=== PATIENT | male | born 1960 | race Caucasian/White ===

== ENCOUNTER 2021-08-03 17:56 | Inpatient (IN) | payer MEDICARE ==
--- NOTE | 2021-08-03 18:25 | ED ---
GI Bleed HPI - General Chief complaint: GI Bleed Stated complaint: GI Bleed Time Seen by Provider: 08/03/21 18:05 Source: patient, EMS Mode of arrival: EMS Limitations: no limitations - History of Present Illness Initial comments: 60-year-old male past medical history of heart failure, COPD, diabetes presents emergency department with reported bright red blood per rectum. Patient states that since 11 AM he has had 4 episodes of bright red blood. Denies previous history of GI bleeds. No peptic ulcer disease. Patient does not drink. States that he has been been taking Naprosyn twice daily for left shoulder pain. Denies alcohol use. No fevers or chills. Denies any abdominal pain. No rectal pain. Has had an endoscopy however it was greater than 10 years ago. No fevers or chills. No nausea or vomiting. Upon evaluation of the patient in his room he does have notable shortness of breath. Patient does not appear to be bothered by his work of breathing however he appears significantly in distress after moving around to complete the rectal exam. Patient states that he has a history of COPD and asthma. He also has a history of heart failure. He was recently placed on a new diuretic. He denies chest pain. No fevers, chills or cough. Denies any worsening lower extremity edema. Came to the hospital today for wound care evaluation and felt as if he was doing well ambulating without shortness of breath. No alleviating, precipitating or modifying factors - Related Data Home Medications Medication Instructions Recorded Confirmed Furosemide [Lasix] 40 mg PO BID 06/18/16 08/03/21 Sulfamethox-Tmp 800-160Mg [Bactrim 1 tab PO Q12HR 06/18/16 08/03/21 DS 800-160 mg] Acetaminophen Tab [Tylenol Tab] 1,000 mg PO Q6HR PRN 08/03/21 08/03/21 Albuterol Sulfate [Ventolin HFA] 1 - 2 puff INHALATION RT-Q6H PRN 08/03/21 08/03/21 Naproxen 500 mg PO BID PRN 08/03/21 08/03/21 Oxymetazoline HCl [Afrin 0.05%] 1 spray EA NOSTRIL DAILY PRN 08/03/21 08/03/21 metOLazone [Zaroxolyn] 5 mg PO DAILY 08/03/21 08/03/21 Allergies Allergy/AdvReac Type Severity Reaction Status Date / Time No Known Allergies Allergy Verified 08/03/21 18:29 Review of Systems ROS Statement: Those systems with pertinent positive or pertinent negative responses have been documented in the HPI. ROS Other: All systems not noted in ROS Statement are negative. Past Medical History Past Medical History: Heart Failure, COPD, Diabetes Mellitus History of Any Multi-Drug Resistant Organisms: MRSA Date of last positivie culture/infection: 05/23/16 MDRO Source:: Left Foot Past Surgical History: Hernia Repair, Orthopedic Surgery, Tonsillectomy Additional Past Surgical History / Comment(s): lt. 5th toe amp Past Psychological History: No Psychological Hx Reported Smoking Status: Current every day smoker Past Alcohol Use History: None Reported Past Drug Use History: None Reported General Exam Limitations: no limitations General appearance: alert, in no apparent distress Head exam: Present: atraumatic, normocephalic, normal inspection Eye exam: Present: normal appearance, PERRL, EOMI. Absent: scleral icterus, conjunctival injection, periorbital swelling ENT exam: Present: normal exam, mucous membranes moist Respiratory exam: Present: respiratory distress, wheezes, accessory muscle use, decreased breath sounds Cardiovascular Exam: Present: normal rhythm, tachycardia GI/Abdominal exam: Present: soft, normal bowel sounds. Absent: distended, tenderness, guarding, rebound, rigid Rectal exam: Present: bloody stool. Absent: hemorrhoids, mass, tenderness, prostate tenderness Extremities exam: Present: other (b/l le erythema, brawny edema with chronic venous stasis) Neurological exam: Present: alert, oriented X3, CN II-XII intact Psychiatric exam: Present: normal affect, normal mood Course Vital Signs 08/03/21 08/03/21 08/03/21 18:03 19:06 19:30 Temperature 98.2 F Pulse Rate 114 H 110 H 112 H Respiratory 19 18 Rate Blood Pressure 107/77 112/80 O2 Sat by Pulse 98 100 Oximetry 08/03/21 08/03/21 08/04/21 19:39 21:15 01:00 Temperature Pulse Rate 114 H 112 H 98 Respiratory 18 18 Rate Blood Pressure 96/72 114/74 O2 Sat by Pulse 99 100 Oximetry 08/04/21 08/04/21 08/04/21 02:47 07:43 07:59 Temperature Pulse Rate 96 100 98 Respiratory 18 Rate Blood Pressure 114/77 O2 Sat by Pulse 100 Oximetry 08/04/21 08/04/21 08/04/21 10:24 11:39 11:49 Temperature 99.0 F Pulse Rate 96 86 92 Respiratory 18 Rate Blood Pressure 136/86 O2 Sat by Pulse 96 Oximetry Medical Decision Making - Medical Decision Making Upon arrival patient was placed into room 1. Rectal exam is performed and demonstrates small streaks of bright red blood. Patient hemodynamically stable. He is placed on 6 L of oxygen due to his increased respiratory status. Laboratory studies were conducted. Hemoglobin is 14.5. Lactic acid 2.4. Sodium 129. Creatinine 1.2. Occult is positive. Chest x-ray does demonstrate mild pneumonia right lower lobe and left upper lobe. Blood cultures obtained. Patient given a dose of Levaquin and Vanco. Patient also given 80 mg Protonix. Recommended admission in order to trend his troponins. Spoke with Dr. Gonzalez who refused to consult on the patient. He states "I don't do GI bleeds". Because of this I did call and speak with Dr. Molina who agreed to consult on the patient. He will be admitted to medicine. She would like any DVT prophylaxis held. Repeat CBC ordered for midnight. DuoNeb treatments are ordered for every 4 hours. Patient remained in hemodynamically stable condition awaiting a bed on the floor - Lab Data Result diagrams: 08/04/21 13:05 08/04/21 02:52 Lab Results 08/03/21 08/03/21 08/03/21 Range/Units 19:08 19:08 19:08 WBC 12.6 H (3.8-10.6) k/uL RBC 4.65 (4.30-5.90) m/uL Hgb 14.5 (13.0-17.5) gm/dL Hct 43.9 (39.0-53.0) % MCV 94.3 (80.0-100.0) fL MCH 31.3 (25.0-35.0) pg MCHC 33.1 (31.0-37.0) g/dL RDW 14.2 (11.5-15.5) % Plt Count 459 H (150-450) k/uL MPV 7.5 Neutrophils % 86 % Lymphocytes % 8 % Monocytes % 4 % Eosinophils % 0 % Basophils % 0 % Neutrophils # 10.8 H (1.3-7.7) k/uL Lymphocytes # 1.0 (1.0-4.8) k/uL Monocytes # 0.5 (0-1.0) k/uL Eosinophils # 0.0 (0-0.7) k/uL Basophils # 0.1 (0-0.2) k/uL PT 10.7 (9.0-12.0) sec INR 1.0 (<1.2) APTT 25.7 (22.0-30.0) sec Sodium (137-145) mmol/L Potassium (3.5-5.1) mmol/L Chloride (98-107) mmol/L Carbon Dioxide (22-30) mmol/L Anion Gap mmol/L BUN (9-20) mg/dL Creatinine (0.66-1.25) mg/dL Est GFR (CKD-EPI)AfAm (>60 ml/min/1.73 sqM) Est GFR (CKD-EPI)NonAf (>60 ml/min/1.73 sqM) Glucose (74-99) mg/dL Lactic Ac Sepsis Rflx Plasma Lactic Acid Chris (0.7-2.0) mmol/L Calcium (8.4-10.2) mg/dL Magnesium (1.6-2.3) mg/dL Total Bilirubin (0.2-1.3) mg/dL AST (17-59) U/L ALT (4-49) U/L Alkaline Phosphatase (38-126) U/L Troponin I (0.000-0.034) ng/mL NT-Pro-B Natriuret Pep pg/mL Total Protein (6.3-8.2) g/dL Albumin (3.5-5.0) g/dL Lipase (23-300) U/L Stool Occult Blood Positive (Negative) 08/03/21 08/03/21 08/03/21 Range/Units 19:08 19:08 19:08 WBC (3.8-10.6) k/uL RBC (4.30-5.90) m/uL Hgb (13.0-17.5) gm/dL Hct (39.0-53.0) % MCV (80.0-100.0) fL MCH (25.0-35.0) pg MCHC (31.0-37.0) g/dL RDW (11.5-15.5) % Plt Count (150-450) k/uL MPV Neutrophils % % Lymphocytes % % Monocytes % % Eosinophils % % Basophils % % Neutrophils # (1.3-7.7) k/uL Lymphocytes # (1.0-4.8) k/uL Monocytes # (0-1.0) k/uL Eosinophils # (0-0.7) k/uL Basophils # (0-0.2) k/uL PT (9.0-12.0) sec INR (<1.2) APTT (22.0-30.0) sec Sodium 129 L (137-145) mmol/L Potassium 4.1 (3.5-5.1) mmol/L Chloride 87 L (98-107) mmol/L Carbon Dioxide 33 H (22-30) mmol/L Anion Gap 9 mmol/L BUN 30 H (9-20) mg/dL Creatinine 1.24 (0.66-1.25) mg/dL Est GFR (CKD-EPI)AfAm 72 (>60 ml/min/1.73 sqM) Est GFR (CKD-EPI)NonAf 62 (>60 ml/min/1.73 sqM) Glucose 262 H (74-99) mg/dL Lactic Ac Sepsis Rflx Plasma Lactic Acid Chris 2.4 H* (0.7-2.0) mmol/L Calcium 8.3 L (8.4-10.2) mg/dL Magnesium 1.4 L (1.6-2.3) mg/dL Total Bilirubin 0.7 (0.2-1.3) mg/dL AST 23 (17-59) U/L ALT 17 (4-49) U/L Alkaline Phosphatase 92 (38-126) U/L Troponin I <0.012 (0.000-0.034) ng/mL NT-Pro-B Natriuret Pep pg/mL Total Protein 7.2 (6.3-8.2) g/dL Albumin 3.5 (3.5-5.0) g/dL Lipase 79 (23-300) U/L Stool Occult Blood (Negative) 08/03/21 08/03/21 Range/Units 19:08 19:36 WBC (3.8-10.6) k/uL RBC (4.30-5.90) m/uL Hgb (13.0-17.5) gm/dL Hct (39.0-53.0) % MCV (80.0-100.0) fL MCH (25.0-35.0) pg MCHC (31.0-37.0) g/dL RDW (11.5-15.5) % Plt Count (150-450) k/uL MPV Neutrophils % % Lymphocytes % % Monocytes % % Eosinophils % % Basophils % % Neutrophils # (1.3-7.7) k/uL Lymphocytes # (1.0-4.8) k/uL Monocytes # (0-1.0) k/uL Eosinophils # (0-0.7) k/uL Basophils # (0-0.2) k/uL PT (9.0-12.0) sec INR (<1.2) APTT (22.0-30.0) sec Sodium (137-145) mmol/L Potassium (3.5-5.1) mmol/L Chloride (98-107) mmol/L Carbon Dioxide (22-30) mmol/L Anion Gap mmol/L BUN (9-20) mg/dL Creatinine (0.66-1.25) mg/dL Est GFR (CKD-EPI)AfAm (>60 ml/min/1.73 sqM) Est GFR (CKD-EPI)NonAf (>60 ml/min/1.73 sqM) Glucose (74-99) mg/dL Lactic Ac Sepsis Rflx Y Plasma Lactic Acid Chris (0.7-2.0) mmol/L Calcium (8.4-10.2) mg/dL Magnesium (1.6-2.3) mg/dL Total Bilirubin (0.2-1.3) mg/dL AST (17-59) U/L ALT (4-49) U/L Alkaline Phosphatase (38-126) U/L Troponin I (0.000-0.034) ng/mL NT-Pro-B Natriuret Pep 43 pg/mL Total Protein (6.3-8.2) g/dL Albumin (3.5-5.0) g/dL Lipase (23-300) U/L Stool Occult Blood (Negative) - EKG Data EKG Comments: EKG demonstrates a sinus tachycardia with a ventricular rate of 112. NV interval 152. QRS 110. QTC of 469. No acute ST segment elevations or depressions concerning for ischemic changes Disposition Clinical Impression: Hematochezia, CAP (community acquired pneumonia) Disposition: ADMITTED IP TO THIS HOSP Condition: Stable Is patient prescribed a controlled substance at d/c from ED?: No Decision to Admit Reason: Admit from EC Decision Date: 08/03/21 Decision Time: 20:59
[2021-08-03] MEDS ORDERED: IPRATROPIUM-ALBUTEROL 3 ML NEB INHALATION STA (18:51)
[2021-08-03 19:20] LABS: Basophils # (A) 0.1 k/uL (0-0.2); Basophils % (A) 0 %; Eosinophils % (A) 0 %; HCT 43.9 % (39.0-53.0); HGB 14.5 gm/dL (13.0-17.5); Lymphocytes % (A) 8 %; MCH 31.3 pg (25.0-35.0); MCHC 33.1 g/dL (31.0-37.0); MCV 94.3 fL (80.0-100.0); Mean Platelet Volume 7.5; Monocytes # (A) 0.5 k/uL (0-1.0); Monocytes % (A) 4 %; Neutrophils # (A) 10.8 k/uL (1.3-7.7); Neutrophils % (A) 86 %; Platelet Count 459 k/uL (150-450); RBC 4.65 m/uL (4.30-5.90); RDW 14.2 % (11.5-15.5); WBC 12.6 k/uL (3.8-10.6)
[2021-08-03 19:28] LABS: Partial Thromboplastin Time 25.7 sec (22.0-30.0); Prothrombin Time 10.7 sec (9.0-12.0)
[2021-08-03 19:30] LABS: Albumin 3.5 g/dL (3.5-5.0); Calcium 8.3 mg/dL (8.4-10.2); Magnesium 1.4 mg/dL (1.6-2.3); Potassium 4.1 mmol/L (3.5-5.1); Total Bilirubin 0.7 mg/dL (0.2-1.3); Total Protein 7.2 g/dL (6.3-8.2)
--- NOTE | 2021-08-03 19:38 | XR ---
EXAMINATION TYPE: XR chest 2V DATE OF EXAM: 08/03/2021 COMPARISON: 10/05/2013 HISTORY: Short of breath TECHNIQUE: FINDINGS: There is a 3 cm patch of infiltrate in the right lower lobe. There is also some infiltrate in the lateral left upper lobe. Heart and mediastinum are normal. There are no hilar masses. There is no pleural effusion. Bony thorax is intact. There are chest leads. IMPRESSION: There is evidence for some mild pneumonia right lower lobe and left upper lobe that is a change compared to old exam. Normal heart. No heart failure.
[2021-08-03] MEDS ORDERED: LEVOFLOXACIN 750MG-D5W PMX 750 MG in DEXTROSE/WATER 1 150ML.BAG IVPB STA (20:15)
[2021-08-03] MEDS ORDERED: VANCOMYCIN IV PER PHARMACY 1 EACH MISC MISCELLANE PRN (20:16)
[2021-08-03] MEDS ORDERED: VANCOMYCIN 2,000 MG in SODIUM CHLORIDE 0.9% 500 ML 500 ML IVPB STA (20:21)
[2021-08-03] MEDS ORDERED: NALOXONE 0.4 MG/ML 1 ML VIAL IV PRN (20:59)
[2021-08-03] MEDS: MAGNESIUM SULFATE-D5W PMX 1 GM in DEXTROSE/WATER 1 100ML.BAG IVPB SCH ×2 (21:41→23:43)
[2021-08-04] MEDS ORDERED: IPRATROPIUM-ALBUTEROL 3 ML NEB INHALATION SCH
[2021-08-04] MEDS ORDERED: PANTOPRAZOLE 40 MG/10 ML VIAL IVP ONE (00:09)
[2021-08-04] MEDS: SODIUM CHLORIDE 0.9% 1,000 ML IV SCH ×2 (02:42→15:07)
[2021-08-04 03:02] LABS: HCT 38.6 % (39.0-53.0); HGB 12.8 gm/dL (13.0-17.5); MCH 31.4 pg (25.0-35.0); MCHC 33.1 g/dL (31.0-37.0); Mean Platelet Volume 7.5; Platelet Count 383 k/uL (150-450); RBC 4.06 m/uL (4.30-5.90); RDW 14.2 % (11.5-15.5); WBC 10.9 k/uL (3.8-10.6)
[2021-08-04 03:33] LABS: Basophils # (A) 0.1 k/uL (0-0.2); Basophils % (A) 1 %; Eosinophils % (A) 0 %; HCT 41.1 % (39.0-53.0); HGB 13.5 gm/dL (13.0-17.5); Lymphocytes # (A) 1.7 k/uL (1.0-4.8); Lymphocytes % (A) 16 %; MCHC 32.7 g/dL (31.0-37.0); MCV 94.8 fL (80.0-100.0); Mean Platelet Volume 7.4; Monocytes # (A) 0.5 k/uL (0-1.0); Monocytes % (A) 5 %; Neutrophils # (A) 8.3 k/uL (1.3-7.7); Neutrophils % (A) 76 %; Platelet Count 411 k/uL (150-450); RBC 4.34 m/uL (4.30-5.90); RDW 14.3 % (11.5-15.5); WBC 10.9 k/uL (3.8-10.6)
[2021-08-04 03:55] LABS: Calcium 8.4 mg/dL (8.4-10.2); Potassium 4.5 mmol/L (3.5-5.1)
[2021-08-04] MEDS: IPRATROPIUM-ALBUTEROL 3 ML NEB INHALATION PRN ×2 (07:43→11:39)
[2021-08-04] MEDS: PANTOPRAZOLE 40 MG/10 ML VIAL IVP SCH ×2 (08:48→22:01)
[2021-08-04] MEDS ORDERED: VANCOMYCIN 2,000 MG in SODIUM CHLORIDE 0.9% 500 ML 500 ML IVPB SCH (11:00)
[2021-08-04 13:29] LABS: HCT 35.7 % (39.0-53.0); MCH 31.9 pg (25.0-35.0); MCHC 33.5 g/dL (31.0-37.0); MCV 95.3 fL (80.0-100.0); Mean Platelet Volume 7.2; Platelet Count 357 k/uL (150-450); RBC 3.75 m/uL (4.30-5.90); RDW 14.3 % (11.5-15.5); WBC 8.5 k/uL (3.8-10.6)
--- NOTE | 2021-08-04 14:34 | P.CNPUL ---
History of Present Illness Consult date: 08/04/21 Requesting physician: Jojo Sanchez Reason for consult: dyspnea, abnormal CXR/CT Chief complaint: Rectal bleeding, shortness of breath History of present illness: This is a 60-year-old male patient who follows with Dr. Boston as his primary care provider. He has history of diabetes mellitus, diastolic congestive heart failure, chronic obstructive pulmonary disease, chronic and ongoing tobacco dependence. He presented to the emergency room last evening with reports of bright red blood per rectum. He had approximate 4 episode yesterday. No previous history of GI bleed. Denies excessive alcohol use. His been taking Naprosyn twice daily for left shoulder pain. Chest x-ray revealed some mild infiltrates in the right lower lobe and left upper lobe. We're consulted for the same. He is seen in the emergency room. Currently sitting up on the stretcher. Awake and alert in no acute distress. He is requiring 5 L high flow nasal cannula to maintain O2 saturations in the 90s. He does have home oxygen. He has a nebulizer with albuterol treatments. He had not been seen by pulmon ologist in the past. He has been smoking for approximately 42 years. White count 8.5. Hemoglobin 12.0. Sodium 129. Potassium 4.5. Bicarb 35. Creatinine 1.15. Initial lactic 2.9. Currently 1.5. ProBNP 43. Stool for occult blood positive. He's been initiated on vancomycin, DuoNeb inhalations, Protonix. 0.9 normal saline at 75 ML's per hour. Review of Systems REVIEW OF SYSTEMS: CONSTITUTIONAL: Denies any recent significant weight loss or weight gain. EYES: Denies change in vision. EARS, NOSE, MOUTH, THROAT: Denies headaches, denies sore throat. CARDIOVASCULAR: Denies chest pain, palpitations or syncopal episodes. RESPIRATORY: Positive for shortness of breath, cough, congestion no hemoptysis. GASTROINTESTINAL: Positive for bright red blood per rectum GENITOURINARY: Denies hematuria, denies infections. MUSKULOSKELETAL: Denies pain, denies swelling. INTEGUMENTARY: Denies rash, denies eczema. NEUROLOGICAL: Denies recent memory loss, no recent seizure activity. PSYCHIATRIC: Denies anxiety, denies depression. HEMATOLOGIC/LYMPHATIC: Denies anemia, denies enlarged lymph nodes. Past Medical History Past Medical History: Heart Failure, COPD, Diabetes Mellitus History of Any Multi-Drug Resistant Organisms: MRSA Date of last positivie culture/infection: 05/23/16 MDRO Source:: Left Foot Past Surgical History: Hernia Repair, Orthopedic Surgery, Tonsillectomy Additional Past Surgical History / Comment(s): lt. 5th toe amp Past Psychological History: No Psychological Hx Reported Smoking Status: Current every day smoker Past Alcohol Use History: None Reported Past Drug Use History: None Reported Medications and Allergies Home Medications Medication Instructions Recorded Confirmed Type Furosemide [Lasix] 40 mg PO BID 06/18/16 08/03/21 History Sulfamethox-Tmp 800-160Mg [Bactrim 1 tab PO Q12HR 06/18/16 08/03/21 History DS 800-160 mg] Acetaminophen Tab [Tylenol Tab] 1,000 mg PO Q6HR PRN 08/03/21 08/03/21 History Albuterol Sulfate [Ventolin HFA] 1 - 2 puff INHALATION RT-Q6H PRN 08/03/21 08/03/21 History Naproxen 500 mg PO BID PRN 08/03/21 08/03/21 History Oxymetazoline HCl [Afrin 0.05%] 1 spray EA NOSTRIL DAILY PRN 08/03/21 08/03/21 History metOLazone [Zaroxolyn] 5 mg PO DAILY 08/03/21 08/03/21 History Allergies Allergy/AdvReac Type Severity Reaction Status Date / Time No Known Allergies Allergy Verified 08/03/21 18:29 Physical Exam Vitals: Vital Signs Temp Pulse Resp BP Pulse Ox 08/04/21 11:49 92 08/04/21 11:39 86 08/04/21 10:24 99.0 F 96 18 136/86 96 08/04/21 07:59 98 08/04/21 07:43 100 08/04/21 02:47 96 18 114/77 100 08/04/21 01:00 98 18 114/74 100 08/03/21 21:15 112 H 18 96/72 99 08/03/21 19:39 114 H 08/03/21 19:30 112 H 08/03/21 19:06 110 H 18 112/80 100 08/03/21 18:03 98.2 F 114 H 19 107/77 98 Intake and Output 0908/04/21 08/04/21 22:59 06:59 14:59 Output Total 150 Balance -150 Output: Stool 150 Other: # Bowel Movements 1 Weight 145.15 kg GENERAL EXAM: Alert, pleasant 60-year-old gentleman, on 5 L nasal cannula, fairly comfortable in no apparent distress. HEAD: Normocephalic. EYES: Normal reaction of pupils, equal size. NOSE: Clear with pink turbinates. THROAT: No erythema or exudates. NECK: No masses, no JVD. CHEST: No chest wall deformity. LUNGS: Equal air entry with scattered rhonchi, end expiratory wheeze, diminished. CVS: S1 and S2 normal with no audible murmur, regular rhythm. ABDOMEN: No hepatosplenomegaly, normal bowel sounds, no guarding or rigidity. SPINE: No scoliosis or deformity SKIN: No rashes CENTRAL NERVOUS SYSTEM: No focal deficits, tone is normal in all 4 extremities. EXTREMITIES: There is no peripheral edema. No clubbing, no cyanosis. Peripheral pulses are intact. Results - Laboratory Findings CBC and BMP: 08/04/21 13:05 08/04/21 02:52 PT/INR, D-dimer PT 10.7 sec (9.0-12.0) 08/03/21 19:08 INR 1.0 (<1.2) 08/03/21 19:08 Abnormal lab findings: Abnormal Labs 08/03/21 08/03/21 08/03/21 19:08 19:08 19:08 WBC 12.6 H RBC Hgb Hct Plt Count 459 H Neutrophils # 10.8 H Sodium 129 L Chloride 87 L Carbon Dioxide 33 H BUN 30 H Glucose 262 H Plasma Lactic Acid Chris 2.4 H* Calcium 8.3 L Magnesium 1.4 L 08/03/21 08/04/21 08/04/21 22:45 02:46 02:52 WBC 10.9 H RBC 4.06 L Hgb 12.8 L Hct 38.6 L Plt Count Neutrophils # Sodium 129 L Chloride 88 L Carbon Dioxide 35 H BUN 32 H Glucose 194 H Plasma Lactic Acid Chris 2.9 H* Calcium Magnesium 08/04/21 08/04/21 02:52 13:05 WBC 10.9 H RBC 3.75 L Hgb 12.0 L Hct 35.7 L Plt Count Neutrophils # 8.3 H Sodium Chloride Carbon Dioxide BUN Glucose Plasma Lactic Acid Chris Calcium Magnesium - Diagnostic Findings Chest x-ray: image reviewed Assessment and Plan Assessment: 1 Acute lower GI bleed with bright red blood per rectum 2 Acute hypoxemic respiratory failure secondary to an acute community-acquired pneumonia 3 Acute exacerbation of chronic obstructive pulmonary disease secondary to above 4 Chronic and ongoing tobacco dependence of greater than 40 years 5 History of diastolic congestive heart failure, maintained on Lasix and Zaroxolyn in the outpatient setting 6 Chronic left shoulder pain taking Naprosyn twice daily 7 Diabetes mellitus Plan: The patient was seen and evaluated by Dr. Gary Chest x-ray and labs reviewed Discontinue vancomycin Initiate ceftriaxone and azithromycin Initiate DuoNeb inhalations, Pulmicort and Perforomist inhalations, IV Solu- Medrol Educated regarding the importance of complete smoking cessation Continue to need to monitor hemoglobin and rectal bleeding Remains on IV Protonix Titrate the FiO2 as tolerated We will continue to follow and make further recommendations based on his clinical status I, the cosigning physician, performed a history & physical examination of the patient. Lungs sounds with bilateral scattered rhonchi, end expiratory wheeze, diminished. Maintaining good O2 saturations in the 90s on 5 L/m per nasal cannula. I discussed the assessment and plan of care with my nurse practitioner, Zulema Dawn. I attest to the above infiltration as dictated by her. Time with Patient: Greater than 30
[2021-08-04] MEDS: AZITHROMYCIN 500 MG TAB PO SCH (15:07)
[2021-08-04] MEDS: IPRATROPIUM-ALBUTEROL 3 ML NEB INHALATION SCH ×2 (15:17→19:21)
[2021-08-04] MEDS ORDERED: IOPAMIDOL CONTRAST (ORAL USE) VIAL PO PRN (15:40)
--- NOTE | 2021-08-04 15:46 | P.GSCN ---
History of Present Illness Consult date: 08/04/21 History of present illness: CHIEF COMPLAINT: Hematochezia HISTORY OF PRESENT ILLNESS: The patient is a 60 year old male is admitted to the emergency room with concern for gastrointestinal bleeding. Reports blood from his rectum. Additional workup from ER included chest x-ray which demonstrated pneumonia. Patient's hemoglobin has been within normal limits. Due to patient concern for GI bleed including presence of occult stool positive blood, general surgery is consulted for further assessment. Patient has not had prior colonoscopy in over 10 years. Family is at bedside and confirms his colonoscopy was without polyps. He also reports mireya-umbilical pain and hernia precipitating his bloody bowel movements. He reports at least 4 toilet bowl full of blood. He denies any prior episodes. PAST MEDICAL HISTORY: See list and reviewed PAST SURGICAL HISTORY: See list and reviewed MEDICATIONS: See list and reviewed ALLERGIES: See list and reviewed SOCIAL HISTORY: See list and reviewed FAMILY HISTORY: See list and reviewed REVIEW OF ORGAN SYSTEMS: CONSTITUTIONAL: No fevers or chills. Has morbid obesity, BMI 41.1. EYES: Denies any trouble with vision. No glasses. HEENT: No difficulties with hearing. No nosebleeds. No difficulty swallowing. RESPIRATORY: Current pneumonia. Has troubles with breathing or dyspnea on exertion. Has chronic obstructive pulmonary disease. Chronic tobacco abuse. CARDIOVASCULAR: Has congestive heart failure on Zaroxolyn. GASTROINTESTINAL: Denies fatty food intolerance. Denies change in bowel habits and gas bloat. GENITOURINARY: Denies any blood in urine or increased urinary frequency. NEUROLOGICAL: Denies any numbness or tingling along the distal extremities. No seizure disorders or headaches. MUSCULOSKELETAL: Has back pain, stiffness or joint arthritis. SKIN: No current skin cancer. No rash. PSYCHIATRIC: Denies current depression or suicidal thoughts. ENDOCRINE: Denies current thyroid disorders. Has diabetes type 2. HEME/LYMPHATIC: Denies any lumps and bumps around the neck. No recent deep venous thrombosis. ALLERGY/IMMUNOLOGY: No immunoglobulin therapy. No immune deficiencies. BREAST: Denies current breast lumps, pain or nipple discharge. PHYSICAL EXAM: VITALS: Reviewed CONSTITUTIONAL: Well developed and in no acute distress. EYES: Conjuctivae without sclera icterus. Extraocular movements grossly intact. HEAD, EARS, NOSE, THROAT: Moist buccal mucosa. Head is atraumatic, normocephalic. Hears conversational speech. No nasal drainage. NECK: Supple. No JV distention. No thyroidomegaly. Thick neck. RESPIRATORY: Non-labored respirations and equal bilateral excursions. No gross wheezes. CARDIOVASCULAR: Regular rate and rhythm. Extremities without moderate edema. Palpable 2+ radial pulses. ABDOMEN: Obese, no peritonitis. Umbilical hernia with thin skin, over 3 cm. LYMPH: No neck lymphadenopathy. MUSCULOSKELETAL: Nail and fingers with good capillary refill. SKIN: Warm and well perfused with good skin turgor. NEUROLOGIC: Cranial nerves II through XII grossly intact. Sensation upper and extremities intact. No focal or lateralizing signs. PSYCH: Appropriate affect. Alert and oriented to person, place and time. Displays appropriate insight. CLINCAL LABS: Reviewed. WBC down 12.6-10.6. Hemoglobin down 14.5-13.5. Sodium low 129. RADIOLOGY: Report reviewed a chest x-ray demonstrating pneumonia. EKG: Abnormal with right bundle dalia block and septal infarct ASSESSMENT: 1. Gastrointestinal bleeding 2. Congestive heart failure with pneumonia 3. Hyponatremia 4. Lactic acidosis on admission 5. Pneumonia 6. Umbilical hernia PLAN: 1. His clinical history including presenting events are suspicious for bleeding diverticulitis that presents in similar nature. Recommend CT of the abdomen and pelvis for diverticulitis/diverticulosis. 2. He did present with bleeding of large amount per his description and may benefit from upper lower endoscopies for acute gastrointestinal bleeding 3. He is elevated risk with congestive heart failure and volume overload from GI prep. Thank you for this kind consultation. Past Medical History Past Medical History: Heart Failure, COPD, Diabetes Mellitus History of Any Multi-Drug Resistant Organisms: MRSA Year Discovered:: 05/23/16 MDRO Source:: Left Foot Past Surgical History: Hernia Repair, Orthopedic Surgery, Tonsillectomy Additional Past Surgical History / Comment(s): lt. 5th toe amp Past Psychological History: No Psychological Hx Reported Smoking Status: Current every day smoker Past Alcohol Use History: None Reported Past Drug Use History: None Reported Medications and Allergies Home Medications Medication Instructions Recorded Confirmed Type Furosemide [Lasix] 40 mg PO BID 06/18/16 08/03/21 History Sulfamethox-Tmp 800-160Mg [Bactrim 1 tab PO Q12HR 06/18/16 08/03/21 History DS 800-160 mg] Acetaminophen Tab [Tylenol Tab] 1,000 mg PO Q6HR PRN 08/03/21 08/03/21 History Albuterol Sulfate [Ventolin HFA] 1 - 2 puff INHALATION RT-Q6H PRN 08/03/2102/18 History Naproxen 500 mg PO BID PRN 08/03/21 08/03/21 History Oxymetazoline HCl [Afrin 0.05%] 1 spray EA NOSTRIL DAILY PRN 08/03/21 08/03/21 History metOLazone [Zaroxolyn] 5 mg PO DAILY 08/03/21 08/03/21 History Allergies Allergy/AdvReac Type Severity Reaction Status Date / Time No Known Allergies Allergy Verified 08/03/21 18:29 Surgical - Exam Vital Signs Temp Pulse Resp BP Pulse Ox 98.2 F 114 H 19 107/77 98 08/03/21 18:03 08/03/21 18:03 08/03/21 18:03 08/03/21 18:03 08/03/21 18:03 Results - Labs 08/04/21 13:05 08/04/21 02:52 Abnormal Lab Results - Last 24 Hours (Table) 08/03/21 08/03/21 08/03/21 Range/Units 19:08 19:08 19:08 WBC 12.6 H (3.8-10.6) k/uL RBC (4.30-5.90) m/uL Hgb (13.0-17.5) gm/dL Hct (39.0-53.0) % Plt Count 459 H (150-450) k/uL Neutrophils # 10.8 H (1.3-7.7) k/uL Sodium 129 L (137-145) mmol/L Chloride 87 L (98-107) mmol/L Carbon Dioxide 33 H (22-30) mmol/L BUN 30 H (9-20) mg/dL Glucose 262 H (74-99) mg/dL Plasma Lactic Acid Chris 2.4 H* (0.7-2.0) mmol/L Calcium 8.3 L (8.4-10.2) mg/dL Magnesium 1.4 L (1.6-2.3) mg/dL 08/03/21 08/04/21 08/04/21 Range/Units 22:45 02:46 02:52 WBC 10.9 H (3.8-10.6) k/uL RBC 4.06 L (4.30-5.90) m/uL Hgb 12.8 L (13.0-17.5) gm/dL Hct 38.6 L (39.0-53.0) % Plt Count (150-450) k/uL Neutrophils # (1.3-7.7) k/uL Sodium 129 L (137-145) mmol/L Chloride 88 L (98-107) mmol/L Carbon Dioxide 35 H (22-30) mmol/L BUN 32 H (9-20) mg/dL Glucose 194 H (74-99) mg/dL Plasma Lactic Acid Chris 2.9 H* (0.7-2.0) mmol/L Calcium (8.4-10.2) mg/dL Magnesium (1.6-2.3) mg/dL 08/04/21 Range/Units 02:52 WBC 10.9 H (3.8-10.6) k/uL RBC (4.30-5.90) m/uL Hgb (13.0-17.5) gm/dL Hct (39.0-53.0) % Plt Count (150-450) k/uL Neutrophils # 8.3 H (1.3-7.7) k/uL Sodium (137-145) mmol/L Chloride (98-107) mmol/L Carbon Dioxide (22-30) mmol/L BUN (9-20) mg/dL Glucose (74-99) mg/dL Plasma Lactic Acid Chris (0.7-2.0) mmol/L Calcium (8.4-10.2) mg/dL Magnesium (1.6-2.3) mg/dL Diabetes panel 08/03/21 08/04/21 Range/Units 19:08 02:52 Sodium 129 L 129 L (137-145) mmol/L Potassium 4.1 4.5 (3.5-5.1) mmol/L Chloride 87 L 88 L (98-107) mmol/L Carbon Dioxide 33 H 35 H (22-30) mmol/L BUN 30 H 32 H (9-20) mg/dL Creatinine 1.24 1.15 (0.66-1.25) mg/dL Glucose 262 H 194 H (74-99) mg/dL Calcium 8.3 L 8.4 (8.4-10.2) mg/dL AST 23 (17-59) U/L ALT 17 (4-49) U/L Alkaline Phosphatase 92 (38-126) U/L Total Protein 7.2 (6.3-8.2) g/dL Albumin 3.5 (3.5-5.0) g/dL Calcium panel 08/03/21 08/04/21 Range/Units 19:08 02:52 Calcium 8.3 L 8.4 (8.4-10.2) mg/dL Albumin 3.5 (3.5-5.0) g/dL Pituitary panel 08/03/21 08/04/21 Range/Units 19:08 02:52 Sodium 129 L 129 L (137-145) mmol/L Potassium 4.1 4.5 (3.5-5.1) mmol/L Chloride 87 L 88 L (98-107) mmol/L Carbon Dioxide 33 H 35 H (22-30) mmol/L BUN 30 H 32 H (9-20) mg/dL Creatinine 1.24 1.15 (0.66-1.25) mg/dL Glucose 262 H 194 H (74-99) mg/dL Calcium 8.3 L 8.4 (8.4-10.2) mg/dL Adrenal panel 08/03/21 08/04/21 Range/Units 19:08 02:52 Sodium 129 L 129 L (137-145) mmol/L Potassium 4.1 4.5 (3.5-5.1) mmol/L Chloride 87 L 88 L (98-107) mmol/L Carbon Dioxide 33 H 35 H (22-30) mmol/L BUN 30 H 32 H (9-20) mg/dL Creatinine 1.24 1.15 (0.66-1.25) mg/dL Glucose 262 H 194 H (74-99) mg/dL Calcium 8.3 L 8.4 (8.4-10.2) mg/dL Total Bilirubin 0.7 (0.2-1.3) mg/dL AST 23 (17-59) U/L ALT 17 (4-49) U/L Alkaline Phosphatase 92 (38-126) U/L Total Protein 7.2 (6.3-8.2) g/dL Albumin 3.5 (3.5-5.0) g/dL Assessment and Plan (1) CAP (community acquired pneumonia) Current Visit: Yes Status: Acute Code(s): J18.9 - PNEUMONIA, UNSPECIFIED ORGANISM SNOMED Code(s): 247540692 (2) Hematochezia Current Visit: Yes Status: Acute Code(s): K92.1 - MELENA SNOMED Code(s): 294763245 (3) Morbid obesity with BMI of 40.0-44.9, adult Current Visit: No Status: Acute Code(s): E66.01 - MORBID (SEVERE) OBESITY DUE TO EXCESS CALORIES SNOMED Code(s): 317459731 (4) Type 2 diabetes mellitus Current Visit: No Status: Acute Code(s): E11.9 - TYPE 2 DIABETES MELLITUS WITHOUT COMPLICATIONS SNOMED Code(s): 36509274 (5) Umbilical hernia Current Visit: Yes Status: Acute Code(s): K42.9 - UMBILICAL HERNIA WITHOUT OBSTRUCTION OR GANGRENE SNOMED Code(s): 632324705 (6) Diverticulosis Current Visit: Yes Status: Acute Code(s): K57.90 - DVRTCLOS OF INTEST, PART UNSP, W/O PERF OR ABSCESS W/O BLEED SNOMED Code(s): 663742389
--- NOTE | 2021-08-04 18:01 | P.HPIM ---
History of Present Illness H&P Date: 08/04/21 Chief Complaint: Rectal bleed 60-year-old male patient who follows with Dr. Boston as his primary care provider. He has history of diabetes mellitus, diastolic congestive heart failure, chronic obstructive pulmonary disease, chronic and ongoing tobacco dependence. He presented to the emergency room last evening with reports of bright red blood per rectum. He had approximate 4 episode yesterday. No previous history of GI bleed. Denies excessive alcohol use. His been taking Naprosyn twice daily for left shoulder pain. Chest x-ray revealed some mild infiltrates in the right lower lobe and left upper lobe. We're consulted for the same. He is seen in the emergency room. Currently sitting up on the stretcher. Awake and alert in no acute distress. He is requiring 5 L high flow nasal cannula to maintain O2 saturations in the 90s. He does have home oxygen. He has a nebulizer with albuterol treatments. He had not been seen by senior data architect in the past. He has been smoking for approximately 42 years. White count 8.5. Hemoglobin 12.0. Sodium 129. Potassium 4.5. Bicarb 35. Creatinine 1.15. Initial lactic 2.9. Currently 1.5. ProBNP 43. Stool for occult blood positive. Review of Systems REVIEW OF SYSTEMS: CONSTITUTIONAL: No fever, no malaise, no fatigue. HEENT: No recent visual problems or hearing problems. Denied any sore throat. CARDIOVASCULAR: No chest pain, orthopnea, PND, no palpitations, no syncope. PULMONARY: No shortness of breath, no cough, no hemoptysis. GASTROINTESTINAL: No diarrhea, no nausea, no vomiting, no abdominal pain. NEUROLOGICAL: No headaches, no weakness, no numbness. HEMATOLOGICAL: Denies any bleeding or petechiae. GENITOURINARY: Denies any burning micturition, frequency, or urgency. MUSCULOSKELETAL/RHEUMATOLOGICAL: Denies any joint pain, swelling, or any muscle pain. ENDOCRINE: Denies any polyuria or polydipsia. The rest of the 14-point review of systems is negative. Past Medical History Past Medical History: Heart Failure, COPD, Diabetes Mellitus History of Any Multi-Drug Resistant Organisms: MRSA Date of last positivie culture/infection: 05/23/16 MDRO Source:: Left Foot Past Surgical History: Hernia Repair, Orthopedic Surgery, Tonsillectomy Additional Past Surgical History / Comment(s): lt. 5th toe amp Past Psychological History: No Psychological Hx Reported Smoking Status: Current every day smoker Past Alcohol Use History: None Reported Past Drug Use History: None Reported Medications and Allergies Home Medications Medication Instructions Recorded Confirmed Type Furosemide [Lasix] 40 mg PO BID 06/18/16 08/03/21 History Sulfamethox-Tmp 800-160Mg [Bactrim 1 tab PO Q12HR 06/18/16 08/03/21 History DS 800-160 mg] Acetaminophen Tab [Tylenol Tab] 1,000 mg PO Q6HR PRN 08/03/21 08/03/21 History Albuterol Sulfate [Ventolin HFA] 1 - 2 puff INHALATION RT-Q6H PRN 08/03/21 08/03/21 History Naproxen 500 mg PO BID PRN 08/03/21 08/03/21 History Oxymetazoline HCl [Afrin 0.05%] 1 spray EA NOSTRIL DAILY PRN 08/03/21 08/03/21 History metOLazone [Zaroxolyn] 5 mg PO DAILY 08/03/21 08/03/21 History Allergies Allergy/AdvReac Type Severity Reaction Status Date / Time No Known Allergies Allergy Verified 08/03/21 18:29 Physical Exam Vitals: Vital Signs Temp Pulse Resp BP Pulse Ox 08/04/21 11:49 92 08/04/21 11:39 86 08/04/21 10:24 99.0 F 96 18 136/86 96 08/04/21 07:59 98 08/04/21 07:43 100 08/04/21 02:47 96 18 114/77 100 08/04/21 01:00 98 18 114/74 100 08/03/21 21:15 112 H 18 96/72 99 08/03/21 19:39 114 H 08/03/21 19:30 112 H 08/03/21 19:06 110 H 18 112/80 100 08/03/21 18:03 98.2 F 114 H 19 107/77 98 Intake and Output 08/03/21 08/04/21 08/04/21 22:59 06:59 14:59 Output Total 150 Balance -150 Output: Stool 150 Other: # Bowel Movements 1 Weight 145.15 kg GENERAL EXAM: Alert, pleasant 60-year-old gentleman, on 5 L nasal cannula, fairl y comfortable in no apparent distress. HEAD: Normocephalic. EYES: Normal reaction of pupils, equal size. NOSE: Clear with pink turbinates. THROAT: No erythema or exudates. NECK: No masses, no JVD. CHEST: No chest wall deformity. LUNGS: Equal air entry with scattered rhonchi, end expiratory wheeze, d iminished. CVS: S1 and S2 normal with no audible murmur, regular rhythm. ABDOMEN: No hepatosplenomegaly, normal bowel sounds, no guarding or rigidity. SPINE: No scoliosis or deformity SKIN: No rashes CENTRAL NERVOUS SYSTEM: No focal deficits, tone is normal in all 4 extremities. EXTREMITIES: There is no peripheral edema. No clubbing, no cyanosis. Peripheral pulses are intact. Results CBC & Chem 7: 08/04/21 13:05 08/04/21 02:52 Labs: Abnormal Lab Results - Last 24 Hours (Table) 08/03/21 08/03/21 08/03/21 Range/Units 19:08 19:08 19:08 WBC 12.6 H (3.8-10.6) k/uL RBC (4.30-5.90) m/uL Hgb (13.0-17.5) gm/dL Hct (39.0-53.0) % Plt Count 459 H (150-450) k/uL Neutrophils # 10.8 H (1.3-7.7) k/uL Sodium 129 L (137-145) mmol/L Chloride 87 L (98-107) mmol/L Carbon Dioxide 33 H (22-30) mmol/L BUN 30 H (9-20) mg/dL Glucose 262 H (74-99) mg/dL Plasma Lactic Acid Chris 2.4 H* (0.7-2.0) mmol/L Calcium 8.3 L (8.4-10.2) mg/dL Magnesium 1.4 L (1.6-2.3) mg/dL 08/03/21 08/04/21 08/04/21 Range/Units 22:45 02:46 02:52 WBC 10.9 H (3.8-10.6) k/uL RBC 4.06 L (4.30-5.90) m/uL Hgb 12.8 L (13.0-17.5) gm/dL Hct 38.6 L (39.0-53.0) % Plt Count (150-450) k/uL Neutrophils # (1.3-7.7) k/uL Sodium 129 L (137-145) mmol/L Chloride 88 L (98-107) mmol/L Carbon Dioxide 35 H (22-30) mmol/L BUN 32 H (9-20) mg/dL Glucose 194 H (74-99) mg/dL Plasma Lactic Acid Chris 2.9 H* (0.7-2.0) mmol/L Calcium (8.4-10.2) mg/dL Magnesium (1.6-2.3) mg/dL 08/04/21 08/04/21 Range/Units 02:52 13:05 WBC 10.9 H (3.8-10.6) k/uL RBC 3.75 L (4.30-5.90) m/uL Hgb 12.0 L (13.0-17.5) gm/dL Hct 35.7 L (39.0-53.0) % Plt Count (150-450) k/uL Neutrophils # 8.3 H (1.3-7.7) k/uL Sodium (137-145) mmol/L Chloride (98-107) mmol/L Carbon Dioxide (22-30) mmol/L BUN (9-20) mg/dL Glucose (74-99) mg/dL Plasma Lactic Acid Chris (0.7-2.0) mmol/L Calcium (8.4-10.2) mg/dL Magnesium (1.6-2.3) mg/dL Assessment and Plan Assessment: 1. Acute lower GI bleed; patient had one episode of bright red blood per rectum; did have to preceding bowel movements without any bleed - We will monitor H&H closely; Protonix 40 mg IV daily; we will plan to type crossmatch and transfuse if hemoglobin is less than 8.0 - Gen. surgery has been consulted; no GI service will be 2. Acute hypoxemic respiratory failure; multifactorial; secondary to CPAP, acut e exacerbation COPD 3. Community-acquired pneumonia - Patient received IV Levaquin and vancomycin in ED; pulmonary is consulted and have discontinued vancomycin and patient is initiated on ceftriaxone and azithromycin - We will monitor CBC, CMP and pro-calcitonin; blood cultures and sputum culture s obtained in ED 4. Acute exacerbation COPD; continue with DuoNeb nebulizer treatments along with Pulmicort and Perforomist inhalations; IV Solu-Medrol - Patient is on antibiotic therapy with Rocephin and ceftriaxone 5. Diastolic CHF; not in exacerbation; patient remains on diuretic therapy with Lasix and Zaroxolyn 6. Diabetes mellitus; monitor Accu-Cheks every before meals and at bedtime with insulin sliding scale 7. Osteoarthritis; chronic left shoulder pain; patient currently taking N aprosyn twice a day dose DVT prophylaxis; SCDs only due to GI bleed CODE STATUS; full code
--- NOTE | 2021-08-04 18:25 | CT ---
EXAMINATION TYPE: CT abdomen pelvis w con DATE OF EXAM: 08/04/2021 COMPARISON: None HISTORY: GI Bleed CT DLP: 2731.8 mGycm Automated exposure control for dose reduction was used. CONTRAST: Performed with IV Contrast, patient injected with 80 mL of Isovue 300. Images obtained from the diaphragm to the floor the pelvis with oral and IV contrast. Heart is normal. There is no pericardial effusion. Lung bases are clear. There is no pleural effusion . There is minimal subsegmental atelectasis right lung base. Liver spleen stomach pancreas gallbladde r appear intact. There are small calcified gallstones. Bile ducts are not dilated. There is no adrenal mass. Kidneys show satisfactory contrast opacification. There is no hydronephrosi s. Delayed images show very little contrast in the renal collecting systems. There is no retroperiton eal adenopathy. Ureters are not dilated. Bladder distends smoothly. There is no inguinal hernia. Ther e is fat containing umbilical hernia that measures 5.6 cm. There is no mesenteric edema. There is no ascites or free air. There is no sign of a bowel obstructio n. There is oral contrast material extending to the rectum. There is no sign of intestinal wall thick ening. There is very short appendix which is not dilated. There is atherosclerotic vascular calcifica tion. Lumbar vertebra have normal alignment. There is no compression fracture. Bony pelvis is intact. Hip j oints are intact. Sacroiliac joints are intact. There is 3.5 cm exostosis on the lateral right ilium. This could be osteochondroma. IMPRESSION: No evidence of renal stone or obstruction. Decreased contrast seen on the delayed images that could r elate to some degree of renal failure. No evidence of bowel obstruction. I do not see a cause for GI bleeding. Umbilical hernia. Cholelithiasis.
[2021-08-04] MEDS: BUDESONIDE 1 MG/2 ML NEBU INHALATION SCH (19:21)
[2021-08-04] MEDS: FORMOTEROL FUMARATE 20 MCG/2 ML NEBU INHALATION SCH (19:21)
[2021-08-05] MEDS: SODIUM CHLORIDE 0.9% 1,000 ML IV SCH ×3 (04:24→21:15)
[2021-08-05] MEDS: BUDESONIDE 1 MG/2 ML NEBU INHALATION SCH ×2 (08:34→19:38)
[2021-08-05] MEDS: IPRATROPIUM-ALBUTEROL 3 ML NEB INHALATION SCH ×4 (08:34→19:38)
[2021-08-05] MEDS: FORMOTEROL FUMARATE 20 MCG/2 ML NEBU INHALATION SCH ×2 (08:34→19:38)
[2021-08-05 08:59] LABS: Basophils # (A) 0.1 k/uL (0-0.2); Basophils % (A) 1 %; Eosinophils # (A) 0.1 k/uL (0-0.7); Eosinophils % (A) 1 %; HCT 35.7 % (39.0-53.0); HGB 11.7 gm/dL (13.0-17.5); Lymphocytes # (A) 1.5 k/uL (1.0-4.8); Lymphocytes % (A) 18 %; MCH 30.7 pg (25.0-35.0); MCHC 32.8 g/dL (31.0-37.0); MCV 93.6 fL (80.0-100.0); Mean Platelet Volume 7.4; Monocytes # (A) 0.5 k/uL (0-1.0); Monocytes % (A) 6 %; Neutrophils # (A) 6.1 k/uL (1.3-7.7); Neutrophils % (A) 72 %; Platelet Count 398 k/uL (150-450); RBC 3.81 m/uL (4.30-5.90); WBC 8.4 k/uL (3.8-10.6)
[2021-08-05 09:03] LABS: African American GFR (CKD) >90 (>60 ml/min/1.73 sqM); Anion Gap 5 mmol/L; Blood Urea Nitrogen 20 mg/dL (9-20); Calcium 8.8 mg/dL (8.4-10.2); Carbon Dioxide 38 mmol/L (22-30); Chloride 88 mmol/L (98-107); Glucose 136 mg/dL (74-99); Non-African American GFR(CKD) >90 (>60 ml/min/1.73 sqM); Potassium 3.9 mmol/L (3.5-5.1); Sodium 131 mmol/L (137-145)
[2021-08-05] MEDS: AZITHROMYCIN 500 MG TAB PO SCH (09:31)
[2021-08-05] MEDS: PANTOPRAZOLE 40 MG/10 ML VIAL IVP SCH ×2 (09:31→21:14)
[2021-08-05] MEDS: NICOTINE 14MG/24HR PATCH TRANSDERM SCH (09:31)
[2021-08-05] MEDS: predniSONE 20 MG TAB PO SCH (12:19)
--- NOTE | 2021-08-05 12:32 | P.PN ---
Subjective Progress Note Date: 08/05/21 Principal diagnosis: Shortness of breath. This is a 60-year-old male patient who follows with Dr. Boston as his primary care provider. He has history of diabetes mellitus, diastolic congestive heart failure, chronic obstructive pulmonary disease, chronic and ongoing tobacco dependence. He presented to the emergency room last evening with reports of bright red blood per rectum. He had approximate 4 episode yesterday. No previous history of GI bleed. Denies excessive alcohol use. His been taking Naprosyn twice daily for left shoulder pain. Chest x-ray revealed some mild infiltrates in the right lower lobe and left upper lobe. We're consulted for the same. He is seen in the emergency room. Currently sitting up on the stretcher. Awake and alert in no acute distress. He is requiring 5 L high flow nasal cannula to maintain O2 saturations in the 90s. He does have home oxygen. He has a nebulizer with albuterol treatments. He had not been seen by pulmonsonya roberson in the past. He has been smoking for approximately 42 years. White count 8.5. Hemoglobin 12.0. Sodium 129. Potassium 4.5. Bicarb 35. Creatinine 1.15. Initial lactic 2.9. Currently 1.5. ProBNP 43. Stool for occult blood positive. He's been initiated on vancomycin, DuoNeb inhalations, Protonix. 0.9 normal saline at 75 ML's per hour. Progress note dated 08/05/2021. 60-year-old male, seen in consultation. He has a history of diabetes mellitus, diastolic CHF, COPD, and chronic and ongoing tobacco dependence. He presented to the emergency room, with bright red bleeding per rectum. Also, the patient was complaining of being short of breath. His COPD, was likely active. Curr ently, he's feeling better. He does continue to smoke but states he is really trying seriously to quit. Laboratory data includes a white count 8.4, hemoglobin 11.7, hematocrit 35.7, and a platelet count of 390,000. Sodium 131, potassium 3.9, chlorides 88, CO2 38, anion gap is 5, BUN is 20, with creatinine 0.85. Lactate when last checked was 1.5. Chest x-ray showed pneumonia involving the right lower lobe and left upper lobe. Objective - Vital Signs Vital signs: Vital Signs Temp 97.9 F 08/05/21 08:00 Pulse 88 08/05/21 12:10 Resp 18 08/05/21 08:00 BP 130/73 08/05/21 08:00 Pulse Ox 99 08/05/21 08:00 Intake & Output 08/04/21 08/05/21 08/05/21 18:59 06:59 18:59 Intake Total 880 Balance 880 Weight 143 kg Intake: Oral 880 Other: Voiding Method Toilet # Voids 1 # Bowel Movements 1 - Exam No acute distress, oriented 3. Nasal cannula in place. HEENT examination is grossly unremarkable. Neck supple. Full range of motion. No adenopathy thyromegaly or neck vein distention. Cardiovascular examination reveals regular rhythm rate. S1-S2 normal. No S3 or S4. No discernible murmur noted. Heart sounds are distant. Heart rate 88 bpm. Lungs reveal bilateral coarse expiratory rhonchi and expiratory wheezes. Breath sounds equal bilaterally. There is mild prolongation. No crackles. Abdomen soft bowel sounds are heard. No masses or tenderness. Extremities are intact. No cyanosis clubbing or edema. Skin is without rash or lesion. Neurologic examination is brief but nonfocal. - Labs CBC & Chem 7: 08/05/21 07:47 08/05/21 07:47 Labs: Abnormal Lab Results - Last 24 Hours (Table) 08/04/21 08/05/21 08/05/21 Range/Units 13:05 07:47 07:47 RBC 3.75 L 3.81 L (4.30-5.90) m/uL Hgb 12.0 L 11.7 L (13.0-17.5) gm/dL Hct 35.7 L 35.7 L (39.0-53.0) % Sodium 131 L (137-145) mmol/L Chloride 88 L (98-107) mmol/L Carbon Dioxide 38 H (22-30) mmol/L Glucose 136 H (74-99) mg/dL Microbiology - Last 24 Hours (Table) 08/03/21 21:26 Blood Culture - Preliminary Blood No Growth after 24 hours 08/03/21 21:10 Blood Culture - Preliminary Blood No Growth after 24 hours Assessment and Plan Assessment: 1 Acute lower GI bleed with bright red blood per rectum. 2 Acute hypoxemic respiratory failure secondary to an acute community-acquired pneumonia, right lower lobe and left upper lobe. 3 Acute exacerbation of chronic obstructive pulmonary disease secondary to above. 4 Chronic and ongoing tobacco dependence of greater than 40 years. 5 History of diastolic congestive heart failure, maintained on Lasix and Zaroxolyn in the outpatient setting. 6 Chronic left shoulder pain. 7 Diabetes mellitus. Plan: Plan dated 08/05/2021. The patient remains on antibiotics in form of ceftriaxone and azithromycin. The patient is also receiving Pulmicort, formoterol, albuterol sulfate, and ipratropium bromide. The patient is taking prednisone 40 mg a day. His breathing is better today than it was yesterday. We will continue to follow. His GI bleed is being followed by the primary service, and surgery. Time with Patient: Less than 30
--- NOTE | 2021-08-05 13:17 | P.PN ---
Subjective Progress Note Date: 08/05/21 CHIEF COMPLAINT: Hematochezia HISTORY OF PRESENT ILLNESS: The patient is a 60 year old male is admitted to the emergency room with concern for gastrointestinal bleeding 2 days ago. This afternoon, he has blood in stools. No acute abdominal pain. REVIEW OF ORGAN SYSTEMS: Has shortness of breath. No active chest pain. Reports persistent blood in stools PHYSICAL EXAM: VITALS: Reviewed CONSTITUTIONAL: Well developed and in no acute distress. EYES: Conjuctivae without sclera icterus. Extraocular movements grossly intact. HEAD, EARS, NOSE, THROAT: Moist buccal mucosa. Head is atraumatic, normoc ephalic. Hears conversational speech. No nasal drainage. RESPIRATORY: Labored respirations and equal bilateral excursions. No gross wheezes. CARDIOVASCULAR: Regular rate and rhythm. ABDOMEN: Obese, no peritonitis. Umbilical hernia with thin skin, over 3 cm. MUSCULOSKELETAL: Nail and fingers with good capillary refill. SKIN: Warm and well perfused with good skin turgor. NEUROLOGIC: Cranial nerves II through XII grossly intact. Sensation upper and extremities intact. No focal or lateralizing signs. PSYCH: Appropriate affect. Alert and oriented to person, place and time. Displays appropriate insight. CLINCAL LABS: Reviewed. WBC down 12.6-10.6. Hemoglobin down 14.5-13.5 now 11.7 RADIOLOGY: CT of the abdomen and pelvis independently reviewed with incarcerated umbilical hernia containing fat. Features of descending diverticulosis without diverticuilitis. Gallstones found along the dependent portion of the gallbladder. This is my independent interpretation. ASSESSMENT: 1. Gastrointestinal bleeding 2. Congestive heart failure with pneumonia 3. Hyponatremia 4. Lactic acidosis on admission 5. Pneumonia 6. Umbilical hernia 7. Gallstones 8. Acute blood loss anemia PLAN: 1. He has new findings of acute blood loss anemia with continued GI bleed. Recommend upper and lower endoscopy. He is elevated risk with congestive heart failure. 2. Continue clear liquid diet and low volume prep 3. He has new gallstones diagnosis and reviewed with him as well Objective - Vital Signs Vital signs: Vital Signs Temp 97.9 F 08/05/21 08:00 Pulse 88 08/05/21 12:10 Resp 20 08/05/21 12:00 BP 143/75 08/05/21 12:00 Pulse Ox 96 08/05/21 12:00 Intake & Output 08/04/21 08/05/21 08/05/21 18:59 06:59 18:59 Intake Total 880 Balance 880 Weight 143 kg Intake: Oral 880 Other: Voiding Method Toilet # Voids 1 # Bowel Movements 1 - Labs CBC & Chem 7: 08/05/21 07:47 08/05/21 07:47 Labs: Abnormal Lab Results - Last 24 Hours (Table) 08/04/21 08/05/21 08/05/21 Range/Units 13:05 07:47 07:47 RBC 3.75 L 3.81 L (4.30-5.90) m/uL Hgb 12.0 L 11.7 L (13.0-17.5) gm/dL Hct 35.7 L 35.7 L (39.0-53.0) % Sodium 131 L (137-145) mmol/L Chloride 88 L (98-107) mmol/L Carbon Dioxide 38 H (22-30) mmol/L Glucose 136 H (74-99) mg/dL Microbiology - Last 24 Hours (Table) 08/03/21 21:26 Blood Culture - Preliminary Blood No Growth after 24 hours 08/03/21 21:10 Blood Culture - Preliminary Blood No Growth after 24 hours Assessment and Plan (1) CAP (community acquired pneumonia) Current Visit: Yes Status: Acute Code(s): J18.9 - PNEUMONIA, UNSPECIFIED ORGANISM SNOMED Code(s): 050368430 (2) Hematochezia Current Visit: Yes Status: Acute Code(s): K92.1 - MELENA SNOMED Code(s): 106089188 (3) Morbid obesity with BMI of 40.0-44.9, adult Current Visit: No Status: Acute Code(s): E66.01 - MORBID (SEVERE) OBESITY DUE TO EXCESS CALORIES SNOMED Code(s): 891896328 (4) Type 2 diabetes mellitus Current Visit: No Status: Acute Code(s): E11.9 - TYPE 2 DIABETES MELLITUS WITHOUT COMPLICATIONS SNOMED Code(s): 91876595 (5) Umbilical hernia Current Visit: Yes Status: Acute Code(s): K42.9 - UMBILICAL HERNIA WITHOUT OBSTRUCTION OR GANGRENE SNOMED Code(s): 574906357 (6) Diverticulosis Current Visit: Yes Status: Acute Code(s): K57.90 - DVRTCLOS OF INTEST, PART UNSP, W/O PERF OR ABSCESS W/O BLEED SNOMED Code(s): 577755360 (7) Acute blood loss anemia Current Visit: Yes Status: Acute Code(s): D62 - ACUTE POSTHEMORRHAGIC ANEMIA SNOMED Code(s): 989515334 (8) Gallstones Current Visit: Yes Status: Acute Code(s): K80.20 - CALCULUS OF GALLBLADDER W/O CHOLECYSTITIS W/O OBSTRUCTION SNOMED Code(s): 217966180
[2021-08-05] MEDS ORDERED: POLYETHYLENE GLYCOL LYTES SOLN 4,000 ML SOLN.RECON PO ONE (13:30)
--- NOTE | 2021-08-05 17:44 | P.PN ---
Subjective Progress Note Date: 08/05/21 60-year-old male patient who follows with Dr. Boston as his primary care provider. He has history of diabetes mellitus, diastolic congestive heart failure, chronic obstructive pulmonary disease, chronic and ongoing tobacco dependence. He presented to the emergency room last evening with reports of br ight red blood per rectum. He had approximate 4 episode yesterday. No previous history of GI bleed. Denies excessive alcohol use. His been taking Naprosyn twice daily for left shoulder pain. Chest x-ray revealed some mild infiltrates in the right lower lobe and left upper lobe. We're consulted for the same. He is seen in the emergency room. Currently sitting up on the stretcher. Awake and alert in no acute distress. He is requiring 5 L high flow nasal cannula to maintain O2 saturations in the 90s. He does have home oxygen. He has a nebulizer with albuterol treatments. He had not been seen by ip architect in the past. He has been smoking for approximately 42 years. White count 8.5. Hemoglobin 12.0. Sodium 129. Potassium 4.5. Bicarb 35. Creatinine 1.15. Initial lactic 2.9. Currently 1.5. ProBNP 43. Stool for occult blood positive. 08/05/2021 Patient is seen and evaluated in room with family members at bedside; report some improvement in breathing; has been evaluated by general surgery and is recommended colonoscopy Vital signs remained stable temperature 97.9, pulse 80, respiration 18 and blood pressure 130/73; lab review shows WBC 8.4, hemoglobin 11.7, platelet count of 390,000, sodium 131, potassium 3.9, BUN/creatinine of 20/0.85 with lactic acid levels of 1.5; chest x-ray reveals right lower lobe and left upper lobe pneumonia Pulmonary is following and recommending to continue with current IV antibiotic therapy in form of ceftriaxone and azithromycin; Pulmicort, formoterol, albuterol sulfate and prednisone has been added for acute exacerbation COPD Patient has been evaluated by general surgery and is recommended upper and lower endoscopy; given risk for CHF patient will receive low-volume prep; continue monitor CBC Objective - Vital Signs Vital signs: Vital Signs Temp 97.9 F 08/05/21 08:00 Pulse 88 08/05/21 08:58 Resp 18 08/05/21 08:00 BP 130/73 08/05/21 08:00 Pulse Ox 99 09/05/21 08:00 Intake & Output 08/04/21 08/05/21 08/05/21 18:59 06:59 18:59 Intake Total 880 Balance 880 Weight 143 kg Intake: Oral 880 Other: Voiding Method Toilet # Voids 1 # Bowel Movements 1 - Exam - Constitutional General appearance: Present: average body habitus, cooperative, no acute distress - EENT Eyes: Present: anicteric sclerae, EOMI, PERRLA, normal appearance ENT: Present: hearing grossly normal, normal oropharynx Ears: bilateral: normal - Neck Neck: Present: normal ROM. Absent: lymphadenopathy, rigidity, thyromegaly Carotids: negative: bruit present Thyroid: bilateral: normal size, negative: enlarged, nodule - Respiratory Respiratory: bilateral: CTA, negative: rales, rhonchi, wheezing - Cardiovascular Rhythm: regular Heart sounds: normal: S1, S2 Abnormal Heart Sounds: Absent: systolic murmur, diastolic murmur - Gastrointestinal General gastrointestinal: Present: normal bowel sounds, soft. Absent: distended, organomegaly, tenderness - Genitourinary Genitourinary Comment(s): deferred - Integumentary Integumentary: Present: normal turgor. Absent: jaundiced, rash, ulcer - Neurologic Neurologic: Present: CNII-XII intact. Absent: focal deficits - Musculoskeletal Musculoskeletal: Present: gait normal, strength equal bilaterally - Psychiatric Psychiatric: Present: A&O x's 3, appropriate affect, intact judgment & insight - Labs CBC & Chem 7: 08/05/21 07:47 08/05/21 07:47 Labs: Abnormal Lab Results - Last 24 Hours (Table) 08/04/21 08/05/21 08/05/21 Range/Units 13:05 07:47 07:47 RBC 3.75 L 3.81 L (4.30-5.90) m/uL Hgb 12.0 L 11.7 L (13.0-17.5) gm/dL Hct 35.7 L 35.7 L (39.0-53.0) % Sodium 131 L (137-145) mmol/L Chloride 88 L (98-107) mmol/L Carbon Dioxide 38 H (22-30) mmol/L Glucose 136 H (74-99) mg/dL Microbiology - Last 24 Hours (Table) 08/03/21 21:26 Blood Culture - Preliminary Blood No Growth after 24 hours 08/03/21 21:10 Blood Culture - Preliminary Blood No Growth after 24 hours Assessment and Plan Assessment: 1. Acute lower GI bleed; patient had one episode of bright red blood per rectum; did have to preceding bowel movements without any bleed - We will monitor H&H closely; Protonix 40 mg IV daily; we will plan to type crossmatch and transfuse if hemoglobin is less than 8.0 - Gen. surgery has been consulted; no GI service will be 2. Acute hypoxemic respiratory failure; multifactorial; secondary to CPAP, acute exacerbation COPD 3. Community-acquired pneumonia - Patient received IV Levaquin and vancomycin in ED; pulmonary is consulted and have discontinued vancomycin and patient is initiated on ceftriaxone and azithromycin - We will monitor CBC, CMP and pro-calcitonin; blood cultures and sputum cultures obtained in ED 4. Acute exacerbation COPD; continue with DuoNeb nebulizer treatments along with Pulmicort and Perforomist inhalations; IV Solu-Medrol - Patient is on antibiotic therapy with Rocephin and ceftriaxone 5. Diastolic CHF; not in exacerbation; patient remains on diuretic therapy with Lasix and Zaroxolyn 6. Diabetes mellitus; monitor Accu-Cheks every before meals and at bedtime with insulin sliding scale 7. Osteoarthritis; chronic left shoulder pain; patient currently taking Naprosyn twice a day dose DVT prophylaxis; SCDs only due to GI bleed CODE STATUS; full code
[2021-08-06 06:03] LABS: Glucose,Whole Blood 131 mg/dL (75-99)
[2021-08-06] MEDS: INSULIN ASPART (NovoLOG) 100 UNIT/ML VIAL SQ SCH ×4 (06:09→20:18)
[2021-08-06] MEDS: BUDESONIDE 1 MG/2 ML NEBU INHALATION SCH ×2 (08:07→19:47)
[2021-08-06] MEDS: FORMOTEROL FUMARATE 20 MCG/2 ML NEBU INHALATION SCH ×2 (08:08→19:47)
[2021-08-06] MEDS: IPRATROPIUM-ALBUTEROL 3 ML NEB INHALATION SCH ×4 (08:08→19:47)
[2021-08-06] MEDS: NICOTINE 14MG/24HR PATCH TRANSDERM SCH (08:16)
[2021-08-06] MEDS: PANTOPRAZOLE 40 MG/10 ML VIAL IVP SCH (08:16)
[2021-08-06 08:38] LABS: Basophils % (A) 1 %; Eosinophils % (A) 0 %; HCT 32.8 % (39.0-53.0); HGB 10.9 gm/dL (13.0-17.5); Lymphocytes # (A) 1.6 k/uL (1.0-4.8); Lymphocytes % (A) 23 %; MCHC 33.1 g/dL (31.0-37.0); MCV 93.6 fL (80.0-100.0); Mean Platelet Volume 7.3; Monocytes # (A) 0.5 k/uL (0-1.0); Monocytes % (A) 7 %; Neutrophils # (A) 4.6 k/uL (1.3-7.7); Neutrophils % (A) 66 %; Platelet Count 412 k/uL (150-450); RDW 14.3 % (11.5-15.5)
[2021-08-06 08:48] LABS: African American GFR (CKD) >90 (>60 ml/min/1.73 sqM); Anion Gap 4 mmol/L; Blood Urea Nitrogen 11 mg/dL (9-20); Calcium 8.8 mg/dL (8.4-10.2); Carbon Dioxide 39 mmol/L (22-30); Chloride 91 mmol/L (98-107); Glucose 121 mg/dL (74-99); Magnesium 1.9 mg/dL (1.6-2.3); Non-African American GFR(CKD) >90 (>60 ml/min/1.73 sqM); Potassium 3.4 mmol/L (3.5-5.1); Sodium 134 mmol/L (137-145)
--- NOTE | 2021-08-06 11:44 | XR ---
EXAMINATION TYPE: XR chest 1V portable DATE OF EXAM: 08/06/2021 COMPARISON: 08/03/2021 HISTORY: Shortness of breath TECHNIQUE: Frontal and lateral views of the chest are obtained. FINDINGS: Scattered senescent parenchymal changes noted. Hyperinflation compatible with COPD. Persistent left upper lobe density with mild strandy basilar density. Heart size is stable. Mediastinal structures are stable and grossly unremarkable. No evidence for hilar prominence. Degenerative changes dorsal spine. IMPRESSION: 1. Persistent left upper lobe density with mild strandy basilar density.
[2021-08-06] MEDS ORDERED: Potassium Replacement Protocol 1 EACH MISC MISCELLANE PRN (11:49)
[2021-08-06 12:11] LABS: Glucose,Whole Blood 124 mg/dL (75-99)
--- NOTE | 2021-08-06 13:00 | P.PN ---
Subjective Progress Note Date: 08/06/21 CHIEF COMPLAINT: Hematochezia HISTORY OF PRESENT ILLNESS: The patient is a 60 year old male is admitted to the emergency room with concern for gastrointestinal bleeding including acute exacerbation of chronic obstructive pulmonary disease. Patient reports no further bleeding last night. Denies abdominal pain. REVIEW OF ORGAN SYSTEMS: Has shortness of breath. No active chest pain. No fevers or chills. PHYSICAL EXAM: VITALS: Reviewed CONSTITUTIONAL: Well developed and in no acute distress. EYES: Conjuctivae without sclera icterus. Extraocular movements grossly intact. HEAD, EARS, NOSE, THROAT: Moist buccal mucosa. Head is atraumatic, normocephalic. Hears conversational speech. No nasal drainage. RESPIRATORY: Labored respirations and equal bilateral excursions. No gross wheezes. CARDIOVASCULAR: Regular rate and rhythm. ABDOMEN: Nontender. MUSCULOSKELETAL: Nail and fingers with good capillary refill. SKIN: Warm and well perfused with good skin turgor. NEUROLOGIC: Cranial nerves II through XII grossly intact. Sensation upper and extremities intact. No focal or lateralizing signs. PSYCH: Appropriate affect. Alert and oriented to person, place and time. Displays appropriate insight. CLINCAL LABS: Reviewed. Hemoglobin down 11.7 to 10.9. Hemoglobin dropped 4 g since admission from 14.5. ASSESSMENT: 1. Gastrointestinal bleeding 2. Congestive heart failure with pneumonia 3. Hyponatremia 4. Lactic acidosis on admission 5. Pneumonia 6. Umbilical hernia 7. Gallstones 8. Acute blood loss anemia PLAN: 1. Will proceed with upper and lower endoscopy due to persistent anemia 2. Benefits and risks described. Objective - Vital Signs Vital signs: Vital Signs Temp 98.7 F 08/06/21 08:00 Pulse 76 08/06/21 11:36 Resp 18 08/06/21 11:34 BP 105/66 08/06/21 11:34 Pulse Ox 100 08/06/21 11:34 Intake & Output 08/05/21 08/06/21 08/06/21 18:59 06:59 18:59 Intake Total 2078 240 Output Total 475 500 Balance 1603 -260 Weight 133.1 kg Intake: Oral 8 240 Output: Urine 475 500 Other: Voiding Method Toilet Urinal # Voids 2 # Bowel Movements 2 - Labs CBC & Chem 7: 08/06/21 08:10 08/06/21 08:10 Labs: Abnormal Lab Results - Last 24 Hours (Table) 08/06/21 08/06/21 08/06/21 Range/Units 06:01 08:10 08:10 RBC 3.50 L (4.30-5.90) m/uL Hgb 10.9 L (13.0-17.5) gm/dL Hct 32.8 L (39.0-53.0) % Sodium 134 L (137-145) mmol/L Potassium 3.4 L (3.5-5.1) mmol/L Chloride 91 L (98-107) mmol/L Carbon Dioxide 39 H (22-30) mmol/L Glucose 121 H (74-99) mg/dL POC Glucose (mg/dL) 131 H (75-99) mg/dL 08/06/21 Range/Units 12:04 RBC (4.30-5.90) m/uL Hgb (13.0-17.5) gm/dL Hct (39.0-53.0) % Sodium (137-145) mmol/L Potassium (3.5-5.1) mmol/L Chloride (98-107) mmol/L Carbon Dioxide (22-30) mmol/L Glucose (74-99) mg/dL POC Glucose (mg/dL) 124 H (75-99) mg/dL Microbiology - Last 24 Hours (Table) 08/03/21 21:26 Blood Culture - Preliminary Blood No Growth after 48 hours 08/03/21 21:10 Blood Culture - Preliminary Blood No Growth after 48 hours Assessment and Plan (1) CAP (community acquired pneumonia) Current Visit: Yes Status: Acute Code(s): J18.9 - PNEUMONIA, UNSPECIFIED ORGANISM SNOMED Code(s): 947169711 (2) Hematochezia Current Visit: Yes Status: Acute Code(s): K92.1 - MELENA SNOMED Code(s): 749797756 (3) Morbid obesity with BMI of 40.0-44.9, adult Current Visit: No Status: Acute Code(s): E66.01 - MORBID (SEVERE) OBESITY DUE TO EXCESS CALORIES SNOMED Code(s): 052543728 (4) Type 2 diabetes mellitus Current Visit: No Status: Acute Code(s): E11.9 - TYPE 2 DIABETES MELLITUS WITHOUT COMPLICATIONS SNOMED Code(s): 83748147 (5) Umbilical hernia Current Visit: Yes Status: Acute Code(s): K42.9 - UMBILICAL HERNIA WITHOUT OBSTRUCTION OR GANGRENE SNOMED Code(s): 786029726 (6) Diverticulosis Current Visit: Yes Status: Acute Code(s): K57.90 - DVRTCLOS OF INTEST, PART UNSP, W/O PERF OR ABSCESS W/O BLEED SNOMED Code(s): 901328942 (7) Acute blood loss anemia Current Visit: Yes Status: Acute Code(s): D62 - ACUTE POSTHEMORRHAGIC ANEMIA SNOMED Code(s): 705191581 (8) Gallstones Current Visit: Yes Status: Acute Code(s): K80.20 - CALCULUS OF GALLBLADDER W/O CHOLECYSTITIS W/O OBSTRUCTION SNOMED Code(s): 339579083
[2021-08-06] MEDS ORDERED: LACTATED RINGERS 1,000 ML IV ONE (13:04)
[2021-08-06] MEDS ORDERED: PROPOFOL 10 MG/ML 20 ML VIAL IV ONE (13:09)
--- NOTE | 2021-08-06 13:22 | P.PCN ---
Date of Procedure: 08/06/21 Description of Procedure: PREOPERATIVE DIAGNOSIS: Gastrointestinal bleeding with melena Congestive heart failure, acute exacerbation Chronic obstructive pulmonary disease, acute exacerbation Acute blood loss anemia Morbid obesity due to excess calories, BMI 37.7 POSTOPERATIVE DIAGNOSIS: Gastrointestinal bleeding with melena Congestive heart failure, acute exacerbation Chronic obstructive pulmonary disease, acute exacerbation Acute blood loss anemia Morbid obesity due to excess calories, BMI 37.7 OPERATION: Esophagogastroduodenoscopy SURGEON: Payton Molina MD ANESTHESIA: MAC. INDICATIONS: The patient is a 60-year-old male who presents with gastrointestinal bleeding with melena. Upper endoscopy was offered part of his anemia workup. Benefits and risks of the procedure were described. Informed consent was obtained. DESCRIPTION: The patient was brought into the endoscopy suite and laid in the left lateral decubitus position. An Olympus gastroscope was passed along the posterior oropharynx down to the distal esophagus where the squamocolumnar junction was encountered at 43 cm from the incisors. The stomach was entered and bile reflux was found. Additional findings are listed below.The first through third portion of the duodenum was examined and unremarkable. Less than 3 mm small AV malformation at the third portion of the duodenum was identified without active bleeding. Retroflexion of the scope confirmed Hill grade 2 lower esophageal valve. The squamocolumnar junction demonstrated LA grade B erosive esophagitis. The stomach was desufflated. The patient tolerated the procedure well. FINDINGS: Squamocolumnar junction 43 cm from the incisors. Diaphragmatic hiatus at 43 cm. Hill grade 2 lower esophageal valve. LA grade B erosive esophagitis. No active duodenitis. No duodenal ulcers No gastric ulcer Small AVM 3 mm at the third portion of duodenum without active bleeding RECOMMENDATIONS: 1. Upper endoscopy as needed. 2. Proceed with colonoscopy
--- NOTE | 2021-08-06 13:23 | P.PN ---
Subjective Progress Note Date: 08/06/21 Principal diagnosis: Bilateral pneumonia This is a 60-year-old male patient who follows with Dr. Boston as his primary care provider. He has history of diabetes mellitus, diastolic congestive heart failure, chronic obstructive pulmonary disease, chronic and ongoing tobacco d ependence. He presented to the emergency room last evening with reports of bright red blood per rectum. He had approximate 4 episode yesterday. No previous history of GI bleed. Denies excessive alcohol use. His been taking Naprosyn twice daily for left shoulder pain. Chest x-ray revealed some mild infiltrates in the right lower lobe and left upper lobe. We're consulted for the same. He is seen in the emergency room. Currently sitting up on the stretcher. Awake and alert in no acute distress. He is requiring 5 L high flow nasal cannula to maintain O2 saturations in the 90s. He does have home oxygen. He has a nebulizer with albuterol treatments. He had not been seen by photo producer in the past. He has been smoking for approximately 42 years. White count 8.5. Hemoglobin 12.0. Sodium 129. Potassium 4.5. Bicarb 35. Creatinine 1.15. Initial lactic 2.9. Currently 1.5. ProBNP 43. Stool for occult blood positive. He's been initiated on vancomycin, DuoNeb inhalations, Protonix. 0.9 normal saline at 75 ML's per hour. Progress note dated 08/05/2021. 60-year-old male, seen in consultation. He has a history of diabetes mellitus, diastolic CHF, COPD, and chronic and ongoing tobacco dependence. He presented to the emergency room, with bright red bleeding per rectum. Also, the patient was complaining of being short of breath. His COPD, was likely active. Curre ntly, he's feeling better. He does continue to smoke but states he is really trying seriously to quit. Laboratory data includes a white count 8.4, hemoglobin 11.7, hematocrit 35.7, and a platelet count of 390,000. Sodium 131, potassium 3.9, chlorides 88, CO2 38, anion gap is 5, BUN is 20, with creatinine 0.85. Lactate when last checked was 1.5. Chest x-ray showed pneumonia involving the right lower lobe and left upper lobe. The patient is seen today 08/06/2021 in follow-up on the regular medical floor. He is currently sitting up in a chair at the bedside. Awake and alert in no acute distress. Feeling a bit better today compared to yesterday. He is maintaining O2 saturations up to 100% on 3 L/m per nasal cannula. He's been afebrile. Hemodynamically stable. Follow-up chest x-ray reveals persistent left upper lobe density and mild strandy basilar densities. White count 7.0. Hemoglobin 10.9. Sodium 134. Potassium 3.4. Creatinine 0.73. Plan is for EGD/colonoscopy today. He remains on ceftriaxone and azithromycin along with DuoNeb inhalations, Pulmicort and Perforomist inhalations, NicoDerm patch, oral prednisone. Objective - Vital Signs Vital signs: Vital Signs Temp 98.7 F 08/06/21 08:00 Pulse 76 08/06/21 11:36 Resp 18 08/06/21 11:34 BP 105/66 08/06/21 11:34 Pulse Ox 100 08/06/21 11:34 Intake & Output 08/05/21 08/06/21 08/06/21 18:59 06:59 18:59 Intake Total 2078 240 0 Output Total 475 500 Balance 1603 -260 0 Weight 133.1 kg Intake: Oral 2078 240 0 Output: Urine 475 500 Other: Voiding Method Toilet Urinal # Voids 2 # Bowel Movements 2 - Exam GENERAL EXAM: Alert, pleasant 60-year-old gentleman, on 3 L nasal cannula, comfortable in no apparent distress. HEAD: Normocephalic. EYES: Normal reaction of pupils, equal size. NOSE: Clear with pink turbinates. THROAT: No erythema or exudates. NECK: No masses, no JVD. CHEST: No chest wall deformity. LUNGS: Equal air entry with bilateral end expiratory wheeze, few scattered rhonchi, diminished. CVS: S1 and S2 normal with no audible murmur, regular rhythm. ABDOMEN: No hepatosplenomegaly, normal bowel sounds, no guarding or rigidity. SPINE: No scoliosis or deformity SKIN: No rashes CENTRAL NERVOUS SYSTEM: No focal deficits, tone is normal in all 4 extremities. EXTREMITIES: There is no peripheral edema. No clubbing, no cyanosis. Peripheral pulses are intact. - Labs CBC & Chem 7: 08/06/21 08:10 08/06/21 08:10 Labs: Abnormal Lab Results - Last 24 Hours (Table) 08/06/21 08/06/21 08/06/21 Range/Units 06:01 08:10 08:10 RBC 3.50 L (4.30-5.90) m/uL Hgb 10.9 L (13.0-17.5) gm/dL Hct 32.8 L (39.0-53.0) % Sodium 134 L (137-145) mmol/L Potassium 3.4 L (3.5-5.1) mmol/L Chloride 91 L (98-107) mmol/L Carbon Dioxide 39 H (22-30) mmol/L Glucose 121 H (74-99) mg/dL POC Glucose (mg/dL) 131 H (75-99) mg/dL 08/06/21 Range/Units 12:04 RBC (4.30-5.90) m/uL Hgb (13.0-17.5) gm/dL Hct (39.0-53.0) % Sodium (137-145) mmol/L Potassium (3.5-5.1) mmol/L Chloride (98-107) mmol/L Carbon Dioxide (22-30) mmol/L Glucose (74-99) mg/dL POC Glucose (mg/dL) 124 H (75-99) mg/dL Microbiology - Last 24 Hours (Table) 08/03/21 21:26 Blood Culture - Preliminary Blood No Growth after 48 hours 08/03/21 21:10 Blood Culture - Preliminary Blood No Growth after 48 hours Assessment and Plan Assessment: 1 Acute lower GI bleed with bright red blood per rectum, plan is for EGD/colonoscopy 2 Acute hypoxemic respiratory failure secondary to an acute community-acquired pneumonia 3 Acute exacerbation of chronic obstructive pulmonary disease secondary to above 4 Chronic and ongoing tobacco dependence of greater than 40 years 5 History of diastolic congestive heart failure, maintained on Lasix and Zaroxolyn in the outpatient setting 6 Chronic left shoulder pain taking Naprosyn twice daily 7 Diabetes mellitus Plan: The patient was seen and evaluated by Dr. Gary Chest x-ray and labs reviewed Continue ceftriaxone and azithromycin Continue DuoNeb inhalations, Pulmicort and Perforomist inhalations, prednisone Again educated regarding the importance of complete smoking cessation Plan is for EGD/colonoscopy Remains on IV Protonix Titrate the FiO2 as tolerated We will continue to follow I, the cosigning physician, performed a history & physical examination of the patient. Lungs sounds with bilateral scattered rhonchi, end expiratory wheeze, diminished. Maintaining good O2 saturations in the 90s on 3 L/m per nasal cannula. I discussed the assessment and plan of care with my nurse practitioner, Zulema Dawn. I attest to the above note as dictated by her.
--- NOTE | 2021-08-06 13:42 | P.PCN ---
Date of Procedure: 08/06/21 Description of Procedure: PREOPERATIVE DIAGNOSIS: Gastrointestinal bleeding Acute blood loss anemia Acute congestive heart failure with exacerbation Acute chronic obstructive pulmonary disease with exacerbation POSTOPERATIVE DIAGNOSIS: Sigmoid diverticulosis with pandiverticulosis Sigmoid colon adenoma OPERATION: Colonoscopy to the ileocecal valve and appendiceal orifice, cecum Colonoscopy with hot snare polypectomy SURGEON: Payton Molina MD. ANESTHESIA: MAC. INDICATIONS: The patient is an 60-year-old male who presented with blood in stools acutely including 4 g drop in hemoglobin during his hospitalization. Lower endoscopy was offered for diagnosis and treatment. Benefits and risks were described and informed consent was obtained. DESCRIPTION OF PROCEDURE: The patient had undergone low-volume 2 L prep due to congestive heart failure. The patient had been brought into the operating room and laid in the left lateral decubitus position. After adequate intravenous sedation, the rectum was examined with 2% lidocaine jelly. No external hemorrhoids were encountered. The rectal tone was within normal limits. No lesions were palpated in the rectal vault. An Olympus colonoscope was advanced until the cecum, ileocecal valve and appendiceal orifice were clearly viewed. The prep was fair. Sigmoid diverticulosis was encountered with pandiverticulosis. Colonic polyps were found and removed. No evidence of focal colitis was found. No stigmata of bleeding was identified. Retroflexion of the scope demonstrated grade 1 internal hemorrhoids without active bleeding or inflammation. The colon was desufflated. The patient had tolerated the procedure well. Withdrawal time was over 6 minutes. FINDINGS: Aronchick preparation quality scale 3 (1-5) Internal hemorrhoids, grade 1 No external hemorrhoids No arteriovenous malformations. Sigmoid diverticulosis with pandiverticulosis No active stigmata of bleeding Removal of 1 polyps: - Snare polypectomy 20 cm from the anal verge, large 15 mm tubular adenoma polyp. No focal colitis. RECOMMENDATIONS: 1. Recommend repeat lower endoscopy in 2 years, 2022 2. May start regular diet 3. Any further recurrent bleeding may benefit from nuclear bleeding scan or small bowel endoscopy Plan - Discharge Summary Discharge Rx Participant: No New Discharge Prescriptions: No Action Sulfamethox-Tmp 800-160Mg [Bactrim DS 800-160 mg] 1 tab PO Q12HR Furosemide [Lasix] 40 mg PO BID Albuterol Sulfate [Ventolin HFA] 1 - 2 puff INHALATION RT-Q6H PRN PRN Reason: Shortness Of Breath Acetaminophen Tab [Tylenol Tab] 1,000 mg PO Q6HR PRN PRN Reason: Pain Oxymetazoline HCl [Afrin 0.05%] 1 spray EA NOSTRIL DAILY PRN PRN Reason: Allergy Symptoms Naproxen 500 mg PO BID PRN PRN Reason: Pain metOLazone [Zaroxolyn] 5 mg PO DAILY Discharge Medication List Furosemide [Lasix] 40 mg PO BID 06/18/16 [History] Sulfamethox-Tmp 800-160Mg [Bactrim DS 800-160 mg] 1 tab PO Q12HR 06/18/16 [History] Acetaminophen Tab [Tylenol Tab] 1,000 mg PO Q6HR PRN 08/03/21 [History] Albuterol Sulfate [Ventolin HFA] 1 - 2 puff INHALATION RT-Q6H PRN 08/03/21 [History] Naproxen 500 mg PO BID PRN 08/03/21 [History] Oxymetazoline HCl [Afrin 0.05%] 1 spray EA NOSTRIL DAILY PRN 08/03/21 [History] metOLazone [Zaroxolyn] 5 mg PO DAILY 08/03/21 [History] Follow up Appointment(s)/Referral(s): Shona Boston MD [Primary Care Provider] - 1-2 days
--- NOTE | 2021-08-06 15:16 | P.PN ---
Subjective 60-year-old male patient who follows with Dr. Boston as his primary care provider. He has history of diabetes mellitus, diastolic congestive heart failure, chronic obstructive pulmonary disease, chronic and ongoing tobacco dependence. He presented to the emergency room last evening with reports of bright red blood per rectum. He had approximate 4 episode yesterday. No previous history of GI bleed. Denies excessive alcohol use. His been taking Naprosyn twice daily for left shoulder pain. Chest x-ray revealed some mild infiltrates in the right lower lobe and left upper lobe. We're consulted for the same. He is seen in the emergency room. Currently sitting up on the stretcher. Awake and alert in no acute distress. He is requiring 5 L high flow nasal cannula to maintain O2 saturations in the 90s. He does have home oxygen. He has a nebulizer with albuterol treatments. He had not been seen by balance wheel screw hole tapper in the past. He has been smoking for approximately 42 years. White count 8.5. Hemoglobin 12.0. Sodium 129. Potassium 4.5. Bicarb 35. Creatinine 1.15. Initial lactic 2.9. Currently 1.5. ProBNP 43. Stool for occult blood positive. 08/05/2021 Patient is seen and evaluated in room with family members at bedside; report some improvement in breathing; has been evaluated by general surgery and is recommended colonoscopy Vital signs remained stable temperature 97.9, pulse 80, respiration 18 and blood pressure 130/73; lab review shows WBC 8.4, hemoglobin 11.7, platelet count of 39 0,000, sodium 131, potassium 3.9, BUN/creatinine of 20/0.85 with lactic acid levels of 1.5; chest x-ray reveals right lower lobe and left upper lobe pneumonia Pulmonary is following and recommending to continue with current IV antibiotic therapy in form of ceftriaxone and azithromycin; Pulmicort, formoterol, albuterol sulfate and prednisone has been added for acute exacerbation COPD Patient has been evaluated by general surgery and is recommended upper and lower endoscopy; given risk for CHF patient will receive low-volume prep; continue monitor CBC Subjective: 08/06/21 This is a pleasant 60 years old male who presents with bright red blood per rectum on 08/03 and has been evaluated by surgery team and he underwent colonoscopy today showing internal hemorrhoids with sigmoid diverticulosis and colonic adenoma status post polypectomy. Currently he is been continued on IV Protonix 40 mg twice a day His been diagnosed with left upper lobe pneumonia, he is been followed closely by pulmonary team and placed on Zithromax and ceftriaxone. Patient states that his breathing is better today. No significant cough or exertional dyspnea. Complaining of from bilateral leg redness stating that they are improving, he still has redness swelling and tenderness and warmth on the right leg with some scaling on both legs which looks chronic. He is on home oxygen and 2 L milliliters per hour The correct with Zithromax and ceftriaxone as well as prednisone 40 mg. His hyponatremia is improving and today sodium is 134. Diabetic gallstone disease evaluated by surgery team . Objective - Vital Signs Vital signs: Vital Signs Temp 98.7 F 08/06/21 08:00 Pulse 76 08/06/21 11:36 Resp 18 08/06/21 11:34 BP 105/66 08/06/21 11:34 Pulse Ox 100 08/06/21 11:34 Intake & Output 08/05/21 08/06/21 08/06/21 18:59 06:59 18:59 Intake Total 2078 240 0 Output Total 475 500 Balance 1603 -260 0 Weight 133.1 kg Intake: Oral 2078 240 0 Output: Urine 475 500 Other: Voiding Method Toilet Urinal # Voids 2 # Bowel Movements 2 - Exam GENERAL: The patient is alert and oriented x3, not in any acute distress. Well developed, well nourished. HEENT: Pupils are round and equally reacting to light. EOMI. No scleral icterus. No conjunctival pallor. Normocephalic, atraumatic. No pharyngeal erythema. No th yromegaly. CARDIOVASCULAR: S1 and S2 present. No murmurs, rubs, or gallops. PULMONARY: Chest is clear to auscultation, no wheezing or crackles. ABDOMEN: Soft, nontender, nondistended, normoactive bowel sounds. No palpable organomegaly. MUSCULOSKELETAL: No joint swelling or deformity. EXTREMITIES: No cyanosis, clubbing, or pedal edema. Bilateral leg scaling, right leg is red and swollen and warm NEUROLOGICAL: Gross neurological examination did not reveal any focal deficits. SKIN: No rashes. no petechiae. - Labs CBC & Chem 7: 08/06/21 08:10 08/06/21 08:10 Labs: Abnormal Lab Results - Last 24 Hours (Table) 08/06/21 08/06/21 08/06/21 Range/Units 06:01 08:10 08:10 RBC 3.50 L (4.30-5.90) m/uL Hgb 10.9 L (13.0-17.5) gm/dL Hct 32.8 L (39.0-53.0) % Sodium 134 L (137-145) mmol/L Potassium 3.4 L (3.5-5.1) mmol/L Chloride 91 L (98-107) mmol/L Carbon Dioxide 39 H (22-30) mmol/L Glucose 121 H (74-99) mg/dL POC Glucose (mg/dL) 131 H (75-99) mg/dL 08/06/21 Range/Units 12:04 RBC (4.30-5.90) m/uL Hgb (13.0-17.5) gm/dL Hct (39.0-53.0) % Sodium (137-145) mmol/L Potassium (3.5-5.1) mmol/L Chloride (98-107) mmol/L Carbon Dioxide (22-30) mmol/L Glucose (74-99) mg/dL POC Glucose (mg/dL) 124 H (75-99) mg/dL Microbiology - Last 24 Hours (Table) 08/03/21 21:26 Blood Culture - Preliminary Blood No Growth after 48 hours 08/03/21 21:10 Blood Culture - Preliminary Blood No Growth after 48 hours Assessment and Plan Assessment: Assessment: 1. Acute lower GI bleed; status post colonoscopy showing diverticulosis, internal hemorrhoids grade 1 status post polypectomy - We will monitor H&H closely; Protonix 40 mg IV daily; we will plan to type crossmatch and transfuse if hemoglobin is less than 8.0 - Hemoglobin results. 2. Acute hypoxemic respiratory failure; multifactorial; secondary to CPAP, acute exacerbation COPD. 3. Community-acquired pneumonia - Continue on ceftriaxone and azithromycin - Pulmonary team on the case 4. Acute exacerbation COPD; continue with DuoNeb nebulizer treatments along with Pulmicort and Perforomist inhalations; IV Solu-Medrol - Patient is on antibiotic therapy with Rocephin and ceftriaxone - Pulmonary team on the case 5. Right leg cellulitis. Likely on Rocephin, infectious disease team is consulted 6. Diabetes mellitus; monitor Accu-Cheks every before meals and at bedtime with insulin sliding scale 7. Osteoarthritis; chronic left shoulder pain; patient currently taking Naprosyn twice a day dose 8. Diastolic CHF; not in exacerbation; patient remains on diuretic therapy with Lasix and Zaroxolyn DVT prophylaxis; SCDs only due to GI bleed CODE STATUS; full code
[2021-08-06] MEDS: AZITHROMYCIN 500 MG TAB PO SCH (15:38)
[2021-08-06] MEDS: predniSONE 20 MG TAB PO SCH (15:38)
[2021-08-06] MEDS: POTASSIUM CHLORIDE ER 20 MEQ TAB.ER PO SCH ×2 (15:38→17:01)
[2021-08-06 16:39] LABS: Glucose,Whole Blood 179 mg/dL (75-99)
[2021-08-06 20:10] LABS: Glucose,Whole Blood 183 mg/dL (75-99)
--- NOTE | 2021-08-06 23:42 | P.CONS ---
History of Present Illness - Reason for Consult Consult date: 08/06/21 Pneumonia and cellulitis Requesting physician: Galdino E Sheet - Chief Complaint bleeding per rectum x 1 day - History of Present Illness History of present illness : Patient is 60-year-old male presenting to the ER on 08/03/2021 for evaluation of bright red blood per rectum patient denies having any abdominal pain patient denies any nausea no vomiting patient did have underlying COPD however the patient denies having any chest pain shortness of breath or cough patient on presentation to the hospital was afebrile patient did have mild elevated white count on admission of 12.7 that has subsequently normalized kidney function has been normal lactic acid was elevated on admission subsequent normalized stool for occult blood was positive blood culture has been negative patient did have a chest x-ray concern for right lower lobe pneumonia patient has been evaluated by pulmonary currently being treated with Omnicef and Zithromax patient did have a CT abdominal pelvis lung bases were clear minimal atelectasis infectious disease was consulted today with concern for possible pneumonia and cellulitis patient currently denies having any redness to lower extremity did have mild swelling, patient mention he to follow-up in the wound care center for lower extremity wound however mention he does not have any problem with his leg wound at this point and refused further dressing to be taken off Review of system: CONSTITUTIONAL: Positive for weakness however no fever. EYES: No complaint. ENT: No complaint. RESPIRATORY: As per history of present illness. CARDIOVASCULAR: No complaint. GENITOURINARY: No complaint. GASTROINTESTINAL: As per history of present illness MUSCULOSKELETAL: No complaint. INTEGUMENTARY: No complaint. PSYCHOLOGIC: No complaint. ENDOCRINE: No complaint. NEUROLOGIC: No complaint. Past medical history : Reviewed, documented below Past surgical history : Reviewed, documented below Social history: Reviewed, documented below Medications: Reviewed, as documented below EXAMINATION: Vital sigans= Reviewed and documented below GENERAL DESCRIPTION: Middle-aged male lying in bed, no distress. No tachypnea or accessory muscle of respiration use. HEENT: Shows Pallor , no scleral icterus. Oral mucous membrane is dry. NECK: Trachea central, no thyromegaly. LUNGS: Unlabored breathing. Decrease intensity of breath sounds. No wheeze or crackle. HEART: S1, S2, regular rate and rhythm. ABDOMEN: Soft, no tenderness , guarding or rigidity EXTREMITIES: Legs are currently wrapped no drainage on the dressing. SKIN: No rash, no masses palpable. NEUROLOGICAL: The patient is awake, alert, oriented x3, mood and affect normal. LABS AND RADIOLOGY: Reviewed results see below Assessment : 1-patient presented to hospital with acute hematochezia in this patient who is status post colonoscopy with evidence of diverticulosis and sigmo id colon adenoma no evidence of any active bleeding, patient did have underlying COPD and did have some abnormality on the chest x-ray however CT did not show any evidence of consolidation and the patient is clinically not behaving as pneumonia with no fever or elevated white count, 2-patient did have a single wound however mention his wounds are healing well and refused for the dressing to be taken off limiting evaluation Plan: 1-we will check a CRP and procalcitonin 2-May continue Omnicef and Zithromax however if procalcitonin is normal recommend to discontinue antibiotics We will follow on clinical condition and cultures to further adjust medication if needed Thank you for this consultation we will follow the patient along with you Past Medical History Past Medical History: Heart Failure, COPD, Diabetes Mellitus History of Any Multi-Drug Resistant Organisms: MRSA Year Discovered:: 05/23/16 MDRO Source:: Left Foot Past Surgical History: Hernia Repair, Orthopedic Surgery, Tonsillectomy Additional Past Surgical History / Comment(s): lt. 5th toe amp Past Psychological History: No Psychological Hx Reported Smoking Status: Current every day smoker Past Alcohol Use History: None Reported Past Drug Use History: None Reported Additional Drug Use History / Comment(s): quit drinking 10 years ago - Past Family History Sister(s) Family Medical History: Cancer Father Family Medical History: Congestive Heart Failure (CHF), Diabetes Mellitus Mother Family Medical History: Renal Disease Medications and Allergies Home Medications Medication Instructions Recorded Confirmed Type Furosemide [Lasix] 40 mg PO BID 06/18/16 08/03/21 History Sulfamethox-Tmp 800-160Mg [Bactrim 1 tab PO Q12HR 06/18/16 08/03/21 History DS 800-160 mg] Acetaminophen Tab [Tylenol Tab] 1,000 mg PO Q6HR PRN 08/03/21 08/03/21 History Albuterol Sulfate [Ventolin HFA] 1 - 2 puff INHALATION RT-Q6H PRN 08/03/21 08/03/21 History Naproxen 500 mg PO BID PRN 08/03/21 08/03/21 History Oxymetazoline HCl [Afrin 0.05%] 1 spray EA NOSTRIL DAILY PRN 08/03/21 08/03/21 History metOLazone [Zaroxolyn] 5 mg PO DAILY 08/03/21 08/03/21 History Allergies Allergy/AdvReac Type Severity Reaction Status Date / Time No Known Allergies Allergy Verified 08/03/21 18:29 Physical Exam Vitals: Vital Signs Temp Pulse Pulse Resp BP Pulse Ox 08/06/21 20:13 80 08/06/21 20:00 76 08/06/21 19:59 76 08/06/21 19:47 72 08/06/21 15:35 98.8 F 97 18 100/64 90 L 08/06/21 15:25 80 08/06/21 15:13 80 08/06/21 14:00 82 18 08/06/21 11:36 76 08/06/21 11:34 82 18 105/66 100 08/06/21 11:25 72 08/06/21 08:30 84 08/06/21 08:24 88 08/06/21 08:23 88 08/06/21 08:08 84 08/06/21 08:00 98.7 F 80 18 124/76 100 08/06/21 03:48 97.8 F 84 20 135/76 99 08/06/21 00:00 98.1 F 80 18 132/77 93 L Intake and Output 08/06/21 08/06/21 08/07/21 14:59 22:59 06:59 Intake Total 500 240 Balance 500 240 Intake: IV 500 Oral 0 240 Other: # Voids 2 1 Results CBC & Chem 7: 08/06/21 08:10 08/06/21 08:10 Labs: Abnormal Lab Results - Last 24 Hours (Table) 08/06/21 08/06/21 08/06/21 Range/Units 06:01 08:10 08:10 RBC 3.50 L (4.30-5.90) m/uL Hgb 10.9 L (13.0-17.5) gm/dL Hct 32.8 L (39.0-53.0) % Sodium 134 L (137-145) mmol/L Potassium 3.4 L (3.5-5.1) mmol/L Chloride 91 L (98-107) mmol/L Carbon Dioxide 39 H (22-30) mmol/L Glucose 121 H (74-99) mg/dL POC Glucose (mg/dL) 131 H (75-99) mg/dL 08/06/21 08/06/21 08/06/21 Range/Units 12:04 16:38 20:08 RBC (4.30-5.90) m/uL Hgb (13.0-17.5) gm/dL Hct (39.0-53.0) % Sodium (137-145) mmol/L Potassium (3.5-5.1) mmol/L Chloride (98-107) mmol/L Carbon Dioxide (22-30) mmol/L Glucose (74-99) mg/dL POC Glucose (mg/dL) 124 H 179 H 183 H (75-99) mg/dL Microbiology - Last 24 Hours (Table) 08/03/21 21:10 Blood Culture - Preliminary Blood No Growth after 72 hours 08/03/21 21:26 Blood Culture - Preliminary Blood No Growth after 72 hours
[2021-08-07] MEDS: PANTOPRAZOLE 40 MG TABLET PO SCH ×3 (02:27→20:26)
[2021-08-07] MEDS: SODIUM CHLORIDE 0.9% 1,000 ML IV SCH ×2 (02:27→20:14)
[2021-08-07] MEDS: INSULIN ASPART (NovoLOG) 100 UNIT/ML VIAL SQ SCH ×4 (05:47→20:26)
[2021-08-07 06:04] LABS: Glucose,Whole Blood 141 mg/dL (75-99)
[2021-08-07] MEDS: BUDESONIDE 1 MG/2 ML NEBU INHALATION SCH ×2 (07:46→19:55)
[2021-08-07] MEDS: IPRATROPIUM-ALBUTEROL 3 ML NEB INHALATION SCH ×4 (07:46→19:55)
[2021-08-07] MEDS: FORMOTEROL FUMARATE 20 MCG/2 ML NEBU INHALATION SCH ×2 (07:46→19:56)
[2021-08-07] MEDS: NICOTINE 14MG/24HR PATCH TRANSDERM SCH (08:09)
[2021-08-07] MEDS: AZITHROMYCIN 500 MG TAB PO SCH (08:11)
[2021-08-07] MEDS: predniSONE 20 MG TAB PO SCH (08:11)
[2021-08-07] MEDS ORDERED: CEFDINIR 300 MG CAP PO SCH (09:00)
[2021-08-07 09:54] LABS: Basophils % (A) 0 %; Eosinophils % (A) 0 %; HCT 31.9 % (39.0-53.0); HGB 10.6 gm/dL (13.0-17.5); Lymphocytes # (A) 1.7 k/uL (1.0-4.8); Lymphocytes % (A) 20 %; MCH 31.5 pg (25.0-35.0); MCHC 33.3 g/dL (31.0-37.0); MCV 94.8 fL (80.0-100.0); Mean Platelet Volume 7.1; Monocytes # (A) 0.5 k/uL (0-1.0); Monocytes % (A) 6 %; Neutrophils % (A) 71 %; Platelet Count 418 k/uL (150-450); RBC 3.37 m/uL (4.30-5.90); RDW 14.4 % (11.5-15.5); WBC 8.4 k/uL (3.8-10.6)
[2021-08-07 10:10] LABS: African American GFR (CKD) >90 (>60 ml/min/1.73 sqM); Anion Gap 7 mmol/L; Blood Urea Nitrogen 13 mg/dL (9-20); Calcium 9.2 mg/dL (8.4-10.2); Carbon Dioxide 32 mmol/L (22-30); Chloride 95 mmol/L (98-107); Glucose 139 mg/dL (74-99); Magnesium 1.7 mg/dL (1.6-2.3); Non-African American GFR(CKD) >90 (>60 ml/min/1.73 sqM); Potassium 3.9 mmol/L (3.5-5.1); Sodium 134 mmol/L (137-145)
--- NOTE | 2021-08-07 11:12 | P.PN ---
<Mellisa Merritt - Last Filed: 08/07/21 11:05> Subjective Progress Note Date: 08/07/21 CHIEF COMPLAINT: GI bleed HISTORY OF PRESENT ILLNESS: Patient presented with blood in stools including a 4 g drop in hemoglobin during his hospitalization. He is status post colonoscopy with snare of polypectomy. Results showed sigmoid diverticulosis with pandiverticulosis and sigmoid colon adenoma. Patient reporting no further blood in stools. Denies any abdominal pain. He still reports some shortness of breath. Afebrile. WBC is 8.4 hemoglobin 10.6 PHYSICAL EXAM: VITAL SIGNS: Reviewed GENERAL: Well-developed in no acute distress. HEENT: No sclera icterus. Extraocular movements grossly intact. Moist buccal mucosa. Head is atraumatic, normocephalic. Hears conversational speech. No nasal drainage. NECK: Supple without lymphadenopathy. CHEST: Non-labored respirations and equal bilateral excursions. CARDIOVASCULAR: Palpable 2+ radial pulses. ABDOMEN: Soft. Nondistended. Nontender. MUSCULOSKELETAL: No clubbing or cyanosis. NEUROLOGIC: No focal or lateralizing signs. Cranial nerves II through XII grossly intact. PSYCH: Appropriate affect. Alert and oriented to person, place and time. SKIN: Well perfused. Good skin turgor. ASSESSMENT: 1. Acute GI bleed 2. Acute blood loss anemia 3. Status post colonoscopy with polypectomy. Results showed sigmoid diverticulosis with pandiverticulosis and sigmoid colon adenoma 4. Acute congestive heart failure with exacerbation 5. Acute chronic obstructive pulmonary disease with exacerbation PLAN: -Recommend repeat lower endoscopy in 2 years, 2022 -Continue regular diet -Patient is okay for discharge from surgical standpoint when cleared medically Physician Industrial Cleaning Technician note has been reviewed by physician. Signing provider agrees with the documented findings, assessment, and plan of care. Objective - Vital Signs Vital signs: Vital Signs Temp 98 F 08/07/21 07:17 Pulse 85 08/07/21 08:08 Resp 18 08/07/21 08:08 BP 148/73 08/07/21 07:17 Pulse Ox 95 08/07/21 07:47 Intake & Output 08/06/21 08/07/21 08/07/21 18:59 06:59 18:59 Intake Total 740 240 Output Total 150 Balance 740 90 Weight 132.9 kg Intake: IV 500 Oral 240 240 Output: Stool 150 Other: Voiding Method Toilet Toilet Urinal Urinal # Voids 2 1 - Labs CBC & Chem 7: 08/07/21 09:07 08/07/21 09:07 Labs: Abnormal Lab Results - Last 24 Hours (Table) 08/06/21 08/06/21 08/06/21 Range/Units 12:04 16:38 20:08 RBC (4.30-5.90) m/uL Hgb (13.0-17.5) gm/dL Hct (39.0-53.0) % Sodium (137-145) mmol/L Chloride (98-107) mmol/L Carbon Dioxide (22-30) mmol/L Glucose (74-99) mg/dL POC Glucose (mg/dL) 124 H 179 H 183 H (75-99) mg/dL 08/07/21 08/07/21 08/07/21 Range/Units 06:02 09:07 09:07 RBC 3.37 L (4.30-5.90) m/uL Hgb 10.6 L (13.0-17.5) gm/dL Hct 31.9 L (39.0-53.0) % Sodium 134 L (137-145) mmol/L Chloride 95 L (98-107) mmol/L Carbon Dioxide 32 H (22-30) mmol/L Glucose 139 H (74-99) mg/dL POC Glucose (mg/dL) 141 H (75-99) mg/dL Microbiology - Last 24 Hours (Table) 08/03/21 21:10 Blood Culture - Preliminary Blood No Growth after 72 hours 08/03/21 21:26 Blood Culture - Preliminary Blood No Growth after 72 hours <Payton Molina N - Last Filed: 08/08/21 11:29> Subjective CHIEF COMPLAINT: Hematochezia HISTORY OF PRESENT ILLNESS: The patient is a 60 year old male with gastrointestinal bleeding status post upper and lower endoscopy. He denies any further bleeding from his upper or lower endoscopy. A polyp was removed jasmin trevino. REVIEW OF ORGAN SYSTEMS: Has shortness of breath. No active chest pain. No fevers or chills. PHYSICAL EXAM: VITALS: Reviewed CONSTITUTIONAL: Well developed and in no acute distress. EYES: Conjuctivae without sclera icterus. Extraocular movements grossly intact. HEAD, EARS, NOSE, THROAT: Moist buccal mucosa. Head is atraumatic, normocephalic. Hears conversational speech. No nasal drainage. RESPIRATORY: Labored respirations and equal bilateral excursions. No gross wheezes. CARDIOVASCULAR: Regular rate and rhythm. ABDOMEN: Nontender. Protuberant. MUSCULOSKELETAL: Nail and fingers with good capillary refill. SKIN: Warm and well perfused with good skin turgor. NEUROLOGIC: No focal or lateralizing signs. PSYCH: Appropriate affect. Alert and oriented to person, place and time. Displays appropriate insight. CLINCAL LABS: Reviewed. Hemoglobin down 10.9-10.6. ASSESSMENT: 1. Gastrointestinal bleeding 2. Congestive heart failure with pneumonia 3. Hyponatremia 4. Lactic acidosis on admission 5. Pneumonia 6. Umbilical hernia 7. Gallstones 8. Acute blood loss anemia 9. Sigmoid diverticulosis PLAN: 1. He has risk of rebleed especially with sigmoid diverticulosis. 2. Diet as tolerated. 3. Repeat colonoscopy in 2 years, 2022 Objective - Vital Signs Vital signs: Vital Signs Temp 97.1 F L 08/08/21 08:00 Pulse 85 08/08/21 08:27 Resp 18 08/08/21 08:00 BP 135/71 08/08/21 08:00 Pulse Ox 100 08/08/21 08:03 Intake & Output 08/07/21 08/08/21 08/08/21 18:59 06:59 18:59 Intake Total 980 780 240 Output Total 300 Balance 680 780 240 Weight 133.3 kg Intake: Oral 980 780 240 Output: Stool 300 Other: Voiding Method Toilet Toilet Toilet Urinal # Voids 1 # Bowel Movements 1 - Labs CBC & Chem 7: 08/07/21 09:07 08/07/21 09:07 Labs: Abnormal Lab Results - Last 24 Hours (Table) 08/07/21 08/07/21 08/07/21 Range/Units 09:07 11:28 16:50 POC Glucose (mg/dL) 194 H 313 H (75-99) mg/dL Hemoglobin A1c 6.6 H (4.0-6.0) % 08/07/21 08/08/21 Range/Units 19:56 06:11 POC Glucose (mg/dL) 262 H 165 H (75-99) mg/dL Hemoglobin A1c (4.0-6.0) % Microbiology - Last 24 Hours (Table) 08/03/21 21:26 Blood Culture - Preliminary Blood No Growth after 96 hours 08/03/21 21:10 Blood Culture - Preliminary Blood No Growth after 96 hours Assessment and Plan (1) CAP (community acquired pneumonia) Current Visit: Yes Status: Acute Code(s): J18.9 - PNEUMONIA, UNSPECIFIED ORGANISM SNOMED Code(s): 854023231 (2) Hematochezia Current Visit: Yes Status: Acute Code(s): K92.1 - MELENA SNOMED Code(s): 362142748 (3) Morbid obesity with BMI of 40.0-44.9, adult Current Visit: No Status: Acute Code(s): E66.01 - MORBID (SEVERE) OBESITY DUE TO EXCESS CALORIES SNOMED Code(s): 449435302 (4) Type 2 diabetes mellitus Current Visit: No Status: Acute Code(s): E11.9 - TYPE 2 DIABETES MELLITUS WITHOUT COMPLICATIONS SNOMED Code(s): 14876740 (5) Umbilical hernia Current Visit: Yes Status: Acute Code(s): K42.9 - UMBILICAL HERNIA WITHOUT OBSTRUCTION OR GANGRENE SNOMED Code(s): 133831053 (6) Diverticulosis Current Visit: Yes Status: Acute Code(s): K57.90 - DVRTCLOS OF INTEST, PART UNSP, W/O PERF OR ABSCESS W/O BLEED SNOMED Code(s): 465488650 (7) Acute blood loss anemia Current Visit: Yes Status: Acute Code(s): D62 - ACUTE POSTHEMORRHAGIC ANEMIA SNOMED Code(s): 568424756 (8) Gallstones Current Visit: Yes Status: Acute Code(s): K80.20 - CALCULUS OF GALLBLADDER W/O CHOLECYSTITIS W/O OBSTRUCTION SNOMED Code(s): 201150516
[2021-08-07 11:30] LABS: Glucose,Whole Blood 194 mg/dL (75-99)
--- NOTE | 2021-08-07 13:17 | P.PN ---
Subjective 60-year-old male patient who follows with Dr. Boston as his primary care provider. He has history of diabetes mellitus, diastolic congestive heart failure, chronic obstructive pulmonary disease, chronic and ongoing tobacco dependence. He presented to the emergency room last evening with reports of bright red blood per rectum. He had approximate 4 episode yesterday. No previous history of GI bleed. Denies excessive alcohol use. His been taking Naprosyn twice daily for left shoulder pain. Chest x-ray revealed some mild infiltrates in the right lower lobe and left upper lobe. We're consulted for the same. He is seen in the emergency room. Currently sitting up on the stretcher. Awake and alert in no acute distress. He is requiring 5 L high flow nasal cannula to maintain O2 saturations in the 90s. He does have home oxygen. He has a nebulizer with albuterol treatments. He had not been seen by pole framer machine in the past. He has been smoking for approximately 42 years. White count 8.5. Hemoglobin 12.0. Sodium 129. Potassium 4.5. Bicarb 35. Creatinine 1.15. Initial lactic 2.9. Currently 1.5. ProBNP 43. Stool for occult blood positive. 08/05/2021 Patient is seen and evaluated in room with family members at bedside; report some improvement in breathing; has been evaluated by general surgery and is recommended colonoscopy Vital signs remained stable temperature 97.9, pulse 80, respiration 18 and blood pressure 130/73; lab review shows WBC 8.4, hemoglobin 11.7, platelet count of 39 0,000, sodium 131, potassium 3.9, BUN/creatinine of 20/0.85 with lactic acid levels of 1.5; chest x-ray reveals right lower lobe and left upper lobe pneumonia Pulmonary is following and recommending to continue with current IV antibiotic therapy in form of ceftriaxone and azithromycin; Pulmicort, formoterol, albuterol sulfate and prednisone has been added for acute exacerbation COPD Patient has been evaluated by general surgery and is recommended upper and lower endoscopy; given risk for CHF patient will receive low-volume prep; continue monitor CBC Subjective: 08/06/21 This is a pleasant 60 years old male who presents with bright red blood per rectum on 08/03 and has been evaluated by surgery team and he underwent colonoscopy today showing internal hemorrhoids with sigmoid diverticulosis and colonic adenoma status post polypectomy. Currently he is been continued on IV Protonix 40 mg twice a day His been diagnosed with left upper lobe pneumonia, he is been followed closely by pulmonary team and placed on Zithromax and ceftriaxone. Patient states that his breathing is better today. No significant cough or exertional dyspnea. Complaining of from bilateral leg redness stating that they are improving, he still has redness swelling and tenderness and warmth on the right leg with some scaling on both legs which looks chronic. He is on home oxygen and 2 L milliliters per hour The correct with Zithromax and ceftriaxone as well as prednisone 40 mg. His hyponatremia is improving and today sodium is 134. Diabetic gallstone disease evaluated by surgery team 08/07/2021 Reason well, he still have some mild dyspnea with mild wheezing breath no chest pain. Patient was talking freely on room air today although he's I used 2 L/m of oxygen via nasal cannula at home. I then that he is hemodynamically stable, labs are stable and his hemoglobin stable at 10.6. Refused infectious disease team to check his right leg and he was to follow up as an outpatient Meter team switched his antibiotics to oral pills of Zithromax and cefdionir, He has some episodes of blood per rectum 2, most likely secondary to hemorrhoids. hydrocortisone cream was ordered. Polyp biopsy is pending, hemoglobin A1c is pending Possible discharge in 24-48 hours if remains stable and his hemoglobin is stable Objective - Vital Signs Vital signs: Vital Signs Temp 98 F 08/07/21 11:30 Pulse 80 08/07/21 12:48 Resp 16 08/07/21 12:48 BP 133/78 08/07/21 11:30 Pulse Ox 94 L 08/07/21 11:30 Intake & Output 08/06/21 08/07/21 08/07/21 18:59 06:59 18:59 Intake Total 740 740 Output Total 300 Balance 740 440 Weight 132.9 kg Intake: IV 500 Oral 240 740 Output: Stool 300 Other: Voiding Method Toilet Toilet Urinal Urinal # Voids 2 1 - Exam GENERAL: The patient is alert and oriented x3, not in any acute distress. Well developed, well nourished. HEENT: Pupils are round and equally reacting to light. EOMI. No scleral icterus. No conjunctival pallor. Normocephalic, atraumatic. No pharyngeal erythema. No thyromegaly. CARDIOVASCULAR: S1 and S2 present. No murmurs, rubs, or gallops. PULMONARY: Chest is clear to auscultation, no wheezing or crackles. ABDOMEN: Soft, nontender, nondistended, normoactive bowel sounds. No palpable organomegaly. MUSCULOSKELETAL: No joint swelling or deformity. EXTREMITIES: No cyanosis, clubbing, or pedal edema. Bilateral leg scaling, right leg is red and swollen and warm NEUROLOGICAL: Gross neurological examination did not reveal any focal deficits. SKIN: No rashes. no petechiae. - Labs CBC & Chem 7: 08/07/21 09:07 08/07/21 09:07 Labs: Abnormal Lab Results - Last 24 Hours (Table) 08/06/21 08/06/21 08/07/21 Range/Units 16:38 20:08 06:02 RBC (4.30-5.90) m/uL Hgb (13.0-17.5) gm/dL Hct (39.0-53.0) % Sodium (137-145) mmol/L Chloride (98-107) mmol/L Carbon Dioxide (22-30) mmol/L Glucose (74-99) mg/dL POC Glucose (mg/dL) 179 H 183 H 141 H (75-99) mg/dL 08/07/21 08/07/21 08/07/21 Range/Units 09:07 09:07 11:28 RBC 3.37 L (4.30-5.90) m/uL Hgb 10.6 L (13.0-17.5) gm/dL Hct 31.9 L (39.0-53.0) % Sodium 134 L (137-145) mmol/L Chloride 95 L (98-107) mmol/L Carbon Dioxide 32 H (22-30) mmol/L Glucose 139 H (74-99) mg/dL POC Glucose (mg/dL) 194 H (75-99) mg/dL Microbiology - Last 24 Hours (Table) 08/03/21 21:10 Blood Culture - Preliminary Blood No Growth after 72 hours 08/03/21 21:26 Blood Culture - Preliminary Blood No Growth after 72 hours Assessment and Plan Assessment: Assessment: 1. Acute lower GI bleed; status post colonoscopy showing diverticulosis, administrative intern al hemorrhoids grade 1 status post polypectomy - We will monitor H&H closely; Protonix 40 mg IV daily; we will plan to type crossmatch and transfuse if hemoglobin is less than 8.0 - Hemoglobin results. - Could be due to internal hemorrhoids,start hydrocortisone topical 2. Acute hypoxemic respiratory failure; multifactorial; secondary to CPAP, acute exacerbation COPD. 3. Community-acquired pneumonia - Continue on ceftriaxone and azithromycin - Pulmonary team on the case 4. Acute exacerbation COPD; continue with DuoNeb nebulizer treatments along with Pulmicort and Perforomist inhalations; IV Solu-Medrol - Patient is on antibiotic therapy with Rocephin and ceftriaxone - Pulmonary team on the case 5. Right leg cellulitis. Likely on Rocephin, infectious disease team is consulted 6. Diabetes mellitus; monitor Accu-Cheks every before meals and at bedtime with insulin sliding scale 7. Osteoarthritis; chronic left shoulder pain; patient currently taking Naprosyn twice a day dose 8. Diastolic CHF; not in exacerbation; patient remains on diuretic therapy with Lasix and Zaroxolyn DVT prophylaxis; SCDs only due to GI bleed CODE STATUS; full code
[2021-08-07] MEDS: HYDROCORTISONE 2.5% RECTAL CREAM 30 GM TUBE RECTAL SCH ×2 (14:11→20:26)
[2021-08-07 16:51] LABS: Glucose,Whole Blood 313 mg/dL (75-99)
--- NOTE | 2021-08-07 17:14 | P.PN ---
Subjective Progress Note Date: 08/07/21 Principal diagnosis: Acute lower GI bleed with bright red blood per rectum, acute hypoxic respiratory failure This is a 60-year-old male patient who follows with Dr. Boston as his primary care provider. He has history of diabetes mellitus, diastolic congestive heart failure, chronic obstructive pulmonary disease, chronic and ongoing tobacco dependence. He presented to the emergency room last evening with reports of bright red blood per rectum. He had approximate 4 episode yesterday. No previous history of GI bleed. Denies excessive alcohol use. His been taking Naprosyn twice daily for left shoulder pain. Chest x-ray revealed some mild infiltrates in the right lower lobe and left upper lobe. We're consulted for the same. He is seen in the emergency room. Currently sitting up on the stretcher. Awake and alert in no acute distress. He is requiring 5 L high flow nasal cannula to maintain O2 saturations in the 90s. He does have home oxygen. He has a nebulizer with albuterol treatments. He had not been seen by runner on in the past. He has been smoking for approximately 42 years. White count 8.5. Hemoglobin 12.0. Sodium 129. Potassium 4.5. Bicarb 35. Creatinine 1.15. Initial lactic 2.9. Currently 1.5. ProBNP 43. Stool for occult blood positive. He's been initiated on vancomycin, DuoNeb inhalations, Protonix. 0.9 normal saline at 75 ML's per hour. Progress note dated 08/05/2021. 60-year-old male, seen in consultation. He has a history of diabetes mellitus, diastolic CHF, COPD, and chronic and ongoing tobacco dependence. He presented to the emergency room, with bright red bleeding per rectum. Also, the patient was complaining of being short of breath. His COPD, was likely active. Currently, he's feeling better. He does continue to smoke but states he is really trying seriously to quit. Laboratory data includes a white count 8.4, hemoglobin 11.7, hematocrit 35.7, and a platelet count of 390,000. Sodium 131, potassium 3.9, chlorides 88, CO2 38, anion gap is 5, BUN is 20, with creatinine 0.85. Lactate when last checked was 1.5. Chest x-ray showed pneumonia involving the right lower lobe and left upper lobe. The patient is seen today 08/06/2021 in follow-up on the regular medical floor. He is currently sitting up in a chair at the bedside. Awake and alert in no acute distress. Feeling a bit better today compared to yesterday. He is maintaining O2 saturations up to 100% on 3 L/m per nasal cannula. He's been afebrile. Hemodynamically stable. Follow-up chest x-ray reveals persistent left upper lobe density and mild strandy basilar densities. White count 7.0. Hemoglobin 10.9. Sodium 134. Potassium 3.4. Creatinine 0.73. Plan is for EGD/colonoscopy today. He remains on ceftriaxone and azithromycin along with DuoNeb inhalations, Pulmicort and Perforomist inhalations, NicoDerm patch, oral prednisone. On 08/07/2021 patient seen in follow-up on selective care unit. He is awake and alert, in no acute distress, he is on 2 L of oxygen, with a pulse ox 94%, he is breathing comfortably, denies any chest discomfort, no hemoptysis, his hemoglobin is stable, 10.6 on today's labs, white blood cell count is 8.4, his platelet count was 418, sodium is 134, potassium 3.9, CO2 32, renal profile is within normal limits. Cultures have shown no growth. He is on a combination of azithromycin and oral Omnicef, he is on oral prednisone, his 0.9 normal saline running at a rate of 20 ML per hour. He underwent colonoscopy, general surgery is following. Objective - Vital Signs Vital signs: Vital Signs Temp 97.6 F 08/07/21 15:51 Pulse 91 08/07/21 16:10 Resp 16 08/07/21 15:51 BP 139/77 08/07/21 15:51 Pulse Ox 92 L 08/07/21 16:01 Intake & Output 08/06/21 08/07/21 08/07/21 18:59 06:59 18:59 Intake Total 740 740 Output Total 300 Balance 740 440 Weight 132.9 kg Intake: IV 500 Oral 240 740 Output: Stool 300 Other: Voiding Method Toilet Toilet Urinal Urinal # Voids 2 1 - Exam GENERAL EXAM: Alert, very pleasant, 60-year-old white male, liters of oxygen a pulse ox of 93% comfortable in no apparent distress. HEAD: Normocephalic/atraumatic. EYES: Normal reaction of pupils, equal size. Conjunctiva pink, sclera white. NOSE: Clear with pink turbinates. THROAT: No erythema or exudates. NECK: No masses, no JVD, no thyroid enlargement, no adenopathy. CHEST: No chest wall deformity. Symmetrical expansion. LUNGS: Equal air entry with no crackles, wheeze, rhonchi or dullness. CVS: Regular rate and rhythm, normal S1 and S2, no gallops, no murmurs, no rubs ABDOMEN: Soft, nontender. No hepatosplenomegaly, normal bowel sounds, no guarding or rigidity. EXTREMITIES: No clubbing, no edema, no cyanosis, 2+ pulses and upper and lower extremities. MUSCULOSKELETAL: Muscle strength and tone normal. SPINE: No scoliosis or deformity SKIN: No rashes CENTRAL NERVOUS SYSTEM: Alert and oriented -3. No focal deficits, tone is normal in all 4 extremities. PSYCHIATRIC: Alert and oriented -3. Appropriate affect. Intact judgment and insight. - Labs CBC & Chem 7: 08/07/21 09:07 08/07/21 09:07 Labs: Abnormal Lab Results - Last 24 Hours (Table) 08/06/21 08/07/21 08/07/21 Range/Units 20:08 06:02 09:07 RBC 3.37 L (4.30-5.90) m/uL Hgb 10.6 L (13.0-17.5) gm/dL Hct 31.9 L (39.0-53.0) % Sodium (137-145) mmol/L Chloride (98-107) mmol/L Carbon Dioxide (22-30) mmol/L Glucose (74-99) mg/dL POC Glucose (mg/dL) 183 H 141 H (75-99) mg/dL 08/07/21 08/07/21 08/07/21 Range/Units 09:07 11:28 16:50 RBC (4.30-5.90) m/uL Hgb (13.0-17.5) gm/dL Hct (39.0-53.0) % Sodium 134 L (137-145) mmol/L Chloride 95 L (98-107) mmol/L Carbon Dioxide 32 H (22-30) mmol/L Glucose 139 H (74-99) mg/dL POC Glucose (mg/dL) 194 H 313 H (75-99) mg/dL Microbiology - Last 24 Hours (Table) 08/03/21 21:10 Blood Culture - Preliminary Blood No Growth after 72 hours 08/03/21 21:26 Blood Culture - Preliminary Blood No Growth after 72 hours Assessment and Plan Plan: Assessment: #1. Acute GI blood loss anemia, with bright red blood per rectum, patient is status post colonoscopy, please refer to the report #2. Acute hypoxic respiratory failure secondary with persistent left upper lobe density with mild strandy basilar density, possibility of pneumonia is less likely, however patient is empirically covered with azithromycin and Cefdinir #3. Acute exacerbation of COPD #4. Chronic and ongoing tobacco dependence of greater than 40 years #5. History of diastolic CHF maintained on Lasix and Zaroxolyn in the outpatient setting #6. Chronic left shoulder pain #7. Diabetes multiple stenting Plan: Patient is breathing comfortably No fever or chills We can stop the antibiotics No clear evidence of pneumonia on the chest x-ray or CT abdomen I performed a history & physical examination of the patient and discussed their management with my nurse practitioner, Helga Clarke. I reviewed the nurse practitioner's note and agree with the documented findings and plan of care. Lung sounds are positive for diminished breath sounds throughout the lung jarvis. The findings and the impression was discussed with the patient. I attest to the documentation by the nurse practitioner. Time with Patient: Less than 30
--- NOTE | 2021-08-07 18:44 | PN ---
PROGRESS NOTE DATE OF SERVICE: 08/07/2021 REASON FOR FOLLOWUP: Pneumonia, lower extremity cellulitis. INTERVAL HISTORY: The patient is afebrile. He seems to be slightly upset. He did have another episode of bleeding per rectum. The patient denies having any chest pain, shortness of breath or cough. No abdominal pain. He denies any problem with his lower extremity. PHYSICAL EXAMINATION: Blood pressure 139/77, pulse of 80, temperature 97.6. He is 96% on 2 L nasal cannula. GENERAL DESCRIPTION: General description is a middle-aged male up in the chair in no distress. RESPIRATORY SYSTEM: Unlabored breathing. Decreased intensity of breath sounds. No wheeze. HEART: S1, S2. Regular rate and rhythm. ABDOMEN: Soft. No tenderness. LOWER EXTREMITIES: Currently dressed. Patient refused to take his dressing off in the presence of his nurse LABS: Hemoglobin is 10.6, white count 8.4, BUN of 13, creatinine 0.72. DIAGNOSTIC IMPRESSION AND PLAN: Patient admitted to hospital with did have an abnormal x-ray. Clinically not behaving as pneumonia, and the patient has refused to take his dressing off. Cannot assess for cellulitis with no fever or elevated white count. Recommend antibiotic on discharge. Continue supportive care. MMODL / IJN: [id number] /
[2021-08-07 19:57] LABS: Glucose,Whole Blood 262 mg/dL (75-99)
[2021-08-07 20:48] LABS: Hemoglobin A1C 6.6 % (4.0-6.0)
[2021-08-07] MEDS: ACETAMINOPHEN TAB 500 MG TAB PO PRN (23:09)
[2021-08-08 06:16] LABS: Glucose,Whole Blood 165 mg/dL (75-99)
[2021-08-08] MEDS: INSULIN ASPART (NovoLOG) 100 UNIT/ML VIAL SQ SCH ×4 (06:39→20:14)
[2021-08-08] MEDS: NICOTINE 14MG/24HR PATCH TRANSDERM SCH (07:48)
[2021-08-08] MEDS: PANTOPRAZOLE 40 MG TABLET PO SCH ×2 (07:48→20:13)
[2021-08-08] MEDS: HYDROCORTISONE 2.5% RECTAL CREAM 30 GM TUBE RECTAL SCH ×2 (07:48→20:13)
[2021-08-08] MEDS: predniSONE 20 MG TAB PO SCH (07:48)
[2021-08-08] MEDS: FORMOTEROL FUMARATE 20 MCG/2 ML NEBU INHALATION SCH ×3 (08:03→19:31)
[2021-08-08] MEDS: BUDESONIDE 1 MG/2 ML NEBU INHALATION SCH ×3 (08:03→19:31)
[2021-08-08] MEDS: IPRATROPIUM-ALBUTEROL 3 ML NEB INHALATION SCH ×5 (08:03→19:31)
[2021-08-08 11:14] LABS: Basophils % (A) 0 %; Eosinophils # (A) 0.1 k/uL (0-0.7); Eosinophils % (A) 1 %; HCT 26.9 % (39.0-53.0); Lymphocytes # (A) 1.9 k/uL (1.0-4.8); Lymphocytes % (A) 22 %; MCHC 33.7 g/dL (31.0-37.0); MCV 94.8 fL (80.0-100.0); Mean Platelet Volume 7.6; Monocytes # (A) 0.5 k/uL (0-1.0); Monocytes % (A) 6 %; Neutrophils # (A) 6.1 k/uL (1.3-7.7); Neutrophils % (A) 69 %; Platelet Count 441 k/uL (150-450); RBC 2.84 m/uL (4.30-5.90); RDW 14.6 % (11.5-15.5); WBC 8.8 k/uL (3.8-10.6)
[2021-08-08 11:18] LABS: HGB 9.1 gm/dL (13.0-17.5)
--- NOTE | 2021-08-08 11:23 | P.PN ---
Subjective Progress Note Date: 08/08/21 Principal diagnosis: Acute lower GI bleed with bright red blood per rectum, acute hypoxic respiratory failure This is a 60-year-old male patient who follows with Dr. Boston as his primary care provider. He has history of diabetes mellitus, diastolic congestive heart failure, chronic obstructive pulmonary disease, chronic and ongoing tobacco dependence. He presented to the emergency room last evening with reports of bright red blood per rectum. He had approximate 4 episode yesterday. No previous history of GI bleed. Denies excessive alcohol use. His been taking Naprosyn twice daily for left shoulder pain. Chest x-ray revealed some mild infiltrates in the right lower lobe and left upper lobe. We're consulted for the same. He is seen in the emergency room. Currently sitting up on the stretcher. Awake and alert in no acute distress. He is requiring 5 L high flow nasal cannula to maintain O2 saturations in the 90s. He does have home oxygen. He has a nebulizer with albuterol treatments. He had not been seen by sec reporting consultant in the past. He has been smoking for approximately 42 years. White count 8.5. Hemoglobin 12.0. Sodium 129. Potassium 4.5. Bicarb 35. Creatinine 1.15. Initial lactic 2.9. Currently 1.5. ProBNP 43. Stool for occult blood positive. He's been initiated on vancomycin, DuoNeb inhalations, Protonix. 0.9 normal saline at 75 ML's per hour. Progress note dated 08/05/2021. 60-year-old male, seen in consultation. He has a history of diabetes mellitus, diastolic CHF, COPD, and chronic and ongoing tobacco dependence. He presented to the emergency room, with bright red bleeding per rectum. Also, the patient was complaining of being short of breath. His COPD, was likely active. Currently, he's feeling better. He does continue to smoke but states he is really trying seriously to quit. Laboratory data includes a white count 8.4, hemoglobin 11.7, hematocrit 35.7, and a platelet count of 390,000. Sodium 131, potassium 3.9, chlorides 88, CO2 38, anion gap is 5, BUN is 20, with creatinine 0.85. Lactate when last checked was 1.5. Chest x-ray showed pneumonia involving the right lower lobe and left upper lobe. The patient is seen today 08/06/2021 in follow-up on the regular medical floor. He is currently sitting up in a chair at the bedside. Awake and alert in no acute distress. Feeling a bit better today compared to yesterday. He is maintaining O2 saturations up to 100% on 3 L/m per nasal cannula. He's been afebrile. Hemodynamically stable. Follow-up chest x-ray reveals persistent left upper lobe density and mild strandy basilar densities. White count 7.0. Hemoglobin 10.9. Sodium 134. Potassium 3.4. Creatinine 0.73. Plan is for EGD/colonoscopy today. He remains on ceftriaxone and azithromycin along with DuoNeb inhalations, Pulmicort and Perforomist inhalations, NicoDerm patch, oral prednisone. On 08/07/2021 patient seen in follow-up on selective care unit. He is awake and alert, in no acute distress, he is on 2 L of oxygen, with a pulse ox 94%, he is breathing comfortably, denies any chest discomfort, no hemoptysis, his hemoglobin is stable, 10.6 on today's labs, white blood cell count is 8.4, his platelet count was 418, sodium is 134, potassium 3.9, CO2 32, renal profile is within normal limits. Cultures have shown no growth. He is on a combination of azithromycin and oral Omnicef, he is on oral prednisone, his 0.9 normal saline running at a rate of 20 ML per hour. He underwent colonoscopy, general surgery is following. Today's evaluation on 08/08/2021, this currently sitting up on the edge of the bed, breathing comfortably, he is on minimal oxygen, 2 L and this is what the patient usually wears at home on a regular basis socks is 100%, he is afebrile, occasional cough, lung sounds overall are positive for slight prolongation of the expiratory phase, a few rhonchi that clear with coughing. No fever or chills overnight, no complaints of chest pain. No abdominal pain, he has not passed any bowel movements today, he is status post colonoscopy by general surgery please refer to the report. Her work is pending, his last hemoglobin from yesterday was 10.7, patient has not required blood transfusions this admission. Objective - Vital Signs Vital signs: Vital Signs Temp 97.1 F L 08/08/21 08:00 Pulse 85 08/08/21 08:27 Resp 18 08/08/21 08:00 BP 135/71 08/08/21 08:00 Pulse Ox 100 08/08/21 08:03 Intake & Output 08/07/21 08/08/21 08/08/21 18:59 06:59 18:59 Intake Total 980 780 240 Output Total 300 Balance 680 780 240 Weight 133.3 kg Intake: Oral 980 780 240 Output: Stool 300 Other: Voiding Method Toilet Toilet Toilet Urinal # Voids 1 # Bowel Movements 1 - Exam GENERAL EXAM: Alert, very pleasant, 60-year-old white male, on 2 liters of oxygen a pulse ox of 93% comfortable in no apparent distress. HEAD: Normocephalic/atraumatic. EYES: Normal reaction of pupils, equal size. Conjunctiva pink, sclera white. NOSE: Clear with pink turbinates. THROAT: No erythema or exudates. NECK: No masses, no JVD, no thyroid enlargement, no adenopathy. CHEST: No chest wall deformity. Symmetrical expansion. LUNGS: Equal air entry with no crackles, wheeze, rhonchi or dullness. CVS: Regular rate and rhythm, normal S1 and S2, no gallops, no murmurs, no rubs ABDOMEN: Soft, nontender. No hepatosplenomegaly, normal bowel sounds, no guarding or rigidity. EXTREMITIES: No clubbing, no edema, no cyanosis, 2+ pulses and upper and lower extremities. MUSCULOSKELETAL: Muscle strength and tone normal. SPINE: No scoliosis or deformity SKIN: No rashes CENTRAL NERVOUS SYSTEM: Alert and oriented -3. No focal deficits, tone is normal in all 4 extremities. PSYCHIATRIC: Alert and oriented -3. Appropriate affect. Intact judgment and insight. - Labs CBC & Chem 7: 08/08/21 09:24 08/07/21 09:07 Labs: Abnormal Lab Results - Last 24 Hours (Table) 08/07/21 08/07/21 08/07/21 Range/Units 09:07 11:28 16:50 RBC (4.30-5.90) m/uL Hgb (13.0-17.5) gm/dL Hct (39.0-53.0) % POC Glucose (mg/dL) 194 H 313 H (75-99) mg/dL Hemoglobin A1c 6.6 H (4.0-6.0) % 08/07/21 08/08/21 08/08/21 Range/Units 19:56 06:11 09:24 RBC 2.84 L (4.30-5.90) m/uL Hgb 9.1 L D (13.0-17.5) gm/dL Hct 26.9 L (39.0-53.0) % POC Glucose (mg/dL) 262 H 165 H (75-99) mg/dL Hemoglobin A1c (4.0-6.0) % Microbiology - Last 24 Hours (Table) 08/03/21 21:26 Blood Culture - Preliminary Blood No Growth after 96 hours 08/03/21 21:10 Blood Culture - Preliminary Blood No Growth after 96 hours Assessment and Plan Plan: Assessment: #1. Acute GI blood loss anemia, with bright red blood per rectum, patient is status post colonoscopy, please refer to the report #2. Acute hypoxic respiratory failure secondary with persistent left upper lobe density with mild strandy basilar density, possibility of pneumonia is less likely, however patient is empirically covered with azithromycin and Cefdinir #3. Acute exacerbation of COPD #4. Chronic and ongoing tobacco dependence of greater than 40 years #5. History of diastolic CHF maintained on Lasix and Zaroxolyn in the outpatient setting #6. Chronic left shoulder pain #7. Diabetes multiple stenting Plan: No acute events overnight, Breathing comfortably, Patient is on 2 L of oxygen which is what he usually wears at home for history of COPD fever or chills, no significant cough or phlegm production Hemodynamically stable, No further rectal bleeding today Today's blood Work is pending Increase activity as tolerated Patient may require antibiotics for areas of cellulitis in his bilateral lower extremities, will defer to ID service for that decision Could be considered for discharge home from pulmonary perspective Outpatient follow-up with Dr. Gary in the office in 7-10 days I performed a history & physical examination of the patient and discussed their management with my nurse practitioner, Helga Clarke. I reviewed the nurse practitioner's note and agree with the documented findings and plan of care. Lung sounds are positive for diminished breath sounds throughout the lung jarvis. The findings and the impression was discussed with the patient. I attest to the documentation by the nurse practitioner. Time with Patient: Less than 30
[2021-08-08 11:57] LABS: Glucose,Whole Blood 205 mg/dL (75-99)
--- NOTE | 2021-08-08 11:59 | P.PN ---
Subjective 60-year-old male patient who follows with Dr. Boston as his primary care provider. He has history of diabetes mellitus, diastolic congestive heart failure, chronic obstructive pulmonary disease, chronic and ongoing tobacco dependence. He presented to the emergency room last evening with reports of bright red blood per rectum. He had approximate 4 episode yesterday. No previous history of GI bleed. Denies excessive alcohol use. His been taking Naprosyn twice daily for left shoulder pain. Chest x-ray revealed some mild infiltrates in the right lower lobe and left upper lobe. We're consulted for the same. He is seen in the emergency room. Currently sitting up on the stretcher. Awake and alert in no acute distress. He is requiring 5 L high flow nasal cannula to maintain O2 saturations in the 90s. He does have home oxygen. He has a nebulizer with albuterol treatments. 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 He has been smoking for approximately 42 years. White count 8.5. Hemoglobin 12.0. Sodium 129. Potassium 4.5. Bicarb 35. Creatinine 1.15. Initial lactic 2.9. Currently 1.5. ProBNP 43. Stool for occult blood positive. 08/05/2021 Patient is seen and evaluated in room with family members at bedside; report some improvement in breathing; has been evaluated by general surgery and is recommended colonoscopy Vital signs remained stable temperature 97.9, pulse 80, respiration 18 and blood pressure 130/73; lab review shows WBC 8.4, hemoglobin 11.7, platelet count of 39 0,000, sodium 131, potassium 3.9, BUN/creatinine of 20/0.85 with lactic acid levels of 1.5; chest x-ray reveals right lower lobe and left upper lobe pneumonia Pulmonary is following and recommending to continue with current IV antibiotic therapy in form of ceftriaxone and azithromycin; Pulmicort, formoterol, albuterol sulfate and prednisone has been added for acute exacerbation COPD Patient has been evaluated by general surgery and is recommended upper and lower endoscopy; given risk for CHF patient will receive low-volume prep; continue monitor CBC Subjective: 08/06/21 This is a pleasant 60 years old male who presents with bright red blood per rectum on 08/03 and has been evaluated by surgery team and he underwent colonoscopy today showing internal hemorrhoids with sigmoid diverticulosis and colonic adenoma status post polypectomy. Currently he is been continued on IV Protonix 40 mg twice a day His been diagnosed with left upper lobe pneumonia, he is been followed closely by pulmonary team and placed on Zithromax and ceftriaxone. Patient states that his breathing is better today. No significant cough or exertional dyspnea. Complaining of from bilateral leg redness stating that they are improving, he still has redness swelling and tenderness and warmth on the right leg with some scaling on both legs which looks chronic. He is on home oxygen and 2 L milliliters per hour The correct with Zithromax and ceftriaxone as well as prednisone 40 mg. His hyponatremia is improving and today sodium is 134. Diabetic gallstone disease evaluated by surgery team 08/07/2021 Reason well, he still have some mild dyspnea with mild wheezing breath no chest pain. Patient was talking freely on room air today although he's I used 2 L/m of oxygen via nasal cannula at home. I then that he is hemodynamically stable, labs are stable and his hemoglobin stable at 10.6. Refused infectious disease team to check his right leg and he was to follow up as an outpatient [facility] team switched his antibiotics to oral pills of Zithromax and cefdionir, He has some episodes of blood per rectum 2, most likely secondary to hemorrhoids. hydrocortisone cream was ordered. Polyp biopsy is pending, hemoglobin A1c is pending Possible discharge in 24-48 hours if remains stable and his hemoglobin is stable 08/08/21 Patient breathing quietly and his wheezing is better today. No chest pain. No dizziness. However he had 2 episodes of blood per rectum and his hemoglobin dropped 10.6 down to 9.1. Other than that he is hemodynamically stable. He remains on Protonix by mouth 40 mg twice daily. Also he is on prednisone 40 mg daily He is on Cefdinir for his right leg cellulitis which is improving as per patient. He is satisfied with the progress in his right leg cellulitis and he showed us all picture before the treatment which looks worse then He was started on hydrocortisone for possible hemorrhoids Patient still lives to be monitored for his anemia Objective - Vital Signs Vital signs: Vital Signs Temp 97.5 F L 08/08/21 11:48 Pulse 87 08/08/21 11:48 Resp 18 08/08/21 11:48 BP 133/73 08/08/21 11:48 Pulse Ox 100 08/08/21 11:48 Intake & Output 08/07/21 08/08/21 08/08/21 18:59 06:59 18:59 Intake Total 980 780 240 Output Total 300 Balance 680 780 240 Weight 133.3 kg Intake: Oral 980 780 240 Output: Stool 300 Other: Voiding Method Toilet Toilet Toilet Urinal # Voids 1 # Bowel Movements 1 - Exam GENERAL: The patient is alert and oriented x3, not in any acute distress. Well developed, well nourished. HEENT: Pupils are round and equally reacting to light. EOMI. No scleral icterus. No conjunctival pallor. Normocephalic, atraumatic. No pharyngeal erythema. No thyromegaly. CARDIOVASCULAR: S1 and S2 present. No murmurs, rubs, or gallops. PULMONARY: Chest is clear to auscultation, no wheezing or crackles. ABDOMEN: Soft, nontender, nondistended, normoactive bowel sounds. No palpable organomegaly. MUSCULOSKELETAL: No joint swelling or deformity. EXTREMITIES: No cyanosis, clubbing, or pedal edema. Bilateral leg scaling, right leg is red and swollen and warm NEUROLOGICAL: Gross neurological examination did not reveal any focal deficits. SKIN: No rashes. no petechiae. - Labs CBC & Chem 7: 08/08/21 09:24 08/07/21 09:07 Labs: Abnormal Lab Results - Last 24 Hours (Table) 08/07/21 08/07/21 08/07/21 Range/Units 09:07 16:50 19:56 RBC (4.30-5.90) m/uL Hgb (13.0-17.5) gm/dL Hct (39.0-53.0) % POC Glucose (mg/dL) 313 H 262 H (75-99) mg/dL Hemoglobin A1c 6.6 H (4.0-6.0) % 08/08/21 08/08/21 Range/Units 06:11 09:24 RBC 2.84 L (4.30-5.90) m/uL Hgb 9.1 L D (13.0-17.5) gm/dL Hct 26.9 L (39.0-53.0) % POC Glucose (mg/dL) 165 H (75-99) mg/dL Hemoglobin A1c (4.0-6.0) % Microbiology - Last 24 Hours (Table) 08/03/21 21:26 Blood Culture - Preliminary Blood No Growth after 96 hours 08/03/21 21:10 Blood Culture - Preliminary Blood No Growth after 96 hours Assessment and Plan Assessment: Assessment: 1. Acute lower GI bleed; status post colonoscopy showing diverticulosis, internal hemorrhoids grade 1 status post polypectomy - We will monitor H&H closely; Protonix 40 mg po daily; we will plan to type crossmatch and transfuse if hemoglobin is less than 8.0 -Monitor hemoglobin results. - Could be due to internal hemorrhoids,start hydrocortisone topical 2. Acute hypoxemic respiratory failure; multifactorial; secondary to CPAP, acute exacerbation COPD. 3. Community-acquired pneumonia - Continue on ceftriaxone and azithromycin - Pulmonary team on the case 4. Acute exacerbation COPD; continue with DuoNeb nebulizer treatments along with Pulmicort and Perforomist inhalations; IV Solu-Medrol - Patient is on antibiotic therapy with Rocephin and ceftriaxone - Pulmonary team on the case 5. Right leg cellulitis. Likely on Rocephin, infectious disease team is consulted 6. Diabetes mellitus; monitor Accu-Cheks every before meals and at bedtime with insulin sliding scale 7. Osteoarthritis; chronic left shoulder pain; patient currently taking Naprosyn twice a day dose 8. Diastolic CHF; not in exacerbation; patient remains on diuretic therapy with Lasix and Zaroxolyn DVT prophylaxis; SCDs only due to GI bleed CODE STATUS; full code
[2021-08-08] MEDS: FERROUS SULFATE 325 MG TAB PO SCH ×3 (12:36→16:49)
--- NOTE | 2021-08-08 13:13 | PN ---
PROGRESS NOTE DATE OF SERVICE: 08/08/2021 REASON FOR FOLLOW UP: Lower extremity cellulitis and question of pneumonia. INTERVAL HISTORY: The patient is afebrile. He is breathing comfortably. Denies having any chest pain, shortness of breath or cough. No abdominal pain. Overall swelling and redness of the right leg has decreased. PHYSICAL EXAMINATION: Blood pressure 133/73 with a pulse of 87, temperature is 97.5, he is 100% on 2 L nasal cannula. General description is a middle-aged male up in the bed in no distress. Respiratory system: Unlabored breathing, decreased intensity in breath sounds in the base, with no wheeze. Heart S1, S2. Regular rate and rhythm. Abdomen: Soft, no tenderness. Right leg swelling and redness has decreased. LABS: Hemoglobin 11.1, white 8.8. Blood culture has been negative. DIAGNOSTIC IMPRESSION AND PLAN: Patient with right lower extremity cellulitis. The patient overall improvement on Ceftin to finish therapy with a week of oral Ceftin. Continue with compression dressing and a close outpatient followup. Discussed with admitting physician. MMODL / IJN: [id number] /
--- NOTE | 2021-08-08 15:20 | P.PN ---
<Mellisa Merritt - Last Filed: 08/08/21 15:15> Subjective Progress Note Date: 08/08/21 CHIEF COMPLAINT: GI bleed HISTORY OF PRESENT ILLNESS: Patient presented with blood in stools including a 4 g drop in hemoglobin during his hospitalization. He is status post colonoscopy with snare of polypectomy. Results showed sigmoid diverticulosis with pandiverticulosis and sigmoid colon adenoma. Patient had blood reported in his stools yesterday afternoon and again had a small bloody bowel movement last night. He denies any abdominal pain. Denies any nausea or vomiting. Still reporting some shortness of breath. Afebrile. WBC is 8.8 hemoglobin down from 10.6 to 9.1 hemorrhoid cream was added by medical service PHYSICAL EXAM: VITAL SIGNS: Reviewed GENERAL: Well-developed in no acute distress. HEENT: No sclera icterus. Extraocular movements grossly intact. Moist buccal mucosa. Head is atraumatic, normocephalic. Hears conversational speech. No nasal drainage. NECK: Supple without lymphadenopathy. CHEST: Non-labored respirations and equal bilateral excursions. CARDIOVASCULAR: Palpable 2+ radial pulses. ABDOMEN: Soft. Nondistended. Nontender. MUSCULOSKELETAL: No clubbing or cyanosis. NEUROLOGIC: No focal or lateralizing signs. Cranial nerves II through XII grossly intact. PSYCH: Appropriate affect. Alert and oriented to person, place and time. SKIN: Well perfused. Good skin turgor. ASSESSMENT: 1. Acute GI bleed likely secondary to diverticular bleed 2. Acute blood loss anemia 3. Status post colonoscopy with polypectomy. Results showed sigmoid diverticulosis with pandiverticulosis and sigmoid colon adenoma 4. Acute congestive heart failure with exacerbation 5. Acute chronic obstructive pulmonary disease with exacerbation PLAN: -Recommend repeat lower endoscopy in 2 years, 2022 -Continue regular diet -Continue to monitor for any further signs or symptoms of bleeding. -Continue to monitor hemoglobin Physician Division Chief note has been reviewed by physician. Signing provider agrees with the documented findings, assessment, and plan of care. Objective - Vital Signs Vital signs: Vital Signs Temp 97.5 F L 08/08/21 11:48 Pulse 87 08/08/21 14:00 Resp 18 08/08/21 14:00 BP 133/73 08/08/21 11:48 Pulse Ox 100 08/08/21 11:48 Intake & Output 08/07/21 08/08/21 08/08/21 18:59 06:59 18:59 Intake Total 980 780 240 Output Total 300 Balance 680 780 240 Weight 133.3 kg Intake: Oral 980 780 240 Output: Stool 300 Other: Voiding Method Toilet Toilet Toilet Urinal # Voids 1 1 # Bowel Movements 1 1 - Labs CBC & Chem 7: 08/08/21 09:24 08/07/21 09:07 Labs: Abnormal Lab Results - Last 24 Hours (Table) 08/07/21 08/07/21 08/07/21 Range/Units 09:07 16:50 19:56 RBC (4.30-5.90) m/uL Hgb (13.0-17.5) gm/dL Hct (39.0-53.0) % POC Glucose (mg/dL) 313 H 262 H (75-99) mg/dL Hemoglobin A1c 6.6 H (4.0-6.0) % 08/08/21 08/08/21 08/08/21 Range/Units 06:11 09:24 11:55 RBC 2.84 L (4.30-5.90) m/uL Hgb 9.1 L D (13.0-17.5) gm/dL Hct 26.9 L (39.0-53.0) % POC Glucose (mg/dL) 165 H 205 H (75-99) mg/dL Hemoglobin A1c (4.0-6.0) % Microbiology - Last 24 Hours (Table) 08/03/21 21:26 Blood Culture - Preliminary Blood No Growth after 96 hours 08/03/21 21:10 Blood Culture - Preliminary Blood No Growth after 96 hours <Payton Molina N - Last Filed: 08/09/21 11:37> Subjective As above. Diet as tolerated. We'll monitor hemoglobin. Any large acute signs of bleeding may need tagged RBC scan. Otherwise patient reports he is stable. Objective - Vital Signs Vital signs: Vital Signs Temp 98.0 F 08/09/21 08:00 Pulse 87 08/09/21 08:00 Resp 19 08/09/21 08:00 BP 131/68 08/09/21 08:00 Pulse Ox 100 08/09/21 08:00 Intake & Output 08/08/21 08/09/21 08/09/21 18:59 06:59 18:59 Intake Total 480 780 480 Balance 480 780 480 Weight 133.9 kg Intake: Oral 480 780 480 Other: Voiding Method Toilet Toilet Toilet # Voids 1 1 # Bowel Movements 1 1 - Labs CBC & Chem 7: 08/08/21 09:24 08/07/21 09:07 Labs: Abnormal Lab Results - Last 24 Hours (Table) 08/08/21 08/08/21 08/08/21 Range/Units 11:55 16:41 20:03 POC Glucose (mg/dL) 205 H 245 H 218 H (75-99) mg/dL 08/09/21 Range/Units 06:16 POC Glucose (mg/dL) 159 H (75-99) mg/dL Microbiology - Last 24 Hours (Table) 08/03/21 21:10 Blood Culture - Preliminary Blood No Growth after 120 hours 08/03/21 21:26 Blood Culture - Preliminary Blood No Growth after 120 hours Assessment and Plan (1) CAP (community acquired pneumonia) Current Visit: Yes Status: Acute Code(s): J18.9 - PNEUMONIA, UNSPECIFIED ORGANISM SNOMED Code(s): 630098183 (2) Hematochezia Current Visit: Yes Status: Acute Code(s): K92.1 - MELENA SNOMED Code(s): 412266469 (3) Morbid obesity with BMI of 40.0-44.9, adult Current Visit: No Status: Acute Code(s): E66.01 - MORBID (SEVERE) OBESITY DUE TO EXCESS CALORIES SNOMED Code(s): 673341308 (4) Type 2 diabetes mellitus Current Visit: No Status: Acute Code(s): E11.9 - TYPE 2 DIABETES MELLITUS WITHOUT COMPLICATIONS SNOMED Code(s): 53546598 (5) Umbilical hernia Current Visit: Yes Status: Acute Code(s): K42.9 - UMBILICAL HERNIA WITHOUT OBSTRUCTION OR GANGRENE SNOMED Code(s): 767539399 (6) Diverticulosis Current Visit: Yes Status: Acute Code(s): K57.90 - DVRTCLOS OF INTEST, PART UNSP, W/O PERF OR ABSCESS W/O BLEED SNOMED Code(s): 324170656 (7) Acute blood loss anemia Current Visit: Yes Status: Acute Code(s): D62 - ACUTE POSTHEMORRHAGIC ANEMIA SNOMED Code(s): 655235941 (8) Gallstones Current Visit: Yes Status: Acute Code(s): K80.20 - CALCULUS OF GALLBLADDER W/O CHOLECYSTITIS W/O OBSTRUCTION SNOMED Code(s): 342598111
[2021-08-08 16:52] LABS: Glucose,Whole Blood 245 mg/dL (75-99)
[2021-08-08 20:04] LABS: Glucose,Whole Blood 218 mg/dL (75-99)
[2021-08-08] MEDS: CEFDINIR 300 MG CAP PO SCH (20:13)
[2021-08-08] MEDS: SODIUM CHLORIDE 0.9% 1,000 ML IV SCH (21:35)
[2021-08-08] MEDS: ACETAMINOPHEN TAB 500 MG TAB PO PRN (23:04)
[2021-08-09 06:19] LABS: Glucose,Whole Blood 159 mg/dL (75-99)
[2021-08-09] MEDS: FERROUS SULFATE 325 MG TAB PO SCH (06:45)
[2021-08-09] MEDS: INSULIN ASPART (NovoLOG) 100 UNIT/ML VIAL SQ SCH ×2 (06:45→12:47)
[2021-08-09] MEDS: NICOTINE 14MG/24HR PATCH TRANSDERM SCH (09:28)
[2021-08-09] MEDS: HYDROCORTISONE 2.5% RECTAL CREAM 30 GM TUBE RECTAL SCH (09:28)
[2021-08-09] MEDS: predniSONE 20 MG TAB PO SCH (09:28)
[2021-08-09] MEDS: PANTOPRAZOLE 40 MG TABLET PO SCH (09:28)
[2021-08-09] MEDS: CEFDINIR 300 MG CAP PO SCH (09:28)
[2021-08-09 09:34] VITALS: PULSE 87
[2021-08-09] MEDS: IPRATROPIUM-ALBUTEROL 3 ML NEB INHALATION SCH ×2 (09:48→10:05)
[2021-08-09] MEDS: BUDESONIDE 1 MG/2 ML NEBU INHALATION SCH (10:04)
[2021-08-09] MEDS: FORMOTEROL FUMARATE 20 MCG/2 ML NEBU INHALATION SCH (10:05)
[2021-08-09 11:37] LABS: Glucose,Whole Blood 183 mg/dL (75-99)
--- NOTE | 2021-08-09 11:37 | P.PN ---
Subjective Progress Note Date: 08/09/21 CHIEF COMPLAINT: Hematochezia HISTORY OF PRESENT ILLNESS: The patient is a 60 year old male admitted for acute exacerbation of congestive heart failure including chronic structure pulmonary disease with status post upper and lower endoscopy due to gastrointestinal bleeding. Patient had showed his recent blood in stools from last night. Reports is blood in stools is not as copious at the time of admission. He is eager to go home. He did have a polypectomy during his lower endoscopy. REVIEW OF ORGAN SYSTEMS: Has shortness of breath. No active chest pain. No fevers or chills. PHYSICAL EXAM: VITALS: Reviewed CONSTITUTIONAL: Well developed and in no acute distress. EYES: Conjuctivae without sclera icterus. Extraocular movements grossly intact. HEAD, EARS, NOSE, THROAT: Moist buccal mucosa. Head is atraumatic, normocephalic. Hears conversational speech. No nasal drainage. RESPIRATORY: Non-labored respirations and equal bilateral excursions. No gross wheezes. CARDIOVASCULAR: Regular rate and rhythm. ABDOMEN: Nontender. Protuberant. MUSCULOSKELETAL: Nail and fingers with good capillary refill. SKIN: Warm and well perfused with good skin turgor. NEUROLOGIC: No focal or lateralizing signs. PSYCH: Appropriate affect. Alert and oriented to person, place and time. Displays appropriate insight. CLINCAL LABS: Reviewed. Hemoglobin down to 9.1 yesterday. ASSESSMENT: 1. Gastrointestinal bleeding 2. Congestive heart failure with pneumonia 3. Hyponatremia 4. Lactic acidosis on admission 5. Pneumonia 6. Umbilical hernia 7. Gallstones 8. Acute blood loss anemia 9. Sigmoid diverticulosis PLAN: 1. Patient denies any moderate bleeding today. 2. With his history of sigmoid diverticulosis, he is at risk for rebleed. 3. Patient does report starting multiple supplements including multivitamins which can increase his risk for bleeding. Drug effect from supplements may be 1-2 weeks coincidental this bleeding. 4. May benefit from iron supplements. 5. Stable for discharge from a surgical standpoint 6. Avoid anticoagulants. Objective - Vital Signs Vital signs: Vital Signs Temp 98.0 F 08/09/21 08:00 Pulse 87 08/09/21 08:00 Resp 19 08/09/21 08:00 BP 131/68 08/09/21 08:00 Pulse Ox 100 08/09/21 08:00 Intake & Output 08/08/21 08/09/21 08/09/21 18:59 06:59 18:59 Intake Total 480 780 480 Balance 480 780 480 Weight 133.9 kg Intake: Oral 480 780 480 Other: Voiding Method Toilet Toilet Toilet # Voids 1 1 # Bowel Movements 1 1 - Labs CBC & Chem 7: 08/08/21 09:24 08/07/21 09:07 Labs: Abnormal Lab Results - Last 24 Hours (Table) 08/08/21 08/08/21 08/08/21 Range/Units 11:55 16:41 20:03 POC Glucose (mg/dL) 205 H 245 H 218 H (75-99) mg/dL 08/09/21 Range/Units 06:16 POC Glucose (mg/dL) 159 H (75-99) mg/dL Microbiology - Last 24 Hours (Table) 08/03/21 21:10 Blood Culture - Preliminary Blood No Growth after 120 hours 08/03/21 21:26 Blood Culture - Preliminary Blood No Growth after 120 hours Assessment and Plan (1) CAP (community acquired pneumonia) Current Visit: Yes Status: Acute Code(s): J18.9 - PNEUMONIA, UNSPECIFIED ORGANISM SNOMED Code(s): 161292242 (2) Hematochezia Current Visit: Yes Status: Acute Code(s): K92.1 - MELENA SNOMED Code(s): 883387342 (3) Morbid obesity with BMI of 40.0-44.9, adult Current Visit: No Status: Acute Code(s): E66.01 - MORBID (SEVERE) OBESITY DUE TO EXCESS CALORIES SNOMED Code(s): 576369933 (4) Type 2 diabetes mellitus Current Visit: No Status: Acute Code(s): E11.9 - TYPE 2 DIABETES MELLITUS WITHOUT COMPLICATIONS SNOMED Code(s): 80519067 (5) Umbilical hernia Current Visit: Yes Status: Acute Code(s): K42.9 - UMBILICAL HERNIA WITHOUT OBSTRUCTION OR GANGRENE SNOMED Code(s): 418987818 (6) Diverticulosis Current Visit: Yes Status: Acute Code(s): K57.90 - DVRTCLOS OF INTEST, PART UNSP, W/O PERF OR ABSCESS W/O BLEED SNOMED Code(s): 891903979 (7) Acute blood loss anemia Current Visit: Yes Status: Acute Code(s): D62 - ACUTE POSTHEMORRHAGIC ANEMIA SNOMED Code(s): 221521250 (8) Gallstones Current Visit: Yes Status: Acute Code(s): K80.20 - CALCULUS OF GALLBLADDER W/O CHOLECYSTITIS W/O OBSTRUCTION SNOMED Code(s): 748323446
[2021-08-09 11:43] LABS: Basophils # (A) 0.1 k/uL (0-0.2); Basophils % (A) 1 %; Eosinophils # (A) 0.1 k/uL (0-0.7); Eosinophils % (A) 1 %; HCT 28.8 % (39.0-53.0); HGB 9.4 gm/dL (13.0-17.5); Lymphocytes # (A) 2.2 k/uL (1.0-4.8); Lymphocytes % (A) 21 %; MCH 31.2 pg (25.0-35.0); MCHC 32.7 g/dL (31.0-37.0); MCV 95.5 fL (80.0-100.0); Mean Platelet Volume 7.8; Monocytes # (A) 0.5 k/uL (0-1.0); Monocytes % (A) 5 %; Neutrophils # (A) 7.2 k/uL (1.3-7.7); Neutrophils % (A) 70 %; Platelet Count 462 k/uL (150-450); RBC 3.02 m/uL (4.30-5.90); RDW 14.8 % (11.5-15.5); WBC 10.4 k/uL (3.8-10.6)
[2021-08-09 11:49] LABS: African American GFR (CKD) >90 (>60 ml/min/1.73 sqM); Anion Gap 5 mmol/L; Blood Urea Nitrogen 18 mg/dL (9-20); Calcium 9.3 mg/dL (8.4-10.2); Carbon Dioxide 34 mmol/L (22-30); Chloride 95 mmol/L (98-107); Glucose 141 mg/dL (74-99); Non-African American GFR(CKD) 84 (>60 ml/min/1.73 sqM); Potassium 4.4 mmol/L (3.5-5.1); Sodium 134 mmol/L (137-145)
[2021-08-09 13:22] VITALS: BP 135/68; RESP 18; TEMP 97.8
--- NOTE | 2021-08-09 14:15 | PN ---
PROGRESS NOTE DATE OF SERVICE: 08/09/2021 REASON FOR FOLLOWUP: Lower extremity cellulitis. INTERVAL HISTORY: The patient is afebrile. He is breathing comfortably. Denies having any chest pain, shortness of breath or cough. No abdominal pain. Overall swelling in his lower extremities has improved. PHYSICAL EXAMINATION: Blood pressure /68 with a pulse of 80, temperature 97.8. He is 97% on 2 L nasal cannula. GENERAL DESCRIPTION: General description is a middle-aged male lying in bed in no distress. RESPIRATORY SYSTEM: Unlabored breathing. Clear to auscultation anteriorly. HEART: S1, S2. Regular rate and rhythm. ABDOMEN: Soft. No tenderness. LEGS: Lower leg swelling has decreased. LABS: Hemoglobin is 9.4, white count 10.4, BUN of 18, creatinine 0.97. DIAGNOSTIC IMPRESSION AND PLAN: Patient with mild lower extremity cellulitis, right greater than the left. Overall improvement. Currently on Ceftin; to continue for another week to finish course of therapy and close outpatient followup. MMODL / IJN: [id number] /
--- NOTE | 2021-08-09 21:50 | P.DS ---
Providers Date of admission: 08/03/21 20:59 Attending physician: Jojo Sanchez Consults: 08/03/21 21:00 Consult Physician Urgent Consulting Provider: Payton Molina Consult Reason/Comments: acute hematochezia Do you want consulting provider notified?: Already Contacted 08/04/21 13:38 Consult Physician Routine Consulting Provider: Hadley Gary Consult Reason/Comments: PNA/ Ac resp failure Do you want consulting provider notified?: Yes 08/06/21 15:10 Consult Physician Urgent Consulting Provider: Ruben Conti Consult Reason/Comments: pna and possilbe cellulitis Do you want consulting provider notified?: Yes Primary care physician: Shona Boston Hospital Course: Diagnoses: 1. Acute lower GI bleed; status post colonoscopy showing diverticulosis, internal hemorrhoids grade 1 status post polypectomy. Biopsy no malignant cells 2. Acute hypoxemic respiratory failure. Resolved and patient is on room air 3. Community-acquired pneumonia. Resolved 4. Acute exacerbation COPD; improved 5. Right leg cellulitis. Improved 6. Diabetes mellitus 7. Osteoarthritis 8. Diastolic CHF; not in exacerbation Hospital course: 60-year-old male patient who follows with Dr. Boston as his primary care provider. He has history of diabetes mellitus, diastolic congestive heart failure, chronic obstructive pulmonary disease, chronic and ongoing tobacco dependence. He presented to the emergency room with reports of bright red blood per rectum of one-day duration. He had several episodes of small amount of blood per rectum. No abdominal pain. No nausea vomiting. Patient has been ev aluated by surgery team. CT of the abdomen and pelvis with contrast showing no small bowel obstruction, no obvious source of bleeding, he has some umbilical hernia and cholelithiasis which is asymptomatic. Patient underwent colonoscopy showing diverticulosis, internal hemorrhoids grade 1 status post polypectomy.Biopsy showing sigmoid colon polyp with traditional serrated adenoma. also patient has some pneumonia suspected COPD with chest x-ray showing possible bilateral densities. His been evaluated by pulmonary team and he has been treated with breathing treatment and antibiotics, he showed interval improvement and on the day of discharge he was on room air. Also he received antibiotics which helped his right leg cellulitis. Patient has been followed closely by pulmonary and infectious disease team. On the day of discharge patient was fully awake and oriented. Denies chest pain or dyspnea. No abdominal pain. No change in urine or bowel habits. No fever. He still have some occasional episodes of blood per rectum, which is mild even on the day of discharge. Dr. Duncan surgery team are aware of these episodes however he is hemodynamically stable. Hemoglobin actually improved today 9.1 up to 9.4. Was started on iron pill. Patient was cleared for discharge by surgery team. Patient aware of this recommendation and he agrees to go home on follow- up with Dr. Duncan on 08/14. Also patient was cleared for discharge by pulmonary and ID team. For discharge on short course of oral antibiotics of cefdinir 5 days and tapered prednisone Problems and management plan were discussed with the patient and he verbalized understanding and acceptance Patient was found stable and can be discharged home however he needs follow-up as an outpatient. Patient was instructed to follow up with PCP Dr. Boston within one week and patient agrees Patient was instructed to follow up with Dr. Gary in 7-10 days She was instructed to follow up with Dr. Duncan on 08/14 and he agrees patient asked medical staff to make appointments for him, please refer to discharge instructions Physical exam -Gen: patient is a AAOx3, no distress. Obese CVS: S1-S2, RRR, no murmur Lungs: B/L CTA, no wheezing Abdomen: soft, no distention, no tenderness, positive bowel sounds -Extremity: no leg edema or induration. Right leg cellulitis improvement Time spent more than 35 minutes Patient Condition at Discharge: Stable Plan - Discharge Summary Discharge Rx Participant: Yes New Discharge Prescriptions: New Nicotine 14Mg/24Hr Patch [Habitrol] 1 patch TRANSDERM DAILY #3 patch Ferrous Sulfate [Iron (65 MG Elemental)] 325 mg PO BID-W/MEALS #60 tab predniSONE 10 mg PO DIRECTED #18 tab Hydrocortisone Pr Cream [Proctosol-Hc 2.5%] 1 applic RECTAL BID 3 Days #1 tub Pantoprazole [Protonix] 40 mg PO BID #60 tab Budesonide [Pulmicort] 1 mg INHALATION RT-BID #30 ml Albuterol Inhaler [Ventolin Hfa Inhaler] 1 puff INHALATION RT-TID #8 gm Cefdinir [Omnicef] 300 mg PO BID 5 Days #10 cap Continue Sulfamethox-Tmp 800-160Mg [Bactrim DS 800-160 mg] 1 tab PO Q12HR Albuterol Sulfate [Ventolin HFA] 1 - 2 puff INHALATION RT-Q6H PRN PRN Reason: Shortness Of Breath Acetaminophen Tab [Tylenol] 1,000 mg PO Q6HR PRN PRN Reason: Pain Oxymetazoline HCl [Afrin 0.05%] 1 spray EA NOSTRIL DAILY PRN PRN Reason: Allergy Symptoms Discontinued Furosemide [Lasix] 40 mg PO BID Naproxen 500 mg PO BID PRN PRN Reason: Pain metOLazone [Zaroxolyn] 5 mg PO DAILY Discharge Medication List Sulfamethox-Tmp 800-160Mg [Bactrim DS 800-160 mg] 1 tab PO Q12HR 06/18/16 [History] Acetaminophen Tab [Tylenol] 1,000 mg PO Q6HR PRN 08/03/21 [History] Albuterol Sulfate [Ventolin HFA] 1 - 2 puff INHALATION RT-Q6H PRN 08/03/21 [History] Oxymetazoline HCl [Afrin 0.05%] 1 spray EA NOSTRIL DAILY PRN 08/03/21 [History] Albuterol Inhaler [Ventolin Hfa Inhaler] 1 puff INHALATION RT-TID #8 gm 08/09/21 [Rx] Budesonide [Pulmicort] 1 mg INHALATION RT-BID #30 ml 08/09/21 [Rx] Cefdinir [Omnicef] 300 mg PO BID 5 Days #10 cap 08/09/21 [Rx] Ferrous Sulfate [Iron (65 MG Elemental)] 325 mg PO BID-W/MEALS #60 tab 08/09/21 [Rx] Hydrocortisone Pr Cream [Proctosol-Hc 2.5%] 1 applic RECTAL BID 3 Days #1 tub 08/09/21 [Rx] Nicotine 14Mg/24Hr Patch [Habitrol] 1 patch TRANSDERM DAILY #3 patch 08/09/21 [Rx] Pantoprazole [Protonix] 40 mg PO BID #60 tab 08/09/21 [Rx] predniSONE 10 mg PO DIRECTED #18 tab 08/09/21 [Rx] Follow up Appointment(s)/Referral(s): Shona Boston MD [Primary Care Provider] - 08/15/21 5:00 pm Payton Molina MD [STAFF PHYSICIAN] - 08/14/21 3:15 pm () Hadley Gary DO [Doctor of Osteopathic Medicine] - 09/17/21 1:15 pm [facility] Visiting Nurse, [NON-STAFF] - 1-2 Days Patient Instructions/Handouts: Gastrointestinal Bleeding (DC), Colorectal Polyps (DC), Colonoscopy (DC), Upper Endoscopy (DC) Activity/Diet/Wound Care/Special Instructions: Repeat colonoscopy in 2 years, 2022 heart healthy diet activity is restricted till you see your doctor avoid NSAIDs ,like no ibuprofen, no motrin or aspirin, no mobic or naproxen. talk to your doctor before taking any pain medication please Discharge Disposition: HOME SELF-CARE
== END 2021-08-09 14:57 | disposition home health service (06) | DRG 377 ==
LOC: EC 17:56 → 3SCARD 20:59
PROVIDERS: ADMIT Hospitalist; ATTEND Hospitalist
PROC: 0DJ08ZZ Inspection of Upper Intestinal Tract, Via Natural or Artificial Opening Endoscopic (ICD-10-PCS; principal; 2021-08-06 12:00)
PROC: 0DBN8ZX Excision of Sigmoid Colon, Via Natural or Artificial Opening Endoscopic, Diagnostic (ICD-10-PCS; principal; 2021-08-06 12:00)
DX: K57.31 Diverticulosis of large intestine without perforation or abscess with bleeding (principal); J18.9 Pneumonia, unspecified organism; J96.01 Acute respiratory failure with hypoxia; D62 Acute posthemorrhagic anemia; K22.10 Ulcer of esophagus without bleeding; E87.1 Hypo-osmolality and hyponatremia; E87.2 Acidosis; I50.32 Chronic diastolic (congestive) heart failure; J44.0 Chronic obstructive pulmonary disease with (acute) lower respiratory infection; J44.1 Chronic obstructive pulmonary disease with (acute) exacerbation; L03.115 Cellulitis of right lower limb; Z68.41 Body mass index [BMI] 40.0-44.9, adult; K31.819 Angiodysplasia of stomach and duodenum without bleeding; R00.0 Tachycardia, unspecified; I87.8 Other specified disorders of veins; K44.9 Diaphragmatic hernia without obstruction or gangrene; D12.5 Benign neoplasm of sigmoid colon; E11.9 Type 2 diabetes mellitus without complications; E66.01 Morbid (severe) obesity due to excess calories; F17.210 Nicotine dependence, cigarettes, uncomplicated; G89.29 Other chronic pain; K21.9 Gastro-esophageal reflux disease without esophagitis; K42.9 Umbilical hernia without obstruction or gangrene; K80.20 Calculus of gallbladder without cholecystitis without obstruction; K64.0 First degree hemorrhoids; M19.012 Primary osteoarthritis, left shoulder; Z79.899 Other long term (current) drug therapy; Z82.49 Family history of ischemic heart disease and other diseases of the circulatory system; Z83.3 Family history of diabetes mellitus; Z79.51 Long term (current) use of inhaled steroids; Z86.14 Personal history of Methicillin resistant Staphylococcus aureus infection; Z80.9 Family history of malignant neoplasm, unspecified
CPT/HCPCS: 36415; 43235; 45385; 71045; 71046; 74177; 80048; 80053; 82272; 83036; 83605; 83690; 83735; 83880; 84484; 85025; 85027; 85610; 85730; 87040; 88305; 93005; 94640; 94760; 99213; 99285

== ENCOUNTER → 2022-02-19 | Outpatient (CLI) | payer MEDICARE ==
--- NOTE | 2022-02-19 13:23 | XR ---
EXAMINATION TYPE: XR chest 2V DATE OF EXAM: 02/19/2022 COMPARISON: Chest x-ray August 06, 2021 and older studies. HISTORY: History of COPD with difficulty in breathing TECHNIQUE: Frontal and lateral views of the chest are obtained. FINDINGS: There is background chronic emphysematous and parenchymal change with bibasilar increased opacities. Left upper lung shows persistent focal masslike opacity similar to prior studies August 2021 . Persistent cardiomegaly. The cardiac silhouette size is within normal limits. The osseous s tructures are intact. IMPRESSION: Chronic changes and cardiomegaly with bibasilar opacities could reflect acute infiltrate and/or atelectasis. More suspicious left apical pleural thickening and masslike consolidation has no t improved since August 2021. Underlying mass or neoplasm needs to be considered. Follow-up chest CT advised to further evaluate.
--- NOTE | 2022-02-19 18:23 | P.PN ---
Progress Note - Text Progress Note Date: 02/19/22 Patient notified of results of chest xray. Patient reports that PCP will get CT scan.
== END | disposition home or self-care (01) ==
LOC: RADXRMAIN 12:57
PROVIDERS: ATTEND Surgery Plastic and Reconstructive Surgery
DX: I51.7 Cardiomegaly (principal); R91.8 Other nonspecific abnormal finding of lung field
CPT/HCPCS: 71046

== ENCOUNTER → 2022-02-20 | Outpatient (CLI) | payer MEDICARE ==
[2022-02-20 12:53] LABS: ALT 16 U/L (4-49); AST 19 U/L (17-59); African American GFR (CKD) >90 (>60 ml/min/1.73 sqM); Albumin 3.8 g/dL (3.5-5.0); Albumin/Globulin Ratio 0.8; Alkaline Phosphatase 130 U/L (38-126); Anion Gap 5 mmol/L; Blood Urea Nitrogen 22 mg/dL (9-20); Calcium 8.9 mg/dL (8.4-10.2); Carbon Dioxide 38 mmol/L (22-30); Chloride 86 mmol/L (98-107); Glucose 481 mg/dL (74-99); Non-African American GFR(CKD) >90 (>60 ml/min/1.73 sqM); Potassium 4.3 mmol/L (3.5-5.1); Sodium 129 mmol/L (137-145); Total Bilirubin 0.6 mg/dL (0.2-1.3); Total Protein 8.8 g/dL (6.3-8.2)
--- NOTE | 2022-02-20 13:30 | CT ---
EXAMINATION TYPE: CT chest w con DATE OF EXAM: 02/20/2022 COMPARISON: CT dated 12/25/2010 HISTORY: abnormal chest x-ray CT DLP: 905.4 mGycm Automated exposure control for dose reduction was used. TECHNIQUE: CT scan of the chest is performed with IV Contrast, patient injected with 100 mL of Isovue 300. FINDINGS: LUNGS: Suspicious aggressive lesion is seen in the left lung apex measuring 6.5 x 7.7 x 9 cm. It caus es destruction of the adjacent portion of the first and second ribs with partial destruction of the a djacent portion of the left third rib. There is extension outside the bony chest wall into the suprac lavicular/ axillary region being inseparable from the inferior aspect of the left subclavian and axil mar artery. Multiple adjacent left axillary lymph nodes are seen measuring up to 12 mm. Supraclavicu lar lymph nodes are also noted, subcentimeter in size. This is highly suspicious for a lung cancer/ P [place] tumor. Background COPD changes with centrilobular changes mainly in the upper lobes, probably smoking-related. 7 mm mixed density nodule is seen at the posterior aspect of the right lower lobe, appreciated previously. Fibrotic changes/atelectatic changes are seen in the left upper lobe adjacent to the lesion. No other definite lung nodule identified. Patent trachea and main bronchi. No pleural effusion. MEDIASTINUM: No gross cardiomegaly. Coronary and arterial atherosclerotic calcifications. No major or central pulmonary embolism. No pericardial effusion. No pathologically enlarged hilar or mediastinal lymph nodes. OTHER: Unremarkable upper abdomen. Bilateral mild gynecomastia changes. No other aggressive bone les ion. IMPRESSION: The above described left apical aggressive lung lesion is highly suspicious for a locally infiltratin g lung cancer/Pancoast tumor as detailed above. Recommend thoracic surgery consultation, further PET scan assessment and tissue diagnosis. Other findings as described above. A [place] level critical message alert has been initiated for Shona Boston MD via the [employer] Critical Results System on 02/20/2022 1:28 PM. This message alert has been sent to Shona Boston MD via the preferences provided by the clinician for the receipt of Radiology Critical Findings. Mess age ID [id number].
== END | disposition home or self-care (01) ==
LOC: RADCTMAIN 12:00
PROVIDERS: ATTEND Family Medicine
DX: R91.1 Solitary pulmonary nodule (principal)
CPT/HCPCS: 80053; 71260; 36415; Q9967

== ENCOUNTER → 2022-03-01 | Outpatient (CLI) | payer MEDICARE ==
--- NOTE | 2022-03-02 11:05 | PE ---
EXAMINATION TYPE: PET CT fusion skull to thigh DATE OF EXAM: 03/01/2022 COMPARISON: NONE HISTORY: Solitary pulmonary nodule, abnormal CT. TECHNIQUE: Following the intravenous administration of 8.95 mCi of F-18 FDG, whole body images are p erformed from the skull base to the midthigh. Images are reviewed on the computer in the coronal, ax ial, and sagittal planes. Reconstructed rotating images are created on independent workstation and r eviewed on the computer. A localization and attenuation correction CT is performed in conjunction w ith the PET scan. Blood glucose level was 194. SCAN: Initial Scan FINDINGS: Evaluation is suboptimal secondary to large body habitus. SKULL BASE AND NECK AND CHEST: Left supraclavicular heterogeneous mass with internal air measures ap proximately 8.2 x 6.6 cm has abnormal hypermetabolic uptake and is destroying portions of the anterio r first through third ribs is consistent with neoplasm. The max SUV is 10.29 on axial image 73 There is abnormal 1.9 x 1.1 cm mildly hypermetabolic lower left axillary lymph node axial image 95, m ax SUV is 3.71. No additional areas of abnormal hypermetabolic uptake. Background mild to moderate underlying emphyse matous change is present. ABDOMEN AND PELVIS: Normal excretion. Nonspecific mild uptake in the bowel from the hepatic flexure t hrough the rectum. No adrenal masses noted. OSSEOUS STRUCTURES: No abnormal hypermetabolic uptake. OTHER CT: Nasal septum is deviated to right of midline. Mild calcified plaque bilateral carotid bulb level. Calcification at the level of the mitral and aortic valves. Coronary artery calcification is p resent. IMPRESSION: Pleural or chest wall based destructive mass or neoplasm left supraclavicular region with inferior left thoracic adenopathy. No metastatic disease is seen.
== END | disposition home or self-care (01) ==
LOC: RADPETMAIN 10:24
PROVIDERS: ATTEND Family Medicine
DX: R91.8 Other nonspecific abnormal finding of lung field (principal); R59.0 Localized enlarged lymph nodes
CPT/HCPCS: 78815; A9552

== ENCOUNTER → 2022-03-15 | Outpatient (CLI) | payer MEDICARE ==
--- NOTE | 2022-03-16 02:37 | MR ---
EXAMINATION TYPE: MR brain wo/w con DATE OF EXAM: 03/15/2022 COMPARISON: None HISTORY: Hx of lung CA CONTRAST: Standard multiplanar, multisequence MRI departmental protocol images were obtained without contrast a nd with 14ml mL intravenous Gadavist gadolinium contrast. There is cerebral cortical atrophy. There is no mass effect or midline shift. There is no sign of int racranial hemorrhage. Diffusion images show no evidence of an acute infarct. Brainstem appears intact . There is 1.5 cm wedge-shaped area of increased signal on the right posterior frontal lobe cortex on the T2 and FLAIR images. There are scattered small foci of increased signal adjacent to the lateral ventricles on the T2 and FLAIR images. There is a mixed signal linear area of abnormality in the left internal capsule that measures 17 x 4 mm. This could be small old hemorrhagic lacunar infarct. These measure up to 4 mm. There is no evidence of posterior fossa mass. The corpus callosum is intact. Sella turcica is intact. There is no evidence of orbital mass. Contrast images show no pathologic enhancement. There is normal enhancement of the venous sinuses. IMPRESSION: . Small wedge-shaped area of increased signal in the right posterior frontal lobe cortex could be old infarct. No enhancement seen to suggest metastatic disease. Left internal capsule lesion could be old hemorrhagic lacunar infarct. White matter signal changes around the lateral ventricles likely related to age-related white matter disease.
== END | disposition home or self-care (01) ==
LOC: RADMRIMAIN 09:29
PROVIDERS: ATTEND Internal Medicine Hematology & Oncology
DX: C34.90 Malignant neoplasm of unspecified part of unspecified bronchus or lung (principal); R90.89 Other abnormal findings on diagnostic imaging of central nervous system
CPT/HCPCS: 70553; A9585

== ENCOUNTER 2022-03-19 08:53 | Day surgery (SDC) | payer MEDICARE ==
[~2022-03-19 08:53] MED LIST: ALPRAZolam 0.5 MG TAB PO PRN; HYDROmorphone 0.5 MG/0.5 ML SYRINGE IVP PRN
== END 2022-03-19 09:40 | disposition home or self-care (01) ==
LOC: RADPROMAIN 08:53
PROVIDERS: ATTEND Internal Medicine Hematology & Oncology
DX: C34.90 Malignant neoplasm of unspecified part of unspecified bronchus or lung (principal)

== ENCOUNTER 2022-03-26 08:47 | Day surgery (SDC) | payer MEDICARE ==
[2022-03-26] MEDS ORDERED: HYDROmorphone 0.5 MG/0.5 ML SYRINGE IVP PRN (08:49)
[2022-03-26] MEDS ORDERED: ALPRAZolam 0.5 MG TAB PO PRN (08:49)
[2022-03-26 09:29] LABS: Mean Platelet Volume 6.9; Platelet Count 702 k/uL (150-450)
[2022-03-26 09:39] VITALS: TEMP 98.1
[2022-03-26 09:50] LABS: Prothrombin Time 10.8 sec (9.0-12.0)
[2022-03-26 11:26] VITALS: RESP 16
--- NOTE | 2022-03-26 11:33 | XR ---
EXAMINATION TYPE: XR chest 1V portable DATE OF EXAM: 03/26/2022 COMPARISON: Chest x-ray dated 02/19/2022 HISTORY: Status post left lung biopsy TECHNIQUE: Single frontal view of the chest is obtained. FINDINGS: There is no significant interval change. IMPRESSION: No evident complication status post biopsy of left upper lobe lung mass
--- NOTE | 2022-03-26 13:22 | CT ---
EXAMINATION TYPE: CT biopsy lung LT DATE OF EXAM: 03/26/2022 HISTORY: Lung mass COMPARISON: Nuclear medicine PET/CT 03/01/2022 Maximal barrier technique was utilized, hand hygiene obtained with soap and water. The skin overlyin g a suitable path to the lesion in the left upper lobe invading the chest wall was localized using CT and the overlying skin was prepped and draped. Lidocaine used for local anesthesia. A skin jenna ma de with a scalpel. Using CT guidance, access was gained to the lesion with a 18-gauge core needle th rough a 17-gauge guide. Core specimen submitted to cytology. 2 pass(es) performed in all. Followin g the procedure no immediate complications. The patient is discharged in stable condition. Hemosta sis achieved. IMPRESSION: SUCCESSFUL CT GUIDED BIOPSY. PATHOLOGY PENDING. THIS PROCEDURE WAS PERFORMED BY THE UNDERSIGNED.
--- NOTE | 2022-03-26 13:25 | XR ---
EXAMINATION TYPE: XR chest 1V portable DATE OF EXAM: 03/26/2022 COMPARISON: Chest x-ray same dated earlier time HISTORY: Post lung biopsy TECHNIQUE: Single frontal view of the chest is obtained. FINDINGS: No interval change IMPRESSION: No evident complication status post left lung biopsy.
[2022-03-26 17:12] VITALS: BP 132/71; PULSE 81
== END 2022-03-26 13:37 | disposition home or self-care (01) ==
LOC: RADPROMAIN 08:47
PROVIDERS: ATTEND Internal Medicine Hematology & Oncology
DX: C34.12 Malignant neoplasm of upper lobe, left bronchus or lung (principal)
CPT/HCPCS: 88305; 82947; 85049; 85610; 88342; 88341; 36415; 71045; 32408; J1170; 77012

== ENCOUNTER → 2022-05-08 | Outpatient (CLI) | payer MEDICARE ==
--- NOTE | 2022-05-08 10:58 | XR ---
EXAMINATION TYPE: XR humerus LT DATE OF EXAM: 05/08/2022 COMPARISON: NONE HISTORY: pain TECHNIQUE: 2 views submitted. FINDINGS: The osseous structures are intact and the joint spaces are preserved. Hypertrophic change of the AC joint. Small intraosseous lesion proximal left humerus. Small intraosseous lesion proximal left humer us. IMPRESSION: 1. No acute fracture or dislocation. 2. AC joint arthropathy. Olecranon spur noted. There is a small intraosseous lesion of the proximal l eft humerus could represent a small bone cyst.
--- NOTE | 2022-05-12 13:06 | XR ---
EXAMINATION TYPE: XR elbow complete LT DATE OF EXAM: 05/08/2022 COMPARISON: NONE HISTORY: 61-year-old male S49.92XA unspecified injury upper arm TECHNIQUE: 3 views FINDINGS: Mild spurring in both medial and lateral epicondyles. No elbow joint effusion. Minimal enthesopathy a t the triceps insertion on the olecranon. No acute fracture, subluxation, or dislocation. IMPRESSION: Mild spurring at both medial and lateral epicondyles suggests some tendinopathy at the common flexor and common extensor tendon origins. No acute osseous abnormality seen.
== END | disposition home or self-care (01) ==
LOC: RADXRMAIN 09:37
PROVIDERS: ATTEND Family Medicine
DX: S49.92XA Unspecified injury of left shoulder and upper arm, initial encounter (principal); M75.92 Shoulder lesion, unspecified, left shoulder

== ENCOUNTER → 2022-06-17 | Outpatient (CLI) | payer MEDICARE ==
--- NOTE | 2022-06-17 15:06 | US ---
EXAMINATION TYPE: US kidneys/renal and bladder DATE OF EXAM: 06/17/2022 COMPARISON: NONE CLINICAL HISTORY: R10.9 UNSPECIFIED ABDOMINAL PAIN. left flank pain, patient scanned sitting upright EXAM MEASUREMENTS: Right Kidney: 11.5 x 4.9 x 6.1 cm Left Kidney: 10.6 x 3.1 x 6.1 cm Right Kidney: No hydronephrosis or masses seen Left Kidney: No hydronephrosis or masses seen Bladder: not distended There is no evidence for hydronephrosis at this point in time. No nephrolithiasis is seen. No melissa s are identified. The urinary bladder is anechoic. Bilateral ureteral jets are seen. IMPRESSION: No discrete abnormality seen.
== END | disposition home or self-care (01) ==
LOC: RADUSWWP 14:18
PROVIDERS: ATTEND Family Medicine
DX: R10.9 Unspecified abdominal pain (principal)
CPT/HCPCS: 76770

== ENCOUNTER → 2022-07-01 | Outpatient (CLI) | payer MEDICARE ==
[2022-07-01 11:48] LABS: African American GFR (CKD) >90 (>60 ml/min/1.73 sqM); Blood Urea Nitrogen 7 mg/dL (9-20); Non-African American GFR(CKD) >90 (>60 ml/min/1.73 sqM)
--- NOTE | 2022-07-01 12:45 | CT ---
EXAMINATION TYPE: CT chest w con DATE OF EXAM: 07/01/2022 COMPARISON: Prior chest CT February 20, 2022 and PET/CT March 01, 2022 HISTORY: lung CA left-sided diagnosed in March currently undergoing chemotherapy and radiation treatm ent. CT DLP: 682.3 mGycm. Automated Exposure Control for Dose Reduction was Utilized. TECHNIQUE: CT scan of the thorax is performed following with IV Contrast, patient injected with 70 m L of Isovue 300. FINDINGS: LUNGS: Background moderate underlying emphysematous change is redemonstrated. Redemonstration of left apical heterogeneous mass measuring 8.3 x 5.9 cm axial image 11 versus most recent PET/CT with loss of more central aeration noted. Anterior-inferior extension with some left apical volume loss is now present. New encasement of portion of the left subclavian artery axial image 10 is noted. Findings obando ggest interval neoplastic progression L3 superiorly. This is destroying portions of the left first se cond and third ribs greater degree versus prior. New slight displaced fracture deformity of the later al left fourth rib axial image 18 is presumed pathologic. There is however interval development of multiple small pulmonary nodules bilaterally some which have some cavitation. For reference there is new 0.9 x 1.5 cm posterior left lower lobe nodule axial imag e 46. For reference there is new 1.9 x 1.3 cm anterior right mid lung nodule abutting the mediastinum axial image 37. There is bovine type aortic arch which is normal variant redemonstrated. MEDIASTINUM: There are no new greater than 1 cm hilar or mediastinal lymph nodes. No pericardial e ffusion is seen. Calcification at level of the mitral and aortic valve redemonstrated. OTHER: Right-sided gynecomastia redemonstrated. Left breast L5 field of view. IMPRESSION: Significant neoplastic progression identified as detailed above as there is bilateral new hematogenous metastatic disease or nodules present.
== END | disposition home or self-care (01) ==
LOC: RADCTMAIN 11:00
PROVIDERS: ATTEND Internal Medicine Hematology & Oncology
DX: C34.92 Malignant neoplasm of unspecified part of left bronchus or lung (principal)
CPT/HCPCS: 82565; 84520; 71260; 36415; Q9967

== ENCOUNTER 2022-08-12 20:05 | Emergency (ER) | payer MEDICARE ==
[2022-08-13 01:24] VITALS: TEMP 97.8
[2022-08-13 01:53] LABS: Appearance,Urine Clear (Clear); Bilirubin,Urine 1+ (Negative); Blood,Urine Negative (Negative); Color,Urine Yellow; Glucose,Urine (UA) Negative (Negative); Hyaline Casts,Urine 5 /lpf (0-2); Ketones,Urine Trace (Negative); Leukocyte Esterase,Urine Negative (Negative); Mucus,Urine Moderate /hpf; Nitrite,Urine Negative (Negative); Protein,Urine 1+ (Negative); RBC,Urine 1 /hpf (0-5); Specific Gravity,Urine 1.035 (1.001-1.035); Squamous Epithelial Cell,Urine 1 /hpf (0-4); WBC,Urine 3 /hpf (0-5)
[2022-08-13 02:08] VITALS: RESP 16
--- NOTE | 2022-08-13 02:14 | CT ---
EXAMINATION TYPE: CT brain wo con DATE OF EXAM: 08/13/2022 COMPARISON: None HISTORY: AMS CT DLP: 1149.4 mGycm Automated exposure control for dose reduction was used. Images of the brain obtained with no contrast. There is mild cerebral cortical atrophy. There is no mass effect nor midline shift. No sign of intrac ranial hemorrhage. Calvarium is intact. Skull base is intact. There is normal aeration of the mastoid sinuses. IMPRESSION: Mild atrophy. No acute intracranial abnormality.
--- NOTE | 2022-08-13 02:21 | ED ---
General Adult HPI - General Chief complaint: Altered Mental Status Stated complaint: Seeing things that arnt there Time Seen by Provider: 08/13/22 00:45 Source: patient, family, RN notes reviewed, old records reviewed Mode of arrival: wheelchair Limitations: no limitations - History of Present Illness Initial comments: 61-year-old male presents for evaluation of hallucination. Patient states he had had some issues with hallucination during recent medication changes. He's been switched from [place] to Percocet and had his morphine prescription first raised to 60 mg and then reduced to 45 mg. He's had some visual hallucinations including the sensation that his feet were in water. Patient is alert and oriented at the time my evaluation. There was concern that he had developed metastases to the brain as he has a history of lung cancer currently undergoing treatment. - Related Data Home Medications Medication Instructions Recorded Confirmed Acetaminophen Tab [Tylenol] 1,000 mg PO Q6HR PRN 08/03/21 04/17/22 Albuterol Sulfate [Ventolin HFA] 1 - 2 puff INHALATION RT-Q4H PRN 08/03/21 04/17/22 Oxymetazoline HCl [Afrin 0.05%] 1 spray EA NOSTRIL DAILY PRN 08/03/21 04/17/22 Diclofenac Sodium Gel [Voltaren 4 gm TOPICAL QID PRN 03/11/22 04/17/22 Gel] Furosemide [Lasix] 40 mg PO DAILY PRN 03/11/22 04/17/22 Pantoprazole [Protonix] 40 mg PO DAILY PRN 03/11/22 04/17/22 Pioglitazone [Actos] 15 mg PO DAILY 03/11/22 04/17/22 metFORMIN HCL [Glucophage] 1,000 mg PO BID 03/11/22 04/17/22 metOLazone [Zaroxolyn] 5 mg PO DAILY 03/11/22 04/17/22 HYDROcodone/APAP 10-325MG [[place] 1 tab PO Q6HR PRN 03/18/22 04/17/22 10-325] Morphine Sulfate [Ms Contin] 45 mg PO Q12HR 03/18/22 04/17/22 Meloxicam 7.5 mg PO DAILY 03/19/22 04/17/22 Previous Rx's Medication Instructions Recorded Albuterol Inhaler [Ventolin Hfa 1 puff INHALATION RT-TID #8 gm 08/09/21 Inhaler] Allergies Allergy/AdvReac Type Severity Reaction Status Date / Time No Known Allergies Allergy Verified 08/12/22 21:23 Review of Systems ROS Statement: Those systems with pertinent positive or pertinent negative responses have been documented in the HPI. ROS Other: All systems not noted in ROS Statement are negative. Past Medical History Past Medical History: Asthma, Heart Failure, COPD, Diabetes Mellitus, Hypertension Additional Past Medical History / Comment(s): Uses home O2 as needed only. Lung mass, rib lesion and lymph adenopathy, shoulder pain related to lung mass. Pancous tumor left apex History of Any Multi-Drug Resistant Organisms: MRSA Date of last positivie culture/infection: 05/23/16 MDRO Source:: Left Foot Past Surgical History: Hernia Repair, Orthopedic Surgery, Tonsillectomy Additional Past Surgical History / Comment(s): lt. 5th toe amp Past Anesthesia/Blood Transfusion Reactions: No Reported Reaction Past Psychological History: No Psychological Hx Reported Smoking Status: Former smoker Past Alcohol Use History: None Reported Past Drug Use History: None Reported - Past Family History Sister(s) Family Medical History: Cancer Father Family Medical History: Congestive Heart Failure (CHF), Diabetes Mellitus Mother Family Medical History: Renal Disease General Exam Limitations: no limitations General appearance: alert, in no apparent distress Head exam: Present: atraumatic, normocephalic Eye exam: Present: normal appearance ENT exam: Present: normal exam Neck exam: Present: normal inspection. Absent: tenderness, meningismus Respiratory exam: Present: normal lung sounds bilaterally. Absent: respiratory distress, wheezes Cardiovascular Exam: Present: regular rate, normal rhythm GI/Abdominal exam: Present: soft. Absent: distended, tenderness Neurological exam: Present: alert, oriented X3, CN II-XII intact. Absent: motor sensory deficit Skin exam: Present: warm, dry, intact. Absent: cyanosis, diaphoretic Course Vital Signs 08/12/22 08/12/22 08/13/22 21:16 21:23 02:00 Temperature 98.4 F 97.8 F Pulse Rate 97 89 84 Respiratory 22 17 16 Rate Blood Pressure 141/82 133/78 137/70 O2 Sat by Pulse 95 97 95 Oximetry 08/13/22 02:21 Temperature Pulse Rate 81 Respiratory 16 Rate Blood Pressure 136/79 O2 Sat by Pulse 98 Oximetry Medical Decision Making - Medical Decision Making 61-year-old male with request for brain imaging with chief complaint of hallucination and concern for metastatic lesions to the brain. I did perform CT imaging in the emergency department which is negative for mass effect or acute findings. Patient is reassured by this. He is informed that this is not the best test and that he may require further testing as an outpatient. He did not have urinary symptoms by did obtain a urinalysis which was unremarkable. Additionally the patient had blood testing earlier this week during his symptoms and he reported this as stable. These results were not available for my review. Patient informed of CT imaging results and eager for discharge. - Lab Data Lab Results 08/13/22 Range/Units 01:35 Urine Color Yellow Urine Appearance Clear (Clear) Urine pH 6.0 (5.0-8.0) Ur Specific [place] 1.035 (1.001-1.035) Urine Protein 1+ H (Negative) Urine Glucose (UA) Negative (Negative) Urine Ketones Trace H (Negative) Urine Blood Negative (Negative) Urine Nitrite Negative (Negative) Urine Bilirubin 1+ H (Negative) Urine Urobilinogen 6.0 (<2.0) mg/dL Ur Leukocyte Esterase Negative (Negative) Urine RBC 1 (0-5) /hpf Urine WBC 3 (0-5) /hpf Ur Squamous Epith Cells 1 (0-4) /hpf Hyaline Casts 5 H (0-2) /lpf Urine Mucus Moderate H (None) /hpf Disposition Clinical Impression: Hallucination Disposition: HOME SELF-CARE Condition: Fair Instructions (If sedation given, give patient instructions): Hallucinations (ED) Is patient prescribed a controlled substance at d/c from ED?: No Referrals: Shona Boston MD [Primary Care Provider] - 1-2 days Time of Disposition: 02:20
[2022-08-13 02:22] VITALS: BP 136/79; PULSE 81
== END 2022-08-13 02:30 | disposition home or self-care (01) ==
LOC: EC 20:05
DX: R44.3 Hallucinations, unspecified (principal); J45.909 Unspecified asthma, uncomplicated; J44.9 Chronic obstructive pulmonary disease, unspecified; E11.9 Type 2 diabetes mellitus without complications; I10 Essential (primary) hypertension; Z87.891 Personal history of nicotine dependence; Z79.84 Long term (current) use of oral hypoglycemic drugs; Z79.51 Long term (current) use of inhaled steroids; Z79.899 Other long term (current) drug therapy
CPT/HCPCS: 70450; 81001; 99285

== ENCOUNTER 2022-08-16 19:47 | Observation (INO) | payer MEDICARE ==
[2022-08-17] MEDS ORDERED: SODIUM CHLORIDE 0.9% 1,000 ML IV STA (03:29)
[2022-08-17] MEDS ORDERED: MORPHINE SULFATE 4 MG/ML SYRINGE IV STA (03:29)
--- NOTE | 2022-08-17 03:46 | ED ---
Recheck HPI - General Chief Complaint: Extremity Problem,Nontraumatic Stated Complaint: pain managment Time Seen by Provider: 08/17/22 03:33 Source: patient, family, RN notes reviewed, old records reviewed, Caregiver Mode of arrival: wheelchair Limitations: no limitations - History of Present Illness Initial Comments: This is a 61-year-old male he is older facility for evaluation of cancer treatment. Patient currently going through radiation therapy, worsening pain worsening chronic pain acute on chronic pain from cancer. Patient also having left elbow pain decreased range of motion due to swelling. Patient has no traumatic injuries denies fevers no other complaints MD Complaint: medication refill request -: days(s) Returns Today for: persistent/worsening pain related to initial visit Context: planned re-check, ran out of medication Associated Symptoms: malaise, nausea Treatments Prior to Arrival: Given Pain Meds on - Related Data Home Medications Medication Instructions Recorded Confirmed Acetaminophen Tab [Tylenol] 1,000 mg PO Q6HR PRN 08/03/21 04/17/22 Albuterol Sulfate [Ventolin HFA] 1 - 2 puff INHALATION RT-Q4H PRN 08/03/21 04/17/22 Oxymetazoline HCl [Afrin 0.05%] 1 spray EA NOSTRIL DAILY PRN 08/03/21 04/17/22 Diclofenac Sodium Gel [Voltaren 4 gm TOPICAL QID PRN 03/11/22 04/17/22 Gel] Furosemide [Lasix] 40 mg PO DAILY PRN 03/11/22 04/17/22 Pantoprazole [Protonix] 40 mg PO DAILY PRN 03/11/22 04/17/22 Pioglitazone [Actos] 15 mg PO DAILY 03/11/22 04/17/22 metFORMIN HCL [Glucophage] 1,000 mg PO BID 03/11/22 04/17/22 metOLazone [Zaroxolyn] 5 mg PO DAILY 03/11/22 04/17/22 HYDROcodone/APAP 10-325MG [[place] 1 tab PO Q6HR PRN 03/18/22 04/17/22 10-325] Morphine Sulfate [Ms Contin] 45 mg PO Q12HR 03/18/22 04/17/22 Meloxicam 7.5 mg PO DAILY 03/19/22 04/17/22 Previous Rx's Medication Instructions Recorded Albuterol Inhaler [Ventolin Hfa 1 puff INHALATION RT-TID #8 gm 08/09/21 Inhaler] Allergies Allergy/AdvReac Type Severity Reaction Status Date / Time No Known Allergies Allergy Verified 08/12/22 21:23 Review of Systems ROS Statement: Those systems with pertinent positive or pertinent negative responses have been documented in the HPI. ROS Other: All systems not noted in ROS Statement are negative. Past Medical History Past Medical History: Asthma, Heart Failure, COPD, Diabetes Mellitus, Hypertension Additional Past Medical History / Comment(s): Uses home O2 as needed only. Lung mass, rib lesion and lymph adenopathy, shoulder pain related to lung mass. Pancous tumor left apex History of Any Multi-Drug Resistant Organisms: MRSA Date of last positivie culture/infection: 05/23/16 MDRO Source:: Left Foot Past Surgical History: Hernia Repair, Orthopedic Surgery, Tonsillectomy Additional Past Surgical History / Comment(s): lt. 5th toe amp Past Anesthesia/Blood Transfusion Reactions: No Reported Reaction Past Psychological History: No Psychological Hx Reported Smoking Status: Former smoker Past Alcohol Use History: None Reported Past Drug Use History: None Reported - Past Family History Sister(s) Family Medical History: Cancer Father Family Medical History: Congestive Heart Failure (CHF), Diabetes Mellitus Mother Family Medical History: Renal Disease General Exam Limitations: no limitations General appearance: alert, in no apparent distress Head exam: Present: atraumatic, normocephalic, normal inspection Eye exam: Present: normal appearance, PERRL, EOMI. Absent: scleral icterus, conjunctival injection, periorbital swelling ENT exam: Present: normal exam, mucous membranes moist Neck exam: Present: normal inspection. Absent: tenderness, meningismus, lymphadenopathy Respiratory exam: Present: normal lung sounds bilaterally. Absent: respiratory distress, wheezes, rales, rhonchi, stridor Cardiovascular Exam: Present: regular rate, normal rhythm, normal heart sounds. Absent: systolic murmur, diastolic murmur, rubs, gallop, clicks GI/Abdominal exam: Present: soft, normal bowel sounds. Absent: distended, tenderness, guarding, rebound, rigid Extremities exam: Present: normal inspection, full ROM, normal capillary refill. Absent: tenderness, pedal edema, joint swelling, calf tenderness Back exam: Present: normal inspection Neurological exam: Present: alert, oriented X3, CN II-XII intact Psychiatric exam: Present: normal affect, normal mood Skin exam: Present: warm, dry, intact, normal color. Absent: rash Course Vital Signs 08/16/22 21:06 Temperature 98.2 F Pulse Rate 90 Respiratory 16 Rate Blood Pressure 146/76 O2 Sat by Pulse 94 L Oximetry - Reevaluation(s) Reevaluation #1: 08/17/22 06:36 Medical records reviewed Reevaluation #2: 08/17/22 06:36 pain is controlled Reevaluation #3: 08/17/22 06:36 patient informed results and questions answered - Consultations Consultation #1: Spoke with [facility] who agrees to admit this patient Medical Decision Making - Medical Decision Making 61 male with acute on chronic pain. Patient be admitted for pain control - Lab Data Result diagrams: 08/17/22 04:05 08/17/22 04:05 Lab Results 08/17/22 08/17/22 08/17/22 Range/Units 04:05 04:05 04:05 WBC 8.7 (3.8-10.6) k/uL RBC 3.72 L (4.30-5.90) m/uL Hgb 9.9 L (13.0-17.5) gm/dL Hct 33.4 L (39.0-53.0) % MCV 89.8 (80.0-100.0) fL MCH 26.7 (25.0-35.0) pg MCHC 29.7 L (31.0-37.0) g/dL RDW 16.1 H (11.5-15.5) % Plt Count 738 H (150-450) k/uL MPV 7.1 Neutrophils % 74 % Lymphocytes % 15 % Monocytes % 6 % Eosinophils % 3 % Basophils % 0 % Neutrophils # 6.5 (1.3-7.7) k/uL Lymphocytes # 1.3 (1.0-4.8) k/uL Monocytes # 0.5 (0-1.0) k/uL Eosinophils # 0.2 (0-0.7) k/uL Basophils # 0.0 (0-0.2) k/uL Hypochromasia Marked Anisocytosis Slight PT 10.6 (9.0-12.0) sec INR 1.0 (<1.2) APTT 31.9 H (22.0-30.0) sec Sodium 136 L (137-145) mmol/L Potassium 4.2 (3.5-5.1) mmol/L Chloride 95 L (98-107) mmol/L Carbon Dioxide 30 (22-30) mmol/L Anion Gap 11 mmol/L BUN 11 (9-20) mg/dL Creatinine 0.52 L (0.66-1.25) mg/dL Est GFR (CKD-EPI)AfAm >90 (>60 ml/min/1.73 sqM) Est GFR (CKD-EPI)NonAf >90 (>60 ml/min/1.73 sqM) Glucose 103 H (74-99) mg/dL Calcium 9.0 (8.4-10.2) mg/dL Phosphorus 3.8 (2.5-4.5) mg/dL Magnesium 2.0 (1.6-2.3) mg/dL Total Bilirubin 0.3 (0.2-1.3) mg/dL AST 23 (17-59) U/L ALT 13 (4-49) U/L Alkaline Phosphatase 110 (38-126) U/L Troponin I (0.000-0.034) ng/mL NT-Pro-B Natriuret Pep pg/mL Total Protein 7.0 (6.3-8.2) g/dL Albumin 3.3 L (3.5-5.0) g/dL 08/17/22 08/17/22 Range/Units 04:05 04:05 WBC (3.8-10.6) k/uL RBC (4.30-5.90) m/uL Hgb (13.0-17.5) gm/dL Hct (39.0-53.0) % MCV (80.0-100.0) fL MCH (25.0-35.0) pg MCHC (31.0-37.0) g/dL RDW (11.5-15.5) % Plt Count (150-450) k/uL MPV Neutrophils % % Lymphocytes % % Monocytes % % Eosinophils % % Basophils % % Neutrophils # (1.3-7.7) k/uL Lymphocytes # (1.0-4.8) k/uL Monocytes # (0-1.0) k/uL Eosinophils # (0-0.7) k/uL Basophils # (0-0.2) k/uL Hypochromasia Anisocytosis PT (9.0-12.0) sec INR (<1.2) APTT (22.0-30.0) sec Sodium (137-145) mmol/L Potassium (3.5-5.1) mmol/L Chloride (98-107) mmol/L Carbon Dioxide (22-30) mmol/L Anion Gap mmol/L BUN (9-20) mg/dL Creatinine (0.66-1.25) mg/dL Est GFR (CKD-EPI)AfAm (>60 ml/min/1.73 sqM) Est GFR (CKD-EPI)NonAf (>60 ml/min/1.73 sqM) Glucose (74-99) mg/dL Calcium (8.4-10.2) mg/dL Phosphorus (2.5-4.5) mg/dL Magnesium (1.6-2.3) mg/dL Total Bilirubin (0.2-1.3) mg/dL AST (17-59) U/L ALT (4-49) U/L Alkaline Phosphatase (38-126) U/L Troponin I <0.012 (0.000-0.034) ng/mL NT-Pro-B Natriuret Pep 711 pg/mL Total Protein (6.3-8.2) g/dL Albumin (3.5-5.0) g/dL - EKG Data -: EKG Interpreted by Me (EKG shows normal sinus rhythm 87 QRS 86 QTc 389) Disposition Clinical Impression: Chronic pain, Cancer associated pain Disposition: ADMITTED IP TO THIS HOSP Condition: Fair Is patient prescribed a controlled substance at d/c from ED?: No Time of Disposition: 05:30
[2022-08-17] MEDS ORDERED: diphenhydrAMINE 50 MG/ML 1 ML VIAL IVP STA (03:48)
[2022-08-17 04:46] LABS: Anisocytosis Slight; Basophils % (A) 0 %; Eosinophils # (A) 0.2 k/uL (0-0.7); Eosinophils % (A) 3 %; HCT 33.4 % (39.0-53.0); HGB 9.9 gm/dL (13.0-17.5); Hypochromasia Marked; Lymphocytes # (A) 1.3 k/uL (1.0-4.8); Lymphocytes % (A) 15 %; MCH 26.7 pg (25.0-35.0); MCHC 29.7 g/dL (31.0-37.0); MCV 89.8 fL (80.0-100.0); Mean Platelet Volume 7.1; Monocytes # (A) 0.5 k/uL (0-1.0); Monocytes % (A) 6 %; Neutrophils # (A) 6.5 k/uL (1.3-7.7); Neutrophils % (A) 74 %; Platelet Count 738 k/uL (150-450); RBC 3.72 m/uL (4.30-5.90); RDW 16.1 % (11.5-15.5); WBC 8.7 k/uL (3.8-10.6)
[2022-08-17 04:54] LABS: Prothrombin Time 10.6 sec (9.0-12.0)
[2022-08-17 04:55] LABS: Partial Thromboplastin Time 31.9 sec (22.0-30.0)
[2022-08-17 05:04] LABS: ALT 13 U/L (4-49); AST 23 U/L (17-59); African American GFR (CKD) >90 (>60 ml/min/1.73 sqM); Albumin 3.3 g/dL (3.5-5.0); Alkaline Phosphatase 110 U/L (38-126); Anion Gap 11 mmol/L; Blood Urea Nitrogen 11 mg/dL (9-20); Carbon Dioxide 30 mmol/L (22-30); Chloride 95 mmol/L (98-107); Glucose 103 mg/dL (74-99); Non-African American GFR(CKD) >90 (>60 ml/min/1.73 sqM); Phosphorus 3.8 mg/dL (2.5-4.5); Potassium 4.2 mmol/L (3.5-5.1); Sodium 136 mmol/L (137-145); Total Bilirubin 0.3 mg/dL (0.2-1.3)
[2022-08-17] MEDS ORDERED: HYDROmorphone 1 MG/ML 1 ML SYRINGE IVP STA (05:31)
[2022-08-17] MEDS ORDERED: HYDROmorphone 1 MG/ML 1 ML SYRINGE IVP PRN (05:31)
[2022-08-17] MEDS ORDERED: MORPHINE SULFATE 4 MG/ML SYRINGE IVP PRN (09:10)
[2022-08-17] MEDS ORDERED: KETOROLAC 15 MG/ML 1 ML VIAL IVP PRN (09:24)
[2022-08-17] MEDS ORDERED: ACETAMINOPHEN TAB 325 MG TAB PO PRN (09:24)
[2022-08-17] MEDS ORDERED: MELATONIN 3 MG TABLET PO PRN (09:24)
[2022-08-17] MEDS ORDERED: NALOXONE 0.4 MG/ML 1 ML VIAL IV PRN (09:24)
[2022-08-17] MEDS ORDERED: ONDANSETRON 4 MG/2 ML VIAL IVP PRN (09:24)
[2022-08-17] MEDS ORDERED: DEXTROSE 50% SYRINGE 50 ML IVP PRN ×2 (09:27)
[2022-08-17] MEDS: MORPHINE SULFATE ER 15 MG TABLET PO SCH ×2 (09:27→20:48)
[2022-08-17] MEDS: LORATADINE 10 MG TAB PO SCH (09:28)
[2022-08-17] MEDS: DEXAMETHASONE SOD PHOSPHATE 4 MG/ML 1 ML VIAL IVP SCH ×3 (11:54→23:50)
[2022-08-17] MEDS: MORPHINE SULFATE 4 MG/ML SYRINGE IVP PRN ×2 (11:55→17:23)
[2022-08-17] MEDS: LIDOCAINE 5% PATCH TOPICAL SCH (11:56)
[2022-08-17 12:43] LABS: Appearance,Urine Clear (Clear); Bilirubin,Urine Negative (Negative); Blood,Urine Negative (Negative); Color,Urine Yellow; Glucose,Urine (UA) Negative (Negative); Ketones,Urine Negative (Negative); Leukocyte Esterase,Urine Negative (Negative); Mucus,Urine Rare /hpf; Nitrite,Urine Negative (Negative); PH, Urine 6.5 (5.0-8.0); Protein,Urine 1+ (Negative); RBC,Urine 2 /hpf (0-5); Specific Gravity,Urine 1.026 (1.001-1.035); Squamous Epithelial Cell,Urine 1 /hpf (0-4); WBC,Urine 3 /hpf (0-5)
[2022-08-17 12:50] LABS: Glucose,Whole Blood 110 mg/dL (70-110)
[2022-08-17] MEDS: INSULIN ASPART (NovoLOG) 100 UNIT/ML VIAL SQ SCH ×3 (12:58→20:50)
[2022-08-17] MEDS ORDERED: ALBUTEROL NEBULIZED 2.5 MG/3 ML INHALATION PRN (13:21)
--- NOTE | 2022-08-17 16:05 | P.HPIM ---
History of Present Illness H&P Date: 08/17/22 Patient is a 61-year-old male with squamous cell carcinoma of the lung followed by Dr. Singer, known diabetes, diastolic congestive heart failure, COPD, and multiple other comorbid conditions who presented to the hospital at the direction of radiation oncology secondary to uncontrolled pain related to his malignancy. The ER he underwent an extensive evaluation. On arrival his vital signs were within normal limits. Lab urinalysis showed hemoglobin 9.9, platelets 738, sodium 136. Patient required multiple doses of narcotics and Valium in the ER. Patient was recently here in the ER on 08/13 for hallucinations. At that point in time he had a negative CT brain. He was admitt ed for pain control. Patient seen and examined at bedside. Left elbow and shoulder pain for a year that has been getting worse. He had an extensive evaluation of the elbow and saw an orthopedic surgeon. He had an MRI done of elbow in [place] and Dr. Weiss and Dr. Zimmerman's team decided they were concerned for cancer in the elbow. He completed his second dose of radiation to the elbow yesterday. He recently had hallucinations recently with pain medication changes when Dr. Boston increased Morphine and added Percocet. Currently taking Morphine MS 45 mg and Tylenol and Ibuprofen. He is having intermittent numbness and tingling in the left hand. He has been unabel to sleep due to the pain and has to sit hunched over in the chair. He had been on prednisone for the pain but is due to start immuno therapy this coming week, and his steroids were stopped.. Has completed chemo and 7 weeks of radiation to the left chest. Fell yesterday and one week ago due to pain and falling asleep. Pertinent positives and negatives as discussed in HPI, a complete review of systems was performed and all other systems are negative. Vital signs reviewed General: nontoxic, no distress, appears at stated age Derm: warm, dry Head: atraumatic, normocephalic, symmetric Eyes: EOMI, no lid lag, anicteric sclera, pupils equal round reactive to light ENT: Nose and ears atraumatic, no thrush, no pharyngeal erythema Neck: No thyromegaly, no cervical lymphadenopathy, trachea midline, supple Mouth: no lip lesion, mucus membranes moist Cardiovascular: S1S2 reg, no murmur, positive posterior tibial pulse bilateral, no edema, capillary refill less than 2 seconds Lungs: clear to auscultation bilateral, no rhonchi, no rales, no wheeze, no accessory muscle use Abdominal: soft, nontender to palpation, no guarding, no appreciable organomegaly, normal bowel sounds Ext: no gross muscle atrophy, muscle strength 5 out of 5 in all 4 extremities, no contractures Neuro: CN II-XII grossly intact, light touch intact all 4 extremities, finger to nose within normal limits, Psych: Alert, oriented, appropriate affect Assessment/Plan: Intractable pain secondary to malignancy Recent Hallucinations Squamous Cell Ca of the Lung with Mets - Stick with only Morphine to asses what cause hallucinations, MS contin 45 mg BID, Morphine IV q4 prn, claritin, decadron - consult oncology - add lidoderm patch - CM to arrange for home hospital bed Anemia and thrombocytosis - follow CBC DM 2 - hold oral medications - SSI - follow BS COPD without exacerbation - prn broncho dilators Diastolic CHF without exacerbation - await home meds to be verified The patient is admitted with an anticipated greater than 2 midnight stay for evaluation of intractable pain Surrogate decision-maker: CODE STATUS:full DVT prophylaxis: lovenox Discussed with: patient, nursing Anticipated discharge date: in 2-[address]: home A total of 65 minutes was spent on the care of this complex patient more than 50% of the time was spent in counseling and care coordination. Past Medical History Past Medical History: Asthma, Heart Failure, COPD, Diabetes Mellitus, Hypertension Additional Past Medical History / Comment(s): Uses home O2 as needed only. Squamous cell carcinoma of the lung, rib lesion and lymph adenopathy, shoulder pain related to lung mass. Pancous tumor left apex History of Any Multi-Drug Resistant Organisms: MRSA Date of last positivie culture/infection: 05/23/16 MDRO Source:: Left Foot Past Surgical History: Hernia Repair, Orthopedic Surgery, Tonsillectomy Additional Past Surgical History / Comment(s): lt. 5th toe amp Past Anesthesia/Blood Transfusion Reactions: No Reported Reaction Past Psychological History: No Psychological Hx Reported Smoking Status: Former smoker Past Alcohol Use History: None Reported Past Drug Use History: None Reported - Past Family History Sister(s) Family Medical History: Cancer Father Family Medical History: Congestive Heart Failure (CHF), Diabetes Mellitus Mother Family Medical History: Renal Disease Medications and Allergies Home Medications Medication Instructions Recorded Confirmed Type Acetaminophen Tab [Tylenol] 1,000 mg PO Q6HR PRN 08/03/21 04/17/22 History Albuterol Sulfate [Ventolin HFA] 1 - 2 puff INHALATION RT-Q4H PRN 08/03/21 04/17/22 History Oxymetazoline HCl [Afrin 0.05%] 1 spray EA NOSTRIL DAILY PRN 08/03/21 04/17/22 History Albuterol Inhaler [Ventolin Hfa 1 puff INHALATION RT-TID #8 gm 08/09/21 04/17/22 Rx Inhaler] Diclofenac Sodium Gel [Voltaren 4 gm TOPICAL QID PRN 03/11/22 04/17/22 History Gel] Furosemide [Lasix] 40 mg PO DAILY PRN 03/11/22 04/17/22 History Pantoprazole [Protonix] 40 mg PO DAILY PRN 03/11/22 04/17/22 History Pioglitazone [Actos] 15 mg PO DAILY 03/11/22 04/17/22 History metFORMIN HCL [Glucophage] 1,000 mg PO BID 03/11/22 04/17/22 History metOLazone [Zaroxolyn] 5 mg PO DAILY 03/11/22 04/17/22 History HYDROcodone/APAP 10-325MG [[place] 1 tab PO Q6HR PRN 03/18/22 04/17/22 History 10-325] Morphine Sulfate [Ms Contin] 45 mg PO Q12HR 03/18/22 04/17/22 History Meloxicam 7.5 mg PO DAILY 03/19/22 04/17/22 History Allergies Allergy/AdvReac Type Severity Reaction Status Date / Time No Known Allergies Allergy Verified 08/12/22 21:23 Physical Exam Osteopathic Statement: *. No significant issues noted on an osteopathic structural exam other than those noted in the History and Physical/Consult. Vitals: Vital Signs Temp Pulse Resp BP Pulse Ox 08/16/22 21:06 98.2 F 90 16 146/76 94 L Intake and Output 08/16/22 08/17/22 08/17/22 22:59 06:59 14:59 Other: Weight 115.666 kg Results CBC & Chem 7: 08/17/22 04:05 09/17/22 04:05 Labs: Abnormal Lab Results - Last 24 Hours (Table) 08/17/22 08/17/22 08/17/22 Range/Units 04:05 04:05 04:05 RBC 3.72 L (4.30-5.90) m/uL Hgb 9.9 L (13.0-17.5) gm/dL Hct 33.4 L (39.0-53.0) % MCHC 29.7 L (31.0-37.0) g/dL RDW 16.1 H (11.5-15.5) % Plt Count 738 H (150-450) k/uL APTT 31.9 H (22.0-30.0) sec Sodium 136 L (137-145) mmol/L Chloride 95 L (98-107) mmol/L Creatinine 0.52 L (0.66-1.25) mg/dL Glucose 103 H (74-99) mg/dL Albumin 3.3 L (3.5-5.0) g/dL
[2022-08-17 17:45] LABS: Glucose,Whole Blood 145 mg/dL (70-110)
[2022-08-17 20:47] LABS: Glucose,Whole Blood 135 mg/dL (70-110)
[2022-08-17] MEDS ORDERED: FUROSEMIDE 20 MG TAB PO STA (21:19)
[2022-08-18 05:12] VITALS: BP 154/90; PULSE 98; RESP 16; TEMP 97.7
[2022-08-18] MEDS: DEXAMETHASONE SOD PHOSPHATE 4 MG/ML 1 ML VIAL IVP SCH (05:52)
[2022-08-18 07:58] LABS: Glucose,Whole Blood 163 mg/dL (70-110)
[2022-08-18] MEDS: LIDOCAINE 5% PATCH TOPICAL SCH (08:48)
[2022-08-18] MEDS: INSULIN ASPART (NovoLOG) 100 UNIT/ML VIAL SQ SCH (08:48)
[2022-08-18] MEDS: MORPHINE SULFATE ER 15 MG TABLET PO SCH (08:49)
[2022-08-18] MEDS: LORATADINE 10 MG TAB PO SCH (08:50)
[2022-08-18] MEDS ORDERED: ENOXAPARIN 40 MG/0.4 ML SYRINGE SQ SCH (09:00)
[2022-08-18 09:28] LABS: HCT 32.7 % (39.6-50.0); HGB 9.9 g/dL (13.0-17.0); MCH 26.7 pg (27.0-32.0); MCHC 30.3 g/dL (32.0-37.0); MCV 88.1 fL (80.0-97.0); Mean Platelet Volume 8.7 fL (9.5-12.2); NRBC Per 100 WBC 0 /100 WBCS (0.0-0.0); Platelet Count 643 X 10*3/uL (140-440); RBC 3.71 X 10*6/uL (4.40-5.60); RDW 15.5 % (11.5-14.5); WBC 9.48 X 10*3/uL (4.50-10.00)
[2022-08-18 09:43] LABS: African American GFR (CKD) 127.6 (60.0-200.0); Albumin 3.3 g/dL (3.8-4.9); Albumin/Globulin Ratio 0.82 (1.60-3.17); Anion Gap 12.1 mmol/L (10.00-18.00); BUN/Creat Ratio 15.89 Ratio (12.00-20.00); Blood Urea Nitrogen 8.9 mg/dL (9.0-27.0); Calcium 9.2 mg/dL (8.7-10.3); Carbon Dioxide 27.2 mmol/L (20.0-27.5); Non-African American GFR(CKD) 110.1 (60.0-200.0); Potassium 5.1 mmol/L (3.5-5.5); Total Bilirubin 0.3 mg/dL (0.30-1.20); Total Protein 7.3 g/dL (6.2-8.2)
--- NOTE | 2022-08-18 10:14 | P.DS ---
Providers Date of admission: 08/17/22 05:31 Expected date of discharge: 08/18/22 Attending physician: Ronaldo Gonzalez MD Consults: 08/17/22 05:31 Consult Physician Routine Consulting Provider: Macie Smith Consult Reason/Comments: known Do you want consulting provider notified?: Yes Primary care physician: Shona Boston Hospital Course: Discharge Diagnosis: Intractable pain secondary to malignancy Recent Hallucinations Squamous Cell Ca of the Lung with Mets Anemia and thrombocytosis DM 2 COPD without exacerbation Diastolic CHF without exacerbation Hospital Course: Patient is a 61-year-old male with squamous cell carcinoma of the lung followed by Dr. Singer, known diabetes, diastolic congestive heart failure, COPD, and multiple other comorbid conditions who presented to the hospital at the direction of radiation oncology secondary to uncontrolled pain related to his malignancy. The ER he underwent an extensive evaluation. On arrival his vital signs were within normal limits. Lab urinalysis showed hemoglobin 9.9, platelets 738, sodium 136. Patient required multiple doses of narcotics and Valium in the ER. Patient was recently here in the ER on 08/13 for hallucinations. At that point in time he had a negative CT brain. He was admitted for pain control. He was resumed on steroids, a Lidoderm patch and Claritin was added. He did well. He was not requiring IV narcotics for greater than 12 hours. He was determined stable for discharge home. He will continue with his MS Contin 45 mg twice daily, they are we have [place] at home which I said he can resume his longest hallucination stay abated. He will go home on prednisone 10 mg daily, Claritin, and a Lidoderm patch. Instructions explained to . They are happy with his improvement in pain. Patient does require a hospital bed secondary to a malignancy related pain. He has severe back pain and is unable to lay flat. He also has severe elbow pain due to metastatic disease and is unable to lay flat. In order for a hospital bed has been obtained and sent through to insurance for authorization. Patient seen and examined at bedside. Pain is much better. Moving better. He was able to sleep yesterday. Vital signs reviewed and stable. General: nontoxic, no distress, appears at stated age Derm: warm, dry, minimal swelling in left fingers. Head: atraumatic, normocephalic, symmetric Eyes: EOMI, no lid lag, anicteric sclera Mouth: no lip lesion, mucus membranes moist Cardiovascular: S1S2 reg, no murmur, positive posterior tibial pulse bilateral, Lungs: CTA bilateral, no rhonchi, no rales , no accessory muscle use Abdominal: soft, nontender to palpation, no guarding, no appreciable organomegaly Ext: no gross muscle atrophy, no edema, no contractures Neuro: CN II-XI grossly intact, no focal neuro deficits Psych: Alert, oriented, appropriate affect A total of 37 minutes of time were spent preparing this complex discharge summary. Patient was discharged on 08/18/22. Patient Condition at Discharge: Fair Plan - Discharge Summary New Discharge Prescriptions: New Loratadine [Claritin] 10 mg PO DAILY #30 tab Lidocaine 5% Patch [Lidoderm 5% Patch] 1 patch TOPICAL DAILY #30 patch predniSONE 10 mg PO DAILY #15 tab Continue Albuterol Sulfate [Ventolin HFA] 1 - 2 puff INHALATION RT-Q4H PRN PRN Reason: Shortness Of Breath Acetaminophen Tab [Tylenol] 1,000 mg PO Q6HR PRN PRN Reason: Pain ondansetron HCL [Zofran] 8 mg PO TID PRN PRN Reason: Nausea And Vomiting Morphine Sulfate [Ms Contin] 30 mg PO Q12H diazePAM [Valium] 5 mg PO DAILY PRN PRN Reason: prior to radiation Morphine Sulfate ER [Ms Contin] 15 mg PO Q12H Ibuprofen [Motrin Ib] 300 mg PO Q6H PRN PRN Reason: Pain Albuterol Nebulized [Ventolin Nebulized] 2.5 mg INHALATION RT-QID PRN PRN Reason: Shortness Of Breath Discharge Medication List Acetaminophen Tab [Tylenol] 1,000 mg PO Q6HR PRN 08/03/21 [History] Albuterol Sulfate [Ventolin HFA] 1 - 2 puff INHALATION RT-Q4H PRN 08/03/21 [History] Morphine Sulfate [Ms Contin] 30 mg PO Q12H 03/18/22 [History] Albuterol Nebulized [Ventolin Nebulized] 2.5 mg INHALATION RT-QID PRN 08/17/22 [History] Ibuprofen [Motrin Ib] 300 mg PO Q6H PRN 08/17/22 [History] Morphine Sulfate ER [Ms Contin] 15 mg PO Q12H 08/17/22 [History] diazePAM [Valium] 5 mg PO DAILY PRN 08/17/22 [History] ondansetron HCL [Zofran] 8 mg PO TID PRN 08/17/22 [History] Lidocaine 5% Patch [Lidoderm 5% Patch] 1 patch TOPICAL DAILY #30 patch 08/18/22 [Rx] Loratadine [Claritin] 10 mg PO DAILY #30 tab 08/18/22 [Rx] predniSONE 10 mg PO DAILY #15 tab 08/18/22 [Rx] Follow up Appointment(s)/Referral(s): Shona Boston MD [Primary Care Provider] - 1-2 days Silverio Weiss MD [STAFF PHYSICIAN] - As Needed (as scheduled prior) Juan Zimmerman MD [STAFF PHYSICIAN] - 1 Week Activity/Diet/Wound Care/Special Instructions: Activity: as tolerated Diet: regular Special Instructions: Can resume norco at home, continue with prednisone. Discharge Disposition: HOME SELF-CARE
--- NOTE | 2022-08-18 13:33 | P.CONS ---
History of Present Illness - Reason for Consult Consult date: 08/17/22 [facility] Requesting physician: Tashi Brandt - History of Present Illness ollow Up Visit Lung Cancer HPI : This is a very nice patient who presented with worsening left shoulder pain since August/2021,he had aCXR then a CT scan of chest on 02/20/2021 which revealed 6.5x7.7x9cm mass in LAUREN of his lung,destruction of first third and second ribs,extending into supraclavicual area and axilla,inseparable from left subclavian vein. On 03/01/2022,PET scan revealed revealed suspicious uptake in the above mentioned mass,no other metastatic disease. On 03/15/2022,brain MRI was negative for metastatic disease.. On 03/27/2022,CT guided lung biopsy was positive for invasive squamous cell c arcinoma. On 04/03/2022,he started weekly carboplatin/taxol with XRT. 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 He feels tired,has chronic legs sores from diabetes,his shoulder pain is much better but he has left elbow pain,seen by ortho,had an MRI of elbow,was told it was not cancer,however,he was referred to ortho/onc,his neuropathy in feet is stable from his baseline,his legs edema is slightly better,his activities limited to wheel chair (baseline prior to Dx with lungcancer),his PS is stable I had a discussion with the patient and his . Reviewed molecular studies results with them At last visit Dr. Zimmerman discussed second line therapy with opdivo,potential benefits/side effects. This was to start on 08/22i he has now been admitted for pain management and was recently seen in ER for AMS, neg CT without contrast. Review of Systems All systems: negative Constitutional: Reports as per HPI Past Medical History Past Medical History: Asthma, Heart Failure, COPD, Diabetes Mellitus, Hypertension Additional Past Medical History / Comment(s): Uses home O2 as needed only. Squamous cell carcinoma of the lung, rib lesion and lymph adenopathy, shoulder pain related to lung mass. Pancous tumor left apex History of Any Multi-Drug Resistant Organisms: MRSA Year Discovered:: 05/23/16 MDRO Source:: Left Foot Past Surgical History: Hernia Repair, Orthopedic Surgery, Tonsillectomy Additional Past Surgical History / Comment(s): lt. 5th toe amp Past Anesthesia/Blood Transfusion Reactions: No Reported Reaction Past Psychological History: No Psychological Hx Reported Smoking Status: Former smoker Past Alcohol Use History: None Reported Past Drug Use History: None Reported - Past Family History Sister(s) Family Medical History: Cancer Father Family Medical History: Congestive Heart Failure (CHF), Diabetes Mellitus Mother Family Medical History: Renal Disease Medications and Allergies Home Medications Medication Instructions Recorded Confirmed Type Acetaminophen Tab [Tylenol] 1,000 mg PO Q6HR PRN 08/03/21 08/17/22 History Albuterol Sulfate [Ventolin HFA] 1 - 2 puff INHALATION RT-Q4H PRN 08/03/21 08/17/22 History Morphine Sulfate [Ms Contin] 30 mg PO Q12H 03/18/22 08/17/22 History Albuterol Nebulized [Ventolin 2.5 mg INHALATION RT-QID PRN 08/17/22 08/17/22 History Nebulized] Ibuprofen [Motrin Ib] 300 mg PO Q6H PRN 08/17/22 08/17/22 History Morphine Sulfate ER [Ms Contin] 15 mg PO Q12H 08/17/22 08/17/22 History diazePAM [Valium] 5 mg PO DAILY PRN 08/17/22 08/17/22 History ondansetron HCL [Zofran] 8 mg PO TID PRN 08/17/22 08/17/22 History Lidocaine 5% Patch [Lidoderm 5% 1 patch TOPICAL DAILY #30 patch 08/18/22 Rx Patch] Loratadine [Claritin] 10 mg PO DAILY #30 tab 08/18/22 Rx predniSONE 10 mg PO DAILY #15 tab 08/18/22 Rx Allergies Allergy/AdvReac Type Severity Reaction Status Date / Time No Known Allergies Allergy Verified 08/17/22 12:36 Physical Exam Vitals: Vital Signs Temp Pulse Pulse Resp BP BP Pulse Ox 08/17/22 12:52 99.3 F 95 18 149/82 92 L 08/17/22 08:23 98.2 F 89 18 132/72 94 L 08/16/22 21:06 98.2 F 90 16 146/76 94 L Intake and Output 08/17/22 08/17/22 08/17/22 06:59 14:59 22:59 Other: Voiding Method Urinal Weight 115.666 kg - Constitutional General appearance: average body habitus, no acute distress - EENT Eyes: EOMI ENT: NA/AT - Neck Neck: normal ROM - Respiratory Respiratory: bilateral: CTA - Cardiovascular Rhythm: regularly irregular - Gastrointestinal General gastrointestinal: soft - Integumentary Integumentary: pale - Musculoskeletal Musculoskeletal: generalized weakness - Psychiatric Psychiatric: A&O x's 3 Results CBC & Chem 7: 08/18/22 05:22 08/18/22 05:22 Labs: Abnormal Lab Results - Last 24 Hours (Table) 08/17/22 08/17/22 08/17/22 Range/Units 04:05 04:05 04:05 RBC 3.72 L (4.30-5.90) m/uL Hgb 9.9 L (13.0-17.5) gm/dL Hct 33.4 L (39.0-53.0) % MCHC 29.7 L (31.0-37.0) g/dL RDW 16.1 H (11.5-15.5) % Plt Count 738 H (150-450) k/uL APTT 31.9 H (22.0-30.0) sec Sodium 136 L (137-145) mmol/L Chloride 95 L (98-107) mmol/L Creatinine 0.52 L (0.66-1.25) mg/dL Glucose 103 H (74-99) mg/dL Albumin 3.3 L (3.5-5.0) g/dL Urine Protein (Negative) Urine Mucus (None) /hpf 08/17/22 Range/Units 11:34 RBC (4.30-5.90) m/uL Hgb (13.0-17.5) gm/dL Hct (39.0-53.0) % MCHC (31.0-37.0) g/dL RDW (11.5-15.5) % Plt Count (150-450) k/uL APTT (22.0-30.0) sec Sodium (137-145) mmol/L Chloride (98-107) mmol/L Creatinine (0.66-1.25) mg/dL Glucose (74-99) mg/dL Albumin (3.5-5.0) g/dL Urine Protein 1+ H (Negative) Urine Mucus Rare H (None) /hpf Assessment and Plan (1) Lung cancer Narrative/Plan: Starting Immune therapy this Status: Acute Code(s): C34.90 - MALIGNANT NEOPLASM OF UNSP PART OF UNSP BRON CHUS OR LUNG SNOMED Code(s): 880102298 (2) Cancer associated pain Narrative/Plan: Status post palliaitive radiation to left elbow, increased left arm swelling discussed compression. ? doppler Status: Acute Code(s): G89.3 - NEOPLASM RELATED PAIN (ACUTE) (CHRONIC) SNOMED Code(s): 12147822471109
== END 2022-08-18 12:33 | disposition home or self-care (01) ==
LOC: EC 19:47 → 5NMEDONC 08-17 05:31
PROVIDERS: ADMIT Internal Medicine; ATTEND Internal Medicine
DX: G89.3 Neoplasm related pain (acute) (chronic) (principal); C34.92 Malignant neoplasm of unspecified part of left bronchus or lung; D64.9 Anemia, unspecified; D75.839 Thrombocytosis, unspecified; R44.3 Hallucinations, unspecified; J45.909 Unspecified asthma, uncomplicated; I11.0 Hypertensive heart disease with heart failure; I50.30 Unspecified diastolic (congestive) heart failure; E11.9 Type 2 diabetes mellitus without complications; Z87.891 Personal history of nicotine dependence; Z79.1 Long term (current) use of non-steroidal anti-inflammatories (NSAID); Z79.84 Long term (current) use of oral hypoglycemic drugs; Z79.899 Other long term (current) drug therapy; Z83.3 Family history of diabetes mellitus; Z82.49 Family history of ischemic heart disease and other diseases of the circulatory system
CPT/HCPCS: 96372; 96375 ×2; 96376; 96361; 96374; 99284; 36415; 93005; 83880; 80053 ×2; 83735; 84100; 84484; 85025; 85027; 85610; 85730; 81001; 83036; G0378 ×2; J2270; J1100 ×2; J1650; J1170

== ENCOUNTER 2022-09-11 20:47 | Inpatient (IN) | payer MEDICARE ==
--- NOTE | 2022-09-11 21:07 | ED ---
Chest Pain HPI - General Stated Complaint: Chest Pain Time Seen by Provider: 09/11/22 20:48 Source: patient, RN notes reviewed, old records reviewed - History of Present Illness Initial Comments: 61-year-old male with a history of squamous cell lung cancer left upper lung with metastasis also history of COPD who presents with the onset tonight of chest pain and left-sided mostly sharp in nature he did get some improvement after nitro given by paramedics. No recent fevers chills sweats he does have a cough he did not use his inhaler today he states. No other current complaints or modifying factors. MD Complaint: chest pain - Related Data Home Medications Medication Instructions Recorded Confirmed Acetaminophen Tab [Tylenol] 1,000 mg PO Q6HR PRN 08/03/21 09/11/22 Albuterol Sulfate [Ventolin HFA] 1 - 2 puff INHALATION RT-Q4H PRN 08/03/21 09/11/22 Morphine Sulfate [Ms Contin] 30 mg PO Q12H 03/18/22 09/11/22 Albuterol Nebulized [Ventolin 2.5 mg INHALATION RT-QID PRN 08/17/22 09/11/22 Nebulized] Ibuprofen [Motrin Ib] 400 mg PO Q6H PRN 08/17/22 09/11/22 Morphine Sulfate ER [Ms Contin] 15 mg PO Q12H 08/17/22 09/11/22 diazePAM [Valium] 5 mg PO DAILY PRN 08/17/22 09/11/22 ondansetron HCL [Zofran] 8 mg PO TID PRN 08/17/22 09/11/22 Furosemide [Lasix] 20 mg PO DAILY PRN 09/11/22 09/11/22 Pregabalin [Lyrica] 100 mg PO BID 09/11/22 09/11/22 Previous Rx's Medication Instructions Recorded Lidocaine 5% Patch [Lidoderm 5% 1 patch TOPICAL DAILY #30 patch 08/18/22 Patch] Loratadine [Claritin] 10 mg PO DAILY #30 tab 08/18/22 Allergies Allergy/AdvReac Type Severity Reaction Status Date / Time No Known Allergies Allergy Verified 09/11/22 22:10 Review of Systems ROS Statement: Those systems with pertinent positive or pertinent negative responses have been documented in the HPI. ROS Other: All systems not noted in ROS Statement are negative. Past Medical History Past Medical History: Asthma, Heart Failure, COPD, Diabetes Mellitus, Hypertension Additional Past Medical History / Comment(s): Uses home O2 as needed only. Squamous cell carcinoma of the lung, rib lesion and lymph adenopathy, shoulder pain related to lung mass. Pancous tumor left apex History of Any Multi-Drug Resistant Organisms: MRSA Date of last positivie culture/infection: 05/23/16 MDRO Source:: Left Foot Past Surgical History: Hernia Repair, Orthopedic Surgery, Tonsillectomy Additional Past Surgical History / Comment(s): lt. 5th toe amp Past Anesthesia/Blood Transfusion Reactions: No Reported Reaction Past Psychological History: No Psychological Hx Reported Smoking Status: Former smoker Past Alcohol Use History: None Reported Past Drug Use History: None Reported - Past Family History Sister(s) Family Medical History: Cancer Father Family Medical History: Congestive Heart Failure (CHF), Diabetes Mellitus Mother Family Medical History: Renal Disease General Exam - General Exam Comments Initial Comments: This is a well-developed nourished awake alert oriented 4 male General appearance: alert, in no apparent distress Head exam: Present: atraumatic, normocephalic, normal inspection Eye exam: Present: normal appearance, PERRL, EOMI. Absent: scleral icterus, conjunctival injection, periorbital swelling ENT exam: Present: normal exam, mucous membranes moist Neck exam: Present: normal inspection, full ROM, other (Stridor JVD or bruits). Absent: tenderness, meningismus, lymphadenopathy Respiratory exam: Present: wheezes (Scattered wheezes), decreased breath sounds, other (Patient does demonstrate kyphosis). Absent: respiratory distress, rales, rhonchi, stridor Cardiovascular Exam: Present: regular rate, normal rhythm, normal heart sounds. Absent: systolic murmur, diastolic murmur, rubs, gallop, clicks GI/Abdominal exam: Present: soft, normal bowel sounds. Absent: distended, tenderness, guarding, rebound, rigid Extremities exam: Present: full ROM, normal capillary refill, pedal edema, other (Lymphedema to the left upper extremity which is chronic. This he does demonstrate right lateral peripheral lower edema with stasis dermatitis.). Absent: tenderness, joint swelling, calf tenderness Back exam: Present: normal inspection Neurological exam: Present: alert, oriented X3, CN II-XII intact Psychiatric exam: Present: normal affect, normal mood Skin exam: Present: warm, dry, intact, other (Noted above). 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 Patient apparently is been demonstrating evidence of increased confusion question whether it was the new medication the generic form of Lyrica versus progression of the patient's underlying squamous cell carcinoma along. He also does demonstrate evidence of increased tone or vascular congestion secondary to the evidence of elevated BNP. Patient will be admitted for inpatient evaluation and treatment sling for Dr. sahu as not as consulted Disposition Clinical Impression: CHF (congestive heart failure), COPD with exacerbation, Squamous cell lung cancer Disposition: ADMITTED IP TO THIS HOSP Condition: Fair Referrals: Shona Boston MD [Primary Care Provider] - 1-2 days Decision Date: 09/11/22 Decision Time: 22:49
[2022-09-11 21:16] LABS: Glucose,Whole Blood 96 mg/dL (70-110)
--- NOTE | 2022-09-11 21:42 | XR ---
EXAMINATION TYPE: XR chest 2V DATE OF EXAM: 09/11/2022 COMPARISON: 03/26/2022 HISTORY: Chest pain TECHNIQUE: FINDINGS: There is extensive infiltrate in pleural thickening in the left hemithorax. There is some d iffuse infiltrate in the right lung. Heart size is top normal. No obvious heart failure. IMPRESSION: Bilateral pulmonary infiltrates show significant increase compared to the old exam there is increasing pleural thickening in the lateral left lung and left lung apex compared to old exam. Th is is consistent with progression of malignancy. This could be mesothelioma.
[2022-09-11 21:57] LABS: Basophils % (A) 0 %; Eosinophils # (A) 0.1 k/uL (0-0.7); Eosinophils % (A) 2 %; HCT 30.4 % (39.0-53.0); HGB 9.1 gm/dL (13.0-17.5); Hypochromasia Marked; Lymphocytes # (A) 0.7 k/uL (1.0-4.8); Lymphocytes % (A) 11 %; MCH 26.5 pg (25.0-35.0); MCHC 29.9 g/dL (31.0-37.0); MCV 88.6 fL (80.0-100.0); Mean Platelet Volume 7.1; Monocytes # (A) 0.3 k/uL (0-1.0); Monocytes % (A) 5 %; Neutrophils # (A) 5.1 k/uL (1.3-7.7); Neutrophils % (A) 81 %; Platelet Count 517 k/uL (150-450); RBC 3.43 m/uL (4.30-5.90); RDW 15.8 % (11.5-15.5); WBC 6.3 k/uL (3.8-10.6)
[2022-09-11 22:02] LABS: INR 1.1 (<1.2); Prothrombin Time 11.5 sec (9.0-12.0)
[2022-09-11 22:03] LABS: Partial Thromboplastin Time 33.5 sec (22.0-30.0)
[2022-09-11 22:13] LABS: ALT 13 U/L (4-49); AST 23 U/L (17-59); African American GFR (CKD) >90 (>60 ml/min/1.73 sqM); Albumin 2.7 g/dL (3.5-5.0); Alkaline Phosphatase 88 U/L (38-126); Anion Gap 8 mmol/L; Blood Urea Nitrogen 19 mg/dL (9-20); Calcium 8.2 mg/dL (8.4-10.2); Carbon Dioxide 31 mmol/L (22-30); Chloride 97 mmol/L (98-107); Glucose 104 mg/dL (74-99); Magnesium 2.1 mg/dL (1.6-2.3); Non-African American GFR(CKD) >90 (>60 ml/min/1.73 sqM); Potassium 4.6 mmol/L (3.5-5.1); Sodium 136 mmol/L (137-145); Total Bilirubin 0.4 mg/dL (0.2-1.3); Total Protein 6.3 g/dL (6.3-8.2)
[2022-09-11] MEDS ORDERED: NALOXONE 0.4 MG/ML 1 ML VIAL IVP PRN (22:51)
[2022-09-11] MEDS ORDERED: methylPREDNISolone SOD SUCCI 125 MG/2 ML VIAL IV STA (22:51)
--- NOTE | 2022-09-11 22:51 | ED ---
Medical Decision Making - Lab Data Result diagrams: 09/11/22 21:05 09/11/22 21:05 Lab Results 09/11/22 09/11/22 09/11/22 Range/Units 21:05 21:05 21:05 WBC 6.3 (3.8-10.6) k/uL RBC 3.43 L (4.30-5.90) m/uL Hgb 9.1 L (13.0-17.5) gm/dL Hct 30.4 L (39.0-53.0) % MCV 88.6 (80.0-100.0) fL MCH 26.5 (25.0-35.0) pg MCHC 29.9 L (31.0-37.0) g/dL RDW 15.8 H (11.5-15.5) % Plt Count 517 H (150-450) k/uL MPV 7.1 Neutrophils % 81 % Lymphocytes % 11 % Monocytes % 5 % Eosinophils % 2 % Basophils % 0 % Neutrophils # 5.1 (1.3-7.7) k/uL Lymphocytes # 0.7 L (1.0-4.8) k/uL Monocytes # 0.3 (0-1.0) k/uL Eosinophils # 0.1 (0-0.7) k/uL Basophils # 0.0 (0-0.2) k/uL Hypochromasia Marked PT 11.5 (9.0-12.0) sec INR 1.1 (<1.2) APTT 33.5 H (22.0-30.0) sec Sodium 136 L (137-145) mmol/L Potassium 4.6 (3.5-5.1) mmol/L Chloride 97 L (98-107) mmol/L Carbon Dioxide 31 H (22-30) mmol/L Anion Gap 8 mmol/L BUN 19 (9-20) mg/dL Creatinine 0.60 L (0.66-1.25) mg/dL Est GFR (CKD-EPI)AfAm >90 (>60 ml/min/1.73 sqM) Est GFR (CKD-EPI)NonAf >90 (>60 ml/min/1.73 sqM) Glucose 104 H (74-99) mg/dL POC Glucose (mg/dL) (70-110) mg/dL POC Glu Tank Washer ID Calcium 8.2 L (8.4-10.2) mg/dL Magnesium 2.1 (1.6-2.3) mg/dL Total Bilirubin 0.4 (0.2-1.3) mg/dL AST 23 (17-59) U/L ALT 13 (4-49) U/L Alkaline Phosphatase 88 (38-126) U/L Troponin I (0.000-0.034) ng/mL NT-Pro-B Natriuret Pep pg/mL Total Protein 6.3 (6.3-8.2) g/dL Albumin 2.7 L (3.5-5.0) g/dL 09/11/22 09/11/22 09/11/22 Range/Units 21:05 21:05 21:14 WBC (3.8-10.6) k/uL RBC (4.30-5.90) m/uL Hgb (13.0-17.5) gm/dL Hct (39.0-53.0) % MCV (80.0-100.0) fL MCH (25.0-35.0) pg MCHC (31.0-37.0) g/dL RDW (11.5-15.5) % Plt Count (150-450) k/uL MPV Neutrophils % % Lymphocytes % % Monocytes % % Eosinophils % % Basophils % % Neutrophils # (1.3-7.7) k/uL Lymphocytes # (1.0-4.8) k/uL Monocytes # (0-1.0) k/uL Eosinophils # (0-0.7) k/uL Basophils # (0-0.2) k/uL Hypochromasia PT (9.0-12.0) sec INR (<1.2) APTT (22.0-30.0) sec Sodium (137-145) mmol/L Potassium (3.5-5.1) mmol/L Chloride (98-107) mmol/L Carbon Dioxide (22-30) mmol/L Anion Gap mmol/L BUN (9-20) mg/dL Creatinine (0.66-1.25) mg/dL Est GFR (CKD-EPI)AfAm (>60 ml/min/1.73 sqM) Est GFR (CKD-EPI)NonAf (>60 ml/min/1.73 sqM) Glucose (74-99) mg/dL POC Glucose (mg/dL) 96 (70-110) mg/dL POC Glu Tank Washer ID Jennifer Rand Calcium (8.4-10.2) mg/dL Magnesium (1.6-2.3) mg/dL Total Bilirubin (0.2-1.3) mg/dL AST (17-59) U/L ALT (4-49) U/L Alkaline Phosphatase (38-126) U/L Troponin I 0.024 (0.000-0.034) ng/mL NT-Pro-B Natriuret Pep 1640 pg/mL Total Protein (6.3-8.2) g/dL Albumin (3.5-5.0) g/dL - EKG Data -: EKG Interpreted by Me EKG shows normal: sinus rhythm EKG Comments: Sinus rhythm of 86 QRS anyone QT since QTC 339/383 low-voltage nonspecific ST configuration artifact present Disposition Clinical Impression: CHF (congestive heart failure), COPD with exacerbation, Squamous cell lung cancer, Atypical chest pain Disposition: ADMITTED IP TO THIS HOSP Condition: Fair Referrals: Shona Boston MD [Primary Care Provider] - 1-2 days Decision Date: 09/11/22 Decision Time: 22:50
[2022-09-11] MEDS ORDERED: IBUPROFEN 400 MG TAB PO PRN (22:53)
[2022-09-11] MEDS ORDERED: diazePAM 5 MG TAB PO PRN (22:53)
[2022-09-11] MEDS ORDERED: ONDANSETRON ODT 8 MG TAB.RAPDIS PO PRN (22:53)
[2022-09-12] MEDS: methylPREDNISolone SOD SUCCI 125 MG/2 ML VIAL IV SCH ×4 (00:13→20:29)
[2022-09-12] MEDS: HYDROmorphone 1 MG/ML 1 ML SYRINGE IVP PRN ×3 (00:23→14:32)
[2022-09-12 04:46] LABS: Glucose,Whole Blood 155 mg/dL (70-110)
[2022-09-12] MEDS: IPRATROPIUM-ALBUTEROL 3 ML NEB INHALATION SCH ×4 (07:39→19:43)
[2022-09-12] MEDS: LORATADINE 10 MG TAB PO SCH ×2 (08:41→10:45)
[2022-09-12] MEDS: PREGABALIN 100 MG CAP PO SCH ×2 (08:41→20:44)
[2022-09-12] MEDS ORDERED: FUROSEMIDE 20 MG TAB PO PRN (09:00)
[2022-09-12] MEDS ORDERED: VANCOMYCIN IV PER PHARMACY 1 EACH MISC MISCELLANE PRN (12:55)
--- NOTE | 2022-09-12 13:12 | P.CONS ---
History of Present Illness - Reason for Consult Consult date: 09/12/22 History of metastatic lung cancer - Chief Complaint Left chest pain - History of Present Illness Mr. 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 He noted that this pain in the left chest wall waking him from sleep overnight. Upon further questioning, he notes having this progressive erythema and warmth of the left chest wall and left arm over the past week. He denies any known fevers or chills. He denies any worsening dyspnea than usual, cough, or hemoptysis. He denies any rash elsewhere. Given the chest pain, he presented to the ED for additional ma nagement and monitoring. In the ED, he does have heart rates in the 100s, but is otherwise hemodyna mically stable and afebrile. He is on 2-3 L nasal cannula of supplemental oxygen, which he is on at home. CMP and CBC do not reveal any acute metabolic or cell count abnormalities. Troponin was at 0.024 with NT pro BNP at 1640. EKG revealed no ST segment elevation or depression or Q wave inversion suggestive of acute ischemia. Chest x-ray noted bilateral pulmonary infiltrates which were increased from his prior x-ray in March 2022. Increased pleural thickening of the lateral left lung and the left lung apex was noted. He was started on Solu-Medrol IV for treatment of potential COPD exacerbation. Review of Systems 14 point review of systems conducted with pertinent positives and negatives as noted per HPI Past Medical History Past Medical History: Asthma, Heart Failure, COPD, Diabetes Mellitus, Hypertension Additional Past Medical History / Comment(s): Uses home O2 as needed only. Squamous cell carcinoma of the lung, rib lesion and lymph adenopathy, shoulder pain related to lung mass. Pancous tumor left apex History of Any Multi-Drug Resistant Organisms: MRSA Year Discovered:: 05/23/16 MDRO Source:: Left Foot Past Surgical History: Hernia Repair, Orthopedic Surgery, Tonsillectomy Additional Past Surgical History / Comment(s): lt. 5th toe amp Past Anesthesia/Blood Transfusion Reactions: No Reported Reaction Past Psychological History: No Psychological Hx Reported Smoking Status: Former smoker Past Alcohol Use History: None Reported Past Drug Use History: None Reported - Past Family History Sister(s) Family Medical History: Cancer Father Family Medical History: Congestive Heart Failure (CHF), Diabetes Mellitus Mother Family Medical History: Renal Disease Medications and Allergies Home Medications Medication Instructions Recorded Confirmed Type Acetaminophen Tab [Tylenol] 1,000 mg PO Q6HR PRN 08/03/21 09/11/22 History Albuterol Sulfate [Ventolin HFA] 1 - 2 puff INHALATION RT-Q4H PRN 08/03/21 09/11/22 History Morphine Sulfate [Ms Contin] 30 mg PO Q12H 03/18/22 09/11/22 History Albuterol Nebulized [Ventolin 2.5 mg INHALATION RT-QID PRN 08/17/22 09/11/22 History Nebulized] Ibuprofen [Motrin Ib] 400 mg PO Q6H PRN 08/17/22 09/11/22 History Morphine Sulfate ER [Ms Contin] 15 mg PO Q12H 08/17/22 09/11/22 History diazePAM [Valium] 5 mg PO DAILY PRN 08/17/22 09/11/22 History ondansetron HCL [Zofran] 8 mg PO TID PRN 08/17/22 09/11/22 History Lidocaine 5% Patch [Lidoderm 5% 1 patch TOPICAL DAILY #30 patch 08/18/22 09/11/22 Rx Patch] Loratadine [Claritin] 10 mg PO DAILY #30 tab 08/18/22 09/11/22 Rx Furosemide [Lasix] 20 mg PO DAILY PRN 09/11/22 09/11/22 History Pregabalin [Lyrica] 100 mg PO BID 09/11/22 09/11/22 History Allergies Allergy/AdvReac Type Severity Reaction Status Date / Time No Known Allergies Allergy Verified 09/11/22 22:10 Physical Exam Vitals: Vital Signs Temp Pulse Pulse Resp BP Pulse Ox 09/12/22 11:29 106 H 09/12/22 11:22 103 H 09/12/22 07:48 100 09/12/22 07:41 101 H 96 09/12/22 07:27 98.7 F 104 H 18 137/90 94 L 09/12/22 04:38 97.9 F 104 H 24 148/112 94 L 09/12/22 03:00 147/75 09/12/22 02:16 98.3 F 09/11/22 21:04 86 09/11/22 20:54 97.7 F 83 20 123/71 98 Intake and Output 09/11/22 09/12/22 09/12/22 22:59 06:59 14:59 Other: Weight 114.759 kg Seated hunched over in the bed - Constitutional General appearance: disheveled, mild distress, obese - EENT Eyes: EOMI - Respiratory Respiratory: bilateral: other (Inspiratory crackles noted in the bilateral upper and lower lung jarvis) - Cardiovascular Rhythm: regular Abnormal Heart Sounds: systolic murmur - Gastrointestinal General gastrointestinal: normal bowel sounds, no tenderness - Integumentary Swelling, warmth, and erythema of the left chest wall at the left pectoralis extending to the lateral left chest wall and also down the left arm Integumentary: cellulitis Results CBC & Chem 7: 09/11/22 21:05 09/11/22 21:05 Labs: Abnormal Lab Results - Last 24 Hours (Table) 09/11/22 09/11/22 09/11/22 Range/Units 21:05 21:05 21:05 RBC 3.43 L (4.30-5.90) m/uL Hgb 9.1 L (13.0-17.5) gm/dL Hct 30.4 L (39.0-53.0) % MCHC 29.9 L (31.0-37.0) g/dL RDW 15.8 H (11.5-15.5) % Plt Count 517 H (150-450) k/uL Lymphocytes # 0.7 L (1.0-4.8) k/uL APTT 33.5 H (22.0-30.0) sec Sodium 136 L (137-145) mmol/L Chloride 97 L (98-107) mmol/L Carbon Dioxide 31 H (22-30) mmol/L Creatinine 0.60 L (0.66-1.25) mg/dL Glucose 104 H (74-99) mg/dL POC Glucose (mg/dL) (70-110) mg/dL Calcium 8.2 L (8.4-10.2) mg/dL Albumin 2.7 L (3.5-5.0) g/dL 09/12/22 Range/Units 04:45 RBC (4.30-5.90) m/uL Hgb (13.0-17.5) gm/dL Hct (39.0-53.0) % MCHC (31.0-37.0) g/dL RDW (11.5-15.5) % Plt Count (150-450) k/uL Lymphocytes # (1.0-4.8) k/uL APTT (22.0-30.0) sec Sodium (137-145) mmol/L Chloride (98-107) mmol/L Carbon Dioxide (22-30) mmol/L Creatinine (0.66-1.25) mg/dL Glucose (74-99) mg/dL POC Glucose (mg/dL) 155 H (70-110) mg/dL Calcium (8.4-10.2) mg/dL Albumin (3.5-5.0) g/dL Abdominal x-ray: report reviewed Assessment and Plan Assessment: Mr. Knott is a 61-year-old gentleman with a past medical history significant for metastatic squamous cell carcinoma of the lung with metastases to the lungs bilaterally currently on nivolumab presenting with increased discomfort of the left chest wall with swelling, warmth, and erythema suggestive of cellulitis. (1) Cellulitis Current Visit: Yes Status: Acute Code(s): L03.90 - CELLULITIS, UNSPECIFIED SNOMED Code(s): 200070068 (2) Squamous cell lung cancer Current Visit: Yes Status: Acute Code(s): C34.90 - MALIGNANT NEOPLASM OF UNSP PART OF UNSP BRONCHUS OR LUNG SNOMED Code(s): 137165074 Plan: #Cellulitis -Noted increased swelling, warmth, and erythema of the soft tissue of the left pectoralis and extending to the lateral chest wall and down the left arm over the past 1 week -This has gotten progressively worse, which woke Mr. Knott from his sleep early this morning -No evidence of ACS with no worsening of his breathing status currently -Recommend obtaining blood cultures followed by empiric treatment with IV vancomycin -If he develops worsening hypoxia, CTA for PE should be considered #Metastatic squamous cell carcinoma -Underwent concurrent chemo/radiation therapy from March to March 2022 for stage III lung cancer -Found to have disease progression radiographically to the lungs bilaterally in July 2022 -He has been on second line nivolumab immunotherapy, but has noted to have clinical worsening in his performance status -Per last clinic note on 09/03/2022, hospice had been discussed. It appeared the patient however was interested in seeking a second opinion at the [facility] -His daughter at bedside is interested in discussing hospice further. Mr. Knott, however, notes that he wants to do whatever he can to live longer -Once he is more comfortable from his cellulitis, further goals of care discussion could be had. He is currently enrolled in the palliative care
[2022-09-12] MEDS ORDERED: VANCOMYCIN 2,000 MG in SODIUM CHLORIDE 0.9% 500 ML 500 ML IVPB ONE (13:15)
[2022-09-12] MEDS: MORPHINE SULFATE ER 30 MG TABLET PO SCH ×2 (15:29→20:44)
[2022-09-12 20:31] LABS: Glucose,Whole Blood 201 mg/dL (70-110)
--- NOTE | 2022-09-12 21:16 | P.HPIM ---
History of Present Illness H&P Date: 09/12/22 Patient is a 61-year-old male with a known history of squamous cell carcinoma of the lung with metastasis and is on immunotherapy, hypertension, diabetes type 2, COPD and previous history of smoking presents to ER with complaints of left- sided chest pain. Patient was recently sharp left-sided chest pain. EMS gave nitro which seemed to improve symptoms. Patient also complains of redness of the left upper chest. No fever no chills. Does have cough without any sputum production. Patient is also complaining of severe pain. No complaints of nausea vomiting abdominal pain or diarrhea. Denied any dysuria or hematuria. On admission patient was requiring 3 Choloxin with nasal cannula. Tachycardic with heart rate around 104. Chest x-ray showed bilateral pulmonary infiltrates show significantly increased compared to old exam. There is increasing pleural thickening in the left lateral lung and left lung apex compared to old exam. This is consistent with progression of malignancy. This could be mesothelioma. EKG showed supraventricular rhythm. Laboratory data showed WBC 6.3 hemoglobin 9.1 and platelets 517 Sodium 136 potassium 4.6 chloride 97 bicarb is 31 BUN 19 and creatinine 0.6 b lood sugar is 104 calcium 8.2 magnesium 2.1 Ammonia 18 troponin 0.024, proBNP 1640. Albumin 2.7. Acute left upper chest pain with redness over the anterior chest and swelling and cellulitis. Chest pain. Rule out ACS. Squamous cell carcinoma of the lung with progression as per chest x-ray findi ngs. Patient is status post chemo/radiation and currently on immunotherapy every 2 weeks. Hypovolemic hyponatremia Malignancy related pain Anemia of chronic disease COPD/asthma with mild exacerbation. On oxygen at 2 L via nasal cannula. Prior history of smoking Hypertension Diabetes type 2 [id number] DVT prophylaxis with Lovenox subcu. Plan: Patient will be continued on oxygen supplementation via nasal cannula. Continue with IV steroids and duo nebs and also start antibiotics in the form of vancomycin for left upper chest cellulitis. Appreciate oncology recommendations. Continue with insulin sliding scale and other home medications. Continued pain management, bowel regimen and follow-up closely. Prognosis poor at this time. Will discuss with family regarding CODE STATUS. Past Medical History Past Medical History: Asthma, Heart Failure, COPD, Diabetes Mellitus, Hypertension Additional Past Medical History / Comment(s): Uses home O2 as needed only. Squamous cell carcinoma of the lung, rib lesion and lymph adenopathy, shoulder pain related to lung mass. Pancous tumor left apex History of Any Multi-Drug Resistant Organisms: MRSA Date of last positivie culture/infection: 05/23/16 MDRO Source:: Left Foot Past Surgical History: Hernia Repair, Orthopedic Surgery, Tonsillectomy Additional Past Surgical History / Comment(s): lt. 5th toe amp Past Anesthesia/Blood Transfusion Reactions: No Reported Reaction Past Psychological History: No Psychological Hx Reported Smoking Status: Former smoker Past Alcohol Use History: None Reported Past Drug Use History: None Reported - Past Family History Sister(s) Family Medical History: Cancer Father Family Medical History: Congestive Heart Failure (CHF), Diabetes Mellitus Mother Family Medical History: Renal Disease Medications and Allergies Home Medications Medication Instructions Recorded Confirmed Type Acetaminophen Tab [Tylenol] 1,000 mg PO Q6HR PRN 08/03/21 09/11/22 History Albuterol Sulfate [Ventolin HFA] 1 - 2 puff INHALATION RT-Q4H PRN 08/03/21 09/11/22 History Morphine Sulfate [Ms Contin] 30 mg PO Q12H 03/18/22 09/11/22 History Albuterol Nebulized [Ventolin 2.5 mg INHALATION RT-QID PRN 08/17/22 09/11/22 History Nebulized] Ibuprofen [Motrin Ib] 400 mg PO Q6H PRN 08/17/22 09/11/22 History Morphine Sulfate ER [Ms Contin] 15 mg PO Q12H 08/17/22 09/11/22 History diazePAM [Valium] 5 mg PO DAILY PRN 08/17/22 09/11/22 History ondansetron HCL [Zofran] 8 mg PO TID PRN 08/17/22 09/11/22 History Lidocaine 5% Patch [Lidoderm 5% 1 patch TOPICAL DAILY #30 patch 08/18/22 09/11/22 Rx Patch] Loratadine [Claritin] 10 mg PO DAILY #30 tab 08/18/22 09/11/22 Rx Furosemide [Lasix] 20 mg PO DAILY PRN 09/11/22 09/11/22 History Pregabalin [Lyrica] 100 mg PO BID 09/11/22 09/11/22 History Allergies Allergy/AdvReac Type Severity Reaction Status Date / Time loratadine [From Claritin-D] AdvReac Confusion Verified 09/12/22 19:31 pseudoephedrine AdvReac Confusion Verified 09/12/22 19:31 [From Claritin-D] Physical Exam Vitals: Vital Signs Temp Pulse Pulse Resp BP Pulse Ox 09/12/22 07:48 100 09/12/22 07:41 101 H 96 09/12/22 07:27 98.7 F 104 H 18 137/90 94 L 09/12/22 04:38 97.9 F 104 H 24 148/112 94 L 09/12/22 03:00 147/75 09/12/22 02:16 98.3 F 09/11/22 21:04 86 09/11/22 20:54 97.7 F 83 20 123/71 98 Intake and Output 09/11/22 09/12/22 09/12/22 22:59 06:59 14:59 Other: Weight 114.759 kg Results CBC & Chem 7: 09/11/22 21:05 09/11/22 21:05 Labs: Abnormal Lab Results - Last 24 Hours (Table) 09/11/22 09/11/22 09/11/22 Range/Units 21:05 21:05 21:05 RBC 3.43 L (4.30-5.90) m/uL Hgb 9.1 L (13.0-17.5) gm/dL Hct 30.4 L (39.0-53.0) % MCHC 29.9 L (31.0-37.0) g/dL RDW 15.8 H (11.5-15.5) % Plt Count 517 H (150-450) k/uL Lymphocytes # 0.7 L (1.0-4.8) k/uL APTT 33.5 H (22.0-30.0) sec Sodium 136 L (137-145) mmol/L Chloride 97 L (98-107) mmol/L Carbon Dioxide 31 H (22-30) mmol/L Creatinine 0.60 L (0.66-1.25) mg/dL Glucose 104 H (74-99) mg/dL POC Glucose (mg/dL) (70-110) mg/dL Calcium 8.2 L (8.4-10.2) mg/dL Albumin 2.7 L (3.5-5.0) g/dL 10/13/22 Range/Units 04:45 RBC (4.30-5.90) m/uL Hgb (13.0-17.5) gm/dL Hct (39.0-53.0) % MCHC (31.0-37.0) g/dL RDW (11.5-15.5) % Plt Count (150-450) k/uL Lymphocytes # (1.0-4.8) k/uL APTT (22.0-30.0) sec Sodium (137-145) mmol/L Chloride (98-107) mmol/L Carbon Dioxide (22-30) mmol/L Creatinine (0.66-1.25) mg/dL Glucose (74-99) mg/dL POC Glucose (mg/dL) 155 H (70-110) mg/dL Calcium (8.4-10.2) mg/dL Albumin (3.5-5.0) g/dL
[2022-09-12] MEDS: VANCOMYCIN 2,000 MG in SODIUM CHLORIDE 0.9% 500 ML 500 ML IVPB SCH (21:58)
[2022-09-12] MEDS: ENOXAPARIN 40 MG/0.4 ML SYRINGE SQ SCH (21:58)
[2022-09-12] MEDS: DOCUSATE 100 MG CAP PO SCH (21:58)
[2022-09-13] MEDS ORDERED: methylPREDNISolone SOD SUCCI 125 MG/2 ML VIAL ONE (00:03)
[2022-09-13 05:20] LABS: Basophils % (A) 0 %; Eosinophils % (A) 0 %; HCT 33.6 % (39.0-53.0); HGB 9.8 gm/dL (13.0-17.5); Hypochromasia Marked; Lymphocytes # (A) 0.5 k/uL (1.0-4.8); Lymphocytes % (A) 7 %; MCH 26.5 pg (25.0-35.0); MCHC 29.2 g/dL (31.0-37.0); MCV 90.7 fL (80.0-100.0); Mean Platelet Volume 7.2; Monocytes # (A) 0.2 k/uL (0-1.0); Monocytes % (A) 3 %; Neutrophils # (A) 6.5 k/uL (1.3-7.7); Neutrophils % (A) 89 %; Platelet Count 614 k/uL (150-450); RDW 15.8 % (11.5-15.5); WBC 7.3 k/uL (3.8-10.6)
[2022-09-13] MEDS: IPRATROPIUM-ALBUTEROL 3 ML NEB INHALATION SCH ×5 (05:26→19:13)
[2022-09-13] MEDS: methylPREDNISolone SOD SUCCI 125 MG/2 ML VIAL IV SCH ×4 (05:41→18:14)
[2022-09-13 07:22] LABS: Glucose,Whole Blood 163 mg/dL (70-110)
[2022-09-13] MEDS: DOCUSATE 100 MG CAP PO SCH ×2 (08:48→21:22)
[2022-09-13] MEDS: ENOXAPARIN 40 MG/0.4 ML SYRINGE SQ SCH (08:48)
[2022-09-13] MEDS: MORPHINE SULFATE ER 30 MG TABLET PO SCH ×2 (08:48→21:22)
[2022-09-13] MEDS: PREGABALIN 100 MG CAP PO SCH ×2 (08:49→21:22)
[2022-09-13] MEDS: LORATADINE 10 MG TAB PO SCH (08:49)
[2022-09-13] MEDS: VANCOMYCIN 2,000 MG in SODIUM CHLORIDE 0.9% 500 ML 500 ML IVPB SCH ×2 (08:51→21:23)
[2022-09-13 09:51] LABS: Anion Gap 8.1 mmol/L (10.00-18.00); BUN/Creat Ratio 28.17 Ratio (12.00-20.00); Blood Urea Nitrogen 16.9 mg/dL (9.0-27.0); Calcium 8.7 mg/dL (8.7-10.3); Carbon Dioxide 30.9 mmol/L (20.0-27.5); Potassium 4.6 mmol/L (3.5-5.5)
[2022-09-13 11:32] LABS: Glucose,Whole Blood 201 mg/dL (70-110)
[2022-09-13] MEDS ORDERED: DEXTROSE 50% SYRINGE 50 ML IVP PRN ×2 (13:16)
[2022-09-13] MEDS: FUROSEMIDE 40 MG TAB PO SCH ×2 (14:11→21:25)
[2022-09-13] MEDS: HYDROmorphone 1 MG/ML 1 ML SYRINGE IVP PRN (16:07)
[2022-09-13 16:56] LABS: Glucose,Whole Blood 196 mg/dL (70-110)
--- NOTE | 2022-09-13 17:41 | P.PN ---
Subjective Progress Note Date: 09/13/22 Principal diagnosis: left chest cellulitis, COPD exacerbation In f/u today pt reports breathing is more comfortable, his chest and arm redness and swelling are much improved. No fevers, he feels good today. Objective - Vital Signs Vital signs: Vital Signs Temp 97.5 F L 09/13/22 11:42 Pulse 92 09/13/22 15:41 Resp 22 09/13/22 11:42 BP 145/69 09/13/22 11:42 Pulse Ox 93 L 09/13/22 11:42 FiO2 Intake & Output 09/12/22 09/13/22 09/13/22 18:59 06:59 18:59 Intake Total 500 Output Total 800 Balance -800 500 Weight 114.759 kg 110 kg Intake: Intake, IV Titration 500 Amount Vancomycin 2,000 mg In 500 Sodium Chloride 0.9% 500 ml 500 ml @ 167 mls/hr IVPB Q12H ISI Rx#: [id number] Output: Urine 800 Other: Voiding Method External Catheter Urinal # Voids 2 # Bowel Movements 2 - Constitutional General appearance: Present: cooperative, mild distress, obese - EENT Eyes: Present: anicteric sclerae, EOMI ENT: Present: hearing grossly normal - Respiratory Details: mildly labored, O2 6L Respiratory: bilateral: diminished - Integumentary Integumentary Comment(s): Left chest and upper arm redness is improved, inferior to lt breast the skin is hard, swelling in the LUE is improved, swelling mainly in lower arm and hand. - Neurologic Neurologic: Present: CNII-XII intact - Musculoskeletal Musculoskeletal: Present: generalized weakness - Psychiatric Psychiatric: Present: A&O x's 3, appropriate affect, intact judgment & insight - Labs CBC & Chem 7: 09/13/22 04:45 09/13/22 04:45 Labs: Abnormal Lab Results - Last 24 Hours (Table) 09/12/22 09/13/22 09/13/22 Range/Units 20:29 04:45 04:45 RBC 3.70 L (4.30-5.90) m/uL Hgb 9.8 L (13.0-17.5) gm/dL Hct 33.6 L (39.0-53.0) % MCHC 29.2 L (31.0-37.0) g/dL RDW 15.8 H (11.5-15.5) % Plt Count 614 H (150-450) k/uL Lymphocytes # 0.5 L (1.0-4.8) k/uL Carbon Dioxide 30.9 H (20.0-27.5) mmol/L Anion Gap 8.10 L (10.00-18.00) mmol/L BUN/Creatinine Ratio 28.17 H (12.00-20.00) Ratio Glucose 149 H (70-110) mg/dL POC Glucose (mg/dL) 201 H (70-110) mg/dL 09/13/22 09/13/22 09/13/22 Range/Units 07:21 11:31 16:55 RBC (4.30-5.90) m/uL Hgb (13.0-17.5) gm/dL Hct (39.0-53.0) % MCHC (31.0-37.0) g/dL RDW (11.5-15.5) % Plt Count (150-450) k/uL Lymphocytes # (1.0-4.8) k/uL Carbon Dioxide (20.0-27.5) mmol/L Anion Gap (10.00-18.00) mmol/L BUN/Creatinine Ratio (12.00-20.00) Ratio Glucose (70-110) mg/dL POC Glucose (mg/dL) 163 H 201 H 196 H (70-110) mg/dL Microbiology - Last 24 Hours (Table) 09/12/22 13:00 Blood Culture - Preliminary Blood No Growth after 24 hours 09/12/22 12:45 Blood Culture - Preliminary Blood No Growth after 24 hours Assessment and Plan (1) Cellulitis Current Visit: Yes Status: Acute Priority: High Code(s): L03.90 - CELLULITIS, UNSPECIFIED SNOMED Code(s): 486499730 (2) COPD with exacerbation Current Visit: Yes Status: Acute Priority: High Code(s): J44.1 - CHRONIC OBSTRUCTIVE PULMONARY DISEASE W (ACUTE) EXACERBATION SNOMED Code(s): 623500204 (3) Squamous cell lung cancer Current Visit: Yes Status: Chronic Priority: High Code(s): C34.90 - MALIGNANT NEOPLASM OF UNSP PART OF UNSP BRONCHUS OR LUNG SNOMED Code(s): 873091046 Plan: Lt chest and upper extremity redness and pain improved with abx. Cont IV abx for now. Will transition to oral in the next day or 2. There are concerns that there is malignant involvement of the skin in that are. Pt and are aware of this. Pt does have a f/u treatment CT scheduled for Mon. Would want any infection cleared before proceeding with this. May consider moving that scan appt. Will see how pt does. F/U with MD after scan for further recommendations. Pt and have palliative care already set up, they have questions about services. Will have Palliative Care f/u with them at [place]. Attests: I have seen and examined pt, performed H&P, developed impression and plan of care. Discussed with dictator. Agree with dictation, documented as a scribe.
--- NOTE | 2022-09-13 18:11 | P.PN ---
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 Patient was recently sharp left-sided chest pain. EMS gave nitro which seemed to improve symptoms. Patient also complains of redness of the left upper chest. No fever no chills. Does have cough without any sputum production. Patient is also complaining of severe pain. No complaints of nausea vomiting abdominal pain or diarrhea. Denied any dysuria or hematuria. On admission patient was requiring 3 Choloxin with nasal cannula. Tachycardic with heart rate around 104. Chest x-ray showed bilateral pulmonary infiltrates show significantly increased compared to old exam. There is increasing pleural thickening in the left lateral lung and left lung apex compared to old exam. This is consistent with progression of malignancy. This could be mesothelioma. EKG showed supraventricular rhythm. Laboratory data showed WBC 6.3 hemoglobin 9.1 and platelets 517 Sodium 136 potassium 4.6 chloride 97 bicarb is 31 BUN 19 and creatinine 0.6 blood sugar is 104 calcium 8.2 magnesium 2.1 Ammonia 18 troponin 0.024, proBNP 1640. Albumin 2.7. 09/13/2022 Patient is seen and evaluated in follow-up with oncology following. Patient is currently maintained on 6 L normally wears 2 L at home and oxygen saturation is 93%. Encouraged weaning as tolerated and patient was maintained on Lasix 20 mg daily although will increase to 40 mg twice daily. Patient was also started on IV vancomycin by oncology for possible left chest cellulitis and swelling has significantly improved. Left upper extremity also improved most likely appears to be swollen from lymphedema. Patient currently enrolled in palliative care and discussion was had about possible hospice although patient is not willing to proceed with hospice at this time and would like a second opinion at [facility]. Patient reports his swelling is improved and asking when he can go home. Oncology recommending staying for another day at least on IV antibiotics and reevaluation in the morning. Pro-calcitonin was negative at 0.09 and current labs reviewed and within normal limits. WBC is 7.3 and patient is afebrile. Patient denies chest pain or worsening shortness of breath. Patient is having some generalized pain and he chronically takes morphine at home. Home medications have been resumed. Patient reports tolerating diet with no reports of nausea or vomiting noted. Review of systems: Constitutional: No reports of fatigue, fever, or chills Cardiovascular: No reports of chest pain or palpitations Respiratory: No reports of shortness of breath or cough GI: No reports of nausea, vomiting, or diarrhea : No reports of dysuria or retention Neurovascular: No reports of weakness or numbness All medications have been reviewed Active Medications Acetaminophen (Acetaminophen Tab 325 Mg Tab) 650 mg PO Q4HR PRN PRN Reason: Mild Pain or Fever > 100.5 Albuterol/Ipratropium (Ipratropium-Albuterol 3 Ml Neb) 3 ml INHALATION RT-QID [facility] Last Admin: 09/13/22 15:25 Dose: 3 ml Dextrose/Water (Dextrose 50% Syringe 50 Ml) 25 ml IVP PER PROTOCOL PRN; Protocol PRN Reason: Hypoglycemia Dextrose/Water (Dextrose 50% Syringe 50 Ml) 50 ml IVP PER PROTOCOL PRN; Protocol PRN Reason: Hypoglycemia Diazepam (Diazepam 5 Mg Tab) 5 mg PO DAILY PRN PRN Reason: prior to radiation Last Admin: 09/12/22 01:30 Dose: 5 mg Docusate Sodium (Docusate 100 Mg Cap) 100 mg PO BID [facility] Last Admin: 09/13/22 08:48 Dose: 100 mg Enoxaparin Sodium (Enoxaparin 40 Mg/0.4 Ml Syringe) 40 mg SQ DAILY [facility] Last Admin: 09/13/22 08:48 Dose: 40 mg Furosemide (Furosemide 40 Mg Tab) 40 mg PO BID [facility] Last Admin: 09/13/22 14:11 Dose: 40 mg Hydromorphone HCl (Hydromorphone 1 Mg/Ml 1 Ml Syringe) 1 mg IVP Q4HR PRN PRN Reason: Pain Last Admin: 09/12/22 14:32 Dose: 1 mg Vancomycin HCl 2,000 mg/ (Sodium Chloride) 500 mls @ 167 mls/hr IVPB Q12H [facility] Last Admin: 09/13/22 08:51 Dose: 167 mls/hr Ibuprofen (Ibuprofen 400 Mg Tab) 400 mg PO Q6H PRN PRN Reason: Pain Insulin Aspart (Insulin Aspart (Novolog) 100 Unit/Ml Vial) 0 unit SQ ACHS [facility]; Protocol Loratadine (Loratadine 10 Mg Tab) 10 mg PO DAILY [facility] Last Admin: 09/13/22 08:49 Dose: 10 mg Methylprednisolone Sodium Succinate (Methylprednisolone Sod Succi 125 Mg/2 Ml Vial) 60 mg IV Q6HR [facility] Last Admin: 09/13/22 12:31 Dose: 60 mg Miscellaneous Information (Vancomycin Trough Due 1 Each Misc) 0 each MISCELLANE DIRECTED ONE Stop: 09/15/22 09:01 Morphine Sulfate (Morphine Sulfate Er 30 Mg Tablet) 30 mg PO Q12HR [facility]; Protocol Last Admin: 09/13/22 08:48 Dose: 30 mg Naloxone HCl (Naloxone 0.4 Mg/Ml 1 Ml Vial) 0.2 mg IVP Q2M PRN PRN Reason: Opioid Reversal Ondansetron HCl (Ondansetron Odt 8 Mg Tab.Rapdis) 8 mg PO TID PRN PRN Reason: Nausea And Vomiting Pregabalin (Pregabalin 100 Mg Cap) 100 mg PO BID [facility] Last Admin: 09/13/22 08:49 Dose: 100 mg Physical exam: Gen: This is a 61-year-old male was awake, alert and oriented 3, well- developed, well-nourished, ill-appearing, obese HEENT: Head is atraumatic, normocephalic. Pupils equal, round. Sclerae is anicteric. NECK: Supple. No JVD. No lymphadenopathy. No thyromegaly. LUNGS: Diminished breath sounds bilaterally with some scattered crackles noted at the bases. Some minimal expiratory wheezing noted. No intercostal retractions. HEART: Regular rate and rhythm. No murmur. ABDOMEN: Soft. Bowel sounds are present. No masses. No tenderness. EXTREMITIES: No pedal edema. No calf tenderness. Bilateral lower extremity chronic skin sloughing and vascular disease NEUROLOGICAL: Patient is awake, alert and oriented x3. Cranial nerves 2 through 12 are grossly intact. Assessment: Acute left upper chest pain with redness over the anterior chest and swelling and cellulitis. Chest pain. Ruled out ACS. Squamous cell carcinoma of the lung with progression as per chest x-ray findings. Patient is status post chemo/radiation and currently on immunotherapy every 2 weeks. Hypovolemic hyponatremia, Improved Malignancy related pain Anemia of chronic disease COPD/asthma with mild exacerbation. On oxygen at 2 L via nasal cannula. Prior history of smoking Hypertension Diabetes type 2 [id number] DVT prophylaxis with Lovenox subcu. Plan: Patient will be continued on oxygen supplementation via nasal cannula. Currently maintained on humidified 6L via NC and discussed with patient, family, and nursing staff about weaning as tolerated. Patient has 2L via NC chronically. Continue with IV steroids and duo nebs and also maintained on antibiotics in the form of vancomycin for left upper chest cellulitis. Markedly improved swelling and redness. Appreciate oncology recommendations as they recommend continuing with IV abx for at least 24 more hours and possibly switch to oral. Continue with insulin sliding scale and other home medications. Continued pain management, bowel regimen and follow-up closely. Prognosis poor at this time. Family to continue with palliative and are discussing further about code status and hospice, but not at this time. Possibly seeking second opinion outpatient and will need further imaging outpatient. Will increase lasix to 40mg bid PO and follow up labs in the am. Patient is eager to be discharged. Prognosis remains guarded. Possible discharge in 24-48 hours with oncological recommendations. The impression and plan of care has been dictated by Noelle Hirsch, Nurse Practitioner as directed. Dr. Any MD I have performed a history and examination and MDM of this patient, discussed the same with the dictator, and agree with the dictator's assessment and plan as written ,documented as a scribe. Based on total visit time, I have performed more than 50% of the visit. Objective - Vital Signs Vital signs: Vital Signs Temp 98.5 F 09/13/22 04:06 Pulse 103 H 09/13/22 08:44 Resp 16 09/13/22 04:06 BP 136/77 09/13/22 04:06 Pulse Ox 95 09/13/22 07:20 FiO2 Intake & Output 09/12/22 09/13/22 09/13/22 18:59 06:59 18:59 Output Total 800 Balance -800 Weight 114.759 kg 110 kg Output: Urine 800 Other: Voiding Method External Catheter Urinal - Labs CBC & Chem 7: 09/13/22 04:45 09/13/22 04:45 Labs: Abnormal Lab Results - Last 24 Hours (Table) 09/12/22 09/13/22 09/13/22 Range/Units 20:29 04:45 04:45 RBC 3.70 L (4.30-5.90) m/uL Hgb 9.8 L (13.0-17.5) gm/dL Hct 33.6 L (39.0-53.0) % MCHC 29.2 L (31.0-37.0) g/dL RDW 15.8 H (11.5-15.5) % Plt Count 614 H (150-450) k/uL Lymphocytes # 0.5 L (1.0-4.8) k/uL Carbon Dioxide 30.9 H (20.0-27.5) mmol/L Anion Gap 8.10 L (10.00-18.00) mmol/L BUN/Creatinine Ratio 28.17 H (12.00-20.00) Ratio Glucose 149 H (70-110) mg/dL POC Glucose (mg/dL) 201 H (70-110) mg/dL 09/13/22 Range/Units 07:21 RBC (4.30-5.90) m/uL Hgb (13.0-17.5) gm/dL Hct (39.0-53.0) % MCHC (31.0-37.0) g/dL RDW (11.5-15.5) % Plt Count (150-450) k/uL Lymphocytes # (1.0-4.8) k/uL Carbon Dioxide (20.0-27.5) mmol/L Anion Gap (10.00-18.00) mmol/L BUN/Creatinine Ratio (12.00-20.00) Ratio Glucose (70-110) mg/dL POC Glucose (mg/dL) 163 H (70-110) mg/dL
[2022-09-13] MEDS: INSULIN ASPART (NovoLOG) 100 UNIT/ML VIAL SQ SCH ×2 (18:14→21:22)
[2022-09-13 20:12] LABS: Glucose,Whole Blood 177 mg/dL (70-110)
[2022-09-14] MEDS: methylPREDNISolone SOD SUCCI 125 MG/2 ML VIAL IV SCH ×3 (00:30→12:50)
[2022-09-14 06:46] LABS: Glucose,Whole Blood 215 mg/dL (70-110)
[2022-09-14] MEDS: IPRATROPIUM-ALBUTEROL 3 ML NEB INHALATION SCH ×4 (07:16→20:16)
[2022-09-14] MEDS: INSULIN ASPART (NovoLOG) 100 UNIT/ML VIAL SQ SCH ×4 (08:16→21:34)
[2022-09-14] MEDS: ENOXAPARIN 40 MG/0.4 ML SYRINGE SQ SCH (08:16)
[2022-09-14] MEDS: LORATADINE 10 MG TAB PO SCH (08:17)
[2022-09-14] MEDS: MORPHINE SULFATE ER 30 MG TABLET PO SCH ×2 (08:17→21:33)
[2022-09-14] MEDS: PREGABALIN 100 MG CAP PO SCH ×2 (08:17→21:35)
[2022-09-14] MEDS: DOCUSATE 100 MG CAP PO SCH ×2 (08:18→21:34)
[2022-09-14] MEDS: FUROSEMIDE 40 MG TAB PO SCH (08:18)
[2022-09-14] MEDS: VANCOMYCIN 2,000 MG in SODIUM CHLORIDE 0.9% 500 ML 500 ML IVPB SCH (09:26)
[2022-09-14 12:21] LABS: Glucose,Whole Blood 162 mg/dL (70-110)
[2022-09-14] MEDS: predniSONE 10 MG TAB PO SCH (15:41)
[2022-09-14] MEDS: CEPHALEXIN 500 MG CAP PO SCH ×2 (15:41→21:34)
[2022-09-14 18:08] LABS: Glucose,Whole Blood 267 mg/dL (70-110)
[2022-09-14 18:17] LABS: Glucose,Whole Blood 273 mg/dL (70-110)
[2022-09-14 20:37] LABS: Glucose,Whole Blood 225 mg/dL (70-110)
[2022-09-15] MEDS: HYDROmorphone 1 MG/ML 1 ML SYRINGE IVP PRN ×3 (01:32→10:32)
[2022-09-15 07:24] LABS: Glucose,Whole Blood 170 mg/dL (70-110)
[2022-09-15] MEDS: predniSONE 10 MG TAB PO SCH (08:47)
[2022-09-15] MEDS: MORPHINE SULFATE ER 30 MG TABLET PO SCH ×2 (08:47→20:57)
[2022-09-15] MEDS: ENOXAPARIN 40 MG/0.4 ML SYRINGE SQ SCH (08:47)
[2022-09-15] MEDS: INSULIN ASPART (NovoLOG) 100 UNIT/ML VIAL SQ SCH ×4 (08:47→21:03)
[2022-09-15] MEDS: DOCUSATE 100 MG CAP PO SCH ×2 (08:47→20:57)
[2022-09-15] MEDS: LORATADINE 10 MG TAB PO SCH (08:47)
[2022-09-15] MEDS: CEPHALEXIN 500 MG CAP PO SCH ×3 (08:47→22:33)
[2022-09-15] MEDS: FUROSEMIDE 20 MG TAB PO SCH (08:47)
[2022-09-15] MEDS: PREGABALIN 100 MG CAP PO SCH ×2 (08:48→20:57)
[2022-09-15] MEDS ORDERED: VANCOMYCIN TROUGH DUE 1 EACH MISC MISCELLANE ONE (09:00)
[2022-09-15 09:01] LABS: Basophils # (A) 0 X 10*3/uL (0.00-0.10); Basophils % (A) 0 %; Eosinophils # (A) 0.03 X 10*3/uL (0.04-0.35); Eosinophils % (A) 0.3 %; HGB 9.9 g/dL (13.0-17.0); Immature Grans, Automated 0.4 %; Lymphocytes # (A) 0.92 X 10*3/uL (0.90-5.00); MCH 25.9 pg (27.0-32.0); MCHC 29.1 g/dL (32.0-37.0); Mean Platelet Volume 8.9 fL (9.5-12.2); Monocytes # (A) 0.95 X 10*3/uL (0.20-1.00); Monocytes % (A) 8.3 %; NRBC Per 100 WBC 0 /100 WBCS (0.0-0.0); Neutrophils # (A) 9.56 X 10*3/uL (1.80-7.70); Platelet Count 513 X 10*3/uL (140-440); RBC 3.82 X 10*6/uL (4.40-5.60); RDW 15.9 % (11.5-14.5); WBC 11.51 X 10*3/uL (4.50-10.00)
[2022-09-15] MEDS: IPRATROPIUM-ALBUTEROL 3 ML NEB INHALATION SCH ×4 (09:07→20:39)
[2022-09-15 09:11] LABS: BUN/Creat Ratio 32.83 Ratio (12.00-20.00); Blood Urea Nitrogen 19.7 mg/dL (9.0-27.0); Calcium 8.8 mg/dL (8.7-10.3); Potassium 3.9 mmol/L (3.5-5.5)
[2022-09-15 11:20] LABS: Glucose,Whole Blood 109 mg/dL (70-110)
[2022-09-15] MEDS: ACETAMINOPHEN TAB 325 MG TAB PO PRN ×2 (15:51→20:58)
[2022-09-15 17:15] LABS: Glucose,Whole Blood 200 mg/dL (70-110)
[2022-09-15 20:08] LABS: Glucose,Whole Blood 124 mg/dL (70-110)
[2022-09-15 20:42] VITALS: RESP 20
--- NOTE | 2022-09-16 02:19 | P.PN ---
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 Patient was recently sharp left-sided chest pain. EMS gave nitro which seemed to improve symptoms. Patient also complains of redness of the left upper chest. No fever no chills. Does have cough without any sputum production. Patient is also complaining of severe pain. No complaints of nausea vomiting abdominal pain or diarrhea. Denied any dysuria or hematuria. On admission patient was requiring 3 Choloxin with nasal cannula. Tachycardic with heart rate around 104. Chest x-ray showed bilateral pulmonary infiltrates show significantly increased compared to old exam. There is increasing pleural thickening in the left lateral lung and left lung apex compared to old exam. This is consistent with progression of malignancy. This could be mesothelioma. EKG showed supraventricular rhythm. Laboratory data showed WBC 6.3 hemoglobin 9.1 and platelets 517 Sodium 136 potassium 4.6 chloride 97 bicarb is 31 BUN 19 and creatinine 0.6 blood sugar is 104 calcium 8.2 magnesium 2.1 Ammonia 18 troponin 0.024, proBNP 1640. Albumin 2.7. 09/13/2022 Patient is seen and evaluated in follow-up with oncology following. Patient is currently maintained on 6 L normally wears 2 L at home and oxygen saturation is 93%. Encouraged weaning as tolerated and patient was maintained on Lasix 20 mg daily although will increase to 40 mg twice daily. Patient was also started on IV vancomycin by oncology for possible left chest cellulitis and swelling has significantly improved. Left upper extremity also improved most likely appears to be swollen from lymphedema. Patient currently enrolled in palliative care and discussion was had about possible hospice although patient is not willing to proceed with hospice at this time and would like a second opinion at [facility]. Patient reports his swelling is improved and asking when he can go home. Oncology recommending staying for another day at least on IV antibiotics and reevaluation in the morning. Pro-calcitonin was negative at 0.09 and current labs reviewed and within normal limits. WBC is 7.3 and patient is afebrile. Patient denies chest pain or worsening shortness of breath. Patient is having some generalized pain and he chronically takes morphine at home. Home medications have been resumed. Patient reports tolerating diet with no reports of nausea or vomiting noted. 09/14/2022 Patient is currently sitting in his bed comfortably. Awake alert and oriented x3. No complaints of pruritus. No nausea vomiting abdominal pain. Breathing status is much improved. Anterior chest wall redness and swelling is much improved and antibiotics will be changed to Keflex. Vancomycin will be discontinued. Patient is also will be started on prednisone. Currently on pain management. Laboratory data reviewed. Anticipate discharge in next 24 to 48 hours. 09/15/2022 Patient is currently sitting in the chair. Awake alert and oriented x3. No complaints of chest pain or worsening shortness of breath. Requiring 5 L oxygen via nasal cannula and is being titrated down to 2 L as per his home regimen. : Prednisone and also antibiotics in the form of Keflex. Patient is also on Lasix 20 mg daily. Laboratory data showed WBC 11.4 hemoglobin 9.9 platelets 513 BUN 19.7 creatinine 0.6. Blood sugar is 170 this morning. Anticipate discharge in the next 24 hours and titrate down oxygen to 2 L. Review of systems: Constitutional: No reports of fatigue, fever, or chills Cardiovascular: No reports of chest pain or palpitations Respiratory: No reports of shortness of breath or cough GI: No reports of nausea, vomiting, or diarrhea : No reports of dysuria or retention Neurovascular: No reports of weakness or numbness All medications have been reviewed Active Medications Acetaminophen (Acetaminophen Tab 325 Mg Tab) 650 mg PO Q4HR PRN PRN Reason: Mild Pain or Fever > 100.5 Albuterol/Ipratropium (Ipratropium-Albuterol 3 Ml Neb) 3 ml INHALATION RT-QID [facility] Last Admin: 09/13/22 15:25 Dose: 3 ml Dextrose/Water (Dextrose 50% Syringe 50 Ml) 25 ml IVP PER PROTOCOL PRN; Protocol PRN Reason: Hypoglycemia Dextrose/Water (Dextrose 50% Syringe 50 Ml) 50 ml IVP PER PROTOCOL PRN; Protocol PRN Reason: Hypoglycemia Diazepam (Diazepam 5 Mg Tab) 5 mg PO DAILY PRN PRN Reason: prior to radiation Last Admin: 09/12/22 01:30 Dose: 5 mg Docusate Sodium (Docusate 100 Mg Cap) 100 mg PO BID [facility] Last Admin: 09/13/22 08:48 Dose: 100 mg Enoxaparin Sodium (Enoxaparin 40 Mg/0.4 Ml Syringe) 40 mg SQ DAILY [facility] Last Admin: 09/13/22 08:48 Dose: 40 mg Furosemide (Furosemide 40 Mg Tab) 40 mg PO BID [facility] Last Admin: 09/13/22 14:11 Dose: 40 mg Hydromorphone HCl (Hydromorphone 1 Mg/Ml 1 Ml Syringe) 1 mg IVP Q4HR PRN PRN Reason: Pain Last Admin: 09/12/22 14:32 Dose: 1 mg Vancomycin HCl 2,000 mg/ (Sodium Chloride) 500 mls @ 167 mls/hr IVPB Q12H [facility] Last Admin: 09/13/22 08:51 Dose: 167 mls/hr Ibuprofen (Ibuprofen 400 Mg Tab) 400 mg PO Q6H PRN PRN Reason: Pain Insulin Aspart (Insulin Aspart (Novolog) 100 Unit/Ml Vial) 0 unit SQ ACHS [facility]; Protocol Loratadine (Loratadine 10 Mg Tab) 10 mg PO DAILY [facility] Last Admin: 09/13/22 08:49 Dose: 10 mg Methylprednisolone Sodium Succinate (Methylprednisolone Sod Succi 125 Mg/2 Ml Vial) 60 mg IV Q6HR [facility] Last Admin: 09/13/22 12:31 Dose: 60 mg Miscellaneous Information (Vancomycin Trough Due 1 Each Misc) 0 each MISCELLANE DIRECTED ONE Stop: 09/15/22 09:01 Morphine Sulfate (Morphine Sulfate Er 30 Mg Tablet) 30 mg PO Q12HR [facility]; Protocol Last Admin: 09/13/22 08:48 Dose: 30 mg Naloxone HCl (Naloxone 0.4 Mg/Ml 1 Ml Vial) 0.2 mg IVP Q2M PRN PRN Reason: Opioid Reversal Ondansetron HCl (Ondansetron Odt 8 Mg Tab.Rapdis) 8 mg PO TID PRN PRN Reason: Nausea And Vomiting Pregabalin (Pregabalin 100 Mg Cap) 100 mg PO BID [facility] Last Admin: 09/13/22 08:49 Dose: 100 mg Physical exam: Gen: This is a 61-year-old male was awake, alert and oriented 3, well- developed, well-nourished, ill-appearing, obese HEENT: Head is atraumatic, normocephalic. Pupils equal, round. Sclerae is anicteric. NECK: Supple. No JVD. No lymphadenopathy. No thyromegaly. LUNGS: Diminished breath sounds bilaterally with some scattered crackles noted at the bases. Some minimal expiratory wheezing noted. No intercostal retractions. HEART: Regular rate and rhythm. No murmur. ABDOMEN: Soft. Bowel sounds are present. No masses. No tenderness. EXTREMITIES: No pedal edema. No calf tenderness. Bilateral lower extremity chronic skin sloughing and vascular disease NEUROLOGICAL: Patient is awake, alert and oriented x3. Cranial nerves 2 through 12 are grossly intact. Assessment: Acute left upper chest pain with redness over the anterior chest and swelling and cellulitis. Chest pain. Ruled out ACS. Squamous cell carcinoma of the lung with progression as per chest x-ray findings. Patient is status post chemo/radiation and currently on immunotherapy every 2 weeks. Hypovolemic hyponatremia, Improved Malignancy related pain Anemia of chronic disease COPD/asthma with mild exacerbation. On oxygen at 2 L via nasal cannula. Prior history of smoking Hypertension Diabetes type 2 [id number] DVT prophylaxis with Lovenox subcu. Plan: Patient will be continued on oxygen supplementation via nasal cannula. Currently maintained on humidified 6L via NC and discussed with patient, family, and nursing staff about weaning as tolerated. Patient has 2L via NC chronically. Continue with IV steroids and duo nebs and also maintained on antibiotics in the form of vancomycin for left upper chest cellulitis. Markedly improved swelling and redness. Appreciate oncology recommendations as they recommend continuing with IV abx for at least 24 more hours and possibly switch to oral. Continue with insulin sliding scale and other home medications. Continued pain management, bowel regimen and follow-up closely. Prognosis poor at this time. Family to continue with palliative and are discussing further about code status and hospice, but not at this time. Possibly seeking second opinion outpatient and will need further imaging outpatient. Will increase lasix to 40mg bid PO and follow up labs in the am. Patient is eager to be discharged. Prognosis remains guarded. Possible discharge in 24-48 hours with oncological recommendations. Objective - Vital Signs Vital signs: Vital Signs Temp 98.4 F 09/15/22 12:05 Pulse 99 09/15/22 16:38 Resp 17 09/15/22 12:05 BP 112/67 09/15/22 12:05 Pulse Ox 96 09/15/22 16:28 FiO2 Intake & Output 09/14/22 09/15/22 09/15/22 18:59 06:59 18:59 Intake Total 1388 9056 Balance 1388 1080 Weight 107.955 kg Intake: Intake, IV Titration 500 Amount Vancomycin 2,000 mg In 500 Sodium Chloride 0.9% 500 ml 500 ml @ 167 mls/hr IVPB Q12H [facility] Rx#: [id number] Oral [id number] Other: Voiding Method Toilet Toilet Urinal Urinal # Voids 3 3 - Labs CBC & Chem 7: 09/15/22 06:34 09/15/22 06:34 Labs: Abnormal Lab Results - Last 24 Hours (Table) 09/14/22 09/14/22 09/14/22 Range/Units 18:07 18:16 20:18 WBC (4.50-10.00) X 10*3/uL RBC (4.40-5.60) X 10*6/uL Hgb (13.0-17.0) g/dL Hct (39.6-50.0) % MCH (27.0-32.0) pg MCHC (32.0-37.0) g/dL RDW (11.5-14.5) % Plt Count (140-440) X 10*3/uL MPV (9.5-12.2) fL Immature Gran # (0.00-0.04) X 10*3/uL Neutrophils # (1.80-7.70) X 10*3/uL Eosinophils # (0.04-0.35) X 10*3/uL Chloride (96-109) mmol/L Carbon Dioxide (20.0-27.5) mmol/L Anion Gap (10.00-18.00) mmol/L BUN/Creatinine Ratio (12.00-20.00) Ratio Glucose (70-110) mg/dL POC Glucose (mg/dL) 267 H 273 H 225 H (70-110) mg/dL 09/15/22 09/15/22 09/15/22 Range/Units 06:34 06:34 07:23 WBC 11.51 H (4.50-10.00) X 10*3/uL RBC 3.82 L (4.40-5.60) X 10*6/uL Hgb 9.9 L (13.0-17.0) g/dL Hct 34.0 L (39.6-50.0) % MCH 25.9 L (27.0-32.0) pg MCHC 29.1 L (32.0-37.0) g/dL RDW 15.9 H (11.5-14.5) % Plt Count 513 H (140-440) X 10*3/uL MPV 8.9 L (9.5-12.2) fL Immature Gran # 0.05 H (0.00-0.04) X 10*3/uL Neutrophils # 9.56 H (1.80-7.70) X 10*3/uL Eosinophils # 0.03 L (0.04-0.35) X 10*3/uL Chloride 94 L (96-109) mmol/L Carbon Dioxide 36.0 H (20.0-27.5) mmol/L Anion Gap 8.00 L (10.00-18.00) mmol/L BUN/Creatinine Ratio 32.83 H (12.00-20.00) Ratio Glucose 173 H (70-110) mg/dL POC Glucose (mg/dL) 170 H (70-110) mg/dL Microbiology - Last 24 Hours (Table) 09/12/22 13:00 Blood Culture - Preliminary Blood No Growth after 72 hours 09/12/22 12:45 Blood Culture - Preliminary Blood No Growth after 72 hours
--- NOTE | 2022-09-16 02:19 | P.PN ---
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 Patient was recently sharp left-sided chest pain. EMS gave nitro which seemed to improve symptoms. Patient also complains of redness of the left upper chest. No fever no chills. Does have cough without any sputum production. Patient is also complaining of severe pain. No complaints of nausea vomiting abdominal pain or diarrhea. Denied any dysuria or hematuria. On admission patient was requiring 3 Choloxin with nasal cannula. Tachycardic with heart rate around 104. Chest x-ray showed bilateral pulmonary infiltrates show significantly increased compared to old exam. There is increasing pleural thickening in the left lateral lung and left lung apex compared to old exam. This is consistent with progression of malignancy. This could be mesothelioma. EKG showed supraventricular rhythm. Laboratory data showed WBC 6.3 hemoglobin 9.1 and platelets 517 Sodium 136 potassium 4.6 chloride 97 bicarb is 31 BUN 19 and creatinine 0.6 blood sugar is 104 calcium 8.2 magnesium 2.1 Ammonia 18 troponin 0.024, proBNP 1640. Albumin 2.7. 09/13/2022 Patient is seen and evaluated in follow-up with oncology following. Patient is currently maintained on 6 L normally wears 2 L at home and oxygen saturation is 93%. Encouraged weaning as tolerated and patient was maintained on Lasix 20 mg daily although will increase to 40 mg twice daily. Patient was also started on IV vancomycin by oncology for possible left chest cellulitis and swelling has significantly improved. Left upper extremity also improved most likely appears to be swollen from lymphedema. Patient currently enrolled in palliative care and discussion was had about possible hospice although patient is not willing to proceed with hospice at this time and would like a second opinion at [facility]. Patient reports his swelling is improved and asking when he can go home. Oncology recommending staying for another day at least on IV antibiotics and reevaluation in the morning. Pro-calcitonin was negative at 0.09 and current labs reviewed and within normal limits. WBC is 7.3 and patient is afebrile. Patient denies chest pain or worsening shortness of breath. Patient is having some generalized pain and he chronically takes morphine at home. Home medications have been resumed. Patient reports tolerating diet with no reports of nausea or vomiting noted. 09/14/2022 Patient is currently sitting in his bed comfortably. Awake alert and oriented x3. No complaints of pruritus. No nausea vomiting abdominal pain. Breathing status is much improved. Anterior chest wall redness and swelling is much improved and antibiotics will be changed to Keflex. Vancomycin will be discontinued. Patient is also will be started on prednisone. Currently on pain management. Laboratory data reviewed. Anticipate discharge in next 24 to 48 hours. Review of systems: Constitutional: No reports of fatigue, fever, or chills Cardiovascular: No reports of chest pain or palpitations Respiratory: No reports of shortness of breath or cough GI: No reports of nausea, vomiting, or diarrhea : No reports of dysuria or retention Neurovascular: No reports of weakness or numbness All medications have been reviewed Active Medications Acetaminophen (Acetaminophen Tab 325 Mg Tab) 650 mg PO Q4HR PRN PRN Reason: Mild Pain or Fever > 100.5 Albuterol/Ipratropium (Ipratropium-Albuterol 3 Ml Neb) 3 ml INHALATION RT-QID [facility] Last Admin: 09/13/22 15:25 Dose: 3 ml Dextrose/Water (Dextrose 50% Syringe 50 Ml) 25 ml IVP PER PROTOCOL PRN; Protocol PRN Reason: Hypoglycemia Dextrose/Water (Dextrose 50% Syringe 50 Ml) 50 ml IVP PER PROTOCOL PRN; Protocol PRN Reason: Hypoglycemia Diazepam (Diazepam 5 Mg Tab) 5 mg PO DAILY PRN PRN Reason: prior to radiation Last Admin: 09/12/22 01:30 Dose: 5 mg Docusate Sodium (Docusate 100 Mg Cap) 100 mg PO BID [facility] Last Admin: 09/13/22 08:48 Dose: 100 mg Enoxaparin Sodium (Enoxaparin 40 Mg/0.4 Ml Syringe) 40 mg SQ DAILY [facility] Last Admin: 09/13/22 08:48 Dose: 40 mg Furosemide (Furosemide 40 Mg Tab) 40 mg PO BID [facility] Last Admin: 09/13/22 14:11 Dose: 40 mg Hydromorphone HCl (Hydromorphone 1 Mg/Ml 1 Ml Syringe) 1 mg IVP Q4HR PRN PRN Reason: Pain Last Admin: 09/12/22 14:32 Dose: 1 mg Vancomycin HCl 2,000 mg/ (Sodium Chloride) 500 mls @ 167 mls/hr IVPB Q12H [facility] Last Admin: 09/13/22 08:51 Dose: 167 mls/hr Ibuprofen (Ibuprofen 400 Mg Tab) 400 mg PO Q6H PRN PRN Reason: Pain Insulin Aspart (Insulin Aspart (Novolog) 100 Unit/Ml Vial) 0 unit SQ ACHS [facility]; Protocol Loratadine (Loratadine 10 Mg Tab) 10 mg PO DAILY [facility] Last Admin: 09/13/22 08:49 Dose: 10 mg Methylprednisolone Sodium Succinate (Methylprednisolone Sod Succi 125 Mg/2 Ml Vial) 60 mg IV Q6HR [facility] Last Admin: 09/13/22 12:31 Dose: 60 mg Miscellaneous Information (Vancomycin Trough Due 1 Each Misc) 0 each MISCELLANE DIRECTED ONE Stop: 09/15/22 09:01 Morphine Sulfate (Morphine Sulfate Er 30 Mg Tablet) 30 mg PO Q12HR [facility]; Protocol Last Admin: 09/13/22 08:48 Dose: 30 mg Naloxone HCl (Naloxone 0.4 Mg/Ml 1 Ml Vial) 0.2 mg IVP Q2M PRN PRN Reason: Opioid Reversal Ondansetron HCl (Ondansetron Odt 8 Mg Tab.Rapdis) 8 mg PO TID PRN PRN Reason: Nausea And Vomiting Pregabalin (Pregabalin 100 Mg Cap) 100 mg PO BID [facility] Last Admin: 09/13/22 08:49 Dose: 100 mg Physical exam: Gen: This is a 61-year-old male was awake, alert and oriented 3, well- developed, well-nourished, ill-appearing, obese HEENT: Head is atraumatic, normocephalic. Pupils equal, round. Sclerae is anicteric. NECK: Supple. No JVD. No lymphadenopathy. No thyromegaly. LUNGS: Diminished breath sounds bilaterally with some scattered crackles noted at the bases. Some minimal expiratory wheezing noted. No intercostal retractions. HEART: Regular rate and rhythm. No murmur. ABDOMEN: Soft. Bowel sounds are present. No masses. No tenderness. EXTREMITIES: No pedal edema. No calf tenderness. Bilateral lower extremity chronic skin sloughing and vascular disease NEUROLOGICAL: Patient is awake, alert and oriented x3. Cranial nerves 2 through 12 are grossly intact. Assessment: Acute left upper chest pain with redness over the anterior chest and swelling and cellulitis. Chest pain. Ruled out ACS. Squamous cell carcinoma of the lung with progression as per chest x-ray findings. Patient is status post chemo/radiation and currently on immunotherapy every 2 weeks. Hypovolemic hyponatremia, Improved Malignancy related pain Anemia of chronic disease COPD/asthma with mild exacerbation. On oxygen at 2 L via nasal cannula. Prior history of smoking Hypertension Diabetes type 2 [id number] DVT prophylaxis with Lovenox subcu. Plan: Patient will be continued on oxygen supplementation via nasal cannula. Currently maintained on humidified 6L via NC and discussed with patient, family, and nursing staff about weaning as tolerated. Patient has 2L via NC chronically. Continue with IV steroids and duo nebs and also maintained on antibiotics in the form of vancomycin for left upper chest cellulitis. Markedly improved swelling and redness. Appreciate oncology recommendations as they recommend continuing with IV abx for at least 24 more hours and possibly switch to oral. Continue with insulin sliding scale and other home medications. Continued pain management, bowel regimen and follow-up closely. Prognosis poor at this time. Family to continue with palliative and are discussing further about code status and hospice, but not at this time. Possibly seeking second opinion outpatient and will need further imaging outpatient. Will increase lasix to 40mg bid PO and follow up labs in the am. Patient is eager to be discharged. Prognosis remains guarded. Possible discharge in 24-48 hours with oncological recommendations. Objective - Vital Signs Vital signs: Vital Signs Temp 98.2 F 09/14/22 12:53 Pulse 94 09/14/22 12:53 Resp 18 09/14/22 12:53 BP 109/61 09/14/22 12:53 Pulse Ox 97 09/14/22 12:53 FiO2 Intake & Output 09/13/22 09/14/22 09/14/22 18:59 06:59 18:59 Intake Total 500 296 Balance 500 296 Weight 107.4 kg Intake: Intake, IV Titration 500 Amount Vancomycin 2,000 mg In 500 Sodium Chloride 0.9% 500 ml 500 ml @ 167 mls/hr IVPB Q12H [facility] Rx#: [id number] Oral 296 Other: Voiding Method Urinal Urinal Toilet Urinal # Voids 2 3 # Bowel Movements 2 - Labs CBC & Chem 7: 09/15/22 06:34 09/15/22 06:34 Labs: Abnormal Lab Results - Last 24 Hours (Table) 09/13/22 09/13/22 09/14/22 Range/Units 16:55 20:11 06:44 POC Glucose (mg/dL) 196 H 177 H 215 H (70-110) mg/dL 09/14/22 Range/Units 12:20 POC Glucose (mg/dL) 162 H (70-110) mg/dL Microbiology - Last 24 Hours (Table) 09/12/22 13:00 Blood Culture - Preliminary Blood No Growth after 24 hours 09/12/22 12:45 Blood Culture - Preliminary Blood No Growth after 24 hours
[2022-09-16 04:48] VITALS: BP 161/92; TEMP 97
[2022-09-16] MEDS: ACETAMINOPHEN TAB 325 MG TAB PO PRN (04:50)
[2022-09-16 07:12] LABS: Glucose,Whole Blood 144 mg/dL (70-110)
[2022-09-16] MEDS: INSULIN ASPART (NovoLOG) 100 UNIT/ML VIAL SQ SCH (07:18)
[2022-09-16] MEDS: PREGABALIN 100 MG CAP PO SCH (07:50)
[2022-09-16] MEDS: MORPHINE SULFATE ER 30 MG TABLET PO SCH (07:50)
[2022-09-16] MEDS: predniSONE 10 MG TAB PO SCH (07:50)
[2022-09-16] MEDS: LORATADINE 10 MG TAB PO SCH (07:51)
[2022-09-16] MEDS: FUROSEMIDE 20 MG TAB PO SCH (07:51)
[2022-09-16] MEDS: CEPHALEXIN 500 MG CAP PO SCH (07:51)
[2022-09-16] MEDS: DOCUSATE 100 MG CAP PO SCH (07:51)
[2022-09-16] MEDS: ENOXAPARIN 40 MG/0.4 ML SYRINGE SQ SCH (07:52)
[2022-09-16] MEDS: IPRATROPIUM-ALBUTEROL 3 ML NEB INHALATION SCH ×2 (07:56→11:42)
[2022-09-16 11:31] LABS: Basophils # (A) 0 X 10*3/uL (0.00-0.10); Basophils % (A) 0 %; Eosinophils # (A) 0 X 10*3/uL (0.04-0.35); Eosinophils % (A) 0 %; HCT 37.6 % (39.6-50.0); HGB 10.7 g/dL (13.0-17.0); Immature Grans, Automated 0.4 %; Lymphocytes # (A) 0.74 X 10*3/uL (0.90-5.00); Lymphocytes % (A) 7.7 %; MCH 25.7 pg (27.0-32.0); MCHC 28.5 g/dL (32.0-37.0); MCV 90.2 fL (80.0-97.0); Monocytes # (A) 0.67 X 10*3/uL (0.20-1.00); NRBC Per 100 WBC 0 /100 WBCS (0.0-0.0); Neutrophils # (A) 8.11 X 10*3/uL (1.80-7.70); Neutrophils % (A) 84.9 %; Platelet Count 529 X 10*3/uL (140-440); RBC 4.17 X 10*6/uL (4.40-5.60); RDW 15.9 % (11.5-14.5); WBC 9.56 X 10*3/uL (4.50-10.00)
[2022-09-16 11:38] LABS: BUN/Creat Ratio 31.83 Ratio (12.00-20.00); Blood Urea Nitrogen 19.1 mg/dL (9.0-27.0); Calcium 8.8 mg/dL (8.7-10.3); Potassium 4.1 mmol/L (3.5-5.5)
[2022-09-16 11:44] VITALS: PULSE 95
== END 2022-09-16 12:14 | disposition home health service (06) | DRG 603 ==
LOC: EC 20:47 → 3SCARD 22:55 → 5NMEDONC 23:25
PROVIDERS: ADMIT Internal Medicine; ATTEND Internal Medicine
DX: L03.313 Cellulitis of chest wall (principal); J45.901 Unspecified asthma with (acute) exacerbation; J44.1 Chronic obstructive pulmonary disease with (acute) exacerbation; E87.1 Hypo-osmolality and hyponatremia; C78.02 Secondary malignant neoplasm of left lung; C34.91 Malignant neoplasm of unspecified part of right bronchus or lung; C78.01 Secondary malignant neoplasm of right lung; C79.51 Secondary malignant neoplasm of bone; D84.9 Immunodeficiency, unspecified; E11.9 Type 2 diabetes mellitus without complications; I11.0 Hypertensive heart disease with heart failure; Z51.5 Encounter for palliative care; D63.8 Anemia in other chronic diseases classified elsewhere; I50.9 Heart failure, unspecified; G89.3 Neoplasm related pain (acute) (chronic); E66.9 Obesity, unspecified; Z68.30 Body mass index [BMI] 30.0-30.9, adult; F17.210 Nicotine dependence, cigarettes, uncomplicated; E86.1 Hypovolemia; Z79.899 Other long term (current) drug therapy; Z82.49 Family history of ischemic heart disease and other diseases of the circulatory system; Z80.9 Family history of malignant neoplasm, unspecified; Z28.21 Immunization not carried out because of patient refusal; Z28.310 Unvaccinated for COVID-19; Z83.3 Family history of diabetes mellitus; Z92.21 Personal history of antineoplastic chemotherapy; Z92.3 Personal history of irradiation; Z79.51 Long term (current) use of inhaled steroids; Z86.14 Personal history of Methicillin resistant Staphylococcus aureus infection; Z79.891 Long term (current) use of opiate analgesic
CPT/HCPCS: 36415; 71046; 80048; 80053; 82140; 83735; 83880; 84145; 84484; 85025; 85610; 85730; 87040; 93005; 94640; 94760; 96365; 96366; 96375; 99285

== ENCOUNTER → 2022-09-16 | Outpatient (CLI) | payer MEDICARE ==
--- NOTE | 2022-09-16 14:55 | CT ---
EXAMINATION TYPE: CT chest w con DATE OF EXAM: 09/16/2022 COMPARISON: CT chest 07/01/2022 HISTORY: MALIGNANT NEOPLASM OF UPPER LOBE, LEFT BRON CT DLP: 631.70 mGycm. Automated Exposure Control for Dose Reduction was Utilized. TECHNIQUE: CT scan of the thorax is performed following with IV Contrast, patient injected with 64ml mL of Isovue 300. FINDINGS: LUNGS: Mild to moderate underlying emphysematous change greatest in the upper lobes is redemonstrated . There is persistent peripheral left upper lung mass and/or masslike consolidation destroying portio ns of the anterior upper ribs measuring approximately 8.9 x 4.8 cm axial image 13 similar in size to prior study. Some left-sided volume loss with mediastinal shift in the upper lung is redemonstrated. Scattered areas of nodules and/or nodular consolidation bilaterally are more numerous and larger in s ize versus most recent prior CT consistent with neoplastic progression or worsening. New small to tin y right pleural effusion. There is an enlarging 4.9 x 2.8 cm right lateral lower pleural based mass a xial image 64 also noted. MEDIASTINUM: Calcification a level of the aortic and mitral valve is redemonstrated. Coronary artery calcification. No cardiomegaly or pericardial effusion. OTHER: Dependent small gallstones and/or gallbladder sludge ball present. Bilateral gynecomastia is n oted. IMPRESSION: Continued high stage neoplastic progression as detailed above.
== END | disposition home or self-care (01) ==
LOC: RADCTMAIN 12:14
PROVIDERS: ATTEND Internal Medicine Hematology & Oncology
DX: C34.12 Malignant neoplasm of upper lobe, left bronchus or lung (principal)
CPT/HCPCS: 71260; Q9967

== ENCOUNTER → 2022-10-29 | Outpatient (CLI) | payer MEDICARE ==
[2022-10-29 14:15] LABS: African American GFR (CKD) >90 (>60 ml/min/1.73 sqM); Blood Urea Nitrogen 16 mg/dL (9-20); Non-African American GFR(CKD) >90 (>60 ml/min/1.73 sqM)
--- NOTE | 2022-10-29 15:23 | CT ---
EXAMINATION TYPE: CT chest w con DATE OF EXAM: 10/29/2022 COMPARISON: Prior CT September 16, 2022 and older CTs HISTORY: f/u lung ca CT DLP: 788 mGycm. Automated Exposure Control for Dose Reduction was Utilized. TECHNIQUE: CT scan of the thorax is performed following with IV Contrast, patient injected with 100c c mL of Isovue 300. FINDINGS: LUNGS: Moderate underlying emphysematous change greatest in the upper lobes is redemonstrated. There is persistent peripheral left upper lung mass and/or masslike consolidation destroying portions of th e anterior upper ribs measuring approximately 10.5 x 6.1 cm axial image 13 slightly larger size to mo st recent prior study. Lesion encases portions of the left subclavian artery and vein in the left asa g apex similar to prior. Some left-sided volume loss with mediastinal shift in the upper lung is rede monstrated. Scattered spiculated and rounded nodules bilaterally are redemonstrated. Overall mixed response with 6 mm spiculated nodule at site of prior 1.9 x 1.5 cm spiculated nodule posterior inferior right upper lobe axial image 29 but enlarging 2.0 x 1.9 cm spiculated left upper lobe nodule axial image 27 vers us prior study. MEDIASTINUM: Calcification a level of the aortic and mitral valve is redemonstrated. Coronary artery calcification redemonstrated. No cardiomegaly or pericardial effusion. No definitive new thoracic arnold nopathy. OTHER: Dependent small gallstones and/or gallbladder sludge ball redemonstrated. Bilateral gynecomast ia is noted. Asymmetric mild to moderate left breast edema presumed posttreatment change is redemonst rated. IMPRESSION: Overall mixed response to high grade neoplasm as detailed above from most recent CT.
== END | disposition home or self-care (01) ==
LOC: RADCTMAIN 13:14
PROVIDERS: ATTEND Internal Medicine Hematology & Oncology
DX: C34.12 Malignant neoplasm of upper lobe, left bronchus or lung (principal)
CPT/HCPCS: 82565; 84520; 71260; 36415; Q9967

== ENCOUNTER 2022-11-02 19:18 | Inpatient (IN) | payer MEDICARE ==
[2022-11-02] MEDS ORDERED: ASPIRIN 81 MG PO STA (20:03)
[2022-11-02 20:18] LABS: Basophils % (A) 0 %; Eosinophils # (A) 0.1 k/uL (0-0.7); Eosinophils % (A) 1 %; HCT 31.1 % (39.0-53.0); HGB 8.8 gm/dL (13.0-17.5); Hypochromasia Marked; Lymphocytes # (A) 1.4 k/uL (1.0-4.8); Lymphocytes % (A) 11 %; MCH 23.9 pg (25.0-35.0); MCHC 28.2 g/dL (31.0-37.0); Monocytes # (A) 0.6 k/uL (0-1.0); Monocytes % (A) 5 %; Neutrophils # (A) 10.4 k/uL (1.3-7.7); Neutrophils % (A) 81 %; Platelet Count 628 k/uL (150-450); RBC 3.67 m/uL (4.30-5.90); RDW 15.6 % (11.5-15.5); WBC 12.9 k/uL (3.8-10.6)
[2022-11-02 20:22] LABS: MCV 84.8 fL (80.0-100.0)
[2022-11-02 20:26] LABS: INR 1.1 (<1.2); Partial Thromboplastin Time 31.4 sec (22.0-30.0); Prothrombin Time 11.9 sec (9.0-12.0)
[2022-11-02 20:28] LABS: ALT 19 U/L (4-49); AST 30 U/L (17-59); African American GFR (CKD) >90 (>60 ml/min/1.73 sqM); Albumin 2.6 g/dL (3.5-5.0); Alkaline Phosphatase 107 U/L (38-126); Anion Gap 1 mmol/L; Blood Urea Nitrogen 15 mg/dL (9-20); Carbon Dioxide 38 mmol/L (22-30); Chloride 98 mmol/L (98-107); Glucose 113 mg/dL (74-99); Non-African American GFR(CKD) >90 (>60 ml/min/1.73 sqM); Potassium 4.3 mmol/L (3.5-5.1); Sodium 137 mmol/L (137-145); Total Bilirubin 0.4 mg/dL (0.2-1.3); Total Protein 6.1 g/dL (6.3-8.2)
[2022-11-02] MEDS ORDERED: LORazepam 2 MG/ML INJ IV STA (20:52)
--- NOTE | 2022-11-02 20:58 | XR ---
EXAMINATION TYPE: XR chest 2V DATE OF EXAM: 11/02/2022 COMPARISON: 09/11/2022 HISTORY: Short of breath TECHNIQUE: FINDINGS: There is coarse interstitial and airspace infiltrate in the lung jarvis bilaterally. There is blunting of the right prosthetic angle. There is mild pleural thickening in the left upper lobe. IMPRESSION: Bilateral pulmonary infiltrates and pleural thickening is increased in the right lung bas e and not changed in the left lung compared to old exam.
--- NOTE | 2022-11-02 21:00 | XR ---
EXAMINATION TYPE: XR foot complete RT DATE OF EXAM: 11/02/2022 COMPARISON: NONE HISTORY: Foot wound. TECHNIQUE: 3 views FINDINGS: There is plantar calcaneal spurring. Metatarsals are intact. There is mild multiple hammert oe deformity. There is spurring of the intertarsal joints. IMPRESSION: There is degenerative changes. No fracture seen. No evidence of osteomyelitis.
[2022-11-02] MEDS ORDERED: FUROSEMIDE 10 MG/ML 4 ML VIAL IV STA (21:18)
--- NOTE | 2022-11-02 21:24 | ED ---
General Adult HPI - General Chief complaint: Shortness of Breath Stated complaint: CHF Time Seen by Provider: 11/02/22 19:53 Source: patient, family, RN notes reviewed, old records reviewed Mode of arrival: wheelchair Limitations: no limitations - History of Present Illness Initial comments: Patient is a 62-year-old male with past medical history remarkable for heart failure, lung cancer, left pancoast tumor, COPD, asthma, diabetes who presents emergency Department complaining of worsening shortness of breath, acute on chronic right lower extremity edema, acute on chronic left upper extremity edema, positive facial edema. Patient does have a history of this, but is worse over the last few days. He is receiving immunotherapy and is on water pills at home. However he has noticed that he is having worsening swelling. He is also having worsening dyspnea on exertion which is somewhat chronic but worse now. States the swelling is somewhat improved but the dyspnea seems to be worse. It is not on blood thinners. Has no history of blood clots. Recently received a CT chest but not a CT angiogram of the chest to evaluate for response to the rapy. He denies chest pain, abdominal pain, nausea, vomiting. Has no other acute complaints at this time. Patient presents for further evaluation at this time. Denies any fevers. Does endorse a nonproductive cough. Is on 2 L nasal cannula at home usually. Endorses a right foot wound that was seen within last couple days and started on oral antibiotics for. States it is improving. Presents for further evaluation at this time.Patient versus chronic orthopnea. Denies PND. He chronically sleeps sitting up. Due to his Pancoast tumor, usually leans to the right side. Previously did receive chemotherapy. - Related Data Home Medications Medication Instructions Recorded Confirmed Albuterol Sulfate [Ventolin HFA] 2 puff INHALATION RT-Q4H PRN 08/03/21 11/02/22 Morphine Sulfate [Ms Contin] 30 mg PO TID 03/18/22 11/02/22 ondansetron HCL [Zofran] 8 mg PO TID PRN 08/17/22 11/02/22 Furosemide [Lasix] 20 mg PO DAILY PRN 09/11/22 11/02/22 Pregabalin [Lyrica] 200 mg PO BID 09/11/22 11/02/22 Cephalexin [Keflex] 500 mg PO QID 11/02/22 11/02/22 Ferrous Sulfate [Feosol] 325 mg PO DAILY 11/02/22 11/02/22 Ipratropium-Albuterol Nebulize 3 ml INHALATION RT-QID PRN 11/02/22 11/02/22 [Duoneb 0.5 mg-3 mg/3 ml Soln] Multivitamins, Thera [Multivitamin 1 tab PO DAILY 11/02/22 11/02/22 (formulary)] Previous Rx's Medication Instructions Recorded Loratadine [Claritin] 10 mg PO DAILY #30 tab 08/18/22 Allergies Allergy/AdvReac Type Severity Reaction Status Date / Time loratadine [From Claritin-D] AdvReac Confusion Verified 11/02/22 21:44 pseudoephedrine AdvReac Confusion Verified 11/02/22 21:44 [From Claritin-D] Review of Systems ROS Statement: Those systems with pertinent positive or pertinent negative responses have been documented in the HPI. Review of Systems: CONST: Denies fever EYES: Denies blurry vision ENT: Denies nasal congestion C/V: Denies Chest pain RESP: Endorses shortness of breath GI: Denies abdominal pain : Denies dysuria SKIN: Endorses right foot wound MSK: Denies joint pain. NEURO: Denies headache ROS Other: All systems not noted in ROS Statement are negative. Past Medical History Past Medical History: Asthma, Heart Failure, COPD, Diabetes Mellitus, Hypertension Additional Past Medical History / Comment(s): Uses home O2 as needed only. Squamous cell carcinoma of the lung, rib lesion and lymph adenopathy, shoulder pain related to lung mass. Pancous tumor left apex History of Any Multi-Drug Resistant Organisms: MRSA Date of last positivie culture/infection: 05/23/16 MDRO Source:: Left Foot Past Surgical History: Hernia Repair, Orthopedic Surgery, Tonsillectomy Additional Past Surgical History / Comment(s): lt. 5th toe amp Past Anesthesia/Blood Transfusion Reactions: No Reported Reaction Past Psychological History: No Psychological Hx Reported Smoking Status: Former smoker Past Alcohol Use History: None Reported Past Drug Use History: None Reported - Past Family History Sister(s) Family Medical History: Cancer Father Family Medical History: Congestive Heart Failure (CHF), Diabetes Mellitus Mother Family Medical History: Renal Disease General Exam - General Exam Comments Initial Comments: General: Appears in mild respiratory distress. Patient is hunched over secondary to his Pancoast tumor affecting stature. HEAD: Normal with no signs of head trauma. Slight facial edema. EYES: PERRLA, EOMI, conjunctiva normal, no discharge. ENT: Hearing grossly intact, normal oropharynx. RESPIRATORY: Relatively clear breath sounds bilaterally but they're difficult to auscultate due to the patient's habitus. C/V: Regular rate and rhythm. Significant bilateral lower extremity edema primarily in the right lower extremity which patient states is chronic. It is pitting. S1 and S2 auscultated. Peripheral pulses 2+ intact throughout. Patient also has left upper extremity edema which is chronic and unchanged se condary to lymphedema in his Pancoast tumor. ABD: Abd is soft, nontender, nondistended EXT: Normal range of motion, no obvious deformity SKIN: Patient has a skin wound located over the inferior aspect of the right foot. Patient's is at bedside and states it is improved. It is open, actively draining. Clean margins. Cranial on antibiotics just started within the last few days. NEURO: Alert and oriented 4. No focal deficits. Limitations: no limitations Course Vital Signs 11/02/22 19:46 Temperature 98.1 F Pulse Rate 101 H Respiratory 22 Rate Blood Pressure 157/87 O2 Sat by Pulse 83 L Oximetry Medical Decision Making - Medical Decision Making Based on the patient's presentation and physical exam, I'm concerned for cardiopulmonary etiology for his current symptoms. This is appeared to be somewhat chronic as he does have a history of a pain Closed tumor in his left upper lung with significant diffuse edema that seems to be somewhat worse at this time, however improving. His dyspnea does seem worse to him at this time despite improvement with Lasix for his swelling. I'm concerned for possible CHF exacerbation at this time but cannot rule out ACS or possibly a PE. He is not on thinners. He does have significant right lower extremity swelling. Patient does have a significant risk for blood clot, particularly in the setting of worsening shortness of breath that is likely secondary to edema but patient states is more or less chronic edema. Therefore I cannot completely rule out pulmonary embolism at this time. We will obtain a cardiopulmonary labs, as well as obtain a CT PE despite the recent CT imaging which was not sufficient to evaluate for pulmonary wasn't at this time. We will also obtain a duplex his bilateral lower extremities. He'll be given aspirin, as well as Lasix. We will obtain wound cultures of the right foot which seems to be improving per patient, obtain an x-ray of the right foot. Patient was in agreement with this plan. He was hypoxic on room air but he is on 2 L at baseline and this improves at baseline when placed on his 2 L nasal cannula. He is saturating well on 2 L nasal cannula. EKG showed no signs of acute ischemia. Laboratory studies were remarkable for mild leukocytosis of 12.9, mild chronic anemia which appears stable to hemoglobin of 8.8. Troponin is elevated to 0.10, with the elevated BNP of 4600. He is likely having an nSTEMI based on this. Chest x-ray as interpreted by myself reveals bilateral pulmonary interstitial edema versus infiltrates which do appear somewhat chronic but somewhat worse in the right lung. Left lung chronically appears this way and is unchanged. Right foot x-ray as interpreted by myself at the site of the wound shows no evidence of osteomyelitis. Venous duplexes were interpreted as showing no evidence of DVT. We will obtain a CT a ngiogram at this time and he was in agreement with this plan. CTA wasn't abnormal myself and reveals no obvious pulmonary embolism. There is the redemonstration of left-sided cancer, as well as pleural effusions. I updated the patient as well as his . They expressed understanding. Due to the patient's elevated troponin concern for nstemi he'll be started on a heparin drip. We will start the patient on Lasix. Echo was ordered. Cardiology is consulted. Oncology was consulted. I spoke with the patient's admitting physician, Dr. Landrum of the [facility] of the patient was in agreement this plan.Wound cultures were sent patient's foot wound and as he was just started on oral antibiotics for his foot we will continue the oral antibiotics at this time. - Lab Data Result diagrams: 11/02/22 20:10 11/02/22 20:10 Lab Results 11/02/22 11/02/22 11/02/22 Range/Units 20:10 20:10 20:10 WBC 12.9 H (3.8-10.6) k/uL RBC 3.67 L (4.30-5.90) m/uL Hgb 8.8 L (13.0-17.5) gm/dL Hct 31.1 L (39.0-53.0) % MCV 84.8 D (80.0-100.0) fL MCH 23.9 L (25.0-35.0) pg MCHC 28.2 L (31.0-37.0) g/dL RDW 15.6 H (11.5-15.5) % Plt Count 628 H (150-450) k/uL MPV 8.0 Neutrophils % 81 % Lymphocytes % 11 % Monocytes % 5 % Eosinophils % 1 % Basophils % 0 % Neutrophils # 10.4 H (1.3-7.7) k/uL Lymphocytes # 1.4 (1.0-4.8) k/uL Monocytes # 0.6 (0-1.0) k/uL Eosinophils # 0.1 (0-0.7) k/uL Basophils # 0.0 (0-0.2) k/uL Hypochromasia Marked PT 11.9 (9.0-12.0) sec INR 1.1 (<1.2) APTT 31.4 H (22.0-30.0) sec Sodium 137 (137-145) mmol/L Potassium 4.3 (3.5-5.1) mmol/L Chloride 98 (98-107) mmol/L Carbon Dioxide 38 H (22-30) mmol/L Anion Gap 1 mmol/L BUN 15 (9-20) mg/dL Creatinine 0.50 L (0.66-1.25) mg/dL Est GFR (CKD-EPI)AfAm >90 (>60 ml/min/1.73 sqM) Est GFR (CKD-EPI)NonAf >90 (>60 ml/min/1.73 sqM) Glucose 113 H (74-99) mg/dL Calcium 8.0 L (8.4-10.2) mg/dL Total Bilirubin 0.4 (0.2-1.3) mg/dL AST 30 (17-59) U/L ALT 19 (4-49) U/L Alkaline Phosphatase 107 (38-126) U/L Troponin I (0.000-0.034) ng/mL NT-Pro-B Natriuret Pep pg/mL Total Protein 6.1 L (6.3-8.2) g/dL Albumin 2.6 L (3.5-5.0) g/dL Urine Color Urine Appearance (Clear) Urine pH (5.0-8.0) Ur Specific [place] (1.001-1.035) Urine Protein (Negative) Urine Glucose (UA) (Negative) Urine Ketones (Negative) Urine Blood (Negative) Urine Nitrite (Negative) Urine Bilirubin (Negative) Urine Urobilinogen (<2.0) mg/dL Ur Leukocyte Esterase (Negative) 11/02/22 11/02/22 11/02/22 Range/Units 20:10 20:10 21:16 WBC (3.8-10.6) k/uL RBC (4.30-5.90) m/uL Hgb (13.0-17.5) gm/dL Hct (39.0-53.0) % MCV (80.0-100.0) fL MCH (25.0-35.0) pg MCHC (31.0-37.0) g/dL RDW (11.5-15.5) % Plt Count (150-450) k/uL MPV Neutrophils % % Lymphocytes % % Monocytes % % Eosinophils % % Basophils % % Neutrophils # (1.3-7.7) k/uL Lymphocytes # (1.0-4.8) k/uL Monocytes # (0-1.0) k/uL Eosinophils # (0-0.7) k/uL Basophils # (0-0.2) k/uL Hypochromasia PT (9.0-12.0) sec INR (<1.2) APTT (22.0-30.0) sec Sodium (137-145) mmol/L Potassium (3.5-5.1) mmol/L Chloride (98-107) mmol/L Carbon Dioxide (22-30) mmol/L Anion Gap mmol/L BUN (9-20) mg/dL Creatinine (0.66-1.25) mg/dL Est GFR (CKD-EPI)AfAm (>60 ml/min/1.73 sqM) Est GFR (CKD-EPI)NonAf (>60 ml/min/1.73 sqM) Glucose (74-99) mg/dL Calcium (8.4-10.2) mg/dL Total Bilirubin (0.2-1.3) mg/dL AST (17-59) U/L ALT (4-49) U/L Alkaline Phosphatase (38-126) U/L Troponin I 0.100 H* (0.000-0.034) ng/mL NT-Pro-B Natriuret Pep 4680 pg/mL Total Protein (6.3-8.2) g/dL Albumin (3.5-5.0) g/dL Urine Color Yellow Urine Appearance Clear (Clear) Urine pH 5.5 (5.0-8.0) Ur Specific [place] 1.025 (1.001-1.035) Urine Protein Trace H (Negative) Urine Glucose (UA) Negative (Negative) Urine Ketones Negative (Negative) Urine Blood Negative (Negative) Urine Nitrite Negative (Negative) Urine Bilirubin Negative (Negative) Urine Urobilinogen 4.0 (<2.0) mg/dL Ur Leukocyte Esterase Negative (Negative) - EKG Data -: EKG Interpreted by Me EKG Comments: 12-lead Electrocardiogram Interpretation Note EKG was reviewed and interpreted by myself. 12-lead ECG performed at 2111 is interpreted by me as revealing normal sinus rhythm at a rate of 91 beats per minute. Holabird is normal. DC interval is 92 ms, QRS duration is 112 ms, QTc is 420 ms.. There were no acute ST or T wave abnormalities to suggest myocardial ischemia or injury. R wave progression across the precordium was satisfactory. By my interpretation this EKG is non-diagnostic for acute ischemia. When compared with EKG from August 2022, no significant ischemic change. Disposition Clinical Impression: CHF (congestive heart failure), NSTEMI (non-ST elevated myocardial infarction), Cancer, Wound of foot, Pleural effusion Disposition: ADMITTED IP TO THIS HOSP Condition: Stable Referrals: Shona Boston MD [Primary Care Provider] - 1-2 days Time of Disposition: 22:10
[2022-11-02 21:26] LABS: Appearance,Urine Clear (Clear); Bilirubin,Urine Negative (Negative); Blood,Urine Negative (Negative); Color,Urine Yellow; Glucose,Urine (UA) Negative (Negative); Ketones,Urine Negative (Negative); Leukocyte Esterase,Urine Negative (Negative); Nitrite,Urine Negative (Negative); PH, Urine 5.5 (5.0-8.0); Protein,Urine Trace (Negative); Specific Gravity,Urine 1.025 (1.001-1.035)
--- NOTE | 2022-11-02 21:50 | US ---
EXAMINATION TYPE: US venous doppler duplex LE DATE OF EXAM: 11/02/2022 9:40 PM COMPARISON: NONE CLINICAL HISTORY: eval for dvt.. Edema exam limited due to body habitus and postioning in bed. SIDE PERFORMED: Bilateral TECHNIQUE: The lower extremity deep venous system is examined utilizing real time linear array sonog tahira with graded compression, doppler sonography and color-flow sonography. VESSELS IMAGED: Common Femoral Vein Deep Femoral Vein Greater Saphenous Vein * Femoral Vein Popliteal Vein Small Saphenous Vein * Proximal Calf Veins (* superficial vessels) Right Leg: Negative for DVT Left Leg: Negative for DVT IMPRESSION: No evidence of deep vein thrombosis in both legs.
[2022-11-02] MEDS ORDERED: ALBUTEROL NEBULIZED 2.5 MG/3 ML INHALATION PRN (22:22)
[2022-11-02] MEDS ORDERED: ONDANSETRON ODT 8 MG TAB.RAPDIS PO PRN (22:22)
--- NOTE | 2022-11-02 22:30 | CT ---
EXAMINATION TYPE: CT chest angio for PE DATE OF EXAM: 11/02/2022 COMPARISON: Chest CT scan 10/29/2022 HISTORY: R/O PE hx of lung masses CT DLP: 749.8 mGycm Automated exposure control for dose reduction was used. CONTRAST: Performed with IV Contrast, patient injected with 100 mL of Isovue 370. There are 3-D post processed images. There is soft tissue density mass at the left lung apex with rib destruction. There is 2 cm mass in the anterior mediastinum on the right side. The mass measures up to 7 cm in thickness and extends along the upper lateral chest wall. There is multiple areas of rib d estruction. Thoracic aorta is intact. No aneurysm. There is normal contrast opacification of the pulmonary arteri es. No filling defect. There are numerous variable sized nodular densities in the lung ajrvis measuring up to 2 cm. There is right pleural effusion. There is posterior right lateral rib destruction adjacent to the pleural thi ckening. Heart size is normal. No pericardial effusion. There are no hilar masses. IMPRESSION: No evidence of pulmonary embolism. Pleural thickening and destructive changes in the left upper later al ribs. Large mass involving the upper lateral chest wall. Numerous nodular masses throughout the lung jarvis. Right pleural effusion. Destructive changes also present in adjacent ribs. Right pleural effusion slightly increased compared to recent exam.
[2022-11-02] MEDS ORDERED: HEPARIN SODIUM 1,000 UN/ML (10ML VL) IV ONE (22:34)
[2022-11-02] MEDS ORDERED: HEPARIN SODIUM 1,000 UN/ML (10ML VL) IV PRN (22:34)
[2022-11-02] MEDS ORDERED: NALOXONE 0.4 MG/ML 1 ML VIAL IV PRN (22:38)
[2022-11-02] MEDS ORDERED: HEPARIN SOD,PORK IN 0.45% NACL 25,000 UNIT in 0.45% NACL 1 250ML.BAG IV SCH (22:45)
[2022-11-03 05:30] LABS: Basophils % (A) 0 %; Eosinophils # (A) 0.1 k/uL (0-0.7); Eosinophils % (A) 1 %; HCT 31.5 % (39.0-53.0); HGB 8.8 gm/dL (13.0-17.5); Hypochromasia Marked; Lymphocytes # (A) 1.1 k/uL (1.0-4.8); Lymphocytes % (A) 8 %; MCH 23.9 pg (25.0-35.0); MCHC 27.8 g/dL (31.0-37.0); MCV 85.9 fL (80.0-100.0); Mean Platelet Volume 7.9; Monocytes # (A) 0.4 k/uL (0-1.0); Monocytes % (A) 3 %; Neutrophils # (A) 11.9 k/uL (1.3-7.7); Neutrophils % (A) 87 %; Platelet Count 545 k/uL (150-450); RBC 3.67 m/uL (4.30-5.90); RDW 15.4 % (11.5-15.5); WBC 13.7 k/uL (3.8-10.6)
[2022-11-03 05:41] LABS: INR 1.2 (<1.2); Partial Thromboplastin Time 41.7 sec (22.0-30.0)
[2022-11-03 05:43] LABS: African American GFR (CKD) >90 (>60 ml/min/1.73 sqM); Anion Gap 2 mmol/L; Blood Urea Nitrogen 12 mg/dL (9-20); Calcium 7.5 mg/dL (8.4-10.2); Chloride 96 mmol/L (98-107); Glucose 115 mg/dL (74-99); Non-African American GFR(CKD) >90 (>60 ml/min/1.73 sqM); Potassium 3.6 mmol/L (3.5-5.1); Sodium 138 mmol/L (137-145)
[2022-11-03 05:51] LABS: Carbon Dioxide 40 mmol/L (22-30)
[2022-11-03 06:28] LABS: Glucose,Whole Blood 113 mg/dL (70-110)
--- NOTE | 2022-11-03 06:52 | CT ---
EXAMINATION TYPE: CT brain wo con DATE OF EXAM: 11/03/2022 COMPARISON: 08/13/2022 HISTORY: Altered mental status CT DLP: 1179.4 mGycm Automated exposure control for dose reduction was used. There is mild cerebral atrophy. There is no mass effect nor midline shift. No sign of intracranial he morrhage. Calvarium is intact. The skull base is intact. There is normal aeration of the mastoid sinu ses. IMPRESSION: Mild atrophy. No acute intracranial abnormality. No change.
[2022-11-03] MEDS: IPRATROPIUM-ALBUTEROL 3 ML NEB INHALATION PRN ×4 (07:47→19:43)
--- NOTE | 2022-11-03 09:08 | CONS ---
CONSULTATION HISTORY OF PRESENT ILLNESS: Alpa is a 62-year-old gentleman with history of congestive heart failure, lung cancer, COPD, asthma, and diabetes who presented to hospital with worsening shortness of breath, leg edema, due to which he was admitted to hospital, had a troponin done that came back slightly elevated due to which Cardiology had been consulted. He is currently receiving immunotherapy. The patient recently had a CT scan of the chest. The patient's BNP is elevated at 4680 and the troponin is 0.1, 0.1, 0.1. An EKG shows sinus rhythm with frequent PVCs and poor R-wave progression. CT scan of the brain was unremarkable. A chest CT did not reveal any evidence of pulmonary embolism. A venous Doppler study was negative for DVT. PAST MEDICAL HISTORY: Significant for lung cancer, currently on chemotherapy. MEDICATIONS AT HOME: 1. Zofran. 2. Lyrica. 3. MS Contin. 4. Iron. 5. Ventolin. 6. DuoNeb. 7. Lasix. ALLERGIES: To Claritin and Sudafed. FAMILY HISTORY: Negative for premature coronary artery disease. SOCIAL HISTORY: There is no current history of smoking, EtOH or drug abuse. REVIEW OF SYSTEMS: HEENT: Unremarkable. CARDIAC: As described above. RESPIRATORY: As described above. GI: Negative. GENITOURINARY: Negative. ALLERGY/IMMUNOLOGY: Negative. SKIN: Negative. MUSCULOSKELETAL: Negative. ENDOCRINE: Negative. DERM: Negative. CONSTITUTIONAL: Negative. ONCOLOGICAL: Negative. TRANSLATOR DEAF: Negative. Rest of the system review is not relevant. PHYSICAL EXAMINATION: GENERAL: The patient is receiving breathing treatments but comfortable at rest. VITAL SIGNS: Heart rate is 98 beats per minute, blood pressure is 117/73, respiratory rate is 18, and O2 saturation is 95% on 2 L. NECK: There is no jugular venous distention. CHEST: Reveals occasional rhonchi bilaterally. HEART: Reveals first and second heart sounds. Systolic murmur at the apex. ABDOMEN: Soft. EXTREMITIES: Reveals bilateral pitting edema. LABORATORY DATA: Show a potassium of 3.6, creatinine is 0.5, troponins are mildly elevated. BNP is elevated. Hemoglobin is low at 8.8, platelet count is 545. ASSESSMENT AND PLAN: 1. Acute onset congestive heart failure. 2. Chronic obstructive pulmonary disease exacerbation. 3. Mild troponin elevation of unclear clinical significance in a patient with lung carcinoma and recent immunotherapy. I discussed the case with the ER physician when he first presented to the ER. I am going to obtain an echocardiogram to evaluate LV function and wall motion. I do not believe the patient had an acute coronary syndrome. Chest x-ray and clinical presentation is certainly consistent with congestive heart failure and will treat the patient with diuretics and blood pressure tolerating, I will add a small dose of a beta adriel at this time and might consider adding an ARUN inhibitor. [id number] / IJN: [id number] /
[2022-11-03] MEDS: FUROSEMIDE 10 MG/ML 4 ML VIAL IV SCH ×2 (09:45→20:30)
[2022-11-03] MEDS: LORATADINE 10 MG TAB PO SCH (09:45)
[2022-11-03] MEDS: FERROUS SULFATE 325 MG TAB PO SCH (09:45)
[2022-11-03] MEDS: PREGABALIN 100 MG CAP PO SCH ×2 (09:45→20:30)
[2022-11-03] MEDS: CEPHALEXIN 500 MG CAP PO SCH ×4 (09:45→20:29)
[2022-11-03] MEDS: METOPROLOL TARTRATE 12.5 MG TAB PO SCH ×2 (09:45→20:30)
[2022-11-03 11:54] LABS: Glucose,Whole Blood 138 mg/dL (70-110)
[2022-11-03] MEDS ORDERED: DEXTROSE 50% SYRINGE 50 ML IVP PRN (13:15)
--- NOTE | 2022-11-03 13:16 | P.HPIM ---
History of Present Illness H&P Date: 11/03/22 History of present illness; patient is a 62-year-old gentleman with past medical history significant for lung cancer on immunotherapy, congestive heart Failure, COPD, asthma who presented to the ER because of worsening shortness of breath and swelling of legs. Patient has been noticing increasing shortness of breath on exertion for the last couple of days associated with increased swelling of legs. Patient was on diuretics at home but stated that it was not working and he continues to be short of breath. Patient also currently on antibiotics for right foot wound. Because of this worsening shortness of breath and swelling of legs patient came to the ER. Initial lab work showed patient to have a white count of 12.9, hemoglobin of 8.8, platelet count of 628, sodium 137, potassium 4.3, carbon dioxide 38, troponin 0.1. CTA chest done showed no evidence of pulmonary embolism. It did show pleural thickening and destructive changes in the left upper ribs. Large mass involving the upper limits of chest wall was also seen. Patient was admitted to hospitalist service for further evaluation and treatment REVIEW OF SYSTEMS: CONSTITUTIONAL: No fever, no malaise, no fatigue. HEENT: No recent visual problems or hearing problems. Denied any sore throat. CARDIOVASCULAR: No chest pain, orthopnea, PULMONARY: As mentioned in HPI GASTROINTESTINAL: No diarrhea, no nausea, no vomiting, no abdominal pain. NEUROLOGICAL: No headaches, no weakness, no numbness. HEMATOLOGICAL: Denies any bleeding or petechiae. GENITOURINARY: Denies any burning micturition, frequency, or urgency. MUSCULOSKELETAL/RHEUMATOLOGICAL: Denies any joint pain, swelling, or any muscle pain. ENDOCRINE: Denies any polyuria or polydipsia. The rest of the 14-point review of systems is negative. PHYSICAL EXAMINATION: GENERAL: The patient is alert and oriented x3, not in any acute distress. Well developed, well nourished. HEENT: Pupils are round and equally reacting to light. EOMI. No scleral icterus. No conjunctival pallor. Normocephalic, atraumatic. No pharyngeal erythema. No t hyromegaly. CARDIOVASCULAR: S1 and S2 present. No murmurs, rubs, or gallops. PULMONARY: Chest is clear to auscultation, no wheezing or crackles. ABDOMEN: Soft, nontender, nondistended, normoactive bowel sounds. No palpable organomegaly. MUSCULOSKELETAL: No joint swelling or deformity. EXTREMITIES: 2+ pitting edema lower extremities, right foot wound seen NEUROLOGICAL: Gross neurological examination did not reveal any focal deficits. SKIN: No rashes. Assessment and plan Acute onset congestive heart failure. COPD exacerbation Elevated troponin. Right foot wound Lung cancer Diabetes mellitus Hypertension Plan Strict I's and O's Daily weights. Monitor troponins Continue telemetry monitoring. Monitor electrolytes. Monitor renal functions Ordered 2-D echo Continue IV Lasix Consult cardiology. Consult hematology oncology. Consult wound care Past Medical History Past Medical History: Asthma, Cancer, Heart Failure, COPD, Diabetes Mellitus, Hypertension Additional Past Medical History / Comment(s): Uses home O2 as needed only. Squamous cell carcinoma of the lung, rib lesion and lymph adenopathy, shoulder pain related to lung mass. Pancous tumor left apex History of Any Multi-Drug Resistant Organisms: MRSA Date of last positivie culture/infection: 05/23/16 MDRO Source:: Left Foot Past Surgical History: Hernia Repair, Orthopedic Surgery, Tonsillectomy Additional Past Surgical History / Comment(s): lt. 5th toe amp Past Anesthesia/Blood Transfusion Reactions: No Reported Reaction Past Psychological History: Anxiety Smoking Status: Former smoker Past Alcohol Use History: None Reported Past Drug Use History: None Reported Additional Drug Use History / Comment(s): quit drinking 10 years ago in 2011, quit smoking Aug 2021 - Past Family History Sister(s) Family Medical History: Cancer Father Family Medical History: Congestive Heart Failure (CHF), Diabetes Mellitus Mother Family Medical History: Renal Disease Medications and Allergies Home Medications Medication Instructions Recorded Confirmed Type Albuterol Sulfate [Ventolin HFA] 2 puff INHALATION RT-Q4H PRN 08/03/21 11/02/22 History Morphine Sulfate [Ms Contin] 30 mg PO TID 03/18/22 11/02/22 History ondansetron HCL [Zofran] 8 mg PO TID PRN 08/17/22 11/02/22 History Loratadine [Claritin] 10 mg PO DAILY #30 tab 08/18/22 11/02/22 Rx Furosemide [Lasix] 20 mg PO DAILY PRN 09/11/22 11/02/22 History Pregabalin [Lyrica] 200 mg PO BID 09/11/22 11/02/22 History Cephalexin [Keflex] 500 mg PO QID 11/02/22 11/02/22 History Ferrous Sulfate [Feosol] 325 mg PO DAILY 11/02/22 11/02/22 History Ipratropium-Albuterol Nebulize 3 ml INHALATION RT-QID PRN 11/02/22 11/02/22 History [Duoneb 0.5 mg-3 mg/3 ml Soln] Multivitamins, Thera [Multivitamin 1 tab PO DAILY 11/02/22 11/02/22 History (formulary)] Allergies Allergy/AdvReac Type Severity Reaction Status Date / Time loratadine [From Claritin-D] AdvReac Confusion Verified 11/02/22 21:44 pseudoephedrine AdvReac Confusion Verified 11/02/22 21:44 [From Claritin-D] Physical Exam Vitals: Vital Signs Temp Pulse Pulse Resp BP BP Pulse Ox 11/03/22 11:56 98 11/03/22 11:45 104 H 11/03/22 08:35 97.9 F 102 H 18 103/61 91 L 11/03/22 08:12 102 H 11/03/22 07:49 98 95 11/03/22 04:00 97.8 F 98 20 117/73 95 11/03/22 02:00 87 20 11/03/22 00:41 97 F L 87 20 89/63 94 L 11/02/22 23:13 84 20 103/65 94 L 11/02/22 19:46 98.1 F 101 H 22 157/87 83 L Intake and Output 11/02/22 11/03/22 11/03/22 22:59 06:59 14:59 Intake Total 60.5 Output Total 550 700 Balance -489.5 -700 Intake: Intake, IV Titration 60.5 Amount Heparin Sod,Pork in 0.45% 60.5 NaCl 25,000 unit In 0.45 % NaCl 1 250ml.bag @ 9. 4619 UNITS/KG/HR 10 mls/ hr IV .Q24H [facility] Rx#: [id number] Output: Urine 550 700 Other: Voiding Method Diaper Diaper External Catheter External Catheter Weight 105.687 kg 108 kg Results CBC & Chem 7: 11/03/22 05:16 11/03/22 05:16 Labs: Abnormal Lab Results - Last 24 Hours (Table) 11/02/22 11/02/22 11/02/22 Range/Units 20:10 20:10 20:10 WBC 12.9 H (3.8-10.6) k/uL RBC 3.67 L (4.30-5.90) m/uL Hgb 8.8 L (13.0-17.5) gm/dL Hct 31.1 L (39.0-53.0) % MCH 23.9 L (25.0-35.0) pg MCHC 28.2 L (31.0-37.0) g/dL RDW 15.6 H (11.5-15.5) % Plt Count 628 H (150-450) k/uL Neutrophils # 10.4 H (1.3-7.7) k/uL INR (<1.2) APTT 31.4 H (22.0-30.0) sec Chloride (98-107) mmol/L Carbon Dioxide 38 H (22-30) mmol/L Creatinine 0.50 L (0.66-1.25) mg/dL Glucose 113 H (74-99) mg/dL POC Glucose (mg/dL) (70-110) mg/dL Calcium 8.0 L (8.4-10.2) mg/dL Troponin I (0.000-0.034) ng/mL Total Protein 6.1 L (6.3-8.2) g/dL Albumin 2.6 L (3.5-5.0) g/dL Urine Protein (Negative) 11/02/22 11/02/22 11/02/22 Range/Units 20:10 21:16 23:41 WBC (3.8-10.6) k/uL RBC (4.30-5.90) m/uL Hgb (13.0-17.5) gm/dL Hct (39.0-53.0) % MCH (25.0-35.0) pg MCHC (31.0-37.0) g/dL RDW (11.5-15.5) % Plt Count (150-450) k/uL Neutrophils # (1.3-7.7) k/uL INR (<1.2) APTT (22.0-30.0) sec Chloride (98-107) mmol/L Carbon Dioxide (22-30) mmol/L Creatinine (0.66-1.25) mg/dL Glucose (74-99) mg/dL POC Glucose (mg/dL) (70-110) mg/dL Calcium (8.4-10.2) mg/dL Troponin I 0.100 H* 0.099 H* (0.000-0.034) ng/mL Total Protein (6.3-8.2) g/dL Albumin (3.5-5.0) g/dL Urine Protein Trace H (Negative) 11/03/22 11/03/22 11/03/22 Range/Units 05:16 05:16 05:16 WBC 13.7 H (3.8-10.6) k/uL RBC 3.67 L (4.30-5.90) m/uL Hgb 8.8 L (13.0-17.5) gm/dL Hct 31.5 L (39.0-53.0) % MCH 23.9 L (25.0-35.0) pg MCHC 27.8 L (31.0-37.0) g/dL RDW (11.5-15.5) % Plt Count 545 H (150-450) k/uL Neutrophils # 11.9 H (1.3-7.7) k/uL INR 1.2 H (<1.2) APTT 41.7 H (22.0-30.0) sec Chloride (98-107) mmol/L Carbon Dioxide (22-30) mmol/L Creatinine (0.66-1.25) mg/dL Glucose (74-99) mg/dL POC Glucose (mg/dL) (70-110) mg/dL Calcium (8.4-10.2) mg/dL Troponin I 0.088 H* (0.000-0.034) ng/mL Total Protein (6.3-8.2) g/dL Albumin (3.5-5.0) g/dL Urine Protein (Negative) 11/03/22 11/03/22 11/03/22 Range/Units 05:16 06:27 11:53 WBC (3.8-10.6) k/uL RBC (4.30-5.90) m/uL Hgb (13.0-17.5) gm/dL Hct (39.0-53.0) % MCH (25.0-35.0) pg MCHC (31.0-37.0) g/dL RDW (11.5-15.5) % Plt Count (150-450) k/uL Neutrophils # (1.3-7.7) k/uL INR (<1.2) APTT (22.0-30.0) sec Chloride 96 L (98-107) mmol/L Carbon Dioxide 40 H (22-30) mmol/L Creatinine 0.51 L (0.66-1.25) mg/dL Glucose 115 H (74-99) mg/dL POC Glucose (mg/dL) 113 H 138 H (70-110) mg/dL Calcium 7.5 L (8.4-10.2) mg/dL Troponin I (0.000-0.034) ng/mL Total Protein (6.3-8.2) g/dL Albumin (3.5-5.0) g/dL Urine Protein (Negative) Microbiology - Last 24 Hours (Table) 11/02/22 21:16 Wound Culture - Preliminary Foot - Right 11/02/22 21:16 Anaerobic Culture - Preliminary Foot - Right Thrombosis Risk Factor Assmnt - Choose All That Apply Any of the Below Risk Factors Present?: Yes Each Factor Represents 1 point: Abnormal pulmonary function (COPD), Swollen legs (current) Other Risk Factors: Yes Each Risk Factor Represents 2 Points: Age 61-74 years Thrombosis Risk Factor Assessment Total Risk Factor Score: 4 Thrombosis Risk Factor Assessment Level: Moderate Risk
[2022-11-03 14:07] LABS: Bilirubin, Delta 0.2 mg/dL (0.0-0.2); Total Bilirubin 0.2 mg/dL (0.2-1.3)
[2022-11-03] MEDS: MORPHINE SULFATE ER 30 MG TABLET PO SCH ×2 (14:45→20:29)
[2022-11-03] MEDS: HEPARIN SODIUM,PORCINE/PF 5,000 UNIT/0.5 ML SYRINGE SQ SCH ×2 (14:47→22:49)
--- NOTE | 2022-11-03 16:03 | CA ---
Transthoracic Echo Report Name: Alpa Knott Age: 62 Gender: M : 1960 Exam Date: 11/03/2022 11:58 Exam Location: [place] [facility] Ht (in): 72 Wt (lb): 238 Ordering Physician: Chavo Santos MD Attending/Referring Phys: Organizational Development Consultant Marita Acuna RDCS Procedure CPT: Indications: chf, nstemi Cardiac Hx: Technical Quality: Very technically difficult study Contrast 1: Lumason Total Dose (mL): 3 Contrast 2: Total Dose (mL): MEASUREMENTS (Male / Female) Normal Values DOPPLER AV Peak Velocity 304.1 cm/s AV Peak Gradient 37.0 mmHg AV Mean Velocity 221.2 cm/s AV Mean Gradient 22.1 mmHg AV Velocity Time Integral 57.2 cm LVOT Peak Velocity 131.8 cm/s LVOT Peak Gradient 7.0 mmHg MV Peak Velocity 170.2 cm/s MV Peak Gradient 11.6 mmHg MV Mean Velocity 109.9 cm/s MV Mean Gradient 5.5 mmHg MV Velocity Time Integral 36.5 cm FINDINGS Left Ventricle Normal Left ventricular size, wall thickness, systolic function with no obvious regional wall motion abnormalities. Right Ventricle Normal right ventricular size and function. Right Atrium Right atrium not well visualized. Left Atrium Left atrium not well visualized. Mitral Valve Mitral valve not well visualized. Mild mitral stenosis. mitral valve peak gradient 11.6mmHg and mean gradient of 5.5mmHg. Aortic Valve Aortic valve not well visualized. Moderate aortic stenosis with a peak gradient of 37mmHg and a mean gradient of 22 mmHg. Tricuspid Valve Tricuspid valve not well visualized. Pulmonic Valve Pulmonic valve not well visualized. Pericardium Normal pericardium. Aorta Aortic root and proximal ascending aorta not well visualized. CONCLUSIONS Normal LV function Moderate aortic stenosis Previewed by: Dr. Slick Green MD (Electronically Signed) Final Date: 03 November 2022 16:02
--- NOTE | 2022-11-03 16:21 | P.CONS ---
History of Present Illness - Reason for Consult Consult date: 11/03/22 Lung cancer Requesting physician: Kirk Landrum - Chief Complaint SOB - History of Present Illness Mr. Knott is a very pleasant 62 yo male with history of multiple comorbidities including lung cancer on palliative therapy with opdivo, follows with Dr. Zimmerman, who is here for increasing SOB. Work up with fluid overload and suggestive of systolic heart failure. Labs with likely reactive leukocytosis, slightly decreased Hgb (8's from 9-10's, has been slowly downtrending), and stable thrombocytosis, likely reactive. Admitted with cardiology consult as well as diuresis and concern for NSTEMI. We were consulted due to pt's underlying history of lung cancer. Work up in ED with CT/PE negative for PE, reveals known left lung mass, as well as LE doppler negative as he was having leg swelling. Oncologic History: This is a very nice patient who presented with worsening left shoulder pain since August/2021,he had aCXR then a CT scan of chest on 02/20/2021 which revealed 6.5x7.7x9cm mass in LAUREN of his lung,destruction of first third and second ribs,extending into supraclavicual area and axilla,inseparable from left subclavian vein. On 03/01/2022,PET scan revealed revealed suspicious uptake in the above mentioned mass,no other metastatic disease. On 03/15/2022,brain MRI was negative for metastatic disease.. On 03/27/2022,CT guided lung biopsy was positive for invasive squamous cell carcinoma. On 04/03/2022,he started weekly carboplatin/taxol with XRT. 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 He feels tired,has chronic legs sores from diabetes,his shoulder pain is much better but he has left elbow pain,seen by ortho,had an MRI of elbow,was told it was not cancer,however,he was referred to ortho/onc,his neuropathy in feet is stable from his baseline,his legs edema is slightly better,his activities limited to wheel chair (baseline prior to Dx with lungcancer),his PS is stable I had a discussion with the patient and his . Reviewed molecular studies results with them He started opdivo,every 2 weeks schedule, as second line on . On 09/16/2022,he had a repeat CT scan of chest to follow up on left chest wall mass,revealed some increase in bilateral lung nodules and RLL lesion 08/2022 IP for chest wall pain and erythema due to cellulitis, which was treated and improved. Last seen on 10/15/22, at which time he was doing better. He feels a little better today than last visit,remains weak,the swelling in right chest wall improved,continues to have significant pain in left elbow and unable to fully use left arm,he is currently on MS contin 30 mg TID and Lyrica TID,as prescribed by Dr Boston,continues to have significant pain,has chronic leg edema and ulceration,no dyspnea,no cough,his appetite is fine,no diarrhea. CT planned prior to follow up visit, and continue opdivo. Last opdivo was due 10/31/22. Past Medical History Past Medical History: Asthma, Cancer, Heart Failure, COPD, Diabetes Mellitus, Hypertension Additional Past Medical History / Comment(s): Uses home O2 as needed only. Sq uamous cell carcinoma of the lung, rib lesion and lymph adenopathy, shoulder pain related to lung mass. Pancous tumor left apex History of Any Multi-Drug Resistant Organisms: MRSA Year Discovered:: 05/23/16 MDRO Source:: Left Foot Past Surgical History: Hernia Repair, Orthopedic Surgery, Tonsillectomy Additional Past Surgical History / Comment(s): lt. 5th toe amp Past Anesthesia/Blood Transfusion Reactions: No Reported Reaction Past Psychological History: Anxiety Smoking Status: Former smoker Past Alcohol Use History: None Reported Past Drug Use History: None Reported Additional Drug Use History / Comment(s): quit drinking 10 years ago in 2011, quit smoking Aug 2021 - Past Family History Sister(s) Family Medical History: Cancer Father Family Medical History: Congestive Heart Failure (CHF), Diabetes Mellitus Mother Family Medical History: Renal Disease Medications and Allergies Home Medications Medication Instructions Recorded Confirmed Type Albuterol Sulfate [Ventolin HFA] 2 puff INHALATION RT-Q4H PRN 08/03/21 11/02/22 History Morphine Sulfate [Ms Contin] 30 mg PO TID 03/18/22 11/02/22 History ondansetron HCL [Zofran] 8 mg PO TID PRN 08/17/22 11/02/22 History Loratadine [Claritin] 10 mg PO DAILY #30 tab 08/18/22 11/02/22 Rx Furosemide [Lasix] 20 mg PO DAILY PRN 09/11/22 11/02/22 History Pregabalin [Lyrica] 200 mg PO BID 09/11/22 11/02/22 History Cephalexin [Keflex] 500 mg PO QID 11/02/22 11/02/22 History Ferrous Sulfate [Feosol] 325 mg PO DAILY 11/02/22 11/02/22 History Ipratropium-Albuterol Nebulize 3 ml INHALATION RT-QID PRN 11/02/22 11/02/22 History [Duoneb 0.5 mg-3 mg/3 ml Soln] Multivitamins, Thera [Multivitamin 1 tab PO DAILY 11/02/22 11/02/22 History (formulary)] Allergies Allergy/AdvReac Type Severity Reaction Status Date / Time loratadine [From Claritin-D] AdvReac Confusion Verified 11/02/22 21:44 pseudoephedrine AdvReac Confusion Verified 11/02/22 21:44 [From Claritin-D] Physical Exam Vitals: Vital Signs Temp Pulse Pulse Resp BP BP Pulse Ox 11/03/22 11:56 98 11/03/22 11:45 104 H 11/03/22 08:35 97.9 F 102 H 18 103/61 91 L 11/03/22 08:12 102 H 11/03/22 07:49 98 95 11/03/22 04:00 97.8 F 98 20 117/73 95 11/03/22 02:00 87 20 11/03/22 00:41 97 F L 87 20 89/63 94 L 11/02/22 23:13 84 20 103/65 94 L 11/02/22 19:46 98.1 F 101 H 22 157/87 83 L Intake and Output 11/02/22 11/03/22 11/03/22 22:59 06:59 14:59 Intake Total 60.5 Output Total 550 700 Balance -489.5 -700 Intake: Intake, IV Titration 60.5 Amount Heparin Sod,Pork in 0.45% 60.5 NaCl 25,000 unit In 0.45 % NaCl 1 250ml.bag @ 9. 4619 UNITS/KG/HR 10 mls/ hr IV .Q24H [facility] Rx#: [id number] Output: Urine 550 700 Other: Voiding Method Diaper Diaper External Catheter External Catheter Weight 105.687 kg 108 kg Gen.: No acute distress. HEENT: Mucosa moist. Lungs: No respiratory distress. Heart: Regular rate. Significant bilateral lower extremity edema with erythema of his lower calves bilaterally. Abdomen: Soft. Neuro: Alert and oriented 3. Skin: No jaundice. Psych: Appropriate affect. Results CBC & Chem 7: 11/03/22 05:16 11/03/22 05:16 Labs: Abnormal Lab Results - Last 24 Hours (Table) 11/02/22 11/02/22 11/02/22 Range/Units 20:10 20:10 20:10 WBC 12.9 H (3.8-10.6) k/uL RBC 3.67 L (4.30-5.90) m/uL Hgb 8.8 L (13.0-17.5) gm/dL Hct 31.1 L (39.0-53.0) % MCH 23.9 L (25.0-35.0) pg MCHC 28.2 L (31.0-37.0) g/dL RDW 15.6 H (11.5-15.5) % Plt Count 628 H (150-450) k/uL Neutrophils # 10.4 H (1.3-7.7) k/uL INR (<1.2) APTT 31.4 H (22.0-30.0) sec Chloride (98-107) mmol/L Carbon Dioxide 38 H (22-30) mmol/L Creatinine 0.50 L (0.66-1.25) mg/dL Glucose 113 H (74-99) mg/dL POC Glucose (mg/dL) (70-110) mg/dL Calcium 8.0 L (8.4-10.2) mg/dL Troponin I (0.000-0.034) ng/mL Total Protein 6.1 L (6.3-8.2) g/dL Albumin 2.6 L (3.5-5.0) g/dL Urine Protein (Negative) 11/02/22 11/02/22 11/02/22 Range/Units 20:10 21:16 23:41 WBC (3.8-10.6) k/uL RBC (4.30-5.90) m/uL Hgb (13.0-17.5) gm/dL Hct (39.0-53.0) % MCH (25.0-35.0) pg MCHC (31.0-37.0) g/dL RDW (11.5-15.5) % Plt Count (150-450) k/uL Neutrophils # (1.3-7.7) k/uL INR (<1.2) APTT (22.0-30.0) sec Chloride (98-107) mmol/L Carbon Dioxide (22-30) mmol/L Creatinine (0.66-1.25) mg/dL Glucose (74-99) mg/dL POC Glucose (mg/dL) (70-110) mg/dL Calcium (8.4-10.2) mg/dL Troponin I 0.100 H* 0.099 H* (0.000-0.034) ng/mL Total Protein (6.3-8.2) g/dL Albumin (3.5-5.0) g/dL Urine Protein Trace H (Negative) 11/03/22 11/03/22 11/03/22 Range/Units 05:16 05:16 05:16 WBC 13.7 H (3.8-10.6) k/uL RBC 3.67 L (4.30-5.90) m/uL Hgb 8.8 L (13.0-17.5) gm/dL Hct 31.5 L (39.0-53.0) % MCH 23.9 L (25.0-35.0) pg MCHC 27.8 L (31.0-37.0) g/dL RDW (11.5-15.5) % Plt Count 545 H (150-450) k/uL Neutrophils # 11.9 H (1.3-7.7) k/uL INR 1.2 H (<1.2) APTT 41.7 H (22.0-30.0) sec Chloride (98-107) mmol/L Carbon Dioxide (22-30) mmol/L Creatinine (0.66-1.25) mg/dL Glucose (74-99) mg/dL POC Glucose (mg/dL) (70-110) mg/dL Calcium (8.4-10.2) mg/dL Troponin I 0.088 H* (0.000-0.034) ng/mL Total Protein (6.3-8.2) g/dL Albumin (3.5-5.0) g/dL Urine Protein (Negative) 11/03/22 11/03/22 11/03/22 Range/Units 05:16 06:27 11:53 WBC (3.8-10.6) k/uL RBC (4.30-5.90) m/uL Hgb (13.0-17.5) gm/dL Hct (39.0-53.0) % MCH (25.0-35.0) pg MCHC (31.0-37.0) g/dL RDW (11.5-15.5) % Plt Count (150-450) k/uL Neutrophils # (1.3-7.7) k/uL INR (<1.2) APTT (22.0-30.0) sec Chloride 96 L (98-107) mmol/L Carbon Dioxide 40 H (22-30) mmol/L Creatinine 0.51 L (0.66-1.25) mg/dL Glucose 115 H (74-99) mg/dL POC Glucose (mg/dL) 113 H 138 H (70-110) mg/dL Calcium 7.5 L (8.4-10.2) mg/dL Troponin I (0.000-0.034) ng/mL Total Protein (6.3-8.2) g/dL Albumin (3.5-5.0) g/dL Urine Protein (Negative) Microbiology - Last 24 Hours (Table) 11/02/22 21:16 Wound Culture - Preliminary Foot - Right 11/02/22 21:16 Anaerobic Culture - Preliminary Foot - Right Chest x-ray: report reviewed CT scan - chest: report reviewed Venous US: report reviewed Assessment and Plan Assessment: 1. Heart failure, decompensated systolic 2. Metastatic lung cancer, bilateral lung met's, on immunotherapy 3. Increased troponin, possibly NSTEMI 4. Acute on chronic anemia 5. Leukocytosis 6. Thrombocytosis Plan: Mr. Knott is a very pleasant 62 yo male with history of multiple comorbidities including metastatic lung cancer, bilateral pulmonary met's found soon after completing chemoRT for stage III disease, on palliative opdivo and follows with and Dr. Zimmerman, here for increasing SOB and leg swelling, found to have increased trop and fluid overload, negative imaging for PE/LE DVT. being treated for CHF exacerbation and NSTEMI. Will hold immunotherapy while pt acute ill and IP. Next dose of opdivo due on 11/14/22. If pt improves and is discharged by then, can resume therapy as planned. Otherwise, he has acute on chronic anemia, new leukocytosis and stable thrombocytosis over past couple months. I suspect his anemia is due to chronic disease, possibly lower than baseline due to dilutional blood from CHF, and leukocytosis and thrombocytosis likely reactive. Will complete work up however to rule out other contributing etiology. Discussed with pt and he is agreeable to the plan. All questions answered.
[2022-11-03 16:44] LABS: Glucose,Whole Blood 140 mg/dL (70-110)
[2022-11-03] MEDS: INSULIN ASPART (NovoLOG) 100 UNIT/ML VIAL SQ SCH ×2 (16:50→20:25)
[2022-11-03 20:26] LABS: Glucose,Whole Blood 140 mg/dL (70-110)
[2022-11-04 06:35] LABS: Glucose,Whole Blood 113 mg/dL (70-110)
[2022-11-04] MEDS: INSULIN ASPART (NovoLOG) 100 UNIT/ML VIAL SQ SCH ×4 (06:42→20:15)
[2022-11-04] MEDS: IPRATROPIUM-ALBUTEROL 3 ML NEB INHALATION PRN ×4 (07:54→19:55)
[2022-11-04] MEDS ORDERED: METOPROLOL TARTRATE 25 MG TAB PO STA (09:35)
[2022-11-04] MEDS: MORPHINE SULFATE ER 30 MG TABLET PO SCH ×3 (10:09→20:19)
[2022-11-04] MEDS: FAMOTIDINE 20 MG/2 ML VIAL IV SCH ×2 (10:09→20:20)
[2022-11-04] MEDS: LORATADINE 10 MG TAB PO SCH (10:09)
[2022-11-04] MEDS: FUROSEMIDE 10 MG/ML 4 ML VIAL IV SCH ×2 (10:09→20:20)
[2022-11-04] MEDS: FERROUS SULFATE 325 MG TAB PO SCH (10:11)
[2022-11-04] MEDS: HEPARIN SODIUM,PORCINE/PF 5,000 UNIT/0.5 ML SYRINGE SQ SCH ×3 (10:11→23:01)
[2022-11-04] MEDS: CEPHALEXIN 500 MG CAP PO SCH ×3 (10:11→17:39)
[2022-11-04] MEDS: PREGABALIN 100 MG CAP PO SCH ×2 (10:11→20:19)
[2022-11-04 10:46] LABS: HCT 32.1 % (39.0-53.0); HGB 8.7 gm/dL (13.0-17.5); Hypochromasia Marked; MCH 23.4 pg (25.0-35.0); MCHC 27.3 g/dL (31.0-37.0); MCV 85.9 fL (80.0-100.0); Mean Platelet Volume 8.2; Platelet Count 536 k/uL (150-450); RBC 3.73 m/uL (4.30-5.90); RDW 15.3 % (11.5-15.5); Reticulocyte % 1.2 % (0.5-2.0); WBC 13.4 k/uL (3.8-10.6)
[2022-11-04 10:53] LABS: ALT 15 U/L (4-49); AST 22 U/L (17-59); African American GFR (CKD) >90 (>60 ml/min/1.73 sqM); Albumin 2.3 g/dL (3.5-5.0); Alkaline Phosphatase 100 U/L (38-126); Blood Urea Nitrogen 12 mg/dL (9-20); Calcium 7.5 mg/dL (8.4-10.2); Chloride 93 mmol/L (98-107); Glucose 118 mg/dL (74-99); Non-African American GFR(CKD) >90 (>60 ml/min/1.73 sqM); Potassium 3.5 mmol/L (3.5-5.1); Sodium 139 mmol/L (137-145); Total Bilirubin 0.4 mg/dL (0.2-1.3); Total Protein 5.5 g/dL (6.3-8.2)
[2022-11-04 11:04] LABS: Anion Gap 4 mmol/L; Carbon Dioxide 42 mmol/L (22-30)
[2022-11-04 11:46] LABS: Glucose,Whole Blood 118 mg/dL (70-110)
--- NOTE | 2022-11-04 12:48 | P.CONS ---
History of Present Illness - Reason for Consult Consult date: 11/04/22 wound care - History of Present Illness This is a 62-year-old patient with history of diabetes, hypertension, COPD. Who is scheduled to see the wound care center next week. Patient has a nonhealing ulceration in the right plantar foot lateral aspect with necrosis with muscle involvement. Patient has a eschar In place. The wound measures approximately 3 x 3 x 0.3 cm. No tunneling or undermining noted. The wound edges are unattached to the wound base. There is some excoriation noted to the periwound. Review Of Systems: Constitutional: No fever, no chills, no night sweats. No weight change. No weakness, fatigue or lethargy. No daytime sleepiness. Integumentary:reports wounds, no lesions. No rash or pruritus. No unusual bruising. No change in hair or nails. Physical exam: General Appearance: Alert, cooperative, no distress, appears stated age. Skin: See HPI all other Skin color, texture, tugor normal, no rashes or lesions. Neurologic: Alert oriented x3 Assessment: 1. Nonhealing ulceration of right foot with necrosis of muscle involvement 2. Diabetic foot ulcer Plan: 1. Apply santyl, saline moist gauze, dry gauze, rolled gauze and secure with tape. Change daily. Minimal weightbearing to the right foot. Thank you for the consultation any questions please contact the wound care center DNP note has been reviewed and discussed with Dr. Marsh and the impression and plan of care has been directed as dictated. Past Medical History Past Medical History: Asthma, Cancer, Heart Failure, COPD, Diabetes Mellitus, Hypertension Additional Past Medical History / Comment(s): Uses home O2 as needed only. Squamous cell carcinoma of the lung, rib lesion and lymph adenopathy, shoulder pain related to lung mass. Pancous tumor left apex History of Any Multi-Drug Resistant Organisms: MRSA Year Discovered:: 05/23/16 MDRO Source:: Left Foot Past Surgical History: Hernia Repair, Orthopedic Surgery, Tonsillectomy Additional Past Surgical History / Comment(s): lt. 5th toe amp Past Anesthesia/Blood Transfusion Reactions: No Reported Reaction Past Psychological History: Anxiety Smoking Status: Former smoker Past Alcohol Use History: None Reported Past Drug Use History: None Reported Additional Drug Use History / Comment(s): quit drinking 10 years ago in 2011, quit smoking Aug 2021 - Past Family History Sister(s) Family Medical History: Cancer Father Family Medical History: Congestive Heart Failure (CHF), Diabetes Mellitus Mother Family Medical History: Renal Disease Medications and Allergies Home Medications Medication Instructions Recorded Confirmed Type Albuterol Sulfate [Ventolin HFA] 2 puff INHALATION RT-Q4H PRN 08/03/21 11/02/22 History Morphine Sulfate [Ms Contin] 30 mg PO TID 03/18/22 11/02/22 History ondansetron HCL [Zofran] 8 mg PO TID PRN 08/17/22 11/02/22 History Loratadine [Claritin] 10 mg PO DAILY #30 tab 08/18/22 11/02/22 Rx Furosemide [Lasix] 20 mg PO DAILY PRN 09/11/22 11/02/22 History Pregabalin [Lyrica] 200 mg PO BID 09/11/22 11/02/22 History Cephalexin [Keflex] 500 mg PO QID 11/02/22 11/02/22 History Ferrous Sulfate [Feosol] 325 mg PO DAILY 11/02/22 11/02/22 History Ipratropium-Albuterol Nebulize 3 ml INHALATION RT-QID PRN 11/02/22 11/02/22 History [Duoneb 0.5 mg-3 mg/3 ml Soln] Multivitamins, Thera [Multivitamin 1 tab PO DAILY 11/02/22 11/02/22 History (formulary)] Allergies Allergy/AdvReac Type Severity Reaction Status Date / Time loratadine [From Claritin-D] AdvReac Confusion Verified 11/02/22 21:44 pseudoephedrine AdvReac Confusion Verified 11/02/22 21:44 [From Claritin-D] Physical Exam Vitals: Vital Signs Temp Pulse Pulse Pulse Resp BP Pulse Ox 11/04/22 11:49 103 H 11/04/22 11:34 100 11/04/22 10:08 99.3 F 106 H 78 22 100/61 93 L 11/04/22 08:08 100 11/04/22 07:54 104 H 11/04/22 04:00 98.3 F 78 20 101/58 93 L 11/04/22 01:50 83 20 11/03/22 23:56 83 20 103/64 95 11/03/22 20:00 98.1 F 70 21 128/68 96 11/03/22 19:56 98 11/03/22 19:44 100 11/03/22 16:23 102 H 11/03/22 16:13 100 11/03/22 15:08 98.3 F 101 H 18 120/50 91 L 11/03/22 13:35 18 Intake and Output 11/03/22 11/04/22 11/04/22 22:59 06:59 14:59 Intake Total 120 120 118 Output Total 650 725 Balance -530 120 -607 Intake: Oral 120 120 118 Output: Urine 650 725 Other: Voiding Method Diaper Diaper Diaper # Voids 2 Weight 106 kg Results CBC & Chem 7: 11/04/22 10:27 11/04/22 10:27 Labs: Abnormal Lab Results - Last 24 Hours (Table) 11/03/22 11/03/22 11/03/22 Range/Units 05:16 05:16 16:42 WBC (3.8-10.6) k/uL RBC (4.30-5.90) m/uL Hgb (13.0-17.5) gm/dL Hct (39.0-53.0) % MCH (25.0-35.0) pg MCHC (31.0-37.0) g/dL Plt Count (150-450) k/uL Chloride (98-107) mmol/L Carbon Dioxide (22-30) mmol/L Creatinine (0.66-1.25) mg/dL Glucose (74-99) mg/dL POC Glucose (mg/dL) 140 H (70-110) mg/dL Hemoglobin A1c 6.1 H (0.0-6.0) % Calcium (8.4-10.2) mg/dL Iron 15 L (65-175) ug/dL Lactate Dehydrogenase 857 H (313-618) U/L Total Protein (6.3-8.2) g/dL Albumin (3.5-5.0) g/dL 11/03/22 11/04/22 11/04/22 Range/Units 20:25 06:34 10:27 WBC 13.4 H (3.8-10.6) k/uL RBC 3.73 L (4.30-5.90) m/uL Hgb 8.7 L (13.0-17.5) gm/dL Hct 32.1 L (39.0-53.0) % MCH 23.4 L (25.0-35.0) pg MCHC 27.3 L (31.0-37.0) g/dL Plt Count 536 H (150-450) k/uL Chloride (98-107) mmol/L Carbon Dioxide (22-30) mmol/L Creatinine (0.66-1.25) mg/dL Glucose (74-99) mg/dL POC Glucose (mg/dL) 140 H 113 H (70-110) mg/dL Hemoglobin A1c (0.0-6.0) % Calcium (8.4-10.2) mg/dL Iron (65-175) ug/dL Lactate Dehydrogenase (313-618) U/L Total Protein (6.3-8.2) g/dL Albumin (3.5-5.0) g/dL 11/04/22 11/04/22 Range/Units 10:27 11:44 WBC (3.8-10.6) k/uL RBC (4.30-5.90) m/uL Hgb (13.0-17.5) gm/dL Hct (39.0-53.0) % MCH (25.0-35.0) pg MCHC (31.0-37.0) g/dL Plt Count (150-450) k/uL Chloride 93 L (98-107) mmol/L Carbon Dioxide 42 H* (22-30) mmol/L Creatinine 0.51 L (0.66-1.25) mg/dL Glucose 118 H (74-99) mg/dL POC Glucose (mg/dL) 118 H (70-110) mg/dL Hemoglobin A1c (0.0-6.0) % Calcium 7.5 L (8.4-10.2) mg/dL Iron (65-175) ug/dL Lactate Dehydrogenase (313-618) U/L Total Protein 5.5 L (6.3-8.2) g/dL Albumin 2.3 L (3.5-5.0) g/dL Microbiology - Last 24 Hours (Table) 11/02/22 21:16 Gram Stain - Preliminary Foot - Right Wound Culture - Preliminary Presumptive Staph aureus 11/02/22 21:16 Anaerobic Culture - Preliminary Foot - Right Assessment and Plan (1) Non-pressure chronic ulcer of other part of right foot with necrosis of muscle Current Visit: Yes Status: Acute Code(s): L97.513 - NON-PRS CHRONIC ULCER OTH PRT RIGHT FOOT W NECROS MUSCLE SNOMED Code(s): 28545613962287272 (2) Type 2 diabetes mellitus with foot ulcer Current Visit: Yes Status: Acute Code(s): E11.621 - TYPE 2 DIABETES MELLITUS WITH FOOT ULCER; L97.509 - NON-PRESSURE CHRONIC ULCER OTH PRT UNSP FOOT W UNSP SEVERITY SNOMED Code(s): 120230775
--- NOTE | 2022-11-04 13:06 | P.PN ---
Subjective This is a 62-year-old male with a past medical history of lung cancer on palliative therapy follows with Dr. Zimmerman, asthma, type 2 diabetes, hyperten francia, COPD, former tobacco use. 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 We are consulted for elevated troponin. Patient presents emergency department with worsening shortness of breath and dyspnea on exertion and lower extremity edema. There was concern for congestive heart failure and patient was started on IV Lasix. He underwent an echocardiogram that revealed normal LV systolic function, moderate aortic stenosis with a peak gradient of 37 mmHg, mean gradient of 22 mmHg, mild mitral stenosis. Patient seen and examined at bedside, no acute distress. BP 100/61 HR 106. He continues to be on IV Lasix. Patient with 1.1 L urine output over the past 24 hours. Also being treated for an acute COPD exacerbation. GENERAL: In no acute distress. NECK: Supple without JVD or thyromegaly. LUNGS: Breath sounds crackles in bases to auscultation bilaterally. Respiration equal and unlabored. No wheezes, rales or rhonchi. HEART: Regular rate and rhythm without murmurs, rubs or gallops. S1 and S2 heard. EXTREMITIES: Normal range of motion, 2+bilateral lower extremity edema. No clubbing or cyanosis. Peripheral pulses intact. ASSESSMENT Acute on chronic heart failure with preserved ejection fraction COPD exacerbation Mildly elevated troponin, unclear significance Lung carcinoma, on immunotherapy, metastatic Hypertension COPD Former tobacco use Type 2 diabetes Nonhealing ulceration of right foot Diabetic foot ulcer PLAN Continue IV Lasix for additional 24 hours Monitor I/Os, daily weights, renal function and electrolytes Increase metoprolol tartrate 25mg BID Further recommendations based on clinical course Nurse Practitioner note has been reviewed, I agree with a documented findings and plan of care. Patient was seen and examined. Objective - Vital Signs Vital signs: Vital Signs Temp 99.3 F 11/04/22 10:08 Pulse 103 H 11/04/22 11:49 Resp 22 11/04/22 10:08 BP 100/61 11/04/22 10:08 Pulse Ox 93 L 11/04/22 10:08 FiO2 Intake & Output 11/03/22 11/04/22 11/04/22 18:59 06:59 18:59 Intake Total 240 118 Output Total 700 650 725 Balance -700 410 -029 Weight 106 kg Intake: Oral 240 118 Output: Urine 700 650 725 Other: Voiding Method Diaper Diaper Diaper # Voids 1 2 - Labs CBC & Chem 7: 11/04/22 10:27 11/04/22 10:27 Labs: Abnormal Lab Results - Last 24 Hours (Table) 11/03/22 11/03/22 11/03/22 Range/Units 05:16 05:16 16:42 WBC (3.8-10.6) k/uL RBC (4.30-5.90) m/uL Hgb (13.0-17.5) gm/dL Hct (39.0-53.0) % MCH (25.0-35.0) pg MCHC (31.0-37.0) g/dL Plt Count (150-450) k/uL Chloride (98-107) mmol/L Carbon Dioxide (22-30) mmol/L Creatinine (0.66-1.25) mg/dL Glucose (74-99) mg/dL POC Glucose (mg/dL) 140 H (70-110) mg/dL Hemoglobin A1c 6.1 H (0.0-6.0) % Calcium (8.4-10.2) mg/dL Iron 15 L (65-175) ug/dL Lactate Dehydrogenase 857 H (313-618) U/L Total Protein (6.3-8.2) g/dL Albumin (3.5-5.0) g/dL 11/03/22 11/04/22 11/04/22 Range/Units 20:25 06:34 10:27 WBC 13.4 H (3.8-10.6) k/uL RBC 3.73 L (4.30-5.90) m/uL Hgb 8.7 L (13.0-17.5) gm/dL Hct 32.1 L (39.0-53.0) % MCH 23.4 L (25.0-35.0) pg MCHC 27.3 L (31.0-37.0) g/dL Plt Count 536 H (150-450) k/uL Chloride (98-107) mmol/L Carbon Dioxide (22-30) mmol/L Creatinine (0.66-1.25) mg/dL Glucose (74-99) mg/dL POC Glucose (mg/dL) 140 H 113 H (70-110) mg/dL Hemoglobin A1c (0.0-6.0) % Calcium (8.4-10.2) mg/dL Iron (65-175) ug/dL Lactate Dehydrogenase (313-618) U/L Total Protein (6.3-8.2) g/dL Albumin (3.5-5.0) g/dL 11/04/22 11/04/22 Range/Units 10:27 11:44 WBC (3.8-10.6) k/uL RBC (4.30-5.90) m/uL Hgb (13.0-17.5) gm/dL Hct (39.0-53.0) % MCH (25.0-35.0) pg MCHC (31.0-37.0) g/dL Plt Count (150-450) k/uL Chloride 93 L (98-107) mmol/L Carbon Dioxide 42 H* (22-30) mmol/L Creatinine 0.51 L (0.66-1.25) mg/dL Glucose 118 H (74-99) mg/dL POC Glucose (mg/dL) 118 H (70-110) mg/dL Hemoglobin A1c (0.0-6.0) % Calcium 7.5 L (8.4-10.2) mg/dL Iron (65-175) ug/dL Lactate Dehydrogenase (313-618) U/L Total Protein 5.5 L (6.3-8.2) g/dL Albumin 2.3 L (3.5-5.0) g/dL Microbiology - Last 24 Hours (Table) 11/02/22 21:16 Gram Stain - Preliminary Foot - Right Wound Culture - Preliminary Presumptive Staph aureus 11/02/22 21:16 Anaerobic Culture - Preliminary Foot - Right
[2022-11-04] MEDS: COLLAGENASE 250 UNIT/GM OINTMENT 30 GM TUBE TOPICAL SCH (14:00)
[2022-11-04 16:43] LABS: Glucose,Whole Blood 133 mg/dL (70-110)
[2022-11-04] MEDS: METOPROLOL TARTRATE 12.5 MG TAB PO SCH (19:01)
--- NOTE | 2022-11-04 19:46 | P.PN ---
Subjective History of present illness; patient is a 62-year-old gentleman with past medical history significant for lung cancer on immunotherapy, congestive heart Failure, COPD, asthma who presented to the ER because of worsening shortness of breath and swelling of legs. Patient has been noticing increasing shortness of breath on exertion for the last couple of days associated with increased swelling of legs. Patient was on diuretics at home but stated that it was not working and he continues to be short of breath. Patient also currently on antibiotics for right foot wound. Because of this worsening shortness of breath and swelling of legs patient came to the ER. Initial lab work showed patient to have a white count of 12.9, hemoglobin of 8.8, platelet count of 628, sodium 137, potassium 4.3, carbon dioxide 38, troponin 0.1. CTA chest done showed no evidence of pulmonary embolism. It did show pleural thickening and destructive changes in the left upper ribs. Large mass involving the upper limits of chest wall was also seen. Patient was admitted to hospitalist service for further evaluation and treatment 11/04/2022 Patient still complaining of from dyspnea he says the same but no chest pain and no significant cough and He has chronic left shoulder pain and swelling of the left upper extremity related to his cancer Also he has evidence of right foot infection with no evidence of cellulitis, he has diabetic foot ulcer on the sole with black eschar He is in 2 L oxygen via nasal cannula Oncology team are on the case and the recommend to resume immunotherapy on 11/14 if he is stable, no recent chemotherapy Objective - Vital Signs Vital signs: Vital Signs Temp 98.7 F 11/04/22 13:30 Pulse 93 11/04/22 15:31 Resp 20 11/04/22 14:00 BP 96/56 11/04/22 13:30 Pulse Ox 95 11/04/22 13:30 FiO2 Intake & Output 11/03/22 11/04/22 11/04/22 18:59 06:59 18:59 Intake Total 240 298 Output Total 700 650 725 Balance -700 410 -427 Weight 106 kg 106 kg Intake: Oral 240 298 Output: Urine 700 650 725 Other: Voiding Method Diaper Diaper Diaper # Voids 1 2 - Exam GENERAL: The patient is alert and oriented x3, not in any acute distress. Well developed, well nourished. HEENT: Pupils are round and equally reacting to light. EOMI. No scleral icterus. No conjunctival pallor. Normocephalic, atraumatic. No pharyngeal erythema. No thyromegaly. CARDIOVASCULAR: S1 and S2 present. No murmurs, rubs, or gallops. -PULMONARY: Chest is clear to auscultation, no wheezing . Bilateral basal or crackles. ABDOMEN: Soft, nontender, nondistended, normoactive bowel sounds. No palpable organomegaly. MUSCULOSKELETAL: No joint swelling or deformity. -EXTREMITIES: No cyanosis, clubbing, or pedal mild B/L Lucio edema. Left upper extremities as well as with limitation of movement [chronic] right foot ulcer on the sole with black eschar on the top, no surrounding cellulitis NEUROLOGICAL: Gross neurological examination did not reveal any focal deficits. SKIN: No rashes. no petechiae. - Labs CBC & Chem 7: 11/04/22 10:27 11/04/22 10:27 Labs: Abnormal Lab Results - Last 24 Hours (Table) 11/03/22 11/03/22 11/03/22 Range/Units 05:16 05:16 16:42 WBC (3.8-10.6) k/uL RBC (4.30-5.90) m/uL Hgb (13.0-17.5) gm/dL Hct (39.0-53.0) % MCH (25.0-35.0) pg MCHC (31.0-37.0) g/dL Plt Count (150-450) k/uL Chloride (98-107) mmol/L Carbon Dioxide (22-30) mmol/L Creatinine (0.66-1.25) mg/dL Glucose (74-99) mg/dL POC Glucose (mg/dL) 140 H (70-110) mg/dL Hemoglobin A1c 6.1 H (0.0-6.0) % Calcium (8.4-10.2) mg/dL Iron 15 L (65-175) ug/dL Total Protein (6.3-8.2) g/dL Albumin (3.5-5.0) g/dL 11/03/22 11/04/22 11/04/22 Range/Units 20:25 06:34 10:27 WBC 13.4 H (3.8-10.6) k/uL RBC 3.73 L (4.30-5.90) m/uL Hgb 8.7 L (13.0-17.5) gm/dL Hct 32.1 L (39.0-53.0) % MCH 23.4 L (25.0-35.0) pg MCHC 27.3 L (31.0-37.0) g/dL Plt Count 536 H (150-450) k/uL Chloride (98-107) mmol/L Carbon Dioxide (22-30) mmol/L Creatinine (0.66-1.25) mg/dL Glucose (74-99) mg/dL POC Glucose (mg/dL) 140 H 113 H (70-110) mg/dL Hemoglobin A1c (0.0-6.0) % Calcium (8.4-10.2) mg/dL Iron (65-175) ug/dL Total Protein (6.3-8.2) g/dL Albumin (3.5-5.0) g/dL 11/04/22 11/04/22 Range/Units 10:27 11:44 WBC (3.8-10.6) k/uL RBC (4.30-5.90) m/uL Hgb (13.0-17.5) gm/dL Hct (39.0-53.0) % MCH (25.0-35.0) pg MCHC (31.0-37.0) g/dL Plt Count (150-450) k/uL Chloride 93 L (98-107) mmol/L Carbon Dioxide 42 H* (22-30) mmol/L Creatinine 0.51 L (0.66-1.25) mg/dL Glucose 118 H (74-99) mg/dL POC Glucose (mg/dL) 118 H (70-110) mg/dL Hemoglobin A1c (0.0-6.0) % Calcium 7.5 L (8.4-10.2) mg/dL Iron (65-175) ug/dL Total Protein 5.5 L (6.3-8.2) g/dL Albumin 2.3 L (3.5-5.0) g/dL Microbiology - Last 24 Hours (Table) 11/02/22 21:16 Gram Stain - Preliminary Foot - Right Wound Culture - Preliminary Presumptive Staph aureus Assessment and Plan Assessment: Acute onset congestive heart failure. None STEMI with elevated troponin Moderate aortic stenosis Lung cancer with multiple nodular pulmonary metastasis throughout both lung jarvis Chronic left shoulder pain and swelling of the left upper extremity related to his history of cancer Right foot infection with staph Right foot wound Lung cancer Diabetes mellitus Hypertension Plan: Continue with IV Lasix Strict I's and O's Daily weights. Monitor renal functions Change antibiotics into doxycycline and follow-up wound culture Consult cardiology. Consult hematology oncology. Consult wound care Labs and medication were reviewed.. Continue same treatment. Continue with symptomatic treatment. Resume home medication. Monitor lytes and vitals. DVT and GI prophylaxis. Further recommendations as per clinical course of the patient DVT prophylaxis: Subcutaneous heparin GI Prophylaxis: Pepcid Prognosis is guarded
[2022-11-04 20:05] LABS: Glucose,Whole Blood 118 mg/dL (70-110)
[2022-11-04] MEDS: DOXYCYCLINE 100 MG CAP PO SCH (20:19)
[2022-11-04] MEDS: METOPROLOL TARTRATE 25 MG TAB PO SCH (20:19)
[2022-11-05 06:03] LABS: Glucose,Whole Blood 122 mg/dL (70-110)
[2022-11-05] MEDS: INSULIN ASPART (NovoLOG) 100 UNIT/ML VIAL SQ SCH ×4 (06:04→20:13)
[2022-11-05 09:04] LABS: HGB 8.9 gm/dL (13.0-17.5); Hypochromasia Marked; MCH 23.9 pg (25.0-35.0); MCHC 27.9 g/dL (31.0-37.0); MCV 85.7 fL (80.0-100.0); Mean Platelet Volume 7.4; Platelet Count 528 k/uL (150-450); RBC 3.73 m/uL (4.30-5.90); RDW 15.3 % (11.5-15.5); WBC 12.3 k/uL (3.8-10.6)
[2022-11-05 09:15] LABS: African American GFR (CKD) >90 (>60 ml/min/1.73 sqM); Blood Urea Nitrogen 14 mg/dL (9-20); Calcium 7.7 mg/dL (8.4-10.2); Chloride 89 mmol/L (98-107); Glucose 100 mg/dL (74-99); Non-African American GFR(CKD) >90 (>60 ml/min/1.73 sqM); Potassium 4.1 mmol/L (3.5-5.1); Sodium 138 mmol/L (137-145)
[2022-11-05] MEDS: IPRATROPIUM-ALBUTEROL 3 ML NEB INHALATION PRN (09:21)
[2022-11-05 09:22] LABS: Anion Gap 3 mmol/L
[2022-11-05 09:29] LABS: Carbon Dioxide 46 mmol/L (22-30)
[2022-11-05] MEDS: PREGABALIN 100 MG CAP PO SCH ×2 (09:34→20:12)
[2022-11-05] MEDS: MORPHINE SULFATE ER 30 MG TABLET PO SCH ×3 (09:34→20:11)
[2022-11-05] MEDS: HEPARIN SODIUM,PORCINE/PF 5,000 UNIT/0.5 ML SYRINGE SQ SCH ×3 (09:34→23:36)
[2022-11-05] MEDS: COLLAGENASE 250 UNIT/GM OINTMENT 30 GM TUBE TOPICAL SCH (09:36)
[2022-11-05] MEDS: LORATADINE 10 MG TAB PO SCH (09:36)
[2022-11-05] MEDS: FERROUS SULFATE 325 MG TAB PO SCH (09:36)
[2022-11-05] MEDS: FUROSEMIDE 40 MG TAB PO SCH ×2 (09:36→16:05)
[2022-11-05] MEDS: FAMOTIDINE 20 MG/2 ML VIAL IV SCH (09:36)
[2022-11-05] MEDS: METOPROLOL TARTRATE 25 MG TAB PO SCH ×2 (09:36→20:12)
[2022-11-05] MEDS: DOXYCYCLINE 100 MG CAP PO SCH ×2 (09:40→20:13)
--- NOTE | 2022-11-05 10:52 | P.PN ---
Subjective History of present illness; patient is a 62-year-old gentleman with past medical history significant for lung cancer on immunotherapy, congestive heart Failure, COPD, asthma who presented to the ER because of worsening shortness of breath and swelling of legs. Patient has been noticing increasing shortness of breath on exertion for the last couple of days associated with increased swelling of legs. Patient was on diuretics at home but stated that it was not working and he continues to be short of breath. Patient also currently on antibiotics for right foot wound. Because of this worsening shortness of breath and swelling of legs patient came to the ER. Initial lab work showed patient to have a white count of 12.9, hemoglobin of 8.8, platelet count of 628, sodium 137, potassium 4.3, carbon dioxide 38, troponin 0.1. CTA chest done showed no evidence of pulmonary embolism. It did show pleural thickening and destructive changes in the left upper ribs. Large mass involving the upper limits of chest wall was also seen. Patient was admitted to hospitalist service for further evaluation and treatment 11/04/2022 Patient still complaining of from dyspnea he says the same but no chest pain and no significant cough and He has chronic left shoulder pain and swelling of the left upper extremity related to his cancer Also he has evidence of right foot infection with no evidence of cellulitis, he has diabetic foot ulcer on the sole with black eschar He is in 2 L oxygen via nasal cannula Oncology team are on the case and the recommend to resume immunotherapy on 11/14 if he is stable, no recent chemotherapy 11/05/2022 Patient breathing is improving however patient is still hypoxic 88-92% on 4 L oxygen via nasal cannula His with non-STEMI moderate aortic stenosis and CHF, he is on IV Lasix was switched to oral dose today. 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 His WBC is 12,000, hemoglobin 8.9. Pulmonary team were consulted today Patient informed about his next immunotherapy appointment on 11/14 and vision and at bedside agreeable. Patient has home oxygen of 2 L/m because of his cancer he is on morphine 3 times a day each make him little bit more sleepy which is expected. Also patient has constipation so Colace and senna was added Objective - Vital Signs Vital signs: Vital Signs Temp 98.1 F 11/05/22 09:35 Pulse 88 11/05/22 09:35 Resp 20 11/05/22 09:35 BP 105/66 11/05/22 09:35 Pulse Ox 90 L 11/05/22 09:35 FiO2 Intake & Output 11/04/22 11/05/22 11/05/22 18:59 06:59 18:59 Intake Total 298 Output Total 725 250 Balance -427 -250 Weight 106 kg 105.5 kg Intake: Oral 298 Output: Urine 725 250 Other: Voiding Method Diaper Diaper - Exam GENERAL: The patient is alert and oriented x3, not in any acute distress. Well developed, well nourished. HEENT: Pupils are round and equally reacting to light. EOMI. No scleral icterus. No conjunctival pallor. Normocephalic, atraumatic. No pharyngeal erythema. No thyromegaly. CARDIOVASCULAR: S1 and S2 present. No murmurs, rubs, or gallops. -PULMONARY: Chest is clear to auscultation, no wheezing . Bilateral basal or crackles. ABDOMEN: Soft, nontender, nondistended, normoactive bowel sounds. No palpable organomegaly. MUSCULOSKELETAL: No joint swelling or deformity. -EXTREMITIES: No cyanosis, clubbing, or pedal mild B/L Lucio edema. Left upper extremities as well as with limitation of movement [chronic] right foot ulcer on the sole with black eschar on the top, no surrounding cellulitis NEUROLOGICAL: Gross neurological examination did not reveal any focal deficits. SKIN: No rashes. no petechiae. - Labs CBC & Chem 7: 11/05/22 08:29 11/05/22 08:29 Labs: Abnormal Lab Results - Last 24 Hours (Table) 11/04/22 11/04/22 11/04/22 Range/Units 10:27 11:44 16:42 WBC (3.8-10.6) k/uL RBC (4.30-5.90) m/uL Hgb (13.0-17.5) gm/dL Hct (39.0-53.0) % MCH (25.0-35.0) pg MCHC (31.0-37.0) g/dL Plt Count (150-450) k/uL Chloride 93 L (98-107) mmol/L Carbon Dioxide 42 H* (22-30) mmol/L Creatinine 0.51 L (0.66-1.25) mg/dL Glucose 118 H (74-99) mg/dL POC Glucose (mg/dL) 118 H 133 H (70-110) mg/dL Calcium 7.5 L (8.4-10.2) mg/dL Total Protein 5.5 L (6.3-8.2) g/dL Albumin 2.3 L (3.5-5.0) g/dL 11/04/22 11/05/22 11/05/22 Range/Units 20:04 06:01 08:29 WBC 12.3 H (3.8-10.6) k/uL RBC 3.73 L (4.30-5.90) m/uL Hgb 8.9 L (13.0-17.5) gm/dL Hct 32.0 L (39.0-53.0) % MCH 23.9 L (25.0-35.0) pg MCHC 27.9 L (31.0-37.0) g/dL Plt Count 528 H (150-450) k/uL Chloride (98-107) mmol/L Carbon Dioxide (22-30) mmol/L Creatinine (0.66-1.25) mg/dL Glucose (74-99) mg/dL POC Glucose (mg/dL) 118 H 122 H (70-110) mg/dL Calcium (8.4-10.2) mg/dL Total Protein (6.3-8.2) g/dL Albumin (3.5-5.0) g/dL 11/05/22 Range/Units 08:29 WBC (3.8-10.6) k/uL RBC (4.30-5.90) m/uL Hgb (13.0-17.5) gm/dL Hct (39.0-53.0) % MCH (25.0-35.0) pg MCHC (31.0-37.0) g/dL Plt Count (150-450) k/uL Chloride 89 L (98-107) mmol/L Carbon Dioxide 46 H* (22-30) mmol/L Creatinine 0.51 L (0.66-1.25) mg/dL Glucose 100 H (74-99) mg/dL POC Glucose (mg/dL) (70-110) mg/dL Calcium 7.7 L (8.4-10.2) mg/dL Total Protein (6.3-8.2) g/dL Albumin (3.5-5.0) g/dL Microbiology - Last 24 Hours (Table) 11/02/22 21:16 Gram Stain - Preliminary Foot - Right Wound Culture - Preliminary Presumptive Staph aureus Assessment and Plan Assessment: Acute onset congestive heart failure. None STEMI with elevated troponin Moderate aortic stenosis Lung cancer with multiple nodular pulmonary metastasis throughout both lung jarvis Chronic left shoulder pain and swelling of the left upper extremity related to his history of cancer Right foot infection with staph Acute on chronic hypoxic respiratory failure Right foot wound Lung cancer Diabetes mellitus Hypertension Plan: Continue with IV Lasix Strict I's and O's Daily weights. Monitor renal functions Change antibiotics into doxycycline and follow-up wound culture Consult cardiology. Pulmonary team consult Consult hematology oncology. Consult wound care Labs and medication were reviewed.. Continue same treatment. Continue with symptomatic treatment. Resume home medication. Monitor lytes and vitals. DVT and GI prophylaxis. Further recommendations as per clinical course of the patient DVT prophylaxis: Subcutaneous heparin GI Prophylaxis: Pepcid Prognosis is guarded
[2022-11-05 11:51] LABS: Glucose,Whole Blood 205 mg/dL (70-110)
[2022-11-05] MEDS: IPRATROPIUM-ALBUTEROL 3 ML NEB INHALATION SCH ×3 (11:52→20:38)
--- NOTE | 2022-11-05 12:10 | P.PN ---
Subjective This is a 62-year-old male with a past medical history of lung cancer on palliative therapy follows with Dr. Zimmerman, asthma, type 2 diabetes, hyperten francia, COPD, former tobacco use. 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 We are consulted for elevated troponin. Patient presents emergency department with worsening shortness of breath and dyspnea on exertion and lower extremity edema. There was concern for congestive heart failure and patient was started on IV Lasix. He underwent an echocardiogram that revealed normal LV systolic function, moderate aortic stenosis with a peak gradient of 37 mmHg, mean gradient of 22 mmHg, mild mitral stenosis. Patient seen and examined at bedside, no acute distress. Heart rates have improved. BP 105/66 HR 88. He continues to be on IV Lasix. Patient with -725mL fluid balance. Also being treated for an acute COPD exacerbation. GENERAL: In no acute distress. NECK: Supple without JVD LUNGS: Breath sounds diminished in bases to auscultation bilaterally. Respiration equal and unlabored. No wheezes, rales or rhonchi. HEART: Regular rate and rhythm without murmurs, rubs or gallops. S1 and S2 heard. EXTREMITIES: Normal range of motion, 1+bilateral lower extremity edema. No clubbing or cyanosis. Peripheral pulses intact. ASSESSMENT Acute on chronic heart failure with preserved ejection fraction COPD exacerbation Mildly elevated troponin, unclear significance Lung carcinoma, on immunotherapy, metastatic Hypertension COPD Former tobacco use Type 2 diabetes Nonhealing ulceration of right foot Diabetic foot ulcer PLAN Transition to PO Lasix 40mg BID Monitor I/Os, daily weights, renal function and electrolytes, while inpatient Continue metoprolol tartrate 25mg BID Patient is currently stable from a cardiology perspective Further recommendations based on clinical course Nurse Practitioner note has been reviewed, I agree with a documented findings and plan of care. Patient was seen and examined. Objective - Vital Signs Vital signs: Vital Signs Temp 98.1 F 11/05/22 09:35 Pulse 84 11/05/22 12:04 Resp 20 11/05/22 12:04 BP 105/66 11/05/22 09:35 Pulse Ox 90 L 11/05/22 09:35 FiO2 Intake & Output 11/04/22 11/05/22 11/05/22 18:59 06:59 18:59 Intake Total 298 Output Total 725 250 Balance -427 -250 Weight 106 kg 105.5 kg Intake: Oral 298 Output: Urine 725 250 Other: Voiding Method Diaper Diaper Diaper - Labs CBC & Chem 7: 11/05/22 08:29 11/05/22 08:29 Labs: Abnormal Lab Results - Last 24 Hours (Table) 11/04/22 11/04/22 11/05/22 Range/Units 16:42 20:04 06:01 WBC (3.8-10.6) k/uL RBC (4.30-5.90) m/uL Hgb (13.0-17.5) gm/dL Hct (39.0-53.0) % MCH (25.0-35.0) pg MCHC (31.0-37.0) g/dL Plt Count (150-450) k/uL Chloride (98-107) mmol/L Carbon Dioxide (22-30) mmol/L Creatinine (0.66-1.25) mg/dL Glucose (74-99) mg/dL POC Glucose (mg/dL) 133 H 118 H 122 H (70-110) mg/dL Calcium (8.4-10.2) mg/dL 11/05/22 11/05/22 11/05/22 Range/Units 08:29 08:29 11:49 WBC 12.3 H (3.8-10.6) k/uL RBC 3.73 L (4.30-5.90) m/uL Hgb 8.9 L (13.0-17.5) gm/dL Hct 32.0 L (39.0-53.0) % MCH 23.9 L (25.0-35.0) pg MCHC 27.9 L (31.0-37.0) g/dL Plt Count 528 H (150-450) k/uL Chloride 89 L (98-107) mmol/L Carbon Dioxide 46 H* (22-30) mmol/L Creatinine 0.51 L (0.66-1.25) mg/dL Glucose 100 H (74-99) mg/dL POC Glucose (mg/dL) 205 H (70-110) mg/dL Calcium 7.7 L (8.4-10.2) mg/dL Microbiology - Last 24 Hours (Table) 11/02/22 21:16 Gram Stain - Preliminary Foot - Right Wound Culture - Preliminary Presumptive Staph aureus
[2022-11-05] MEDS: DOCUSATE 100 MG CAP PO SCH ×2 (12:23→20:11)
[2022-11-05] MEDS: SENNOSIDES 8.6 MG TAB PO PRN (12:23)
--- NOTE | 2022-11-05 12:45 | CDI ---
Documentation Clarification Form Date: 11/05/2022 12:36:04 PM From: Dinah Brennan CCS, CCDS Admit Date: 11/02/2022 10:38:00 PM Patient Name: Alpa Knott Visit Number: [id number] Discharge Date: ATTENTION: The Clinical Documentation Specialists (CDI) and [facility] Coding Staff appreciate your assistance in clarifying documentation. Please respond to the clarification below the line at the bottom and electronically sign. The CDI & [facility] Coding staff will review the response and follow-up if needed. Please note: Queries are made part of the Legal Health Record. If you have any questions, please contact the author of this message via ITS. Dr. Tracee Moore: Acute on Chronic Anemia is documented in the 11/03 Oncology Consult without further specificity. Additional specificity regarding the Type & Acuity of Anemia is requested. History/Risk Factors per the 11/03 H/P: Lung Cancer on Immunotherapy, CHF, COPD, Asthma, Hypertension, Diabetes mellitus, MRSA left foot, Anxiety, Former smoker. Clinical indicators: Presented to the ED on 11/02 with worsening SOB and right lower extremity edema, left upper extremity edema and facial edema. Admit with CHF, NSTEMI (ruled out by Cardiology), Cancer, Wound on foot and Pleural Effusion. Hemoglobin 11/02: 8.8. 11/03: 8.8. 11/04: 8.7. 11/05: 8.9. Hematocrit 11/02: 31.1. 11/03: 31.5. 11/04: 32.1. 11/05: 32.0. 11/03 Iron Profile: Iron 15, TIBC pending, % Saturation pending. Treatment 11/02: Telemetry, Aerobic Wound culture right foot, Anaerobic wound culture, O2, IV Ativan 1 mg x1, IV Lasix 40 mg x1, INH Ventolin 2.5 mg q4H/prn, INH Duoneb 3 ml QID/prn, IV Heparin drip. 11/03: Iron profile ordered. Please clarify the Type & Acuity of Anemia: [ ] Acute on chronic blood loss anemia [ ] Chronic blood loss anemia [ ] Iron deficiency anemia [ ] Hemolytic anemia [ ] Drug induced anemia [ ] Anemia due to malignancy [ ] Nutritional anemia [ ] Anemia of chronic disease [ ] Unable to determine [ ] Other, please specify (Template Last Revised: January 2021) MTDD
[2022-11-05 12:47] LABS: % Iron Saturation 7.55 (15.00-50.00)
--- NOTE | 2022-11-05 14:02 | P.CNPUL ---
History of Present Illness Consult date: 11/05/22 Reason for consult: dyspnea, cough, COPD, hypoxemia, pneumonia, lung mass Chief complaint: Progressive shortness of breath History of present illness: Patient is a 62-year-old male with prior medical history of lung cancer has been on immunotherapy with Dr. Shaikh also has a history of chronic hypoxic respiratory failure on home oxygen 2 L history of smoking and nicotine use hypertension hypertensive cardiovascular disease. Patient presented into the hospital with increasing shortness of breath of several day duration as well as increasing lower extremity swelling currently patient has been on IV Lasix switched to by mouth, and responding well in addition patient has been on bronchodilator doxycycline and his home medications, echocardiogram revealed normal LV function with moderate aortic stenosis with a peak gradient is 37 and a mean gradient 22 and mild mitral stenosis patient has been in negative balance. Chest x-ray on admission revealed bilateral pulmonary infiltrate with pleural thickening increase more so on the right side compared to left side, venous Doppler study of the negative for DVT, computed tomography scan of the chest revealed no evidence of pulmonary embolism, pleural thickening and destructive changes noted in the left upper lateral leads along with large mass in the upper lateral chest wall, and multiple nodular nodular masses bilaterally in lung field with right- sided pleural effusion, effusion has increased compared to prior exam in October 2022 Review of Systems All systems: negative Past Medical History Past Medical History: Asthma, Cancer, Heart Failure, COPD, Diabetes Mellitus, Hypertension Additional Past Medical History / Comment(s): Uses home O2 as needed only. Squamous cell carcinoma of the lung, rib lesion and lymph adenopathy, shoulder pain related to lung mass. Pancous tumor left apex History of Any Multi-Drug Resistant Organisms: MRSA Date of last positivie culture/infection: 05/23/16 MDRO Source:: Left Foot Past Surgical History: Hernia Repair, Orthopedic Surgery, Tonsillectomy Additional Past Surgical History / Comment(s): lt. 5th toe amp Past Anesthesia/Blood Transfusion Reactions: No Reported Reaction Past Psychological History: Anxiety Smoking Status: Former smoker Past Alcohol Use History: None Reported Past Drug Use History: None Reported Additional Drug Use History / Comment(s): quit drinking 10 years ago in 2011, quit smoking Aug 2021 - Past Family History Sister(s) Family Medical History: Cancer Father Family Medical History: Congestive Heart Failure (CHF), Diabetes Mellitus Mother Family Medical History: Renal Disease Medications and Allergies Home Medications Medication Instructions Recorded Confirmed Type Albuterol Sulfate [Ventolin HFA] 2 puff INHALATION RT-Q4H PRN 08/03/21 11/02/22 History Morphine Sulfate [Ms Contin] 30 mg PO TID 03/18/22 11/02/22 History ondansetron HCL [Zofran] 8 mg PO TID PRN 08/17/22 11/02/22 History Loratadine [Claritin] 10 mg PO DAILY #30 tab 08/18/22 11/02/22 Rx Furosemide [Lasix] 20 mg PO DAILY PRN 09/11/22 11/02/22 History Pregabalin [Lyrica] 200 mg PO BID 09/11/22 11/02/22 History Cephalexin [Keflex] 500 mg PO QID 11/02/22 11/02/22 History Ferrous Sulfate [Feosol] 325 mg PO DAILY 11/02/22 11/02/22 History Ipratropium-Albuterol Nebulize 3 ml INHALATION RT-QID PRN 11/02/22 11/02/22 History [Duoneb 0.5 mg-3 mg/3 ml Soln] Multivitamins, Thera [Multivitamin 1 tab PO DAILY 11/02/22 11/02/22 History (formulary)] Allergies Allergy/AdvReac Type Severity Reaction Status Date / Time loratadine [From Claritin-D] AdvReac Confusion Verified 11/02/22 21:44 pseudoephedrine AdvReac Confusion Verified 11/02/22 21:44 [From Claritin-D] Physical Exam Vitals: Vital Signs Temp Pulse Pulse Pulse Resp BP Pulse Ox 11/05/22 12:25 98.2 F 89 18 102/63 90 L 11/05/22 12:04 84 20 11/05/22 11:53 88 20 11/05/22 09:35 98.1 F 88 20 105/66 90 L 11/05/22 09:31 88 18 11/05/22 09:21 86 18 88 L 11/05/22 04:00 77 19 102/60 93 L 11/05/22 02:00 83 19 11/05/22 00:00 83 19 99/58 92 L 11/04/22 20:08 84 11/04/22 20:00 98.1 F 84 78 20 104/66 91 L 11/04/22 19:55 85 90 L 11/04/22 17:35 98.7 F 90 20 94/56 95 11/04/22 15:31 93 11/04/22 15:21 93 11/04/22 14:00 20 Intake and Output 11/04/22 11/05/22 11/05/22 22:59 06:59 14:59 Intake Total 240 Output Total 250 Balance -10 Intake: Oral 240 Output: Urine 250 Other: Voiding Method Diaper Diaper Diaper Weight 105.5 kg - Constitutional General appearance: average body habitus, cooperative, disheveled, mild distress - EENT Eyes: EOMI, PERRLA ENT: normal oropharynx Ears: bilateral: normal - Neck Carotids: bilateral: upstroke normal - Respiratory Respiratory: bilateral: diminished, dullness (Bilaterally in the bases) - Cardiovascular Rhythm: regular Heart sounds: normal: S1, S2 - Gastrointestinal General gastrointestinal: hyperactive bowel sounds - Integumentary Bilateral pedal edema with chronic skin changes Integumentary: decreased turgor - Neurologic Neurologic: CNII-XII intact - Musculoskeletal Musculoskeletal: gait normal, generalized weakness, strength equal bilaterally - Psychiatric Psychiatric: A&O x's 3, appropriate affect, intact judgment & insight Results - Laboratory Findings CBC and BMP: 11/05/22 08:29 11/05/22 08:29 PT/INR, D-dimer PT 12.0 sec (9.0-12.0) 11/03/22 05:16 INR 1.2 (<1.2) H 11/03/22 05:16 Abnormal lab findings: Abnormal Labs 11/02/22 11/02/22 11/02/22 20:10 20:10 20:10 WBC 12.9 H RBC 3.67 L Hgb 8.8 L Hct 31.1 L MCH 23.9 L MCHC 28.2 L RDW 15.6 H Plt Count 628 H Neutrophils # 10.4 H INR APTT 31.4 H Chloride Carbon Dioxide 38 H Creatinine 0.50 L Glucose 113 H POC Glucose (mg/dL) Hemoglobin A1c Calcium 8.0 L Iron TIBC % Saturation Transferrin Lactate Dehydrogenase Troponin I Total Protein 6.1 L Albumin 2.6 L Urine Protein 11/02/22 11/02/22 11/02/22 20:10 21:16 23:41 WBC RBC Hgb Hct MCH MCHC RDW Plt Count Neutrophils # INR APTT Chloride Carbon Dioxide Creatinine Glucose POC Glucose (mg/dL) Hemoglobin A1c Calcium Iron TIBC % Saturation Transferrin Lactate Dehydrogenase Troponin I 0.100 H* 0.099 H* Total Protein Albumin Urine Protein Trace H 11/03/22 11/03/22 11/03/22 05:16 05:16 05:16 WBC 13.7 H RBC 3.67 L Hgb 8.8 L Hct 31.5 L MCH 23.9 L MCHC 27.8 L RDW Plt Count 545 H Neutrophils # 11.9 H INR 1.2 H APTT 41.7 H Chloride Carbon Dioxide Creatinine Glucose POC Glucose (mg/dL) Hemoglobin A1c Calcium Iron TIBC % Saturation Transferrin Lactate Dehydrogenase Troponin I 0.088 H* Total Protein Albumin Urine Protein 11/03/22 11/03/22 11/03/22 05:16 05:16 05:16 WBC RBC Hgb Hct MCH MCHC RDW Plt Count Neutrophils # INR APTT Chloride 96 L Carbon Dioxide 40 H Creatinine 0.51 L Glucose 115 H POC Glucose (mg/dL) Hemoglobin A1c 6.1 H Calcium 7.5 L Iron 15 L TIBC 196 L % Saturation 7.55 L Transferrin 140.0 L Lactate Dehydrogenase 857 H Troponin I Total Protein Albumin Urine Protein 11/03/22 11/03/22 11/03/22 06:27 11:53 16:42 WBC RBC Hgb Hct MCH MCHC RDW Plt Count Neutrophils # INR APTT Chloride Carbon Dioxide Creatinine Glucose POC Glucose (mg/dL) 113 H 138 H 140 H Hemoglobin A1c Calcium Iron TIBC % Saturation Transferrin Lactate Dehydrogenase Troponin I Total Protein Albumin Urine Protein 11/03/22 11/04/22 11/04/22 20:25 06:34 10:27 WBC 13.4 H RBC 3.73 L Hgb 8.7 L Hct 32.1 L MCH 23.4 L MCHC 27.3 L RDW Plt Count 536 H Neutrophils # INR APTT Chloride Carbon Dioxide Creatinine Glucose POC Glucose (mg/dL) 140 H 113 H Hemoglobin A1c Calcium Iron TIBC % Saturation Transferrin Lactate Dehydrogenase Troponin I Total Protein Albumin Urine Protein 11/04/22 11/04/22 11/04/22 10:27 11:44 16:42 WBC RBC Hgb Hct MCH MCHC RDW Plt Count Neutrophils # INR APTT Chloride 93 L Carbon Dioxide 42 H* Creatinine 0.51 L Glucose 118 H POC Glucose (mg/dL) 118 H 133 H Hemoglobin A1c Calcium 7.5 L Iron TIBC % Saturation Transferrin Lactate Dehydrogenase Troponin I Total Protein 5.5 L Albumin 2.3 L Urine Protein 11/04/22 11/05/22 11/05/22 20:04 06:01 08:29 WBC 12.3 H RBC 3.73 L Hgb 8.9 L Hct 32.0 L MCH 23.9 L MCHC 27.9 L RDW Plt Count 528 H Neutrophils # INR APTT Chloride Carbon Dioxide Creatinine Glucose POC Glucose (mg/dL) 118 H 122 H Hemoglobin A1c Calcium Iron TIBC % Saturation Transferrin Lactate Dehydrogenase Troponin I Total Protein Albumin Urine Protein 11/05/22 11/05/22 08:29 11:49 WBC RBC Hgb Hct MCH MCHC RDW Plt Count Neutrophils # INR APTT Chloride 89 L Carbon Dioxide 46 H* Creatinine 0.51 L Glucose 100 H POC Glucose (mg/dL) 205 H Hemoglobin A1c Calcium 7.7 L Iron TIBC % Saturation Transferrin Lactate Dehydrogenase Troponin I Total Protein Albumin Urine Protein - Diagnostic Findings Chest x-ray: report reviewed, image reviewed CT scan - chest: report reviewed, image reviewed Assessment and Plan Assessment: Acute on chronic hypoxic respiratory failure appeared to be related to combination diastolic heart failure and COPD exacerbation Acute COPD exacerbation Lung mass with invasion to chest wall distraction involving the ribs Metastatic stage IV lung cancer Anasarca and fluid overload Bilateral small pleural effusion more so on the right side compared left side Plan: Continue bronchodilators Antibiotics Diuretics Supplemental oxygen, titrated oxygen down as tolerated IV steroids Further plan of care as per clinical response of the patient Time with Patient: Greater than 30
[2022-11-05] MEDS: LIDOCAINE 5% PATCH TOPICAL SCH (16:04)
[2022-11-05] MEDS: methylPREDNISolone SOD SUCCI 40 MG/ML 1 ML VIAL IV SCH ×2 (16:04→20:12)
[2022-11-05 16:52] LABS: Glucose,Whole Blood 106 mg/dL (70-110)
[2022-11-05] MEDS: FAMOTIDINE 20 MG TAB PO SCH (20:12)
[2022-11-05 20:13] LABS: Glucose,Whole Blood 138 mg/dL (70-110)
--- NOTE | 2022-11-05 21:06 | P.PN ---
Subjective Progress Note Date: 11/05/22 Principal diagnosis: CHF exacerbation. Met NSCLC In f/u today pt is finally feeling well enough to try and sit up at the bedside. His family reports pt is more alert and has been starting to eat and drink a little bit. O2 at 4 L today. Objective - Vital Signs Vital signs: Vital Signs Temp 98.3 F 11/05/22 16:00 Pulse 83 11/05/22 16:00 Resp 20 11/05/22 16:00 BP 141/59 11/05/22 16:00 Pulse Ox 93 L 11/05/22 16:00 FiO2 Intake & Output 11/04/22 11/05/22 11/05/22 18:59 06:59 18:59 Intake Total 298 240 Output Total 725 250 Balance -427 -10 Weight 106 kg 105.5 kg Intake: Oral 298 240 Output: Urine 725 250 Other: Voiding Method Diaper Diaper Diaper - Constitutional General appearance: Present: average body habitus, cooperative, no acute distress - EENT Eyes: Present: anicteric sclerae, EOMI ENT: Present: hearing grossly normal - Neck Details: LUE lymphedema - Respiratory Respiratory: bilateral: diminished - Cardiovascular Rhythm: regular Heart sounds: normal: S1, S2 Abnormal Heart Sounds: Absent: systolic murmur, diastolic murmur, rub, S3 Lara p, S4 Gallop, click, other - Peripheral edema leg Peripheral Edema: bilateral: 2+ - Integumentary Integumentary Comment(s): rt heel wound, unstageable, necrotic/black eschar center, wound care following and treating - Neurologic Neurologic: Present: CNII-XII intact - Musculoskeletal Musculoskeletal Comment(s): pt leaning to the right, having difficulty sitting up at bedside independently Musculoskeletal: Present: generalized weakness - Psychiatric Psychiatric: Present: A&O x's 3, appropriate affect, intact judgment & insight - Labs CBC & Chem 7: 11/05/22 08:29 11/05/22 08:29 Labs: Abnormal Lab Results - Last 24 Hours (Table) 11/03/22 11/04/22 11/04/22 Range/Units 05:16 10:27 20:04 WBC (3.8-10.6) k/uL RBC (4.30-5.90) m/uL Hgb (13.0-17.5) gm/dL Hct (39.0-53.0) % MCH (25.0-35.0) pg MCHC (31.0-37.0) g/dL Plt Count (150-450) k/uL Haptoglobin 320.0 H (31.2-198.0) mg/dL Chloride (98-107) mmol/L Carbon Dioxide (22-30) mmol/L Creatinine (0.66-1.25) mg/dL Glucose (74-99) mg/dL POC Glucose (mg/dL) 118 H (70-110) mg/dL Calcium (8.4-10.2) mg/dL TIBC 196 L (228-460) ug/dL % Saturation 7.55 L (15.00-50.00) Transferrin 140.0 L (204.0-354.0) mg/dL 11/05/22 11/05/22 11/05/22 Range/Units 06:01 08:29 08:29 WBC 12.3 H (3.8-10.6) k/uL RBC 3.73 L (4.30-5.90) m/uL Hgb 8.9 L (13.0-17.5) gm/dL Hct 32.0 L (39.0-53.0) % MCH 23.9 L (25.0-35.0) pg MCHC 27.9 L (31.0-37.0) g/dL Plt Count 528 H (150-450) k/uL Haptoglobin (31.2-198.0) mg/dL Chloride 89 L (98-107) mmol/L Carbon Dioxide 46 H* (22-30) mmol/L Creatinine 0.51 L (0.66-1.25) mg/dL Glucose 100 H (74-99) mg/dL POC Glucose (mg/dL) 122 H (70-110) mg/dL Calcium 7.7 L (8.4-10.2) mg/dL TIBC (228-460) ug/dL % Saturation (15.00-50.00) Transferrin (204.0-354.0) mg/dL 11/05/22 Range/Units 11:49 WBC (3.8-10.6) k/uL RBC (4.30-5.90) m/uL Hgb (13.0-17.5) gm/dL Hct (39.0-53.0) % MCH (25.0-35.0) pg MCHC (31.0-37.0) g/dL Plt Count (150-450) k/uL Haptoglobin (31.2-198.0) mg/dL Chloride (98-107) mmol/L Carbon Dioxide (22-30) mmol/L Creatinine (0.66-1.25) mg/dL Glucose (74-99) mg/dL POC Glucose (mg/dL) 205 H (70-110) mg/dL Calcium (8.4-10.2) mg/dL TIBC (228-460) ug/dL % Saturation (15.00-50.00) Transferrin (204.0-354.0) mg/dL Microbiology - Last 24 Hours (Table) 11/02/22 21:16 Gram Stain - Final Foot - Right Wound Culture - Final Staphylococcus aureus Assessment and Plan (1) CHF (congestive heart failure) Current Visit: Yes Status: Acute Priority: High Code(s): I50.9 - HEART FAILURE, UNSPECIFIED SNOMED Code(s): 42622133 (2) Squamous cell lung cancer Current Visit: No Status: Chronic Priority: Medium Code(s): C34.90 - MALIGNANT NEOPLASM OF UNSP PART OF UNSP BRONCHUS OR LUNG SNOMED Code(s): 866875361 Plan: Pt is doing much better from a CHF and COPD exacerbation standpoint. Significant reduction of fluid retention in the face, SOB is stable. Cont treatment per Cardiology and Pulmonary Wound care is following for rt heel ulceration. WBC and plt are trending down very slowly as his overall condition improves. Pt had treatment f/u CT scan recently. Will review with Dr. Zimmerman for the plan of care based on the findings. He will resume treatment once his current condition is adequately resolved and he is a bit stronger. Will await plans for DC then plan f/u appt Agree with plan for PT/OT with home care
[2022-11-06 06:01] LABS: Glucose,Whole Blood 134 mg/dL (70-110)
[2022-11-06] MEDS: INSULIN ASPART (NovoLOG) 100 UNIT/ML VIAL SQ SCH ×4 (06:12→20:49)
[2022-11-06 08:07] LABS: Basophils # (A) 0.1 k/uL (0-0.2); Basophils % (A) 0 %; Eosinophils # (A) 0.1 k/uL (0-0.7); Eosinophils % (A) 0 %; HCT 33.2 % (39.0-53.0); HGB 9.3 gm/dL (13.0-17.5); Hypochromasia Marked; Lymphocytes # (A) 1.7 k/uL (1.0-4.8); Lymphocytes % (A) 12 %; MCH 23.5 pg (25.0-35.0); MCHC 27.9 g/dL (31.0-37.0); MCV 84.3 fL (80.0-100.0); Mean Platelet Volume 8.3; Monocytes # (A) 0.5 k/uL (0-1.0); Monocytes % (A) 4 %; Neutrophils % (A) 82 %; Platelet Count 617 k/uL (150-450); RBC 3.94 m/uL (4.30-5.90); RDW 15.6 % (11.5-15.5); WBC 13.4 k/uL (3.8-10.6)
[2022-11-06 08:22] LABS: African American GFR (CKD) >90 (>60 ml/min/1.73 sqM); Blood Urea Nitrogen 17 mg/dL (9-20); Calcium 7.9 mg/dL (8.4-10.2); Chloride 89 mmol/L (98-107); Glucose 113 mg/dL (74-99); Non-African American GFR(CKD) >90 (>60 ml/min/1.73 sqM); Potassium 4.5 mmol/L (3.5-5.1); Sodium 135 mmol/L (137-145)
[2022-11-06 08:28] LABS: Anion Gap 7 mmol/L
[2022-11-06] MEDS: IPRATROPIUM-ALBUTEROL 3 ML NEB INHALATION SCH ×4 (08:29→21:23)
[2022-11-06 08:47] LABS: Carbon Dioxide 39 mmol/L (22-30)
[2022-11-06] MEDS: HEPARIN SODIUM,PORCINE/PF 5,000 UNIT/0.5 ML SYRINGE SQ SCH ×3 (09:04→23:22)
[2022-11-06] MEDS: DOXYCYCLINE 100 MG CAP PO SCH ×2 (09:04→20:49)
[2022-11-06] MEDS: MORPHINE SULFATE ER 30 MG TABLET PO SCH ×3 (09:05→21:02)
[2022-11-06] MEDS: methylPREDNISolone SOD SUCCI 40 MG/ML 1 ML VIAL IV SCH ×2 (09:06→20:49)
[2022-11-06] MEDS: DOCUSATE 100 MG CAP PO SCH ×2 (09:06→20:49)
[2022-11-06] MEDS: PREGABALIN 100 MG CAP PO SCH ×2 (09:06→20:49)
[2022-11-06] MEDS: FAMOTIDINE 20 MG TAB PO SCH ×2 (09:06→20:49)
[2022-11-06] MEDS: FUROSEMIDE 40 MG TAB PO SCH ×2 (09:06→17:25)
[2022-11-06] MEDS: METOPROLOL TARTRATE 25 MG TAB PO SCH ×2 (09:06→20:49)
[2022-11-06] MEDS: FERROUS SULFATE 325 MG TAB PO SCH (09:06)
[2022-11-06] MEDS: LORATADINE 10 MG TAB PO SCH (09:06)
--- NOTE | 2022-11-06 11:17 | P.PN ---
Subjective This is a 62-year-old male with a past medical history of lung cancer on palliative therapy follows with Dr. Zimmerman, asthma, type 2 diabetes, hyperten francia, COPD, former tobacco use. 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 We are consulted for elevated troponin. Patient presents emergency department with worsening shortness of breath and dyspnea on exertion and lower extremity edema. There was concern for congestive heart failure and patient was started on IV Lasix. He underwent an echocardiogram that revealed normal LV systolic function, moderate aortic stenosis with a peak gradient of 37 mmHg, mean gradient of 22 mmHg, mild mitral stenosis. Patient seen and examined at bedside, no acute distress. Heart rates have improved. His shortness of breath has improved, LE edema has improved as well. He was started on PO Lasix yesterday. BP 114/57 HR 80s-low 100s. He is Also being treated for an acute COPD exacerbation. GENERAL: In no acute distress. NECK: Supple without JVD LUNGS: Breath sounds diminished in bases to auscultation bilaterally. Respiration equal and unlabored. No wheezes, rales or rhonchi. HEART: Regular rate and rhythm without murmurs, rubs or gallops. S1 and S2 heard. EXTREMITIES: Normal range of motion, 1+bilateral lower extremity edema. No clubbing or cyanosis. Peripheral pulses intact. ASSESSMENT Acute on chronic heart failure with preserved ejection fraction COPD exacerbation Mildly elevated troponin, unclear significance Lung carcinoma, on immunotherapy, metastatic Hypertension COPD Former tobacco use Type 2 diabetes Nonhealing ulceration of right foot Diabetic foot ulcer PLAN Continue PO Lasix 40mg BID Monitor I/Os, daily weights, renal function and electrolytes, while inpatient Continue metoprolol tartrate 25mg BID Patient is currently stable from a cardiology perspective Please re-consult if needed. Nurse Practitioner note has been reviewed, I agree with a documented findings and plan of care. Patient was seen and examined. Objective - Vital Signs Vital signs: Vital Signs Temp 97.7 F 11/06/22 04:00 Pulse 88 11/06/22 04:00 Resp 20 11/06/22 04:00 BP 106/68 11/06/22 04:00 Pulse Ox 96 11/06/22 04:00 FiO2 Intake & Output 11/05/22 11/06/22 11/06/22 18:59 06:59 18:59 Intake Total 420 Output Total 250 Balance 170 Intake: Oral 420 Output: Urine 250 Other: Voiding Method Diaper Diaper - Labs CBC & Chem 7: 11/06/22 07:30 11/06/22 07:30 Labs: Abnormal Lab Results - Last 24 Hours (Table) 11/03/22 11/04/22 11/05/22 Range/Units 05:16 10:27 08:29 WBC 12.3 H (3.8-10.6) k/uL RBC 3.73 L (4.30-5.90) m/uL Hgb 8.9 L (13.0-17.5) gm/dL Hct 32.0 L (39.0-53.0) % MCH 23.9 L (25.0-35.0) pg MCHC 27.9 L (31.0-37.0) g/dL RDW (11.5-15.5) % Plt Count 528 H (150-450) k/uL Neutrophils # (1.3-7.7) k/uL Haptoglobin 320.0 H (31.2-198.0) mg/dL Chloride (98-107) mmol/L Carbon Dioxide (22-30) mmol/L Creatinine (0.66-1.25) mg/dL Glucose (74-99) mg/dL POC Glucose (mg/dL) (70-110) mg/dL Calcium (8.4-10.2) mg/dL TIBC 196 L (228-460) ug/dL % Saturation 7.55 L (15.00-50.00) Transferrin 140.0 L (204.0-354.0) mg/dL 11/05/22 11/05/22 11/05/22 Range/Units 08:29 11:49 20:11 WBC (3.8-10.6) k/uL RBC (4.30-5.90) m/uL Hgb (13.0-17.5) gm/dL Hct (39.0-53.0) % MCH (25.0-35.0) pg MCHC (31.0-37.0) g/dL RDW (11.5-15.5) % Plt Count (150-450) k/uL Neutrophils # (1.3-7.7) k/uL Haptoglobin (31.2-198.0) mg/dL Chloride 89 L (98-107) mmol/L Carbon Dioxide 46 H* (22-30) mmol/L Creatinine 0.51 L (0.66-1.25) mg/dL Glucose 100 H (74-99) mg/dL POC Glucose (mg/dL) 205 H 138 H (70-110) mg/dL Calcium 7.7 L (8.4-10.2) mg/dL TIBC (228-460) ug/dL % Saturation (15.00-50.00) Transferrin (204.0-354.0) mg/dL 11/06/22 11/06/22 Range/Units 06:00 07:30 WBC 13.4 H (3.8-10.6) k/uL RBC 3.94 L (4.30-5.90) m/uL Hgb 9.3 L (13.0-17.5) gm/dL Hct 33.2 L (39.0-53.0) % MCH 23.5 L (25.0-35.0) pg MCHC 27.9 L (31.0-37.0) g/dL RDW 15.6 H (11.5-15.5) % Plt Count 617 H (150-450) k/uL Neutrophils # 11.0 H (1.3-7.7) k/uL Haptoglobin (31.2-198.0) mg/dL Chloride (98-107) mmol/L Carbon Dioxide (22-30) mmol/L Creatinine (0.66-1.25) mg/dL Glucose (74-99) mg/dL POC Glucose (mg/dL) 134 H (70-110) mg/dL Calcium (8.4-10.2) mg/dL TIBC (228-460) ug/dL % Saturation (15.00-50.00) Transferrin (204.0-354.0) mg/dL Microbiology - Last 24 Hours (Table) 11/02/22 21:16 Gram Stain - Final Foot - Right Wound Culture - Final Staphylococcus aureus
[2022-11-06 11:32] LABS: Glucose,Whole Blood 191 mg/dL (70-110)
--- NOTE | 2022-11-06 14:58 | P.PN ---
Subjective Progress Note Date: 11/06/22 Principal diagnosis: Acute on chronic hypoxic respiratory failure appeared to be related to combination diastolic heart failure and COPD exacerbation Acute COPD exacerbation Lung mass with invasion to chest wall distraction involving the ribs Metastatic stage IV lung cancer Anasarca and fluid overload Bilateral small pleural effusion more so on the right side compared left side 11/06/2022, patient seen and evaluated examined during the rounds labs reviewed medications reviewed, shortness of breath slightly improved however remains on 4 L oxygen ongoing dry cough is present, left upper extremity is weak swelling in second due to lymphedema, and labs from today's reviewed white cell count is 13,400, hemoglobin hematocrit 9.3/33, platelet count 6 and 17,000, BUN/crea tinine 17/0.53 sodium is 135 potassium 4.5 CO2 is 39 which is progressively declining now Patient is a 62-year-old male with prior medical history of lung cancer has been on immunotherapy with Dr. Shaikh also has a history of chronic hypoxic respiratory failure on home oxygen 2 L history of smoking and nicotine use hypertension hypertensive cardiovascular disease. Patient presented into the hospital with increasing shortness of breath of several day duration as well as increasing lower extremity swelling currently patient has been on IV Lasix switched to by mouth, and responding well in addition patient has been on bronchodilator doxycycline and his home medications, echocardiogram revealed normal LV function with moderate aortic stenosis with a peak gradient is 37 and a mean gradient 22 and mild mitral stenosis patient has been in negative balance. Chest x-ray on admission revealed bilateral pulmonary infiltrate with pleural thickening increase more so on the right side compared to left side, venous Doppler study of the negative for DVT, computed tomography scan of the chest revealed no evidence of pulmonary embolism, pleural thickening and destructive changes noted in the left upper lateral leads along with large mass in the upper lateral chest wall, and multiple nodular nodular masses bilaterally in lung field with right- sided pleural effusion, effusion has increased compared to prior exam in October 2022 Objective - Vital Signs Vital signs: Vital Signs Temp 97.7 F 11/06/22 04:00 Pulse 101 H 11/06/22 12:55 Resp 18 11/06/22 12:55 BP 115/78 11/06/22 12:00 Pulse Ox 93 L 11/06/22 12:00 FiO2 Intake & Output 11/05/22 11/06/22 11/06/22 18:59 06:59 18:59 Intake Total 420 180 Output Total 250 Balance 170 180 Intake: Oral 420 180 Output: Urine 250 Other: Voiding Method Diaper Diaper Diaper - Exam - Constitutional General appearance: average body habitus, cooperative, disheveled, mild distress - EENT Eyes: EOMI, PERRLA ENT: normal oropharynx Ears: bilateral: normal - Neck Carotids: bilateral: upstroke normal - Respiratory Respiratory: bilateral: diminished, dullness (Bilaterally in the bases) - Cardiovascular Rhythm: regular Heart sounds: normal: S1, S2 - Gastrointestinal General gastrointestinal: hyperactive bowel sounds - Integumentary Bilateral pedal edema with chronic skin changes Integumentary: decreased turgor - Neurologic Neurologic: CNII-XII intact - Musculoskeletal Musculoskeletal: gait normal, generalized weakness, strength equal bilaterally - Psychiatric Psychiatric: A&O x's 3, appropriate affect, intact judgment & insight - Labs CBC & Chem 7: 11/06/22 07:30 11/06/22 07:30 Labs: Abnormal Lab Results - Last 24 Hours (Table) 11/04/22 11/05/22 11/06/22 Range/Units 10:27 20:11 06:00 WBC (3.8-10.6) k/uL RBC (4.30-5.90) m/uL Hgb (13.0-17.5) gm/dL Hct (39.0-53.0) % MCH (25.0-35.0) pg MCHC (31.0-37.0) g/dL RDW (11.5-15.5) % Plt Count (150-450) k/uL Neutrophils # (1.3-7.7) k/uL Haptoglobin 320.0 H (31.2-198.0) mg/dL Sodium (137-145) mmol/L Chloride (98-107) mmol/L Carbon Dioxide (22-30) mmol/L Creatinine (0.66-1.25) mg/dL Glucose (74-99) mg/dL POC Glucose (mg/dL) 138 H 134 H (70-110) mg/dL Calcium (8.4-10.2) mg/dL 11/06/22 11/06/22 11/06/22 Range/Units 07:30 07:30 11:30 WBC 13.4 H (3.8-10.6) k/uL RBC 3.94 L (4.30-5.90) m/uL Hgb 9.3 L (13.0-17.5) gm/dL Hct 33.2 L (39.0-53.0) % MCH 23.5 L (25.0-35.0) pg MCHC 27.9 L (31.0-37.0) g/dL RDW 15.6 H (11.5-15.5) % Plt Count 617 H (150-450) k/uL Neutrophils # 11.0 H (1.3-7.7) k/uL Haptoglobin (31.2-198.0) mg/dL Sodium 135 L (137-145) mmol/L Chloride 89 L (98-107) mmol/L Carbon Dioxide 39 H (22-30) mmol/L Creatinine 0.53 L (0.66-1.25) mg/dL Glucose 113 H (74-99) mg/dL POC Glucose (mg/dL) 191 H (70-110) mg/dL Calcium 7.9 L (8.4-10.2) mg/dL Microbiology - Last 24 Hours (Table) 11/02/22 21:16 Anaerobic Culture - Final Foot - Right Anaerobic Gm Negative Bacilli Anaerobic Gram Positive Cocci 11/02/22 21:16 Gram Stain - Final Foot - Right Wound Culture - Final Staphylococcus aureus Assessment and Plan Assessment: Acute on chronic hypoxic respiratory failure appeared to be related to combination diastolic heart failure and COPD exacerbation Acute COPD exacerbation Lung mass with invasion to chest wall distraction involving the ribs Metastatic stage IV lung cancer Anasarca and fluid overload Bilateral small pleural effusion more so on the right side compared left side Chronic left upper extremity lymphedema in weakness Plan: Continue bronchodilators Antibiotics Diuretics Supplemental oxygen, titrated oxygen down as tolerated IV steroids Further plan of care as per clinical response of the patient Continue to raise left upper extremity Time with Patient: Greater than 30
[2022-11-06 16:44] LABS: Glucose,Whole Blood 260 mg/dL (70-110)
[2022-11-06] MEDS: LIDOCAINE 5% PATCH TOPICAL SCH (17:23)
[2022-11-06] MEDS: COLLAGENASE 250 UNIT/GM OINTMENT 30 GM TUBE TOPICAL SCH (17:25)
--- NOTE | 2022-11-06 17:56 | P.PN ---
Subjective History of present illness; patient is a 62-year-old gentleman with past medical history significant for lung cancer on immunotherapy, congestive heart Failure, COPD, asthma who presented to the ER because of worsening shortness of breath and swelling of legs. Patient has been noticing increasing shortness of breath on exertion for the last couple of days associated with increased swelling of legs. Patient was on diuretics at home but stated that it was not working and he continues to be short of breath. Patient also currently on antibiotics for right foot wound. Because of this worsening shortness of breath and swelling of legs patient came to the ER. Initial lab work showed patient to have a white count of 12.9, hemoglobin of 8.8, platelet count of 628, sodium 137, potassium 4.3, carbon dioxide 38, troponin 0.1. CTA chest done showed no evidence of pulmonary embolism. It did show pleural thickening and destructive changes in the left upper ribs. Large mass involving the upper limits of chest wall was also seen. Patient was admitted to hospitalist service for further evaluation and treatment 11/04/2022 Patient still complaining of from dyspnea he says the same but no chest pain and no significant cough and He has chronic left shoulder pain and swelling of the left upper extremity related to his cancer Also he has evidence of right foot infection with no evidence of cellulitis, he has diabetic foot ulcer on the sole with black eschar He is in 2 L oxygen via nasal cannula Oncology team are on the case and the recommend to resume immunotherapy on 11/14 if he is stable, no recent chemotherapy 11/05/2022 Patient breathing is improving however patient is still hypoxic 88-92% on 4 L oxygen via nasal cannula His with non-STEMI moderate aortic stenosis and CHF, he is on IV Lasix was switched to oral dose today. Superintendent Custodian Janitor on the case. His WBC is 12,000, hemoglobin 8.9. Pulmonary team were consulted today Patient informed about his next immunotherapy appointment on 11/14 and vision and at bedside agreeable. Patient has home oxygen of 2 L/m because of his cancer he is on morphine 3 times a day each make him little bit more sleepy which is expected. Also patient has constipation so Colace and senna was added 11/06/2022 Patient states that his breathing is better today patient feels is getting ready and closer for discharge Patient still constipated although he taking narcotics he was started on Colace and senna yesterday, we will wait another 24 hours. As per patient and family is okay for him to go to rehab. Even for short-term and then follow up with Dr. Zimmerman. Also the planned to follow-up with wound center for his right foot. Patient WBCs 13,000, hemoglobin 9.3, follow-up hemoglobin as an outpatient. He is saturating 93% on 4 L oxygen, his tachycardia is better Wound culture is growing and aerobic gram-negative bacilli and an aerobic gram- positive cocci as well as MSSA in the anaerobic culture, currently his on doxycycline causes of this abdominal wound culture we will consult infectious disease team Patient is improving and may be considered for discharge in 24-48 hours Objective - Vital Signs Vital signs: Vital Signs Temp 97.7 F 11/06/22 04:00 Pulse 90 11/06/22 12:00 Resp 16 11/06/22 12:00 BP 115/78 11/06/22 12:00 Pulse Ox 93 L 11/06/22 12:00 FiO2 Intake & Output 11/05/22 11/06/22 11/06/22 18:59 06:59 18:59 Intake Total 420 180 Output Total 250 Balance 170 180 Intake: Oral 420 180 Output: Urine 250 Other: Voiding Method Diaper Diaper Diaper - Exam GENERAL: The patient is alert and oriented x3, not in any acute distress. Well developed, well nourished. HEENT: Pupils are round and equally reacting to light. EOMI. No scleral icterus. No conjunctival pallor. Normocephalic, atraumatic. No pharyngeal erythema. No thyromegaly. CARDIOVASCULAR: S1 and S2 present. No murmurs, rubs, or gallops. -PULMONARY: Chest is clear to auscultation, no wheezing . Bilateral basal or c rackles. ABDOMEN: Soft, nontender, nondistended, normoactive bowel sounds. No palpable organomegaly. MUSCULOSKELETAL: No joint swelling or deformity. -EXTREMITIES: No cyanosis, clubbing, or pedal mild B/L Lucio edema. Left upper extremities as well as with limitation of movement [chronic] right foot ulcer on the sole with black eschar on the top, no surrounding cellulitis NEUROLOGICAL: Gross neurological examination did not reveal any focal deficits. SKIN: No rashes. no petechiae. - Labs CBC & Chem 7: 11/06/22 07:30 11/06/22 07:30 Labs: Abnormal Lab Results - Last 24 Hours (Table) 11/03/22 11/04/22 11/05/22 Range/Units 05:16 10:27 20:11 WBC (3.8-10.6) k/uL RBC (4.30-5.90) m/uL Hgb (13.0-17.5) gm/dL Hct (39.0-53.0) % MCH (25.0-35.0) pg MCHC (31.0-37.0) g/dL RDW (11.5-15.5) % Plt Count (150-450) k/uL Neutrophils # (1.3-7.7) k/uL Haptoglobin 320.0 H (31.2-198.0) mg/dL Sodium (137-145) mmol/L Chloride (98-107) mmol/L Carbon Dioxide (22-30) mmol/L Creatinine (0.66-1.25) mg/dL Glucose (74-99) mg/dL POC Glucose (mg/dL) 138 H (70-110) mg/dL Calcium (8.4-10.2) mg/dL TIBC 196 L (228-460) ug/dL % Saturation 7.55 L (15.00-50.00) Transferrin 140.0 L (204.0-354.0) mg/dL 11/06/22 11/06/22 11/06/22 Range/Units 06:00 07:30 07:30 WBC 13.4 H (3.8-10.6) k/uL RBC 3.94 L (4.30-5.90) m/uL Hgb 9.3 L (13.0-17.5) gm/dL Hct 33.2 L (39.0-53.0) % MCH 23.5 L (25.0-35.0) pg MCHC 27.9 L (31.0-37.0) g/dL RDW 15.6 H (11.5-15.5) % Plt Count 617 H (150-450) k/uL Neutrophils # 11.0 H (1.3-7.7) k/uL Haptoglobin (31.2-198.0) mg/dL Sodium 135 L (137-145) mmol/L Chloride 89 L (98-107) mmol/L Carbon Dioxide 39 H (22-30) mmol/L Creatinine 0.53 L (0.66-1.25) mg/dL Glucose 113 H (74-99) mg/dL POC Glucose (mg/dL) 134 H (70-110) mg/dL Calcium 7.9 L (8.4-10.2) mg/dL TIBC (228-460) ug/dL % Saturation (15.00-50.00) Transferrin (204.0-354.0) mg/dL 11/06/22 Range/Units 11:30 WBC (3.8-10.6) k/uL RBC (4.30-5.90) m/uL Hgb (13.0-17.5) gm/dL Hct (39.0-53.0) % MCH (25.0-35.0) pg MCHC (31.0-37.0) g/dL RDW (11.5-15.5) % Plt Count (150-450) k/uL Neutrophils # (1.3-7.7) k/uL Haptoglobin (31.2-198.0) mg/dL Sodium (137-145) mmol/L Chloride (98-107) mmol/L Carbon Dioxide (22-30) mmol/L Creatinine (0.66-1.25) mg/dL Glucose (74-99) mg/dL POC Glucose (mg/dL) 191 H (70-110) mg/dL Calcium (8.4-10.2) mg/dL TIBC (228-460) ug/dL % Saturation (15.00-50.00) Transferrin (204.0-354.0) mg/dL Microbiology - Last 24 Hours (Table) 11/02/22 21:16 Gram Stain - Final Foot - Right Wound Culture - Final Staphylococcus aureus Assessment and Plan Assessment: Acute onset congestive heart failure. None STEMI with elevated troponin Moderate aortic stenosis Lung cancer with multiple nodular pulmonary metastasis throughout both lung jarvis Chronic left shoulder pain and swelling of the left upper extremity related to his history of cancer Right foot infection with staph Acute on chronic hypoxic respiratory failure Right foot wound Lung cancer Diabetes mellitus Hypertension Plan: Continue with, switched to oral dose on 11/06 six Strict I's and O's Daily weights. Monitor renal functions Change antibiotics into doxycycline and follow-up wound culture Consult cardiology. Pulmonary team consult Consult hematology oncology. Infectious disease consult Consult wound care Labs and medication were reviewed.. Continue same treatment. Continue with symptomatic treatment. Resume home medication. Monitor lytes and vitals. DVT and GI prophylaxis. Further recommendations as per clinical course of the patient DVT prophylaxis: Subcutaneous heparin GI Prophylaxis: Pepcid Prognosis is guarded plan discussed with patient and family including and daughter at bedside and all their questions answered and they're agreeable with the current plan
--- NOTE | 2022-11-06 18:11 | P.PN ---
Subjective Progress Note Date: 11/06/22 Principal diagnosis: CHF exacerbation. Met NSCLC In f/u today pt is Able to sit up at the bedside independently, he is on 4 L nasal cannula. He is more alert and interactive today. Patient states he wants to go home, family is reporting they cannot manage him at home yet. He is eating and drinking small amounts. Shortness of breath is stable. Denies any fevers, nausea or diarrhea. Objective - Vital Signs Vital signs: Vital Signs Temp 97.7 F 11/06/22 04:00 Pulse 101 H 11/06/22 16:56 Resp 18 11/06/22 16:56 BP 115/78 11/06/22 12:00 Pulse Ox 93 L 11/06/22 12:00 FiO2 Intake & Output 11/05/22 11/06/22 11/06/22 18:59 06:59 18:59 Intake Total 420 360 Output Total 250 Balance 170 360 Intake: Oral 420 360 Output: Urine 250 Other: Voiding Method Diaper Diaper Diaper - Constitutional General appearance: Present: average body habitus, cooperative, no acute distress - EENT Eyes: Present: anicteric sclerae, EOMI ENT: Present: hearing grossly normal - Respiratory Respiratory: bilateral: diminished - Cardiovascular Heart sounds: normal: S1, S2 - Peripheral edema leg Peripheral Edema: bilateral: 2+ - Neurologic Neurologic: Present: CNII-XII intact - Musculoskeletal Musculoskeletal: Present: generalized weakness - Psychiatric Psychiatric: Present: A&O x's 3, appropriate affect, intact judgment & insight - Labs CBC & Chem 7: 11/06/22 07:30 11/06/22 07:30 Labs: Abnormal Lab Results - Last 24 Hours (Table) 11/05/22 11/06/22 11/06/22 Range/Units 20:11 06:00 07:30 WBC 13.4 H (3.8-10.6) k/uL RBC 3.94 L (4.30-5.90) m/uL Hgb 9.3 L (13.0-17.5) gm/dL Hct 33.2 L (39.0-53.0) % MCH 23.5 L (25.0-35.0) pg MCHC 27.9 L (31.0-37.0) g/dL RDW 15.6 H (11.5-15.5) % Plt Count 617 H (150-450) k/uL Neutrophils # 11.0 H (1.3-7.7) k/uL Sodium (137-145) mmol/L Chloride (98-107) mmol/L Carbon Dioxide (22-30) mmol/L Creatinine (0.66-1.25) mg/dL Glucose (74-99) mg/dL POC Glucose (mg/dL) 138 H 134 H (70-110) mg/dL Calcium (8.4-10.2) mg/dL 11/06/22 11/06/22 11/06/22 Range/Units 07:30 11:30 16:43 WBC (3.8-10.6) k/uL RBC (4.30-5.90) m/uL Hgb (13.0-17.5) gm/dL Hct (39.0-53.0) % MCH (25.0-35.0) pg MCHC (31.0-37.0) g/dL RDW (11.5-15.5) % Plt Count (150-450) k/uL Neutrophils # (1.3-7.7) k/uL Sodium 135 L (137-145) mmol/L Chloride 89 L (98-107) mmol/L Carbon Dioxide 39 H (22-30) mmol/L Creatinine 0.53 L (0.66-1.25) mg/dL Glucose 113 H (74-99) mg/dL POC Glucose (mg/dL) 191 H 260 H (70-110) mg/dL Calcium 7.9 L (8.4-10.2) mg/dL Microbiology - Last 24 Hours (Table) 11/02/22 21:16 Anaerobic Culture - Final Foot - Right Anaerobic Gm Negative Bacilli Anaerobic Gram Positive Cocci 11/02/22 21:16 Gram Stain - Final Foot - Right Wound Culture - Final Staphylococcus aureus Assessment and Plan (1) CHF (congestive heart failure) Current Visit: Yes Status: Acute Priority: High Code(s): I50.9 - HEART FAILURE, UNSPECIFIED SNOMED Code(s): 13549012 (2) Squamous cell lung cancer Current Visit: No Status: Chronic Priority: Medium Code(s): C34.90 - MALIGNANT NEOPLASM OF UNSP PART OF UNSP BRONCHUS OR LUNG SNOMED Code(s): 998967900 Plan: Pt continues to improve from a CHF and COPD exacerbation standpoint. Significant reduction of fluid retention in the face, SOB is stable. Cont treatment per Cardiology and Pulmonary Wound care is following for rt heel ulceration. WBC and plt are stable/little worse today. No acute intervention. Pt had treatment f/u CT scan recently. Reviewed with Dr. Zimmerman. There were some areas that looked slightly worse, some slightly better, no new areas. Stable disease. Continue with [facility] is the plan. All of the patient and his family's questions were answered to the best of my ability. Family is stating they're not certain they're going to be able to care for him at home. Patient is not able to do much by himself at this time. If patient goes to rehabilitation cancer treatment will be held until he is discharged. We also discussed that if the patient ends up going home prior to his next treatment, they need to consider if they feel that he is strong enough to resume treatment. If not, encourage them to delay the next cycle until patient is in better shape for treatment. They verbalized understanding. Follow-up appointment with Dr. Zimmerman will be adjusted as patient has CAT scan results, does not need an appointment this Friday.
[2022-11-06 20:38] LABS: Glucose,Whole Blood 246 mg/dL (70-110)
--- NOTE | 2022-11-06 22:57 | P.CONS ---
History of Present Illness - Reason for Consult Consult date: 11/06/22 Diabetic ulcer of the right foot Requesting physician: Galdino E Sheet - Chief Complaint Nonhealing wound to the right foot x weeks - History of Present Illness Patient is a 62-year-old male with a past medical history taken for diabetes mellitus presenting to the hospital 4 days ago on 11/02/2022 for evaluation of increasing shortness of breath and lower extremity swelling patient also have wound on the plantar aspect of the right foot which has been there for for more than a week apparently started with a blister that has ruptured leading to this ulceration formation has been evaluated by primary care physician who advised Silvadene cream and the patient was referred to applications engineer will subsequently refer the patient to wound care however the patient has not been seen there patient on presentation to the hospital did have x-rays of the right foot which did not show any bony changes patient did have a local wound cultures obtained on 11/02/2022 which were finalized yesterday on 11/05/2022 with MSSA and anaerobes infectious disease was consulted this evening more than 24 hours after the culture finalized for management of his wound with a positive culture is currently on oral Keflex local wound care has been with the Santyl. The patient has been afebrile during this hospital stay however he did have elevated white count patient did have diabetic neuropathy and denies significant pain to the right foot plantar wound area or any foul-smelling drainage did have swelling to the foot but no significant redness Review of Systems Positive point has been mentioned in the HPI rest of the systems are negative Past Medical History Past Medical History: Asthma, Cancer, Heart Failure, COPD, Diabetes Mellitus, Hypertension Additional Past Medical History / Comment(s): Uses home O2 as needed only. Squamous cell carcinoma of the lung, rib lesion and lymph adenopathy, shoulder pain related to lung mass. Pancous tumor left apex History of Any Multi-Drug Resistant Organisms: MRSA Year Discovered:: 05/23/16 MDRO Source:: Left Foot Past Surgical History: Hernia Repair, Orthopedic Surgery, Tonsillectomy Additional Past Surgical History / Comment(s): lt. 5th toe amp Past Anesthesia/Blood Transfusion Reactions: No Reported Reaction Past Psychological History: Anxiety Smoking Status: Former smoker Past Alcohol Use History: None Reported Past Drug Use History: None Reported Additional Drug Use History / Comment(s): quit drinking 10 years ago in 2011, quit smoking Aug 2021 - Past Family History Sister(s) Family Medical History: Cancer Father Family Medical History: Congestive Heart Failure (CHF), Diabetes Mellitus Mother Family Medical History: Renal Disease Medications and Allergies Home Medications Medication Instructions Recorded Confirmed Type Albuterol Sulfate [Ventolin HFA] 2 puff INHALATION RT-Q4H PRN 08/03/21 11/02/22 History ondansetron HCL [Zofran] 8 mg PO TID PRN 08/17/22 11/02/22 History Loratadine [Claritin] 10 mg PO DAILY #30 tab 08/18/22 11/02/22 Rx Ferrous Sulfate [Iron (65 MG 325 mg PO DAILY 11/02/22 11/02/22 History Elemental)] Ipratropium-Albuterol Nebulize 3 ml INHALATION RT-QID PRN 11/02/22 11/02/22 History [Duoneb 0.5 mg-3 mg/3 ml Soln] Multivitamins, Thera [Multivitamin 1 tab PO DAILY 11/02/22 11/02/22 History (formulary)] Cefepime [Maxipime] 2 gm IVPB Q8H each 11/13/22 Rx Collagenase [Santyl Ointment] 1 applic TOPICAL DAILY each 11/13/22 Rx Docusate [Colace] 100 mg PO BID cap 11/13/22 Rx Famotidine [Pepcid] 20 mg PO BID tab 11/13/22 Rx Furosemide [Lasix] 40 mg PO BID@0900,1600 tab 11/13/22 Rx HYDROcodone/APAP 5-325MG [Waller 1 each PO Q6HR PRN #4 tab 11/13/22 Rx 5-325] INSULIN ASPART (NovoLOG) [NovoLOG 0 unit SQ ACHS each 11/13/22 Rx (formulary)] INSULIN ASPART (NovoLOG) [NovoLOG 3 unit SQ AC-TID each 11/13/22 Rx (formulary)] Insulin Detemir (Levemir) [Levemir] 17 unit SQ HS each 11/13/22 Rx Lidocaine 5% Patch [Lidoderm 5% 2 patch TOPICAL DAILY@1500 patch 11/13/22 Rx Patch] Metoprolol Tartrate [Lopressor] 25 mg PO BID tab 11/13/22 Rx Morphine Sulfate [Ms Contin] 30 mg PO TID #3 tab 11/13/22 Rx Pregabalin [Lyrica] 200 mg PO BID #2 cap 11/13/22 Rx Sennosides [Senokot] 8.6 mg PO BID PRN tab 11/13/22 Rx metroNIDAZOLE [Flagyl] 500 mg PO TID tab 11/13/22 Rx predniSONE 0 mg PO DIRECTED 16 Days #38 tab 11/13/22 Rx Allergies Allergy/AdvReac Type Severity Reaction Status Date / Time loratadine [From Claritin-D] AdvReac Confusion Verified 11/02/22 21:44 pseudoephedrine AdvReac Confusion Verified 11/02/22 21:44 [From Claritin-D] Physical Exam Vitals: Vital Signs Temp Pulse Pulse Pulse Resp BP Pulse Ox 11/06/22 16:56 101 H 18 11/06/22 16:46 101 H 18 11/06/22 12:55 101 H 18 11/06/22 12:43 100 18 11/06/22 12:00 90 16 115/78 93 L 11/06/22 08:38 100 18 11/06/22 08:29 99 18 11/06/22 08:00 104 H 16 114/57 90 L 11/06/22 04:00 97.7 F 88 20 106/68 96 11/06/22 01:53 90 20 11/06/22 00:00 90 20 104/62 94 L 11/05/22 20:49 100 11/05/22 20:39 100 11/05/22 20:00 98.0 F 88 20 102/67 95 Intake and Output 11/06/22 11/06/22 11/06/22 06:59 14:59 22:59 Intake Total 360 Balance 360 Intake: Oral 360 Other: Voiding Method Diaper Diaper GENERAL DESCRIPTION: Middle-aged male lying in bed, no distress. No tachypnea or accessory muscle of respiration use. HEENT: Shows Pallor , no scleral icterus. Oral mucous membrane is dry. No pharyngeal erythema or thrush NECK: Trachea central, no thyromegaly. LUNGS: Unlabored breathing. Decrease breath with a base. HEART: S1, S2, regular rate and rhythm. No loud murmur ABDOMEN: Soft, no tenderness , guarding or rigidity, no organomegaly EXTREMITIES: Right foot plantar wound with some slough tissue no significant surrounding redness or foul-smelling drainage. SKIN: No rash, no masses palpable. NEUROLOGICAL: The patient is awake, alert, oriented x3, mood and affect normal. Results CBC & Chem 7: 11/13/22 07:24 11/13/22 07:24 Labs: Abnormal Lab Results - Last 24 Hours (Table) 11/05/22 11/06/22 11/06/22 Range/Units 20:11 06:00 07:30 WBC 13.4 H (3.8-10.6) k/uL RBC 3.94 L (4.30-5.90) m/uL Hgb 9.3 L (13.0-17.5) gm/dL Hct 33.2 L (39.0-53.0) % MCH 23.5 L (25.0-35.0) pg MCHC 27.9 L (31.0-37.0) g/dL RDW 15.6 H (11.5-15.5) % Plt Count 617 H (150-450) k/uL Neutrophils # 11.0 H (1.3-7.7) k/uL Sodium (137-145) mmol/L Chloride (98-107) mmol/L Carbon Dioxide (22-30) mmol/L Creatinine (0.66-1.25) mg/dL Glucose (74-99) mg/dL POC Glucose (mg/dL) 138 H 134 H (70-110) mg/dL Calcium (8.4-10.2) mg/dL 11/06/22 11/06/22 11/06/22 Range/Units 07:30 11:30 16:43 WBC (3.8-10.6) k/uL RBC (4.30-5.90) m/uL Hgb (13.0-17.5) gm/dL Hct (39.0-53.0) % MCH (25.0-35.0) pg MCHC (31.0-37.0) g/dL RDW (11.5-15.5) % Plt Count (150-450) k/uL Neutrophils # (1.3-7.7) k/uL Sodium 135 L (137-145) mmol/L Chloride 89 L (98-107) mmol/L Carbon Dioxide 39 H (22-30) mmol/L Creatinine 0.53 L (0.66-1.25) mg/dL Glucose 113 H (74-99) mg/dL POC Glucose (mg/dL) 191 H 260 H (70-110) mg/dL Calcium 7.9 L (8.4-10.2) mg/dL Microbiology - Last 24 Hours (Table) 11/02/22 21:16 Anaerobic Culture - Final Foot - Right Anaerobic Gm Negative Bacilli Anaerobic Gram Positive Cocci 11/02/22 21:16 Gram Stain - Final Foot - Right Wound Culture - Final Staphylococcus aureus Assessment and Plan (1) Diabetic foot infection Status: Acute Code(s): E11.628 - TYPE 2 DIABETES MELLITUS WITH OTHER SKIN COMPLICATIONS; L08.9 - LOCAL INFECTION OF THE SKIN AND SUBCUTANEOUS TISSUE, UNSP SNOMED Code(s): 178139579 Plan: 1patient with right diabetic foot wound with secondary infection cultures are growing MSSA and anaerobes patient did have a wound with slough tissue and conc april for underlying deep infection. 2we will obtain vascular surgery evaluation for debridement and deep culture. 3local wound care to continue with the Santyl. 4discontinue Keflex and start the patient on Unasyn 3 g per 6-hour. We will follow on clinical condition and cultures to further adjust medication if needed Thank you for this consultation will follow this patient along with you Time with Patient: Greater than 30
[2022-11-06] MEDS: AMPICILLIN-SULBACTAM 3 GM in SODIUM CHLORIDE 0.9% 100 ML IVPB SCH (23:22)
[2022-11-07] MEDS: AMPICILLIN-SULBACTAM 3 GM in SODIUM CHLORIDE 0.9% 100 ML IVPB SCH ×4 (05:39→22:35)
[2022-11-07 05:59] LABS: Glucose,Whole Blood 230 mg/dL (70-110)
[2022-11-07] MEDS: INSULIN ASPART (NovoLOG) 100 UNIT/ML VIAL SQ SCH ×4 (06:17→20:52)
[2022-11-07] MEDS: IPRATROPIUM-ALBUTEROL 3 ML NEB INHALATION SCH ×4 (07:35→19:39)
[2022-11-07] MEDS: PREGABALIN 100 MG CAP PO SCH ×2 (09:18→20:52)
[2022-11-07] MEDS: methylPREDNISolone SOD SUCCI 40 MG/ML 1 ML VIAL IV SCH ×2 (09:18→20:52)
[2022-11-07] MEDS: MORPHINE SULFATE ER 30 MG TABLET PO SCH ×3 (09:18→22:35)
[2022-11-07] MEDS: HEPARIN SODIUM,PORCINE/PF 5,000 UNIT/0.5 ML SYRINGE SQ SCH ×3 (09:18→22:35)
[2022-11-07] MEDS: DOCUSATE 100 MG CAP PO SCH ×2 (09:19→20:52)
[2022-11-07] MEDS: FAMOTIDINE 20 MG TAB PO SCH ×2 (09:19→20:52)
[2022-11-07] MEDS: LORATADINE 10 MG TAB PO SCH (09:19)
[2022-11-07] MEDS: FERROUS SULFATE 325 MG TAB PO SCH (09:19)
[2022-11-07] MEDS: METOPROLOL TARTRATE 25 MG TAB PO SCH ×2 (09:19→20:52)
[2022-11-07] MEDS: FUROSEMIDE 40 MG TAB PO SCH ×2 (09:19→17:42)
[2022-11-07 11:46] LABS: Glucose,Whole Blood 196 mg/dL (70-110)
--- NOTE | 2022-11-07 12:42 | P.PN ---
Subjective History of present illness; patient is a 62-year-old gentleman with past medical history significant for lung cancer on immunotherapy, congestive heart Failure, COPD, asthma who presented to the ER because of worsening shortness of breath and swelling of legs. Patient has been noticing increasing shortness of breath on exertion for the last couple of days associated with increased swelling of legs. Patient was on diuretics at home but stated that it was not working and he continues to be short of breath. Patient also currently on antibiotics for right foot wound. Because of this worsening shortness of breath and swelling of legs patient came to the ER. Initial lab work showed patient to have a white count of 12.9, hemoglobin of 8.8, platelet count of 628, sodium 137, potassium 4.3, carbon dioxide 38, troponin 0.1. CTA chest done showed no evidence of pulmonary embolism. It did show pleural thickening and destructive changes in the left upper ribs. Large mass involving the upper limits of chest wall was also seen. Patient was admitted to hospitalist service for further evaluation and treatment 11/04/2022 Patient still complaining of from dyspnea he says the same but no chest pain and no significant cough and He has chronic left shoulder pain and swelling of the left upper extremity related to his cancer Also he has evidence of right foot infection with no evidence of cellulitis, he has diabetic foot ulcer on the sole with black eschar He is in 2 L oxygen via nasal cannula Oncology team are on the case and the recommend to resume immunotherapy on 11/14 if he is stable, no recent chemotherapy 11/05/2022 Patient breathing is improving however patient is still hypoxic 88-92% on 4 L oxygen via nasal cannula His with non-STEMI moderate aortic stenosis and CHF, he is on IV Lasix was switched to oral dose today. Painter [employer]umbling [employer] on the case. His WBC is 12,000, hemoglobin 8.9. Pulmonary team were consulted today Patient informed about his next immunotherapy appointment on 11/14 and vision and at bedside agreeable. Patient has home oxygen of 2 L/m because of his cancer he is on morphine 3 times a day each make him little bit more sleepy which is expected. Also patient has constipation so Colace and senna was added 11/06/2022 Patient states that his breathing is better today patient feels is getting ready and closer for discharge Patient still constipated although he taking narcotics he was started on Colace and senna yesterday, we will wait another 24 hours. As per patient and family is okay for him to go to rehab. Even for short-term and then follow up with Dr. Zimmerman. Also the planned to follow-up with wound center for his right foot. Patient WBCs 13,000, hemoglobin 9.3, follow-up hemoglobin as an outpatient. He is saturating 93% on 4 L oxygen, his tachycardia is better Wound culture is growing and aerobic gram-negative bacilli and an aerobic gram- positive cocci as well as MSSA in the anaerobic culture, currently his on doxycycline causes of this abdominal wound culture we will consult infectious disease team Patient is improving and may be considered for discharge in 24-48 hours 11/07/2022 Patient awake alert, his breathing looks his stable and he is saturating 95% on 4 L oxygen via nasal cannula, he is not in respiratory distress on the contrary is breathing quietly. Pulmonary team on the case. 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 He is now on oral Lasix. He was being considered for discharge regarding his cardiopulmonary status however patient right foot ulcer was growing multiple bacteria including MSSA and an aerobic bacteria, and antibiotics was adjusted into Unasyn by ID team, who consulted vascular surgery for debridement and still pending. Also patient has chronic left shoulder pain and limitation of movement and now is undergoing debridement of his right foot, at bedside states that is hard for her to take care of him at home because of this and she preferred him to go to [facility] for [facility], patient is agreeable with that and I discussed the case with our clinical program manager Katelyn and she currently took note of this and she is going to work on it. Patient, his and even his daughter yesterday are aware that his chemotherapy/immunotherapy would be held while he is in rehab and they plan for short-term rehab stay can be discharged and follow-up with his oncologist Dr. Zimmerman for further treatment for his cancer. Hopefully this will happen within one week. Anyway patient was encouraged to follow-up with his oncologist in one week to 10 days. Objective - Vital Signs Vital signs: Vital Signs Temp 98.2 F 11/07/22 08:00 Pulse 100 11/07/22 12:00 Resp 16 11/07/22 12:00 BP 134/81 11/07/22 12:00 Pulse Ox 95 11/07/22 12:00 FiO2 Intake & Output 11/06/22 11/07/22 11/07/22 18:59 06:59 18:59 Intake Total 540 180 Output Total 225 750 Balance 315 -750 180 Weight 99.4 kg 99.4 kg Intake: Oral 540 180 Output: Urine 225 750 Other: Voiding Method Diaper Urinal Urinal Diaper Diaper - Exam GENERAL: The patient is alert and oriented x3, not in any acute distress. Well developed, well nourished. HEENT: Pupils are round and equally reacting to light. EOMI. No scleral icterus. No conjunctival pallor. Normocephalic, atraumatic. No pharyngeal erythema. No thyromegaly. CARDIOVASCULAR: S1 and S2 present. No murmurs, rubs, or gallops. -PULMONARY: Chest is clear to auscultation, no wheezing . Bilateral basal or crackles. ABDOMEN: Soft, nontender, nondistended, normoactive bowel sounds. No palpable organomegaly. MUSCULOSKELETAL: No joint swelling or deformity. -EXTREMITIES: No cyanosis, clubbing, or pedal mild B/L Lucio edema. Left upper extremities as well as with limitation of movement [chronic] right foot ulcer on the sole with black eschar on the top, no surrounding cellulitis NEUROLOGICAL: Gross neurological examination did not reveal any focal deficits. SKIN: No rashes. no petechiae. - Labs CBC & Chem 7: 11/06/22 07:30 11/06/22 07:30 Labs: Abnormal Lab Results - Last 24 Hours (Table) 11/06/22 11/06/22 11/07/22 Range/Units 16:43 20:36 05:57 POC Glucose (mg/dL) 260 H 246 H 230 H (70-110) mg/dL 11/07/22 Range/Units 11:44 POC Glucose (mg/dL) 196 H (70-110) mg/dL Microbiology - Last 24 Hours (Table) 11/02/22 21:16 Anaerobic Culture - Final Foot - Right Anaerobic Gm Negative Bacilli Anaerobic Gram Positive Cocci Assessment and Plan Assessment: Acute onset congestive heart failure. None STEMI with elevated troponin Moderate aortic stenosis Lung cancer with multiple nodular pulmonary metastasis throughout both lung jarvis Chronic left shoulder pain and swelling of the left upper extremity related to his history of cancer Right foot infection with staph Acute on chronic hypoxic respiratory failure Right foot wound Lung cancer Diabetes mellitus Hypertension Plan: Continue with, switched to oral dose on 11/06 six Strict I's and O's Daily weights. Monitor renal functions Change antibiotics into doxycycline and follow-up wound culture Consult cardiology. Pulmonary team consult Consult hematology oncology. Infectious disease consult Consult wound care Labs and medication were reviewed.. Continue same treatment. Continue with symptomatic treatment. Resume home medication. Monitor lytes and vitals. DVT and GI prophylaxis. Further recommendations as per clinical course of the patient DVT prophylaxis: Subcutaneous heparin GI Prophylaxis: Pepcid Prognosis is guarded plan discussed with patient and family including and daughter at bedside and all their questions answered and they're agreeable with the current plan
[2022-11-07] MEDS: HYDROcodone/APAP 5-325MG 1 EACH TAB PO PRN (12:57)
[2022-11-07] MEDS: COLLAGENASE 250 UNIT/GM OINTMENT 30 GM TUBE TOPICAL SCH (17:03)
[2022-11-07] MEDS: LIDOCAINE 5% PATCH TOPICAL SCH (17:03)
--- NOTE | 2022-11-07 17:05 | P.GSCN ---
History of Present Illness History of present illness: 62-year-old diabetic male patient was consulted patient has a chronic wound right foot plantar aspect infected with some drainage patient scheduled to have a debridement and deep culture. Patient has history of shortness of breath history of diabetes patient has a MRSA with on IV antibiotic under care of infectious disease Chest patient has a crackles bilateral pulses second sound present Abdomen soft nontender Vascular femorals are 2+ bilateral dorsal pedis is 1+ patient has a 2 x 2 CM infected wound on the plantar aspect with some debridement last tissue and some drainage Plan is debridement of the wound and deep culture Past Medical History Past Medical History: Asthma, Cancer, Heart Failure, COPD, Diabetes Mellitus, Hypertension Additional Past Medical History / Comment(s): Uses home O2 as needed only. Sq uamous cell carcinoma of the lung, rib lesion and lymph adenopathy, shoulder pain related to lung mass. Pancous tumor left apex History of Any Multi-Drug Resistant Organisms: MRSA Year Discovered:: 05/23/16 MDRO Source:: Left Foot Past Surgical History: Hernia Repair, Orthopedic Surgery, Tonsillectomy Additional Past Surgical History / Comment(s): lt. 5th toe amp Past Anesthesia/Blood Transfusion Reactions: No Reported Reaction Past Psychological History: Anxiety Smoking Status: Former smoker Past Alcohol Use History: None Reported Past Drug Use History: None Reported Additional Drug Use History / Comment(s): quit drinking 10 years ago in 2011, quit smoking Sept 2020 - Past Family History Sister(s) Family Medical History: Cancer Father Family Medical History: Congestive Heart Failure (CHF), Diabetes Mellitus Mother Family Medical History: Renal Disease Medications and Allergies Home Medications Medication Instructions Recorded Confirmed Type Albuterol Sulfate [Ventolin HFA] 2 puff INHALATION RT-Q4H PRN 08/03/21 11/02/22 History Morphine Sulfate [Ms Contin] 30 mg PO TID 03/18/22 11/02/22 History ondansetron HCL [Zofran] 8 mg PO TID PRN 08/17/22 11/02/22 History Loratadine [Claritin] 10 mg PO DAILY #30 tab 08/18/22 11/02/22 Rx Furosemide [Lasix] 20 mg PO DAILY PRN 09/11/22 11/02/22 History Pregabalin [Lyrica] 200 mg PO BID 09/11/22 11/02/22 History Cephalexin [Keflex] 500 mg PO QID 11/02/22 11/02/22 History Ferrous Sulfate [Feosol] 325 mg PO DAILY 11/02/22 11/02/22 History Ipratropium-Albuterol Nebulize 3 ml INHALATION RT-QID PRN 11/02/22 11/02/22 History [Duoneb 0.5 mg-3 mg/3 ml Soln] Multivitamins, Thera [Multivitamin 1 tab PO DAILY 11/02/22 11/02/22 History (formulary)] Allergies Allergy/AdvReac Type Severity Reaction Status Date / Time loratadine [From Claritin-D] AdvReac Confusion Verified 11/02/22 21:44 pseudoephedrine AdvReac Confusion Verified 11/02/22 21:44 [From Claritin-D] Surgical - Exam Vital Signs Temp Pulse Resp BP Pulse Ox 98.1 F 101 H 22 157/87 83 L 11/02/22 19:46 11/02/22 19:46 11/02/22 19:46 11/02/22 19:46 11/02/22 19:46 Results - Labs 11/06/22 07:30 11/06/22 07:30 Abnormal Lab Results - Last 24 Hours (Table) 11/06/22 11/07/22 11/07/22 Range/Units 20:36 05:57 11:44 POC Glucose (mg/dL) 246 H 230 H 196 H (70-110) mg/dL Microbiology - Last 24 Hours (Table) 11/02/22 21:16 Anaerobic Culture - Final Foot - Right Anaerobic Gm Negative Bacilli Anaerobic Gram Positive Cocci
[2022-11-07 17:06] LABS: Glucose,Whole Blood 229 mg/dL (70-110)
--- NOTE | 2022-11-07 17:07 | P.PCN ---
Description of Procedure: Preoperative diagnoses is infected wound right foot plantar aspect measurement is 3 x 2 cm Postop same measurement is 3 x 2 x 1 cm Procedure debridement of the wound right foot right foot was prepped and draped applied sterile manner 1% lidocaine was applied to the wound using sharp knife we debrided to the wound down to subcu tissue fact and all the debris cast tissue was excised the wound will follow in order we took the deep culture sent for culture until cream applied to the wound pressure dressing applied patient are to the procedure well plan is we'll change her dressing daily with Santyl cream
[2022-11-07 20:16] LABS: Glucose,Whole Blood 203 mg/dL (70-110)
[2022-11-08 05:50] LABS: Glucose,Whole Blood 203 mg/dL (70-110)
[2022-11-08] MEDS: INSULIN ASPART (NovoLOG) 100 UNIT/ML VIAL SQ SCH ×4 (06:38→20:09)
[2022-11-08] MEDS: AMPICILLIN-SULBACTAM 3 GM in SODIUM CHLORIDE 0.9% 100 ML IVPB SCH ×4 (06:38→22:50)
[2022-11-08] MEDS: IPRATROPIUM-ALBUTEROL 3 ML NEB INHALATION SCH ×4 (07:35→19:59)
[2022-11-08] MEDS: methylPREDNISolone SOD SUCCI 40 MG/ML 1 ML VIAL IV SCH ×2 (09:20→20:09)
[2022-11-08] MEDS: LORATADINE 10 MG TAB PO SCH (09:21)
[2022-11-08] MEDS: MORPHINE SULFATE ER 30 MG TABLET PO SCH ×3 (09:21→22:50)
[2022-11-08] MEDS: HEPARIN SODIUM,PORCINE/PF 5,000 UNIT/0.5 ML SYRINGE SQ SCH ×3 (09:21→22:50)
[2022-11-08] MEDS: PREGABALIN 100 MG CAP PO SCH ×2 (09:21→20:09)
[2022-11-08] MEDS: FAMOTIDINE 20 MG TAB PO SCH ×2 (09:21→20:09)
[2022-11-08] MEDS: METOPROLOL TARTRATE 25 MG TAB PO SCH ×2 (09:21→20:09)
[2022-11-08] MEDS: FUROSEMIDE 40 MG TAB PO SCH ×2 (09:21→16:57)
[2022-11-08] MEDS: DOCUSATE 100 MG CAP PO SCH ×2 (09:21→20:09)
[2022-11-08 09:40] LABS: African American GFR (CKD) >90 (>60 ml/min/1.73 sqM); Blood Urea Nitrogen 22 mg/dL (9-20); Calcium 8.2 mg/dL (8.4-10.2); Chloride 89 mmol/L (98-107); Glucose 135 mg/dL (74-99); Non-African American GFR(CKD) >90 (>60 ml/min/1.73 sqM); Potassium 4.1 mmol/L (3.5-5.1); Sodium 137 mmol/L (137-145)
[2022-11-08 09:46] LABS: Anisocytosis Slight; Basophils % (A) 0 %; Eosinophils % (A) 0 %; HCT 34.1 % (39.0-53.0); HGB 9.4 gm/dL (13.0-17.5); Hypochromasia Marked; Lymphocytes # (A) 1.1 k/uL (1.0-4.8); Lymphocytes % (A) 7 %; MCH 23.4 pg (25.0-35.0); MCHC 27.5 g/dL (31.0-37.0); Mean Platelet Volume 7.9; Monocytes # (A) 0.7 k/uL (0-1.0); Monocytes % (A) 4 %; Neutrophils # (A) 14.5 k/uL (1.3-7.7); Neutrophils % (A) 87 %; Platelet Count 590 k/uL (150-450); RBC 4.01 m/uL (4.30-5.90); RDW 16.1 % (11.5-15.5); WBC 16.6 k/uL (3.8-10.6)
[2022-11-08 09:47] LABS: Anion Gap 7 mmol/L
[2022-11-08 09:57] LABS: Carbon Dioxide 41 mmol/L (22-30)
[2022-11-08 11:56] LABS: Glucose,Whole Blood 185 mg/dL (70-110)
[2022-11-08] MEDS: FERROUS SULFATE 325 MG TAB PO SCH (13:16)
[2022-11-08 16:29] LABS: Glucose,Whole Blood 221 mg/dL (70-110)
[2022-11-08] MEDS: LIDOCAINE 5% PATCH TOPICAL SCH (16:57)
[2022-11-08] MEDS: COLLAGENASE 250 UNIT/GM OINTMENT 30 GM TUBE TOPICAL SCH (17:38)
--- NOTE | 2022-11-08 18:05 | P.PN ---
Progress Note - Text Patient was seen today patient had a debridement of the right heel today we have changed the dressing at this point no drainage noted we have changed the dressing with Santyl cream which will be continued which is an IV antibiotic under care of infectious disease changed the dressing daily with Santyl cream
--- NOTE | 2022-11-08 19:35 | P.PN ---
Subjective Progress Note Date: 11/08/22 62-year-old gentleman with past medical history significant for lung cancer on immunotherapy, congestive heart Failure, COPD, asthma who presented to the ER because of worsening shortness of breath and swelling of legs. Patient has been noticing increasing shortness of breath on exertion for the last couple of days associated with increased swelling of legs. Patient was on diuretics at home but stated that it was not working and he continues to be short of breath. Patient also currently on antibiotics for right foot wound. Because of this worsening shortness of breath and swelling of legs patient came to the ER. Initial lab work showed patient to have a white count of 12.9, hemoglobin of 8.8, platelet count of 628, sodium 137, potassium 4.3, carbon dioxide 38, troponin 0.1. CTA chest done showed no evidence of pulmonary embolism. It did show pleural thickening and destructive changes in the left upper ribs. Large mass involving the upper limits of chest wall was also seen. Patient was admitted to hospitalist service for further evaluation and treatment Objective - Vital Signs Vital signs: Vital Signs Temp 97.9 F 11/08/22 08:00 Pulse 86 11/08/22 11:46 Resp 18 11/08/22 08:00 BP 122/64 11/08/22 08:00 Pulse Ox 95 11/08/22 08:00 FiO2 Intake & Output 11/07/22 11/08/22 11/08/22 18:59 06:59 18:59 Intake Total 360 420 118 Output Total 425 350 600 Balance -65 70 -482 Weight 99.4 kg 105 kg Intake: Oral 360 420 118 Output: Urine 425 350 600 Other: Voiding Method Urinal Urinal Urinal Diaper Diaper Diaper # Voids 2 - Exam GENERAL: The patient is alert and oriented x3, not in any acute distress. Well developed, well nourished. HEENT: Pupils are round and equally reacting to light. EOMI. No scleral icterus. No conjunctival pallor. Normocephalic, atraumatic. No pharyngeal erythema. No thyromegaly. CARDIOVASCULAR: S1 and S2 present. No murmurs, rubs, or gallops. -PULMONARY: Chest is clear to auscultation, no wheezing . Bilateral basal or crackles. ABDOMEN: Soft, nontender, nondistended, normoactive bowel sounds. No palpable organomegaly. MUSCULOSKELETAL: No joint swelling or deformity. -EXTREMITIES: No cyanosis, clubbing, or pedal mild B/L Lucio edema. Left upper extremities as well as with limitation of movement [chronic] right foot ulcer on the sole with black eschar on the top, no surrounding cellulitis NEUROLOGICAL: Gross neurological examination did not reveal any focal deficits. SKIN: No rashes. no petechiae. - Labs CBC & Chem 7: 11/08/22 09:06 11/08/22 09:06 Labs: Abnormal Lab Results - Last 24 Hours (Table) 11/07/22 11/07/22 11/08/22 Range/Units 17:05 20:14 05:49 WBC (3.8-10.6) k/uL RBC (4.30-5.90) m/uL Hgb (13.0-17.5) gm/dL Hct (39.0-53.0) % MCH (25.0-35.0) pg MCHC (31.0-37.0) g/dL RDW (11.5-15.5) % Plt Count (150-450) k/uL Neutrophils # (1.3-7.7) k/uL Chloride (98-107) mmol/L Carbon Dioxide (22-30) mmol/L BUN (9-20) mg/dL Creatinine (0.66-1.25) mg/dL Glucose (74-99) mg/dL POC Glucose (mg/dL) 229 H 203 H 203 H (70-110) mg/dL Calcium (8.4-10.2) mg/dL 11/08/22 11/08/22 11/08/22 Range/Units 09:06 09:06 11:53 WBC 16.6 H (3.8-10.6) k/uL RBC 4.01 L (4.30-5.90) m/uL Hgb 9.4 L (13.0-17.5) gm/dL Hct 34.1 L (39.0-53.0) % MCH 23.4 L (25.0-35.0) pg MCHC 27.5 L (31.0-37.0) g/dL RDW 16.1 H (11.5-15.5) % Plt Count 590 H (150-450) k/uL Neutrophils # 14.5 H (1.3-7.7) k/uL Chloride 89 L (98-107) mmol/L Carbon Dioxide 41 H* (22-30) mmol/L BUN 22 H (9-20) mg/dL Creatinine 0.60 L (0.66-1.25) mg/dL Glucose 135 H (74-99) mg/dL POC Glucose (mg/dL) 185 H (70-110) mg/dL Calcium 8.2 L (8.4-10.2) mg/dL Microbiology - Last 24 Hours (Table) 11/07/22 17:57 Tissue Culture - Preliminary Foot - Right Assessment and Plan Assessment: Acute onset congestive heart failure. None STEMI with elevated troponin Moderate aortic stenosis Lung cancer with multiple nodular pulmonary metastasis throughout both lung jarvis Chronic left shoulder pain and swelling of the left upper extremity related to his history of cancer Right foot infection with staph Acute on chronic hypoxic respiratory failure Right foot wound Lung cancer Diabetes mellitus Hypertension Plan: Continue with, switched to oral dose on 11/06 six Strict I's and O's Daily weights. Monitor renal functions Change antibiotics into doxycycline and follow-up wound culture Consult cardiology. Pulmonary team consult Consult hematology oncology. Infectious disease consult Consult wound care Labs and medication were reviewed.. Continue same treatment. Continue with symptomatic treatment. Resume home medication. Monitor lytes and vitals. DVT and GI prophylaxis. Further recommendations as per clinical course of the patient DVT prophylaxis: Subcutaneous heparin GI Prophylaxis: Pepcid Prognosis is guarded plan discussed with patient and family including and daughter at bedside and all their questions answered and they're agreeable with the current plan
[2022-11-08 19:47] LABS: Glucose,Whole Blood 192 mg/dL (70-110)
[2022-11-09 05:51] LABS: Glucose,Whole Blood 174 mg/dL (70-110)
[2022-11-09] MEDS: AMPICILLIN-SULBACTAM 3 GM in SODIUM CHLORIDE 0.9% 100 ML IVPB SCH ×4 (05:59→23:11)
[2022-11-09] MEDS: INSULIN ASPART (NovoLOG) 100 UNIT/ML VIAL SQ SCH ×4 (05:59→19:58)
[2022-11-09] MEDS: HEPARIN SODIUM,PORCINE/PF 5,000 UNIT/0.5 ML SYRINGE SQ SCH ×3 (08:35→23:11)
[2022-11-09] MEDS: FAMOTIDINE 20 MG TAB PO SCH ×2 (08:35→20:08)
[2022-11-09] MEDS: methylPREDNISolone SOD SUCCI 40 MG/ML 1 ML VIAL IV SCH ×2 (08:35→20:09)
[2022-11-09] MEDS: MORPHINE SULFATE ER 30 MG TABLET PO SCH ×3 (08:36→23:13)
[2022-11-09] MEDS: METOPROLOL TARTRATE 25 MG TAB PO SCH ×2 (08:36→20:08)
[2022-11-09] MEDS: FUROSEMIDE 40 MG TAB PO SCH ×2 (08:36→15:32)
[2022-11-09] MEDS: DOCUSATE 100 MG CAP PO SCH ×2 (08:36→20:08)
[2022-11-09] MEDS: FERROUS SULFATE 325 MG TAB PO SCH (08:37)
[2022-11-09] MEDS: LORATADINE 10 MG TAB PO SCH (08:37)
[2022-11-09] MEDS: PREGABALIN 100 MG CAP PO SCH ×2 (08:37→20:09)
[2022-11-09] MEDS: IPRATROPIUM-ALBUTEROL 3 ML NEB INHALATION SCH ×4 (09:03→20:00)
[2022-11-09] MEDS: COLLAGENASE 250 UNIT/GM OINTMENT 30 GM TUBE TOPICAL SCH (09:28)
[2022-11-09 10:01] LABS: Anisocytosis Slight; Basophils # (A) 0.1 k/uL (0-0.2); Basophils % (A) 0 %; Eosinophils % (A) 0 %; HCT 34.4 % (39.0-53.0); HGB 9.6 gm/dL (13.0-17.5); Hypochromasia Marked; Lymphocytes # (A) 1.2 k/uL (1.0-4.8); Lymphocytes % (A) 9 %; MCH 23.7 pg (25.0-35.0); MCHC 27.9 g/dL (31.0-37.0); MCV 84.9 fL (80.0-100.0); Mean Platelet Volume 7.8; Monocytes # (A) 0.6 k/uL (0-1.0); Monocytes % (A) 4 %; Neutrophils # (A) 11.8 k/uL (1.3-7.7); Neutrophils % (A) 85 %; Platelet Count 499 k/uL (150-450); RBC 4.06 m/uL (4.30-5.90); RDW 16.3 % (11.5-15.5); WBC 13.9 k/uL (3.8-10.6)
[2022-11-09 10:13] LABS: African American GFR (CKD) >90 (>60 ml/min/1.73 sqM); Anion Gap 7 mmol/L; Blood Urea Nitrogen 19 mg/dL (9-20); Calcium 8.3 mg/dL (8.4-10.2); Chloride 89 mmol/L (98-107); Glucose 122 mg/dL (74-99); Non-African American GFR(CKD) >90 (>60 ml/min/1.73 sqM); Potassium 4.1 mmol/L (3.5-5.1); Sodium 136 mmol/L (137-145)
[2022-11-09 10:20] LABS: Carbon Dioxide 40 mmol/L (22-30)
[2022-11-09 11:50] LABS: Glucose,Whole Blood 211 mg/dL (70-110)
--- NOTE | 2022-11-09 13:58 | P.PN ---
Subjective Progress Note Date: 11/07/22 Principal diagnosis: Acute on chronic hypoxic respiratory failure appeared to be related to combination diastolic heart failure and COPD exacerbation Acute COPD exacerbation Lung mass with invasion to chest wall distraction involving the ribs Metastatic stage IV lung cancer Anasarca and fluid overload Bilateral small pleural effusion more so on the right side compared left side 11/07/2022, patient seen eval reexamined awake and alert, denies any chest pain ongoing shortness of breath is present, patient remains on 4 L oxygen, patient has been on Lasix for acute exacerbation of congestive heart failure also on bronchodilators and broad-spectrum antibiotics, with IV steroids tolerating well 11/06/2022, patient seen and evaluated examined during the rounds labs reviewed medications reviewed, shortness of breath slightly improved however remains on 4 L oxygen ongoing dry cough is present, left upper extremity is weak swelling in second due to lymphedema, and labs from today's reviewed white cell count is 13,400, hemoglobin hematocrit 9.3/33, platelet count 6 and 17,000, BUN/creatinine 17/0.53 sodium is 135 potassium 4.5 CO2 is 39 which is progressively declining now Patient is a 62-year-old male with prior medical history of lung cancer has been on immunotherapy with Dr. Shaikh also has a history of chronic hypoxic respiratory failure on home oxygen 2 L history of smoking and nicotine use hypertension hypertensive cardiovascular disease. Patient presented into the hospital with increasing shortness of breath of several day duration as well as increasing lower extremity swelling currently patient has been on IV Lasix switched to by mouth, and responding well in addition patient has been on bronchodilator doxycycline and his home medications, echocardiogram revealed normal LV function with moderate aortic stenosis with a peak gradient is 37 and a mean gradient 22 and mild mitral stenosis patient has been in negative balance. Chest x-ray on admission revealed bilateral pulmonary infiltrate with pleural thickening increase more so on the right side compared to left side, venous Doppler study of the negative for DVT, computed tomography scan of the chest revealed no evidence of pulmonary embolism, pleural thickening and destructive changes noted in the left upper lateral leads along with large mass in the upper lateral chest wall, and multiple nodular nodular masses bilaterally in lung field with right- sided pleural effusion, effusion has increased compared to prior exam in October 2022 Objective - Vital Signs Vital signs: Vital Signs Temp 98.2 F 11/07/22 08:00 Pulse 100 11/07/22 12:00 Resp 16 11/07/22 12:00 BP 134/81 11/07/22 12:00 Pulse Ox 95 11/07/22 12:00 FiO2 Intake & Output 11/06/22 11/07/22 11/07/22 18:59 06:59 18:59 Intake Total 540 180 Output Total 225 750 Balance 315 -750 180 Weight 99.4 kg 99.4 kg Intake: Oral 540 180 Output: Urine 225 750 Other: Voiding Method Diaper Urinal Urinal Diaper Diaper - Exam - Constitutional General appearance: average body habitus, cooperative, disheveled, mild distress - EENT Eyes: EOMI, PERRLA ENT: normal oropharynx Ears: bilateral: normal - Neck Carotids: bilateral: upstroke normal - Respiratory Respiratory: bilateral: diminished, dullness (Bilaterally in the bases) - Cardiovascular Rhythm: regular Heart sounds: normal: S1, S2 - Gastrointestinal General gastrointestinal: hyperactive bowel sounds - Integumentary Bilateral pedal edema with chronic skin changes Integumentary: decreased turgor - Neurologic Neurologic: CNII-XII intact - Musculoskeletal Musculoskeletal: gait normal, generalized weakness, strength equal bilaterally - Psychiatric Psychiatric: A&O x's 3, appropriate affect, intact judgment & insight - Labs CBC & Chem 7: 11/09/22 09:13 11/09/22 09:13 Labs: Abnormal Lab Results - Last 24 Hours (Table) 11/06/22 11/06/22 11/07/22 Range/Units 16:43 20:36 05:57 POC Glucose (mg/dL) 260 H 246 H 230 H (70-110) mg/dL 11/07/22 Range/Units 11:44 POC Glucose (mg/dL) 196 H (70-110) mg/dL Microbiology - Last 24 Hours (Table) 11/02/22 21:16 Anaerobic Culture - Final Foot - Right Anaerobic Gm Negative Bacilli Anaerobic Gram Positive Cocci Assessment and Plan Assessment: Acute on chronic hypoxic respiratory failure appeared to be related to comb ination diastolic heart failure and COPD exacerbation Acute COPD exacerbation Lung mass with invasion to chest wall distraction involving the ribs Metastatic stage IV lung cancer Anasarca and fluid overload Bilateral small pleural effusion more so on the right side compared left side Chronic left upper extremity lymphedema in weakness Plan: Continue bronchodilators Continue gentle diuresis Antibiotics Diuretics Supplemental oxygen, titrated oxygen down as tolerated IV steroids Further plan of care as per clinical response of the patient Continue to raise left upper extremity Time with Patient: Greater than 30
--- NOTE | 2022-11-09 14:00 | P.PN ---
Subjective Progress Note Date: 11/09/22 Principal diagnosis: Acute on chronic hypoxic respiratory failure appeared to be related to combination diastolic heart failure and COPD exacerbation Acute COPD exacerbation Lung mass with invasion to chest wall distraction involving the ribs Metastatic stage IV lung cancer Anasarca and fluid overload Bilateral small pleural effusion more so on the right side compared left side 11/09/2022, today's evaluation patient is more lethargic somnolent and family is present bedside, patient remains on bronchodilators along with IV steroids and broad-spectrum antibiotics, noted that vascular surgery has been following as well for her wounds 11/07/2022, patient seen eval reexamined awake and alert, denies any chest pain ongoing shortness of breath is present, patient remains on 4 L oxygen, patient has been on Lasix for acute exacerbation of congestive heart failure also on bronchodilators and broad-spectrum antibiotics, with IV steroids tolerating well 11/06/2022, patient seen and evaluated examined during the rounds labs reviewed medications reviewed, shortness of breath slightly improved however remains on 4 L oxygen ongoing dry cough is present, left upper extremity is weak swelling in second due to lymphedema, and labs from today's reviewed white cell count is 13,400, hemoglobin hematocrit 9.3/33, platelet count 6 and 17,000, BUN/creatinine 17/0.53 sodium is 135 potassium 4.5 CO2 is 39 which is progressively declining now Patient is a 62-year-old male with prior medical history of lung cancer has been on immunotherapy with Dr. Shaikh also has a history of chronic hypoxic respiratory failure on home oxygen 2 L history of smoking and nicotine use hypertension hypertensive cardiovascular disease. Patient presented into the hospital with increasing shortness of breath of several day duration as well as increasing lower extremity swelling currently patient has been on IV Lasix switched to by mouth, and responding well in addition patient has been on bronchodilator doxycycline and his home medications, echocardiogram revealed normal LV function with moderate aortic stenosis with a peak gradient is 37 and a mean gradient 22 and mild mitral stenosis patient has been in negative balance. Chest x-ray on admission revealed bilateral pulmonary infiltrate with pleural thickening increase more so on the right side compared to left side, venous Doppler study of the negative for DVT, computed tomography scan of the chest revealed no evidence of pulmonary embolism, pleural thickening and destructive changes noted in the left upper lateral leads along with large mass in the upper lateral chest wall, and multiple nodular nodular masses bilaterally in lung field with right- sided pleural effusion, effusion has increased compared to prior exam in 2021 Objective - Vital Signs Vital signs: Vital Signs Temp 98.3 F 11/09/22 08:33 Pulse 101 H 11/09/22 13:06 Resp 18 11/09/22 11:33 BP 134/76 11/09/22 11:33 Pulse Ox 96 11/09/22 11:33 FiO2 Intake & Output 11/08/22 11/09/22 11/09/22 18:59 06:59 18:59 Intake Total 354 240 240 Output Total 900 1075 Balance -546 -835 240 Intake: Oral 354 240 240 Output: Urine 900 1075 Other: Voiding Method Urinal Urinal Urinal Diaper Diaper Diaper # Voids 1 - Exam - Constitutional General appearance: average body habitus, cooperative, disheveled, mild distress, more somnolent than baseline - EENT Eyes: EOMI, PERRLA ENT: normal oropharynx Ears: bilateral: normal - Neck Carotids: bilateral: upstroke normal - Respiratory Respiratory: bilateral: diminished, dullness (Bilaterally in the bases) - Cardiovascular Rhythm: regular Heart sounds: normal: S1, S2 - Gastrointestinal General gastrointestinal: hyperactive bowel sounds - Integumentary Bilateral pedal edema with chronic skin changes Integumentary: decreased turgor - Neurologic Neurologic: CNII-XII intact - Musculoskeletal Musculoskeletal: gait normal, generalized weakness, strength equal bilaterally - Psychiatric Psychiatric: More somnolent baseline, - Labs CBC & Chem 7: 11/09/22 09:13 11/09/22 09:13 Labs: Abnormal Lab Results - Last 24 Hours (Table) 11/08/22 11/08/22 11/09/22 Range/Units 16:27 19:45 05:49 WBC (3.8-10.6) k/uL RBC (4.30-5.90) m/uL Hgb (13.0-17.5) gm/dL Hct (39.0-53.0) % MCH (25.0-35.0) pg MCHC (31.0-37.0) g/dL RDW (11.5-15.5) % Plt Count (150-450) k/uL Neutrophils # (1.3-7.7) k/uL Sodium (137-145) mmol/L Chloride (98-107) mmol/L Carbon Dioxide (22-30) mmol/L Creatinine (0.66-1.25) mg/dL Glucose (74-99) mg/dL POC Glucose (mg/dL) 221 H 192 H 174 H (70-110) mg/dL Calcium (8.4-10.2) mg/dL 11/09/22 11/09/22 11/09/22 Range/Units 09:13 09:13 11:48 WBC 13.9 H (3.8-10.6) k/uL RBC 4.06 L (4.30-5.90) m/uL Hgb 9.6 L (13.0-17.5) gm/dL Hct 34.4 L (39.0-53.0) % MCH 23.7 L (25.0-35.0) pg MCHC 27.9 L (31.0-37.0) g/dL RDW 16.3 H (11.5-15.5) % Plt Count 499 H (150-450) k/uL Neutrophils # 11.8 H (1.3-7.7) k/uL Sodium 136 L (137-145) mmol/L Chloride 89 L (98-107) mmol/L Carbon Dioxide 40 H (22-30) mmol/L Creatinine 0.51 L (0.66-1.25) mg/dL Glucose 122 H (74-99) mg/dL POC Glucose (mg/dL) 211 H (70-110) mg/dL Calcium 8.3 L (8.4-10.2) mg/dL Microbiology - Last 24 Hours (Table) 11/07/22 17:57 Gram Stain - Preliminary Foot - Right Tissue Culture - Preliminary Presumptive Staph aureus Assessment and Plan Assessment: Altered mental status/increased lethargy Acute on chronic hypoxic respiratory failure appeared to be related to combination diastolic heart failure and COPD exacerbation Acute COPD exacerbation Lung mass with invasion to chest wall distraction involving the ribs Metastatic stage IV lung cancer Anasarca and fluid overload Bilateral small pleural effusion more so on the right side compared left side Chronic left upper extremity lymphedema in weakness Plan: Will get arterial blood gas on the 2 L oxygen to assess hypercapnia in case if present then consider BiPAP trial Continue bronchodilators Continue gentle diuresis Antibiotics Diuretics Supplemental oxygen, titrated oxygen down as tolerated IV steroids Further plan of care as per clinical response of the patient Continue to raise left upper extremity Time with Patient: Greater than 30
[2022-11-09 14:41] LABS: ABG Base Excess 22.4 mmol/L; ABG Oxygen Saturation 91.5 % (94-97); ABG PCO2 62 mmHg (35-45); ABG PH 7.48 (7.35-7.45); ABG TCO2 48 mmol/L (19-24); Allen Test Performed? Yes
[2022-11-09 14:42] LABS: ABG HCO3 46 mmol/L (21-25); ABG PO2 59 mmHg (83-108)
[2022-11-09] MEDS: LIDOCAINE 5% PATCH TOPICAL SCH (15:31)
--- NOTE | 2022-11-09 16:32 | P.PN ---
Subjective Progress Note Date: 11/07/22 Principal diagnosis: Right diabetic foot infection Patient is a 62-year-old male with a past medical history taken for diabetes mellitus presenting to the hospital 4 days ago on 11/02/2022 for evaluation of increasing shortness of breath and lower extremity swelling marilu ent also have wound on the plantar aspect of the right foot which has been there for for more than a week before presentation to the hospital patient did have local cultures obtained growing MSSA and anaerobes. On today's evaluation that is 11/07/2022, the patient denies having any fever or chills he is breathing slightly comfortably patient denies having any chest pain occasional cough no nausea no vomiting no abdominal pain and denies having any pain to the right foot plantar wound area Objective - Vital Signs Vital signs: Vital Signs Temp 98.2 F 11/07/22 08:00 Pulse 100 11/07/22 12:00 Resp 16 11/07/22 12:00 BP 134/81 11/07/22 12:00 Pulse Ox 95 11/07/22 12:00 FiO2 Intake & Output 11/06/22 11/07/22 11/07/22 18:59 06:59 18:59 Intake Total 540 180 Output Total 225 750 Balance 315 -750 180 Weight 99.4 kg 99.4 kg Intake: Oral 540 180 Output: Urine 225 750 Other: Voiding Method Diaper Urinal Urinal Diaper Diaper - Exam GENERAL DESCRIPTION: An elderly male lying in bed in no distress RESPIRATORY SYSTEM: Unlabored breathing , decreased breath sounds at bases HEART: S1 S2 regular rate and rhythm , ABDOMEN: Soft , no tenderness EXTREMITIES: Right foot plantar wound is currently dressed - Labs CBC & Chem 7: 11/09/22 09:13 11/09/22 09:13 Labs: Abnormal Lab Results - Last 24 Hours (Table) 11/06/22 11/06/22 11/07/22 Range/Units 16:43 20:36 05:57 POC Glucose (mg/dL) 260 H 246 H 230 H (70-110) mg/dL 11/07/22 Range/Units 11:44 POC Glucose (mg/dL) 196 H (70-110) mg/dL Microbiology - Last 24 Hours (Table) 11/02/22 21:16 Anaerobic Culture - Final Foot - Right Anaerobic Gm Negative Bacilli Anaerobic Gram Positive Cocci Assessment and Plan (1) Diabetic infection of left foot Current Visit: Yes Status: Acute Code(s): E11.628 - TYPE 2 DIABETES MELLITUS WITH OTHER SKIN COMPLICATIONS; L08.9 - LOCAL INFECTION OF THE SKIN AND SUBCUTANEOUS TISSUE, UNSP SNOMED Code(s): 32645852 Plan: 1patient with right diabetic foot wound with secondary infection cultures are growing MSSA and anaerobes patient did have a wound with slough tissue and concern for underlying deep infection. 2patient is currently waiting for vascular surgery evaluation for debridement and deep culture. 3local wound care to continue with the Santyl. 4patient to continue with Unasyn 3 g per 6-hour. Time with Patient: Less than 30
--- NOTE | 2022-11-09 16:34 | P.PN ---
Subjective Progress Note Date: 11/08/22 Principal diagnosis: Right diabetic foot infection Patient is a 62-year-old male with a past medical history taken for diabetes mellitus presenting to the hospital 4 days ago on 11/02/2022 for evaluation of increasing shortness of breath and lower extremity swelling marilu ent also have wound on the plantar aspect of the right foot which has been there for for more than a week before presentation to the hospital patient did have local cultures obtained growing MSSA and anaerobes. Patient is status post bedside debridement of his right foot plantar wound by vascular surgery mention wound was extending on into the subcutaneous tissue no involvement of the bone, procedure completed on 11/07/2022 On today's evaluation that is 11/08/2022, the patient remains to be afebrile, the patient is breathing slightly comfortably, the patient denies having any chest pain occasional cough no nausea no vomiting no abdominal pain and denies having any pain to the right foot plantar wound area Objective - Vital Signs Vital signs: Vital Signs Temp 97.9 F 11/08/22 08:00 Pulse 86 11/08/22 11:46 Resp 18 11/08/22 08:00 BP 122/64 11/08/22 08:00 Pulse Ox 95 11/08/22 08:00 FiO2 Intake & Output 11/07/22 11/08/22 11/08/22 18:59 06:59 18:59 Intake Total 360 420 118 Output Total 425 350 600 Balance -65 70 -482 Weight 99.4 kg 105 kg Intake: Oral 360 420 118 Output: Urine 425 350 600 Other: Voiding Method Urinal Urinal Urinal Diaper Diaper Diaper # Voids 2 - Exam GENERAL DESCRIPTION: An elderly male lying in bed in no distress RESPIRATORY SYSTEM: Unlabored breathing , decreased breath sounds at bases HEART: S1 S2 regular rate and rhythm , ABDOMEN: Soft , no tenderness EXTREMITIES: Right foot plantar wound is currently dressed, no drainage on the dressing - Labs CBC & Chem 7: 11/09/22 09:13 11/09/22 09:13 Labs: Abnormal Lab Results - Last 24 Hours (Table) 11/07/22 11/07/22 11/08/22 Range/Units 17:05 20:14 05:49 WBC (3.8-10.6) k/uL RBC (4.30-5.90) m/uL Hgb (13.0-17.5) gm/dL Hct (39.0-53.0) % MCH (25.0-35.0) pg MCHC (31.0-37.0) g/dL RDW (11.5-15.5) % Plt Count (150-450) k/uL Neutrophils # (1.3-7.7) k/uL Chloride (98-107) mmol/L Carbon Dioxide (22-30) mmol/L BUN (9-20) mg/dL Creatinine (0.66-1.25) mg/dL Glucose (74-99) mg/dL POC Glucose (mg/dL) 229 H 203 H 203 H (70-110) mg/dL Calcium (8.4-10.2) mg/dL 11/08/22 11/08/22 11/08/22 Range/Units 09:06 09:06 11:53 WBC 16.6 H (3.8-10.6) k/uL RBC 4.01 L (4.30-5.90) m/uL Hgb 9.4 L (13.0-17.5) gm/dL Hct 34.1 L (39.0-53.0) % MCH 23.4 L (25.0-35.0) pg MCHC 27.5 L (31.0-37.0) g/dL RDW 16.1 H (11.5-15.5) % Plt Count 590 H (150-450) k/uL Neutrophils # 14.5 H (1.3-7.7) k/uL Chloride 89 L (98-107) mmol/L Carbon Dioxide 41 H* (22-30) mmol/L BUN 22 H (9-20) mg/dL Creatinine 0.60 L (0.66-1.25) mg/dL Glucose 135 H (74-99) mg/dL POC Glucose (mg/dL) 185 H (70-110) mg/dL Calcium 8.2 L (8.4-10.2) mg/dL Microbiology - Last 24 Hours (Table) 11/07/22 17:57 Tissue Culture - Preliminary Foot - Right Assessment and Plan (1) Diabetic infection of left foot Current Visit: Yes Status: Acute Code(s): E11.628 - TYPE 2 DIABETES MELLITUS WITH OTHER SKIN COMPLICATIONS; L08.9 - LOCAL INFECTION OF THE SKIN AND SUBCUTANEOUS TISSUE, UNSP SNOMED Code(s): 86375071 Plan: 1patient with right diabetic foot wound with secondary infection cultures are growing MSSA and anaerobes patient did have a wound with slough tissue and concern for underlying deep infection. 2patient is status post vascular surgery evaluation and debridement of the rig ht foot plantar wound along with deep culture which are currently pending. 3local wound care to continue with the Santyl. 4patient to continue with Unasyn 3 g per 6-hour while inpatient and monitor clinical course closely. Time with Patient: Less than 30
--- NOTE | 2022-11-09 16:35 | P.PN ---
Subjective Progress Note Date: 11/09/22 Principal diagnosis: Right diabetic foot infection Patient is a 62-year-old male with a past medical history taken for diabetes mellitus presenting to the hospital 4 days ago on 11/02/2022 for evaluation of increasing shortness of breath and lower extremity swelling marilu ent also have wound on the plantar aspect of the right foot which has been there for for more than a week before presentation to the hospital patient did have local cultures obtained growing MSSA and anaerobes. Patient is status post bedside debridement of his right foot plantar wound by vascular surgery mention wound was extending on into the subcutaneous tissue no involvement of the bone, procedure completed on 11/07/2022 On today's evaluation that is 11/09/2022, the patient denies any fever or chills, the patient is breathing slightly comfortably on a 2 L nasal cannula, the patient denies having any chest pain occasional cough no nausea no vomiting no abdominal pain and denies having any pain to the right foot plantar wound area Objective - Vital Signs Vital signs: Vital Signs Temp 98.3 F 11/09/22 08:33 Pulse 101 H 11/09/22 13:06 Resp 18 11/09/22 11:33 BP 134/76 11/09/22 11:33 Pulse Ox 96 11/09/22 11:33 FiO2 Intake & Output 11/08/22 11/09/22 11/09/22 18:59 06:59 18:59 Intake Total 354 240 240 Output Total 900 1075 Balance -546 835 240 Intake: Oral 354 240 240 Output: Urine 900 1075 Other: Voiding Method Urinal Urinal Urinal Diaper Diaper Diaper # Voids 1 - Exam GENERAL DESCRIPTION: An elderly male lying in bed in no distress RESPIRATORY SYSTEM: Unlabored breathing , decreased breath sounds at bases HEART: S1 S2 regular rate and rhythm , ABDOMEN: Soft , no tenderness EXTREMITIES: Right foot plantar wound is currently dressed, no drainage on the dressing - Labs CBC & Chem 7: 11/09/22 09:13 11/09/22 09:13 Labs: Abnormal Lab Results - Last 24 Hours (Table) 11/08/22 11/08/22 11/09/22 Range/Units 16:27 19:45 05:49 WBC (3.8-10.6) k/uL RBC (4.30-5.90) m/uL Hgb (13.0-17.5) gm/dL Hct (39.0-53.0) % MCH (25.0-35.0) pg MCHC (31.0-37.0) g/dL RDW (11.5-15.5) % Plt Count (150-450) k/uL Neutrophils # (1.3-7.7) k/uL Sodium (137-145) mmol/L Chloride (98-107) mmol/L Carbon Dioxide (22-30) mmol/L Creatinine (0.66-1.25) mg/dL Glucose (74-99) mg/dL POC Glucose (mg/dL) 221 H 192 H 174 H (70-110) mg/dL Calcium (8.4-10.2) mg/dL 11/09/22 11/09/22 11/09/22 Range/Units 09:13 09:13 11:48 WBC 13.9 H (3.8-10.6) k/uL RBC 4.06 L (4.30-5.90) m/uL Hgb 9.6 L (13.0-17.5) gm/dL Hct 34.4 L (39.0-53.0) % MCH 23.7 L (25.0-35.0) pg MCHC 27.9 L (31.0-37.0) g/dL RDW 16.3 H (11.5-15.5) % Plt Count 499 H (150-450) k/uL Neutrophils # 11.8 H (1.3-7.7) k/uL Sodium 136 L (137-145) mmol/L Chloride 89 L (98-107) mmol/L Carbon Dioxide 40 H (22-30) mmol/L Creatinine 0.51 L (0.66-1.25) mg/dL Glucose 122 H (74-99) mg/dL POC Glucose (mg/dL) 211 H (70-110) mg/dL Calcium 8.3 L (8.4-10.2) mg/dL Microbiology - Last 24 Hours (Table) 11/07/22 17:57 Gram Stain - Preliminary Foot - Right Tissue Culture - Preliminary Presumptive Staph aureus Assessment and Plan (1) Diabetic foot infection Current Visit: Yes Status: Acute Code(s): E11.628 - TYPE 2 DIABETES MELLITUS WITH OTHER SKIN COMPLICATIONS; L08.9 - LOCAL INFECTION OF THE SKIN AND SUBCUTANEOUS TISSUE, UNSP SNOMED Code(s): 147863466 (2) Wound of foot Current Visit: Yes Status: Acute Code(s): S91.309A - UNSPECIFIED OPEN WOUND, UNSPECIFIED FOOT, INITIAL ENCOUNTER SNOMED Code(s): 090697515 Plan: 1patient with right diabetic foot wound with secondary infection cultures are growing MSSA and anaerobes patient did have a wound with slough tissue and concern for underlying deep infection. 2patient is status post vascular surgery evaluation and debridement of the right foot plantar wound along with deep culture which are currently growing staph aureus 3patient to continue with Unasyn 3 g per 6-hour while inpatient and hopefully transition to oral antibodies on discharge Time with Patient: Less than 30
[2022-11-09 16:48] LABS: Glucose,Whole Blood 215 mg/dL (70-110)
[2022-11-09 19:55] LABS: Glucose,Whole Blood 141 mg/dL (70-110)
[2022-11-10 05:42] LABS: Anisocytosis Slight; Basophils % (A) 0 %; Eosinophils % (A) 0 %; HCT 31.5 % (39.0-53.0); HGB 8.7 gm/dL (13.0-17.5); Hypochromasia Marked; Lymphocytes # (A) 0.9 k/uL (1.0-4.8); Lymphocytes % (A) 7 %; MCH 23.4 pg (25.0-35.0); MCHC 27.7 g/dL (31.0-37.0); MCV 84.4 fL (80.0-100.0); Monocytes # (A) 0.5 k/uL (0-1.0); Monocytes % (A) 4 %; Neutrophils # (A) 10.5 k/uL (1.3-7.7); Neutrophils % (A) 88 %; Platelet Count 471 k/uL (150-450); RBC 3.73 m/uL (4.30-5.90); RDW 16.1 % (11.5-15.5)
[2022-11-10 05:52] LABS: Glucose,Whole Blood 157 mg/dL (70-110)
[2022-11-10 06:03] LABS: Chloride 87 mmol/L (98-107)
[2022-11-10 06:04] LABS: African American GFR (CKD) >90 (>60 ml/min/1.73 sqM); Blood Urea Nitrogen 18 mg/dL (9-20); Calcium 8.2 mg/dL (8.4-10.2); Glucose 170 mg/dL (74-99); Non-African American GFR(CKD) >90 (>60 ml/min/1.73 sqM); Potassium 4.3 mmol/L (3.5-5.1); Sodium 133 mmol/L (137-145)
[2022-11-10] MEDS: AMPICILLIN-SULBACTAM 3 GM in SODIUM CHLORIDE 0.9% 100 ML IVPB SCH ×4 (06:09→23:41)
[2022-11-10] MEDS: INSULIN ASPART (NovoLOG) 100 UNIT/ML VIAL SQ SCH ×4 (06:09→21:42)
[2022-11-10 06:21] LABS: Anion Gap 4 mmol/L
[2022-11-10 06:40] LABS: Carbon Dioxide 42 mmol/L (22-30)
[2022-11-10] MEDS: DOCUSATE 100 MG CAP PO SCH ×2 (07:47→22:21)
[2022-11-10] MEDS: HEPARIN SODIUM,PORCINE/PF 5,000 UNIT/0.5 ML SYRINGE SQ SCH ×3 (07:47→23:41)
[2022-11-10] MEDS: PREGABALIN 100 MG CAP PO SCH ×2 (07:47→21:51)
[2022-11-10] MEDS: methylPREDNISolone SOD SUCCI 40 MG/ML 1 ML VIAL IV SCH ×2 (07:47→22:21)
[2022-11-10] MEDS: FAMOTIDINE 20 MG TAB PO SCH ×2 (07:48→22:21)
[2022-11-10] MEDS: FERROUS SULFATE 325 MG TAB PO SCH (07:48)
[2022-11-10] MEDS: COLLAGENASE 250 UNIT/GM OINTMENT 30 GM TUBE TOPICAL SCH (07:48)
[2022-11-10] MEDS: LORATADINE 10 MG TAB PO SCH (07:48)
[2022-11-10] MEDS: MORPHINE SULFATE ER 30 MG TABLET PO SCH ×3 (07:48→21:50)
[2022-11-10] MEDS: METOPROLOL TARTRATE 25 MG TAB PO SCH ×2 (07:48→22:21)
[2022-11-10] MEDS: FUROSEMIDE 40 MG TAB PO SCH ×2 (07:48→15:06)
[2022-11-10] MEDS: IPRATROPIUM-ALBUTEROL 3 ML NEB INHALATION SCH ×4 (08:13→19:39)
[2022-11-10 12:11] LABS: Glucose,Whole Blood 195 mg/dL (70-110)
--- NOTE | 2022-11-10 13:37 | P.PN ---
Subjective Progress Note Date: 11/09/22 Principal diagnosis: Right diabetic foot infection Acute exacerbation CHF NSTEMI Metastatic lung cancer 62-year-old gentleman with past medical history significant for lung cancer on immunotherapy, congestive heart Failure, COPD, asthma who presented to the ER because of worsening shortness of breath and swelling of legs. Patient has been noticing increasing shortness of breath on exertion for the last couple of days associated with increased swelling of legs. Patient was on diuretics at home but stated that it was not working and he continues to be short of breath. Patient also currently on antibiotics for right foot wound. Because of this w orsening shortness of breath and swelling of legs patient came to the ER. Initial lab work showed patient to have a white count of 12.9, hemoglobin of 8.8, platelet count of 628, sodium 137, potassium 4.3, carbon dioxide 38, troponin 0.1. CTA chest done showed no evidence of pulmonary embolism. It did show pleural thickening and destructive changes in the left upper ribs. Large mass involving the upper limits of chest wall was also seen. Patient was admitted to hospitalist service for further evaluation and treatment 11/09/2022 Patient is seen and evaluated with family at bedside; denies any fever or chills, the patient is breathing slightly comfortably on a 2 L nasal cannula, the patient denies having any chest pain occasional cough no nausea no vomiting no abdominal pain and denies having any pain to the right foot plantar wound area patient with right diabetic foot wound with secondary infection cultures are growing MSSA and anaerobes patient did have a wound with slough tissue and concern for underlying deep infection. patient is status post vascular surgery evaluation and debridement of the right foot plantar wound along with deep culture which are currently growing staph aureus patient to continue with Unasyn 3 g per 6-hour while inpatient and hopefully transition to oral antibodies on discharge Objective - Vital Signs Vital signs: Vital Signs Temp 98.3 F 11/09/22 08:33 Pulse 100 11/09/22 12:19 Resp 18 11/09/22 11:33 BP 134/76 11/09/22 11:33 Pulse Ox 96 11/09/22 11:33 FiO2 Intake & Output 11/08/22 11/09/22 11/09/22 18:59 06:59 18:59 Intake Total 354 240 240 Output Total 900 1075 Balance -546 -835 240 Intake: Oral 354 240 240 Output: Urine 900 1075 Other: Voiding Method Urinal Urinal Urinal Diaper Diaper Diaper # Voids 1 - Exam GENERAL: The patient is alert and oriented x3, not in any acute distress. Well developed, well nourished. HEENT: Pupils are round and equally reacting to light. EOMI. No scleral icterus. No conjunctival pallor. Normocephalic, atraumatic. No pharyngeal erythema. No thyromegaly. CARDIOVASCULAR: S1 and S2 present. No murmurs, rubs, or gallops. -PULMONARY: Chest is clear to auscultation, no wheezing . Bilateral basal or crackles. ABDOMEN: Soft, nontender, nondistended, normoactive bowel sounds. No palpable organomegaly. MUSCULOSKELETAL: No joint swelling or deformity. -EXTREMITIES: No cyanosis, clubbing, or pedal mild B/L Lucio edema. Left upper extremities as well as with limitation of movement [chronic] right foot ulcer on the sole with black eschar on the top, no surrounding cellulitis NEUROLOGICAL: Gross neurological examination did not reveal any focal deficits. SKIN: No rashes. no petechiae. - Labs CBC & Chem 7: 11/10/22 03:53 11/10/22 03:53 Labs: Abnormal Lab Results - Last 24 Hours (Table) 11/08/22 11/08/22 11/09/22 Range/Units 16:27 19:45 05:49 WBC (3.8-10.6) k/uL RBC (4.30-5.90) m/uL Hgb (13.0-17.5) gm/dL Hct (39.0-53.0) % MCH (25.0-35.0) pg MCHC (31.0-37.0) g/dL RDW (11.5-15.5) % Plt Count (150-450) k/uL Neutrophils # (1.3-7.7) k/uL Sodium (137-145) mmol/L Chloride (98-107) mmol/L Carbon Dioxide (22-30) mmol/L Creatinine (0.66-1.25) mg/dL Glucose (74-99) mg/dL POC Glucose (mg/dL) 221 H 192 H 174 H (70-110) mg/dL Calcium (8.4-10.2) mg/dL 12/10/22 12/10/22 12/10/22 Range/Units 09:13 09:13 11:48 WBC 13.9 H (3.8-10.6) k/uL RBC 4.06 L (4.30-5.90) m/uL Hgb 9.6 L (13.0-17.5) gm/dL Hct 34.4 L (39.0-53.0) % MCH 23.7 L (25.0-35.0) pg MCHC 27.9 L (31.0-37.0) g/dL RDW 16.3 H (11.5-15.5) % Plt Count 499 H (150-450) k/uL Neutrophils # 11.8 H (1.3-7.7) k/uL Sodium 136 L (137-145) mmol/L Chloride 89 L (98-107) mmol/L Carbon Dioxide 40 H (22-30) mmol/L Creatinine 0.51 L (0.66-1.25) mg/dL Glucose 122 H (74-99) mg/dL POC Glucose (mg/dL) 211 H (70-110) mg/dL Calcium 8.3 L (8.4-10.2) mg/dL Microbiology - Last 24 Hours (Table) 11/07/22 17:57 Gram Stain - Preliminary Foot - Right Tissue Culture - Preliminary Presumptive Staph aureus Assessment and Plan Assessment: Acute onset congestive heart failure. None STEMI with elevated troponin Moderate aortic stenosis Lung cancer with multiple nodular pulmonary metastasis throughout both lung jarvis Chronic left shoulder pain and swelling of the left upper extremity related to his history of cancer Right foot infection with staph Acute on chronic hypoxic respiratory failure Right foot wound Lung cancer Diabetes mellitus Hypertension Plan: Continue with, switched to oral dose on 11/06 six Strict I's and O's Daily weights. Monitor renal functions Change antibiotics into doxycycline and follow-up wound culture Consult cardiology. Pulmonary team consult Consult hematology oncology. Infectious disease consult Consult wound care Labs and medication were reviewed.. Continue same treatment. Continue with symptomatic treatment. Resume home medication. Monitor lytes and vitals. DVT and GI prophylaxis. Further recommendations as per clinical course of the patient DVT prophylaxis: Subcutaneous heparin GI Prophylaxis: Pepcid Prognosis is guarded plan discussed with patient and family including and daughter at bedside and all their questions answered and they're agreeable with the current plan
[2022-11-10] MEDS: LIDOCAINE 5% PATCH TOPICAL SCH (15:07)
--- NOTE | 2022-11-10 16:06 | P.PN ---
Subjective Progress Note Date: 11/10/22 Principal diagnosis: Right diabetic foot infection Patient is a 62-year-old male with a past medical history taken for diabetes mellitus presenting to the hospital 4 days ago on 11/02/2022 for evaluation of increasing shortness of breath and lower extremity swelling marilu ent also have wound on the plantar aspect of the right foot which has been there for for more than a week before presentation to the hospital patient did have local cultures obtained growing MSSA and anaerobes. Patient is status post bedside debridement of his right foot plantar wound by vascular surgery mention wound was extending on into the subcutaneous tissue no involvement of the bone, procedure completed on 11/07/2022 On today's evaluation that is 11/10/2022, the patient remains to be afebrile, the patient is breathing slightly comfortably on a 2 L nasal cannula, the patient denies chest pain, the patient did have occasional cough no nausea no vomiting no abdominal pain and the patient denies having any pain to the right foot plantar wound area Objective - Vital Signs Vital signs: Vital Signs Temp 97.8 F 11/10/22 15:05 Pulse 84 11/10/22 15:58 Resp 18 11/10/22 15:05 BP 99/63 11/10/22 15:05 Pulse Ox 95 11/10/22 15:58 FiO2 Intake & Output 11/09/22 11/10/22 11/10/22 18:59 06:59 18:59 Intake Total 240 240 118 Output Total 1600 500 Balance 240 -3130 382 Intake: Oral 240 240 118 Output: Urine 1600 500 Other: Voiding Method Urinal Urinal Urinal Diaper Diaper # Voids 1 - Exam GENERAL DESCRIPTION: An elderly male lying in bed in no distress RESPIRATORY SYSTEM: Unlabored breathing , decreased breath sounds at bases HEART: S1 S2 regular rate and rhythm , ABDOMEN: Soft , no tenderness EXTREMITIES: Right foot plantar wound is currently dressed, no drainage on the dressing - Labs CBC & Chem 7: 11/10/22 03:53 11/10/22 03:53 Labs: Abnormal Lab Results - Last 24 Hours (Table) 11/09/22 11/09/22 11/10/22 Range/Units 16:47 19:53 03:53 WBC 12.0 H (3.8-10.6) k/uL RBC 3.73 L (4.30-5.90) m/uL Hgb 8.7 L (13.0-17.5) gm/dL Hct 31.5 L (39.0-53.0) % MCH 23.4 L (25.0-35.0) pg MCHC 27.7 L (31.0-37.0) g/dL RDW 16.1 H (11.5-15.5) % Plt Count 471 H (150-450) k/uL Neutrophils # 10.5 H (1.3-7.7) k/uL Lymphocytes # 0.9 L (1.0-4.8) k/uL Sodium (137-145) mmol/L Chloride (98-107) mmol/L Carbon Dioxide (22-30) mmol/L Creatinine (0.66-1.25) mg/dL Glucose (74-99) mg/dL POC Glucose (mg/dL) 215 H 141 H (70-110) mg/dL Calcium (8.4-10.2) mg/dL 11/10/22 11/10/22 11/10/22 Range/Units 03:53 05:50 12:05 WBC (3.8-10.6) k/uL RBC (4.30-5.90) m/uL Hgb (13.0-17.5) gm/dL Hct (39.0-53.0) % MCH (25.0-35.0) pg MCHC (31.0-37.0) g/dL RDW (11.5-15.5) % Plt Count (150-450) k/uL Neutrophils # (1.3-7.7) k/uL Lymphocytes # (1.0-4.8) k/uL Sodium 133 L (137-145) mmol/L Chloride 87 L (98-107) mmol/L Carbon Dioxide 42 H* (22-30) mmol/L Creatinine 0.48 L (0.66-1.25) mg/dL Glucose 170 H (74-99) mg/dL POC Glucose (mg/dL) 157 H 195 H (70-110) mg/dL Calcium 8.2 L (8.4-10.2) mg/dL Microbiology - Last 24 Hours (Table) 11/07/22 17:57 Gram Stain - Preliminary Foot - Right Tissue Culture - Preliminary Staphylococcus aureus Gram Neg Bacilli Assessment and Plan (1) Diabetic foot infection Current Visit: Yes Status: Acute Code(s): E11.628 - TYPE 2 DIABETES MELLITUS WITH OTHER SKIN COMPLICATIONS; L08.9 - LOCAL INFECTION OF THE SKIN AND SUBCUTANEOUS TISSUE, UNSP SNOMED Code(s): 779839090 (2) Wound of foot Current Visit: Yes Status: Acute Code(s): S91.309A - UNSPECIFIED OPEN WOUND, UNSPECIFIED FOOT, INITIAL ENCOUNTER SNOMED Code(s): 083073523 Plan: 1patient with right diabetic foot wound with secondary infection cultures are growing MSSA and anaerobes patient did have a wound with slough tissue and concern for underlying deep infection. 2patient is status post vascular surgery evaluation and debridement of the right foot plantar wound along with deep culture growing MSSA and gram-negative with medicines due to spending 3patient seemed to have shown some clinical improvement as for his right foot wound is concerned and will continue with Unasyn 3 g per 6-hour adjusting it further on the basis of culture Time with Patient: Less than 30
[2022-11-10 16:41] LABS: Glucose,Whole Blood 197 mg/dL (70-110)
--- NOTE | 2022-11-10 18:13 | P.PN ---
Subjective Progress Note Date: 11/10/22 Principal diagnosis: Right diabetic foot infection Acute exacerbation CHF NSTEMI Metastatic lung cancer 62-year-old gentleman with past medical history significant for lung cancer on immunotherapy, congestive heart Failure, COPD, asthma who presented to the ER because of worsening shortness of breath and swelling of legs. Patient has been noticing increasing shortness of breath on exertion for the last couple of days associated with increased swelling of legs. Patient was on diuretics at home but stated that it was not working and he continues to be short of breath. Patient also currently on antibiotics for right foot wound. Because of this w orsening shortness of breath and swelling of legs patient came to the ER. Initial lab work showed patient to have a white count of 12.9, hemoglobin of 8.8, platelet count of 628, sodium 137, potassium 4.3, carbon dioxide 38, troponin 0.1. CTA chest done showed no evidence of pulmonary embolism. It did show pleural thickening and destructive changes in the left upper ribs. Large mass involving the upper limits of chest wall was also seen. Patient was admitted to hospitalist service for further evaluation and treatment 11/09/2022 Patient is seen and evaluated with family at bedside; denies any fever or chills, the patient is breathing slightly comfortably on a 2 L nasal cannula, the patient denies having any chest pain occasional cough no nausea no vomiting no abdominal pain and denies having any pain to the right foot plantar wound area patient with right diabetic foot wound with secondary infection cultures are growing MSSA and anaerobes patient did have a wound with slough tissue and concern for underlying deep infection. patient is status post vascular surgery evaluation and debridement of the right foot plantar wound along with deep culture which are currently growing staph aureus patient to continue with Unasyn 3 g per 6-hour while inpatient and hopefully transition to oral antibodies on discharge 11/10/2022 Patient is seen and evaluated; breathing slightly comfortably on a 2 L nasal cannula, the patient denies chest pain, the patient did have occasional cough no nausea no vomiting no abdominal pain and the patient denies having any pain to the right foot plantar wound area Labs are reviewed and stable with WBC of 2.0, hemoglobin 8.7 and hematocrit of 31.5 with platelet count of 471, sodium 133, potassium 4.3, BUN/creatinine of 18/0.48 and blood was of 140 patient with right diabetic foot wound with secondary infection cultures are growing MSSA and anaerobes patient did have a wound with slough tissue and concern for underlying deep infection. patient is status post vascular surgery evaluation and debridement of the right foot plantar wound along with deep culture growing MSSA and gram-negative with medicines due to spending patient seemed to have shown some clinical improvement as for his right foot wound is concerned and will continue with Unasyn 3 g per 6-hour adjusting it further on the basis of culture Objective - Vital Signs Vital signs: Vital Signs Temp 97.6 F 11/10/22 07:41 Pulse 88 11/10/22 11:52 Resp 18 11/10/22 11:08 BP 95/61 11/10/22 11:08 Pulse Ox 90 L 11/10/22 11:08 FiO2 Intake & Output 11/09/22 11/10/22 11/10/22 18:59 06:59 18:59 Intake Total 240 240 Output Total 1600 500 Balance 240 -1360 -500 Intake: Oral 240 240 Output: Urine 1600 500 Other: Voiding Method Urinal Urinal Urinal Diaper Diaper # Voids 1 - Exam GENERAL: The patient is alert and oriented x3, not in any acute distress. Well developed, well nourished. HEENT: Pupils are round and equally reacting to light. EOMI. No scleral icterus. No conjunctival pallor. Normocephalic, atraumatic. No pharyngeal erythema. No thyromegaly. CARDIOVASCULAR: S1 and S2 present. No murmurs, rubs, or gallops. -PULMONARY: Chest is clear to auscultation, no wheezing . Bilateral basal or crackles. ABDOMEN: Soft, nontender, nondistended, normoactive bowel sounds. No palpable organomegaly. MUSCULOSKELETAL: No joint swelling or deformity. -EXTREMITIES: No cyanosis, clubbing, or pedal mild B/L Lucio edema. Left upper extremities as well as with limitation of movement [chronic] right foot ulcer on the sole with black eschar on the top, no surrounding cellulitis NEUROLOGICAL: Gross neurological examination did not reveal any focal deficits. SKIN: No rashes. no petechiae. - Labs CBC & Chem 7: 11/10/22 03:53 11/10/22 03:53 Labs: Abnormal Lab Results - Last 24 Hours (Table) 11/09/22 11/09/22 11/09/22 Range/Units 14:37 16:47 19:53 WBC (3.8-10.6) k/uL RBC (4.30-5.90) m/uL Hgb (13.0-17.5) gm/dL Hct (39.0-53.0) % MCH (25.0-35.0) pg MCHC (31.0-37.0) g/dL RDW (11.5-15.5) % Plt Count (150-450) k/uL Neutrophils # (1.3-7.7) k/uL Lymphocytes # (1.0-4.8) k/uL ABG pH 7.48 H (7.35-7.45) ABG pCO2 62 H (35-45) mmHg ABG pO2 59 L* (83-108) mmHg ABG HCO3 46 H* (21-25) mmol/L ABG Total CO2 48 H (19-24) mmol/L ABG O2 Saturation 91.5 L (94-97) % Sodium (137-145) mmol/L Chloride (98-107) mmol/L Carbon Dioxide (22-30) mmol/L Creatinine (0.66-1.25) mg/dL Glucose (74-99) mg/dL POC Glucose (mg/dL) 215 H 141 H (70-110) mg/dL Calcium (8.4-10.2) mg/dL 11/10/22 11/10/22 11/10/22 Range/Units 03:53 03:53 05:50 WBC 12.0 H (3.8-10.6) k/uL RBC 3.73 L (4.30-5.90) m/uL Hgb 8.7 L (13.0-17.5) gm/dL Hct 31.5 L (39.0-53.0) % MCH 23.4 L (25.0-35.0) pg MCHC 27.7 L (31.0-37.0) g/dL RDW 16.1 H (11.5-15.5) % Plt Count 471 H (150-450) k/uL Neutrophils # 10.5 H (1.3-7.7) k/uL Lymphocytes # 0.9 L (1.0-4.8) k/uL ABG pH (7.35-7.45) ABG pCO2 (35-45) mmHg ABG pO2 (83-108) mmHg ABG HCO3 (21-25) mmol/L ABG Total CO2 (19-24) mmol/L ABG O2 Saturation (94-97) % Sodium 133 L (137-145) mmol/L Chloride 87 L (98-107) mmol/L Carbon Dioxide 42 H* (22-30) mmol/L Creatinine 0.48 L (0.66-1.25) mg/dL Glucose 170 H (74-99) mg/dL POC Glucose (mg/dL) 157 H (70-110) mg/dL Calcium 8.2 L (8.4-10.2) mg/dL 11/10/22 Range/Units 12:05 WBC (3.8-10.6) k/uL RBC (4.30-5.90) m/uL Hgb (13.0-17.5) gm/dL Hct (39.0-53.0) % MCH (25.0-35.0) pg MCHC (31.0-37.0) g/dL RDW (11.5-15.5) % Plt Count (150-450) k/uL Neutrophils # (1.3-7.7) k/uL Lymphocytes # (1.0-4.8) k/uL ABG pH (7.35-7.45) ABG pCO2 (35-45) mmHg ABG pO2 (83-108) mmHg ABG HCO3 (21-25) mmol/L ABG Total CO2 (19-24) mmol/L ABG O2 Saturation (94-97) % Sodium (137-145) mmol/L Chloride (98-107) mmol/L Carbon Dioxide (22-30) mmol/L Creatinine (0.66-1.25) mg/dL Glucose (74-99) mg/dL POC Glucose (mg/dL) 195 H (70-110) mg/dL Calcium (8.4-10.2) mg/dL Microbiology - Last 24 Hours (Table) 11/07/22 17:57 Gram Stain - Preliminary Foot - Right Tissue Culture - Preliminary Staphylococcus aureus Gram Neg Bacilli Assessment and Plan Assessment: Acute onset congestive heart failure. None STEMI with elevated troponin Moderate aortic stenosis Lung cancer with multiple nodular pulmonary metastasis throughout both lung jarvis Chronic left shoulder pain and swelling of the left upper extremity related to his history of cancer Right foot infection with staph Acute on chronic hypoxic respiratory failure Right foot wound Lung cancer Diabetes mellitus Hypertension Plan: Continue with, switched to oral dose on 11/06 six Strict I's and O's Daily weights. Monitor renal functions Change antibiotics into doxycycline and follow-up wound culture Consult cardiology. Pulmonary team consult Consult hematology oncology. Infectious disease consult Consult wound care Labs and medication were reviewed.. Continue same treatment. Continue with symptomatic treatment. Resume home medication. Monitor lytes and vitals. DVT and GI prophylaxis. Further recommendations as per clinical course of the patient DVT prophylaxis: Subcutaneous heparin GI Prophylaxis: Pepcid Prognosis is guarded plan discussed with patient and family including and daughter at bedside and all their questions answered and they're agreeable with the current plan
[2022-11-10 20:00] LABS: Glucose,Whole Blood 133 mg/dL (70-110)
[2022-11-10] MEDS: HYDROcodone/APAP 5-325MG 1 EACH TAB PO PRN (23:39)
[2022-11-11 06:02] LABS: Glucose,Whole Blood 146 mg/dL (70-110)
[2022-11-11] MEDS: INSULIN ASPART (NovoLOG) 100 UNIT/ML VIAL SQ SCH ×4 (06:25→20:53)
[2022-11-11] MEDS: HYDROcodone/APAP 5-325MG 1 EACH TAB PO PRN (06:27)
[2022-11-11] MEDS: AMPICILLIN-SULBACTAM 3 GM in SODIUM CHLORIDE 0.9% 100 ML IVPB SCH ×4 (06:29→23:18)
[2022-11-11] MEDS: IPRATROPIUM-ALBUTEROL 3 ML NEB INHALATION SCH ×4 (07:59→19:22)
[2022-11-11 08:09] LABS: Anisocytosis Slight; Basophils % (A) 0 %; Eosinophils % (A) 0 %; HCT 32.1 % (39.0-53.0); HGB 9.1 gm/dL (13.0-17.5); Hypochromasia Marked; Lymphocytes # (A) 0.9 k/uL (1.0-4.8); Lymphocytes % (A) 8 %; MCH 23.8 pg (25.0-35.0); MCHC 28.2 g/dL (31.0-37.0); MCV 84.3 fL (80.0-100.0); Mean Platelet Volume 7.3; Monocytes # (A) 0.4 k/uL (0-1.0); Monocytes % (A) 4 %; Neutrophils # (A) 9.9 k/uL (1.3-7.7); Neutrophils % (A) 86 %; Platelet Count 401 k/uL (150-450); RBC 3.81 m/uL (4.30-5.90); RDW 16.4 % (11.5-15.5); WBC 11.5 k/uL (3.8-10.6)
[2022-11-11 08:20] LABS: African American GFR (CKD) >90 (>60 ml/min/1.73 sqM); Blood Urea Nitrogen 19 mg/dL (9-20); Chloride 90 mmol/L (98-107); Glucose 139 mg/dL (74-99); Non-African American GFR(CKD) >90 (>60 ml/min/1.73 sqM); Potassium 3.7 mmol/L (3.5-5.1); Sodium 134 mmol/L (137-145)
[2022-11-11 08:27] LABS: Anion Gap 2 mmol/L
[2022-11-11 08:32] LABS: Carbon Dioxide 42 mmol/L (22-30)
[2022-11-11] MEDS: DOCUSATE 100 MG CAP PO SCH ×2 (09:37→20:53)
[2022-11-11] MEDS: MORPHINE SULFATE ER 30 MG TABLET PO SCH ×3 (09:37→20:52)
[2022-11-11] MEDS: PREGABALIN 100 MG CAP PO SCH ×2 (09:37→20:52)
[2022-11-11] MEDS: methylPREDNISolone SOD SUCCI 40 MG/ML 1 ML VIAL IV SCH ×2 (09:37→20:53)
[2022-11-11] MEDS: METOPROLOL TARTRATE 25 MG TAB PO SCH ×2 (09:37→20:52)
[2022-11-11] MEDS: HEPARIN SODIUM,PORCINE/PF 5,000 UNIT/0.5 ML SYRINGE SQ SCH ×3 (09:38→23:18)
[2022-11-11] MEDS: LORATADINE 10 MG TAB PO SCH (09:38)
[2022-11-11] MEDS: FERROUS SULFATE 325 MG TAB PO SCH (09:38)
[2022-11-11] MEDS: FUROSEMIDE 40 MG TAB PO SCH ×2 (09:38→17:29)
[2022-11-11] MEDS: FAMOTIDINE 20 MG TAB PO SCH ×2 (09:38→20:53)
[2022-11-11] MEDS: SENNOSIDES 8.6 MG TAB PO PRN (09:40)
[2022-11-11 11:28] LABS: Glucose,Whole Blood 207 mg/dL (70-110)
[2022-11-11] MEDS ORDERED: bisacodyL 10 MG SUPP RECTAL STA (12:23)
--- NOTE | 2022-11-11 15:45 | P.PN ---
Subjective Progress Note Date: 11/11/22 Principal diagnosis: Right diabetic foot infection Acute exacerbation CHF NSTEMI Metastatic lung cancer 62-year-old gentleman with past medical history significant for lung cancer on immunotherapy, congestive heart Failure, COPD, asthma who presented to the ER because of worsening shortness of breath and swelling of legs. Patient has been noticing increasing shortness of breath on exertion for the last couple of days associated with increased swelling of legs. Patient was on diuretics at home but stated that it was not working and he continues to be short of breath. Patient also currently on antibiotics for right foot wound. Because of this w orsening shortness of breath and swelling of legs patient came to the ER. Initial lab work showed patient to have a white count of 12.9, hemoglobin of 8.8, platelet count of 628, sodium 137, potassium 4.3, carbon dioxide 38, troponin 0.1. CTA chest done showed no evidence of pulmonary embolism. It did show pleural thickening and destructive changes in the left upper ribs. Large mass involving the upper limits of chest wall was also seen. Patient was admitted to hospitalist service for further evaluation and treatment 11/09/2022 Patient is seen and evaluated with family at bedside; denies any fever or chills, the patient is breathing slightly comfortably on a 2 L nasal cannula, the patient denies having any chest pain occasional cough no nausea no vomiting no abdominal pain and denies having any pain to the right foot plantar wound area patient with right diabetic foot wound with secondary infection cultures are growing MSSA and anaerobes patient did have a wound with slough tissue and concern for underlying deep infection. patient is status post vascular surgery evaluation and debridement of the right foot plantar wound along with deep culture which are currently growing staph aureus patient to continue with Unasyn 3 g per 6-hour while inpatient and hopefully transition to oral antibodies on discharge 11/10/2022 Patient is seen and evaluated; breathing slightly comfortably on a 2 L nasal cannula, the patient denies chest pain, the patient did have occasional cough no nausea no vomiting no abdominal pain and the patient denies having any pain to the right foot plantar wound area Labs are reviewed and stable with WBC of 2.0, hemoglobin 8.7 and hematocrit of 31.5 with platelet count of 471, sodium 133, potassium 4.3, BUN/creatinine of 18/0.48 and blood was of 140 patient with right diabetic foot wound with secondary infection cultures are growing MSSA and anaerobes patient did have a wound with slough tissue and concern for underlying deep infection. patient is status post vascular surgery evaluation and debridement of the right foot plantar wound along with deep culture growing MSSA and gram-negative with medicines due to spending patient seemed to have shown some clinical improvement as for his right foot wound is concerned and will continue with Unasyn 3 g per 6-hour adjusting it further on the basis of culture 11/11/2022 Patient is evaluated today sitting up at the bedside with family. He is comfortable on 2 L of nasal cannula, he denies chest pain. He has occasional cough. He does report a bowel movement for the last 7 days. He is receiving Colace and Senokot was added as well as a Dulcolax suppository 1 today. He does have soft abdomen with normoactive bowel sounds. White count 11.5 today, sodium 134. Continues on IV Unasyn with further recommendations for DC from infectious disease. Continues on IV solumedrol, oral lasix. Pain management with MS contin. Lower extremity edema has improved. Review of Systems Constitutional: Denied any fatigue denied any fever. Cardio vascular: denied any chest pain, palpitations Gastrointestinal: denied any nausea, vomiting, diarrhea Pulmonary: Denied any shortness of breath Reports cough Neurologic denied any new focal deficits All inpatient medications were reviewed and appropriate changes in these medications as dictated in the interval history and assessment and plan. PHYSICAL EXAMINATION: GENERAL: The patient is alert and oriented x3, not in any acute distress. on 2 L nasal cannula. Well developed, well nourished. HEENT: Pupils are round and equally reacting to light. EOMI. No scleral icterus. No conjunctival pallor. Normocephalic, atraumatic. No pharyngeal erythema. No thyromegaly. CARDIOVASCULAR: S1 and S2 present. No murmurs, rubs, or gallops. PULMONARY: Chest is clear to auscultation, no wheezing or crackles. ABDOMEN: Soft, nontender, nondistended, normoactive bowel sounds. No palpable organomegaly. MUSCULOSKELETAL: No joint swelling or deformity. EXTREMITIES: No cyanosis, clubbing, or pedal edema. Dressing intact to right foot stump. NEUROLOGICAL: Gross neurological examination did not reveal any focal deficits. SKIN: No rashes. Assessment plan Assessment -Right diabetic foot wound status post debridement and deep tissue culture Acute on chronic hypoxic respiratory failure related to a combination of diastolic heart failure and COPD exacerbation Acute onset congestive heart failure diastolic dysfunction, improved Acute COPD exacerbation Moderate aortic stenosis Lung mass with invasion to chest wall destruction involving the ribs Chronic left shoulder pain and left upper extremity lymphedema Metastatic stage IV lung cancer Diabetes Mellitus Hypertension GI prophylaxis DVT prophylaxis SubCu heparin Full Code Plan Continue on oral Lasix with strict intake and output Monitor weights Continue antibiotics in the form of IV unasyn, microsensitivities are available further recommendations from ID for discharge antibiotics Continue oxygen via nasal cannula 2 to 3 liters Pain management Continue bowel regimen. Continue local wound care with santyl cream daily per vascular services to right foot wound [facility] The impression and plan of care has been dictated by Yamile Tena, Nurse Practitioner as directed. Dr. Donato MD I have performed a history and physical examination and medical decision making of this patient, discussed the same with the dictator, and agree with the dictators assessment and plan as written, documented as a scribe. Based on total visit time, I have performed more than 50% of this visit. Objective - Vital Signs Vital signs: Vital Signs Temp 98.2 F 11/11/22 04:00 Pulse 89 11/11/22 12:00 Resp 16 11/11/22 12:00 BP 112/64 11/11/22 12:00 Pulse Ox 92 L 11/11/22 12:00 FiO2 Intake & Output 11/10/22 11/11/22 11/11/22 18:59 06:59 18:59 Intake Total 118 360 Output Total 500 300 225 Balance -382 -300 135 Weight 103.5 kg Intake: Oral 118 360 Output: Urine 500 300 225 Other: Voiding Method Urinal Urinal Urinal Diaper Diaper Diaper - Labs CBC & Chem 7: 11/11/22 07:29 11/11/22 07:29 Labs: Abnormal Lab Results - Last 24 Hours (Table) 11/10/22 11/10/22 11/11/22 Range/Units 16:34 19:58 06:00 WBC (3.8-10.6) k/uL RBC (4.30-5.90) m/uL Hgb (13.0-17.5) gm/dL Hct (39.0-53.0) % MCH (25.0-35.0) pg MCHC (31.0-37.0) g/dL RDW (11.5-15.5) % Neutrophils # (1.3-7.7) k/uL Lymphocytes # (1.0-4.8) k/uL Sodium (137-145) mmol/L Chloride (98-107) mmol/L Carbon Dioxide (22-30) mmol/L Creatinine (0.66-1.25) mg/dL Glucose (74-99) mg/dL POC Glucose (mg/dL) 197 H 133 H 146 H (70-110) mg/dL Calcium (8.4-10.2) mg/dL 11/11/22 11/11/22 11/11/22 Range/Units 07:29 07:29 11:26 WBC 11.5 H (3.8-10.6) k/uL RBC 3.81 L (4.30-5.90) m/uL Hgb 9.1 L (13.0-17.5) gm/dL Hct 32.1 L (39.0-53.0) % MCH 23.8 L (25.0-35.0) pg MCHC 28.2 L (31.0-37.0) g/dL RDW 16.4 H (11.5-15.5) % Neutrophils # 9.9 H (1.3-7.7) k/uL Lymphocytes # 0.9 L (1.0-4.8) k/uL Sodium 134 L (137-145) mmol/L Chloride 90 L (98-107) mmol/L Carbon Dioxide 42 H* (22-30) mmol/L Creatinine 0.51 L (0.66-1.25) mg/dL Glucose 139 H (74-99) mg/dL POC Glucose (mg/dL) 207 H (70-110) mg/dL Calcium 8.0 L (8.4-10.2) mg/dL Microbiology - Last 24 Hours (Table) 11/07/22 17:57 Gram Stain - Final Foot - Right Tissue Culture - Final Staphylococcus aureus Enterobacter cloacae Assessment and Plan Time with Patient: Less than 30
[2022-11-11 16:25] LABS: Glucose,Whole Blood 187 mg/dL (70-110)
[2022-11-11] MEDS: LIDOCAINE 5% PATCH TOPICAL SCH (17:27)
[2022-11-11] MEDS: COLLAGENASE 250 UNIT/GM OINTMENT 30 GM TUBE TOPICAL SCH (17:29)
[2022-11-11 20:13] LABS: Glucose,Whole Blood 234 mg/dL (70-110)
[2022-11-12 05:59] LABS: Glucose,Whole Blood 198 mg/dL (70-110)
[2022-11-12] MEDS: HYDROcodone/APAP 5-325MG 1 EACH TAB PO PRN (06:26)
[2022-11-12] MEDS: INSULIN ASPART (NovoLOG) 100 UNIT/ML VIAL SQ SCH ×5 (06:27→21:34)
[2022-11-12] MEDS: AMPICILLIN-SULBACTAM 3 GM in SODIUM CHLORIDE 0.9% 100 ML IVPB SCH ×3 (06:28→17:17)
[2022-11-12] MEDS: IPRATROPIUM-ALBUTEROL 3 ML NEB INHALATION SCH ×4 (08:12→20:16)
[2022-11-12] MEDS: DOCUSATE 100 MG CAP PO SCH ×2 (10:26→21:32)
[2022-11-12] MEDS: FUROSEMIDE 40 MG TAB PO SCH ×2 (10:26→17:17)
[2022-11-12] MEDS: LORATADINE 10 MG TAB PO SCH (10:27)
[2022-11-12] MEDS: FERROUS SULFATE 325 MG TAB PO SCH (10:27)
[2022-11-12] MEDS: FAMOTIDINE 20 MG TAB PO SCH ×2 (10:27→21:33)
[2022-11-12] MEDS: MORPHINE SULFATE ER 30 MG TABLET PO SCH ×3 (10:27→21:32)
[2022-11-12] MEDS: METOPROLOL TARTRATE 25 MG TAB PO SCH ×2 (10:27→21:33)
[2022-11-12] MEDS: HEPARIN SODIUM,PORCINE/PF 5,000 UNIT/0.5 ML SYRINGE SQ SCH ×2 (10:28→17:17)
[2022-11-12] MEDS: PREGABALIN 100 MG CAP PO SCH ×2 (10:31→21:32)
[2022-11-12] MEDS: methylPREDNISolone SOD SUCCI 40 MG/ML 1 ML VIAL IV SCH ×2 (10:32→21:34)
[2022-11-12 11:23] VITALS: BMI 29.4
[2022-11-12 11:44] LABS: Glucose,Whole Blood 234 mg/dL (70-110)
[2022-11-12] MEDS: LIDOCAINE 5% PATCH TOPICAL SCH (12:58)
--- NOTE | 2022-11-12 13:33 | P.PN ---
Subjective Progress Note Date: 11/12/22 Principal diagnosis: Right diabetic foot infection Acute exacerbation CHF NSTEMI Metastatic lung cancer 62-year-old gentleman with past medical history significant for lung cancer on immunotherapy, congestive heart Failure, COPD, asthma who presented to the ER because of worsening shortness of breath and swelling of legs. Patient has been noticing increasing shortness of breath on exertion for the last couple of days associated with increased swelling of legs. Patient was on diuretics at home but stated that it was not working and he continues to be short of breath. Patient also currently on antibiotics for right foot wound. Because of this w orsening shortness of breath and swelling of legs patient came to the ER. Initial lab work showed patient to have a white count of 12.9, hemoglobin of 8.8, platelet count of 628, sodium 137, potassium 4.3, carbon dioxide 38, troponin 0.1. CTA chest done showed no evidence of pulmonary embolism. It did show pleural thickening and destructive changes in the left upper ribs. Large mass involving the upper limits of chest wall was also seen. Patient was admitted to hospitalist service for further evaluation and treatment 11/09/2022 Patient is seen and evaluated with family at bedside; denies any fever or chills, the patient is breathing slightly comfortably on a 2 L nasal cannula, the patient denies having any chest pain occasional cough no nausea no vomiting no abdominal pain and denies having any pain to the right foot plantar wound area patient with right diabetic foot wound with secondary infection cultures are growing MSSA and anaerobes patient did have a wound with slough tissue and concern for underlying deep infection. patient is status post vascular surgery evaluation and debridement of the right foot plantar wound along with deep culture which are currently growing staph aureus patient to continue with Unasyn 3 g per 6-hour while inpatient and hopefully transition to oral antibodies on discharge 11/10/2022 Patient is seen and evaluated; breathing slightly comfortably on a 2 L nasal cannula, the patient denies chest pain, the patient did have occasional cough no nausea no vomiting no abdominal pain and the patient denies having any pain to the right foot plantar wound area Labs are reviewed and stable with WBC of 2.0, hemoglobin 8.7 and hematocrit of 31.5 with platelet count of 471, sodium 133, potassium 4.3, BUN/creatinine of 18/0.48 and blood was of 140 patient with right diabetic foot wound with secondary infection cultures are growing MSSA and anaerobes patient did have a wound with slough tissue and concern for underlying deep infection. patient is status post vascular surgery evaluation and debridement of the right foot plantar wound along with deep culture growing MSSA and gram-negative with medicines due to spending patient seemed to have shown some clinical improvement as for his right foot wound is concerned and will continue with Unasyn 3 g per 6-hour adjusting it further on the basis of culture 11/11/2022 Patient is evaluated today sitting up at the bedside with family. He is comfortable on 2 L of nasal cannula, he denies chest pain. He has occasional cough. He does report a bowel movement for the last 7 days. He is receiving Colace and Senokot was added as well as a Dulcolax suppository 1 today. He does have soft abdomen with normoactive bowel sounds. White count 11.5 today, sodium 134. Continues on IV Unasyn with further recommendations for DC from infectious disease. Continues on IV solumedrol, oral lasix. Pain management with MS contin. Lower extremity edema has improved. 11/12/2022 Patient sitting up at bedside today. No acute events overnight. Will complete second portion of bone scan to right foot later today. Continues on IV unasyn. Blood glucose in the 200s insulin has been increased today. Remains afebrile. Review of Systems Constitutional: Denied any fatigue denied any fever. Cardio vascular: denied any chest pain, palpitations Gastrointestinal: denied any nausea, vomiting, diarrhea Pulmonary: Denied any shortness of breath Reports cough Neurologic denied any new focal deficits All inpatient medications were reviewed and appropriate changes in these medications as dictated in the interval history and assessment and plan. PHYSICAL EXAMINATION: GENERAL: The patient is alert and oriented x3, not in any acute distress. on 2 L nasal cannula. Well developed, well nourished. HEENT: Pupils are round and equally reacting to light. EOMI. No scleral icterus. No conjunctival pallor. Normocephalic, atraumatic. No pharyngeal erythema. No thyromegaly. CARDIOVASCULAR: S1 and S2 present. No murmurs, rubs, or gallops. PULMONARY: Chest is clear to auscultation, no wheezing or crackles. ABDOMEN: Soft, nontender, nondistended, normoactive bowel sounds. No palpable organomegaly. MUSCULOSKELETAL: No joint swelling or deformity. EXTREMITIES: No cyanosis, clubbing, or pedal edema. Dressing intact to right foot stump. NEUROLOGICAL: Gross neurological examination did not reveal any focal deficits. SKIN: No rashes. Assessment plan Assessment -Right diabetic foot wound status post debridement and deep tissue culture rule out osteomyelitis Acute on chronic hypoxic respiratory failure related to a combination of diastolic heart failure and COPD exacerbation Acute onset congestive heart failure diastolic dysfunction, improved Acute COPD exacerbation Moderate aortic stenosis Lung mass with invasion to chest wall destruction involving the ribs Chronic left shoulder pain and left upper extremity lymphedema Metastatic stage IV lung cancer Diabetes Mellitus Hypertension GI prophylaxis DVT prophylaxis SubCu heparin Full Code Plan Continue on oral Lasix with strict intake and output Monitor weights Continue antibiotics in the form of IV unasyn Patient to undergo bone scan to right foot today. Continue oxygen via nasal cannula 2 to 3 liters Pain management Continue bowel regimen. Continue local wound care with santyl cream daily per vascular services to right foot wound [place] on discharge The impression and plan of care has been dictated by Yamile Tena, Nurse Practitioner as directed. Dr. Donato MD I have performed a history and physical examination and medical decision making of this patient, discussed the same with the dictator, and agree with the dictators assessment and plan as written, documented as a scribe. Based on total visit time, I have performed more than 50% of this visit. Objective - Vital Signs Vital signs: Vital Signs Temp 98.5 F 11/12/22 04:00 Pulse 90 11/12/22 12:20 Resp 16 11/12/22 12:00 BP 100/59 11/12/22 12:00 Pulse Ox 95 11/12/22 12:00 FiO2 Intake & Output 11/11/22 11/12/22 11/12/22 18:59 06:59 18:59 Intake Total 540 358 Output Total 600 825 400 Balance -60 -825 -42 Weight 104 kg 104 kg Intake: Oral 540 358 Output: Urine 600 825 400 Other: Voiding Method Urinal Urinal Urinal Diaper Diaper Diaper # Voids 1 # Bowel Movements 1 - Labs CBC & Chem 7: 11/11/22 07:29 11/11/22 07:29 Labs: Abnormal Lab Results - Last 24 Hours (Table) 11/11/22 11/11/22 11/12/22 Range/Units 16:24 20:12 05:57 POC Glucose (mg/dL) 187 H 234 H 198 H (70-110) mg/dL 11/12/22 Range/Units 11:25 POC Glucose (mg/dL) 234 H (70-110) mg/dL Assessment and Plan Time with Patient: Less than 30
--- NOTE | 2022-11-12 13:57 | NM ---
EXAMINATION TYPE: NM bone 3 phase DATE OF EXAM: 11/12/2022 COMPARISON: X-ray 11/02/2022 HISTORY: Right foot ulcer Triple phase bone scintigraphy was performed following the injection of 23.4 mCi Tc 99m MDP. Immedia te images and 5.75 hours post injection images acquired. FINDINGS: There is increased flow to the right heel and foot. There is increased soft tissue uptake involving the plantar surface of the right foot and heel There is increased focal uptake involving the distal fifth metatarsal. IMPRESSION: 1. Constellation of findings suspicious for osteomyelitis distal fifth metatarsal
[2022-11-12 16:33] LABS: Glucose,Whole Blood 160 mg/dL (70-110)
[2022-11-12] MEDS: COLLAGENASE 250 UNIT/GM OINTMENT 30 GM TUBE TOPICAL SCH (17:19)
[2022-11-12 20:10] LABS: Glucose,Whole Blood 190 mg/dL (70-110)
[2022-11-12] MEDS ORDERED: INSULIN DETEMIR (LEVEMIR) 100 UNIT/ML SYR SQ SCH (21:00)
--- NOTE | 2022-11-12 22:35 | P.PN ---
Subjective Progress Note Date: 11/11/22 Principal diagnosis: Right diabetic foot infection Patient is a 62-year-old male with a past medical history taken for diabetes mellitus presenting to the hospital 4 days ago on 11/02/2022 for evaluation of increasing shortness of breath and lower extremity swelling marilu ent also have wound on the plantar aspect of the right foot which has been there for for more than a week before presentation to the hospital patient did have local cultures obtained growing MSSA and anaerobes. Patient is status post bedside debridement of his right foot plantar wound by vascular surgery mention wound was extending on into the subcutaneous tissue no involvement of the bone, procedure completed on 11/07/2022 On today's evaluation that is 11/11/2022, the patient continues to be afebrile, the patient is breathing slightly comfortably on a 2 L nasal cannula, the patient denies chest pain, the patient did have occasional dry cough no nausea no vomiting no abdominal pain and no diarrhea Objective - Vital Signs Vital signs: Vital Signs Temp 98.2 F 11/11/22 04:00 Pulse 89 11/11/22 12:00 Resp 16 11/11/22 12:00 BP 112/64 11/11/22 12:00 Pulse Ox 92 L 11/11/22 12:00 FiO2 Intake & Output 11/10/22 11/11/22 11/11/22 18:59 06:59 18:59 Intake Total 118 180 Output Total 500 300 225 Balance -382 -300 -45 Weight 103.5 kg Intake: Oral 118 180 Output: Urine 500 300 225 Other: Voiding Method Urinal Urinal Urinal Diaper Diaper Diaper - Exam GENERAL DESCRIPTION: An elderly male lying in bed in no distress RESPIRATORY SYSTEM: Unlabored breathing , decreased breath sounds at bases HEART: S1 S2 regular rate and rhythm , ABDOMEN: Soft , no tenderness EXTREMITIES: Right foot plantar wound is currently dressed, no drainage on the dressing - Labs CBC & Chem 7: 11/11/22 07:29 11/11/22 07:29 Labs: Abnormal Lab Results - Last 24 Hours (Table) 11/10/22 11/10/22 11/11/22 Range/Units 16:34 19:58 06:00 WBC (3.8-10.6) k/uL RBC (4.30-5.90) m/uL Hgb (13.0-17.5) gm/dL Hct (39.0-53.0) % MCH (25.0-35.0) pg MCHC (31.0-37.0) g/dL RDW (11.5-15.5) % Neutrophils # (1.3-7.7) k/uL Lymphocytes # (1.0-4.8) k/uL Sodium (137-145) mmol/L Chloride (98-107) mmol/L Carbon Dioxide (22-30) mmol/L Creatinine (0.66-1.25) mg/dL Glucose (74-99) mg/dL POC Glucose (mg/dL) 197 H 133 H 146 H (70-110) mg/dL Calcium (8.4-10.2) mg/dL 11/11/22 11/11/22 11/11/22 Range/Units 07:29 07:29 11:26 WBC 11.5 H (3.8-10.6) k/uL RBC 3.81 L (4.30-5.90) m/uL Hgb 9.1 L (13.0-17.5) gm/dL Hct 32.1 L (39.0-53.0) % MCH 23.8 L (25.0-35.0) pg MCHC 28.2 L (31.0-37.0) g/dL RDW 16.4 H (11.5-15.5) % Neutrophils # 9.9 H (1.3-7.7) k/uL Lymphocytes # 0.9 L (1.0-4.8) k/uL Sodium 134 L (137-145) mmol/L Chloride 90 L (98-107) mmol/L Carbon Dioxide 42 H* (22-30) mmol/L Creatinine 0.51 L (0.66-1.25) mg/dL Glucose 139 H (74-99) mg/dL POC Glucose (mg/dL) 207 H (70-110) mg/dL Calcium 8.0 L (8.4-10.2) mg/dL Microbiology - Last 24 Hours (Table) 11/07/22 17:57 Gram Stain - Final Foot - Right Tissue Culture - Final Staphylococcus aureus Enterobacter cloacae Assessment and Plan (1) Diabetic foot infection Current Visit: Yes Status: Acute Code(s): E11.628 - TYPE 2 DIABETES MELLITUS WITH OTHER SKIN COMPLICATIONS; L08.9 - LOCAL INFECTION OF THE SKIN AND SUBCUTANEOUS TISSUE, UNSP SNOMED Code(s): 692057916 (2) Wound of foot Current Visit: Yes Status: Acute Code(s): S91.309A - UNSPECIFIED OPEN WOUND, UNSPECIFIED FOOT, INITIAL ENCOUNTER SNOMED Code(s): 146176986 Plan: 1patient with right diabetic foot wound with secondary infection cultures are growing MSSA and anaerobes patient did have a wound with slough tissue and concern for underlying deep infection. 2patient is status post vascular surgery evaluation and debridement of the right foot plantar wound along with deep culture growing MSSA and gram-negative anaerobes 3patient is currently waiting for the bone scan to be completed to make sure no evidence of any deep infection such as osteomyelitis patient will continue with Unasyn Time with Patient: Less than 30
--- NOTE | 2022-11-12 22:37 | P.PN ---
Subjective Progress Note Date: 11/12/22 Principal diagnosis: Right diabetic foot infection Patient is a 62-year-old male with a past medical history taken for diabetes mellitus presenting to the hospital 4 days ago on 11/02/2022 for evaluation of increasing shortness of breath and lower extremity swelling marilu ent also have wound on the plantar aspect of the right foot which has been there for for more than a week before presentation to the hospital patient did have local cultures obtained growing MSSA and anaerobes. Patient is status post bedside debridement of his right foot plantar wound by vascular surgery mention wound was extending on into the subcutaneous tissue no involvement of the bone, procedure completed on 11/07/2022 On today's evaluation that is 11/12/2022, the patient denies any fever or chills, the patient is breathing slightly comfortably on a 2 L nasal cannula, the patient denies chest pain, the patient did have occasional dry cough no nausea no vomiting no abdominal pain however the patient complaining of significant diarrhea started after the patient was given the visiting for his constipation associated with his narcotic use Objective - Vital Signs Vital signs: Vital Signs Temp 98.5 F 11/12/22 04:00 Pulse 90 11/12/22 12:20 Resp 16 11/12/22 12:00 BP 100/59 11/12/22 12:00 Pulse Ox 95 11/12/22 12:00 FiO2 Intake & Output 11/11/22 11/12/22 11/12/22 18:59 06:59 18:59 Intake Total 540 358 Output Total 600 825 400 Balance -60 -825 -42 Weight 104 kg 104 kg Intake: Oral 540 358 Output: Urine 600 825 400 Other: Voiding Method Urinal Urinal Urinal Diaper Diaper Diaper # Voids 1 # Bowel Movements 1 - Exam GENERAL DESCRIPTION: An elderly male lying in bed in no distress RESPIRATORY SYSTEM: Unlabored breathing , decreased breath sounds at bases HEART: S1 S2 regular rate and rhythm , ABDOMEN: Soft , no tenderness EXTREMITIES: Right foot plantar wound is currently dressed, no drainage on the dressing - Labs CBC & Chem 7: 11/11/22 07:29 11/11/22 07:29 Labs: Abnormal Lab Results - Last 24 Hours (Table) 11/11/22 11/11/22 11/12/22 Range/Units 16:24 20:12 05:57 POC Glucose (mg/dL) 187 H 234 H 198 H (70-110) mg/dL 11/12/22 Range/Units 11:25 POC Glucose (mg/dL) 234 H (70-110) mg/dL Assessment and Plan (1) Diabetic foot infection Current Visit: Yes Status: Acute Code(s): E11.628 - TYPE 2 DIABETES MELLITUS WITH OTHER SKIN COMPLICATIONS; L08.9 - LOCAL INFECTION OF THE SKIN AND SUBCUTANEOUS TISSUE, UNSP SNOMED Code(s): 690562120 (2) Wound of foot Current Visit: Yes Status: Acute Code(s): S91.309A - UNSPECIFIED OPEN WOUND, UNSPECIFIED FOOT, INITIAL ENCOUNTER SNOMED Code(s): 642810823 Plan: 1patient with right diabetic foot wound with secondary infection cultures are growing MSSA and anaerobes patient did have a wound with slough tissue and concern for underlying deep infection. 2patient is status post vascular surgery evaluation and debridement of the right foot plantar wound along with deep culture growing MSSA and Enterobacter along with anaerobes 3patient bone scan was suspicious for osteomyelitis antibiotic will be switched over to cefepime and Flagyl PICC line for outpatient IV antibiotic therapy Time with Patient: Less than 30
[2022-11-12] MEDS: metroNIDAZOLE 500 MG TAB PO SCH (23:34)
[2022-11-12] MEDS: CEFEPIME 2 GM in SODIUM CHLORIDE 0.9% 100 ML IVPB SCH (23:34)
[2022-11-13] MEDS: HEPARIN SODIUM,PORCINE/PF 5,000 UNIT/0.5 ML SYRINGE SQ SCH ×3 (00:11→16:10)
[2022-11-13 06:12] LABS: Glucose,Whole Blood 116 mg/dL (70-110)
[2022-11-13] MEDS: INSULIN ASPART (NovoLOG) 100 UNIT/ML VIAL SQ SCH ×6 (06:23→18:04)
[2022-11-13] MEDS: CEFEPIME 2 GM in SODIUM CHLORIDE 0.9% 100 ML IVPB SCH ×2 (07:03→15:52)
[2022-11-13 07:53] LABS: Anisocytosis Slight; Basophils % (A) 0 %; Eosinophils % (A) 0 %; HCT 34.1 % (39.0-53.0); HGB 9.7 gm/dL (13.0-17.5); Hypochromasia Marked; Lymphocytes # (A) 1.1 k/uL (1.0-4.8); Lymphocytes % (A) 7 %; MCH 24.1 pg (25.0-35.0); MCHC 28.6 g/dL (31.0-37.0); MCV 84.3 fL (80.0-100.0); Mean Platelet Volume 7.4; Monocytes # (A) 0.6 k/uL (0-1.0); Monocytes % (A) 4 %; Neutrophils # (A) 14.2 k/uL (1.3-7.7); Neutrophils % (A) 88 %; Platelet Count 544 k/uL (150-450); RBC 4.04 m/uL (4.30-5.90); RDW 16.4 % (11.5-15.5); WBC 16.1 k/uL (3.8-10.6)
[2022-11-13 07:58] VITALS: RESP 18
[2022-11-13 08:38] LABS: African American GFR (CKD) >90 (>60 ml/min/1.73 sqM); Anion Gap 4 mmol/L; Blood Urea Nitrogen 23 mg/dL (9-20); Calcium 8.6 mg/dL (8.4-10.2); Carbon Dioxide 40 mmol/L (22-30); Chloride 91 mmol/L (98-107); Glucose 99 mg/dL (74-99); Non-African American GFR(CKD) >90 (>60 ml/min/1.73 sqM); Potassium 4.6 mmol/L (3.5-5.1); Sodium 135 mmol/L (137-145)
[2022-11-13] MEDS: IPRATROPIUM-ALBUTEROL 3 ML NEB INHALATION SCH ×3 (09:03→15:56)
[2022-11-13 09:14] VITALS: PULSE 82
[2022-11-13] MEDS: FUROSEMIDE 40 MG TAB PO SCH ×2 (09:16→16:09)
[2022-11-13] MEDS: DOCUSATE 100 MG CAP PO SCH (09:16)
[2022-11-13] MEDS: PREGABALIN 100 MG CAP PO SCH (09:16)
[2022-11-13] MEDS: METOPROLOL TARTRATE 25 MG TAB PO SCH (09:16)
[2022-11-13] MEDS: FERROUS SULFATE 325 MG TAB PO SCH (09:16)
[2022-11-13] MEDS: LORATADINE 10 MG TAB PO SCH (09:16)
[2022-11-13] MEDS: FAMOTIDINE 20 MG TAB PO SCH (09:17)
[2022-11-13] MEDS: metroNIDAZOLE 500 MG TAB PO SCH ×2 (09:17→16:09)
[2022-11-13] MEDS: methylPREDNISolone SOD SUCCI 40 MG/ML 1 ML VIAL IV SCH (09:17)
[2022-11-13] MEDS: COLLAGENASE 250 UNIT/GM OINTMENT 30 GM TUBE TOPICAL SCH (09:17)
[2022-11-13 09:51] LABS: Erythrocyte Sedimentation Rate 85 mm/hr (0-15)
[2022-11-13] MEDS ORDERED: LIDOCAINE 1% INJ 10MG/ML (5 ML VIAL-PF) SQ ONE (11:15)
[2022-11-13 11:56] LABS: C Reactive Protein 15.2 mg/dL (<1.0)
[2022-11-13 12:00] LABS: Glucose,Whole Blood 95 mg/dL (70-110)
--- NOTE | 2022-11-13 12:33 | IR ---
PICC LINE PLACEMENT: HISTORY: Infection requiring long-term antibiotic therapy PROCEDURE: Ultrasound and fluoroscopic guidance of PICC line placement. COMPLICATIONS: None ANESTHESIA: 1. 1% Lidocaine locally. FINDINGS/TECHNIQUE: The procedure was explained to the patient. The risks, complications, benefits and alternatives were discussed and any questions were answered. Informed consent was obtained. The patient was placed supine on the fluoroscopic table and prepped and draped in the usual sterile fash ion. Utilizing a 21 gauge needle and sonographic and fluoroscopic guidance, access in the right bas ilic vein was achieved and there is placement of a 0.018 guidewire. The vein is patent. A 4-F sheat h was placed over the guidewire. The guidewire and dilator were removed and a 4-F. PICC line was chante kody through the sheath with the tip at the level of the SVC. The sheath was removed, the catheter wa s flushed and sutured into position. The patient was stable throughout the procedure and remained st able upon discharge from the Department of Radiology. The vein puncture was patent under ultrasound. A drummond scale image was obtained to document patency of the vein punctured. All elements of the maximal barrier technique were utilized. FLUOROSCOPY TIME: 1.2 minutes of fluoroscopy in 1 images submitted IMPRESSION: Successful PICC line placement under ultrasound and fluoroscopic guidance.
--- NOTE | 2022-11-13 12:37 | XR ---
EXAMINATION TYPE: XR chest 2V DATE OF EXAM: 11/13/2022 COMPARISON: 11/02/2022 TECHNIQUE: PA and lateral views submitted. HISTORY: Difficulty breathing FINDINGS: Bilateral areas of consolidation and pleural effusion with suspicion for bilateral pulmonary nodules or masses. Findings of an reported by prior CT scan. Destruction of the upper left rib cage is suspec jovan. Heart size is normal with no pneumothorax. Interstitium is stable. Correlate for underlying COPD . Hypertrophic and degenerative changes of the spine. Right-sided PICC line noted. IMPRESSION: 1. Bilateral lower lobe infiltrate and small right pleural effusion likely superimposed on a backgrou nd of COPD. Multiple pulmonary masses suspected as previously reported.
[2022-11-13 14:58] VITALS: TEMP 97.8
[2022-11-13] MEDS: MORPHINE SULFATE ER 30 MG TABLET PO SCH ×2 (14:59→16:09)
[2022-11-13] MEDS: LIDOCAINE 5% PATCH TOPICAL SCH (16:10)
[2022-11-13 16:20] VITALS: BP 109/72
[2022-11-13 16:51] LABS: Glucose,Whole Blood 95 mg/dL (70-110)
--- NOTE | 2022-11-14 09:42 | P.DS ---
Providers Date of admission: 11/02/22 22:38 Attending physician: Kirk Landrum MD Consults: 11/02/22 22:38 Consult Physician Routine Consulting Provider: [facility] Consult Reason/Comments: nstemi, chf Do you want consulting provider notified?: Yes, Notify in am Consult Physician Routine Consulting Provider: Juan Zimmerman Consult Reason/Comments: lung cancer Do you want consulting provider notified?: Yes, Notify in am 11/05/22 10:49 Consult Physician Routine Consulting Provider: Fei Landrum Consult Reason/Comments: hypoxia Do you want consulting provider notified?: Yes 11/06/22 17:51 Consult Physician Routine Consulting Provider: Ruben Conti Consult Reason/Comments: Diabetic ulcer of the right foot with positive wound culture Do you want consulting provider notified?: Yes 11/06/22 22:58 Consult Physician Routine Consulting Provider: Eliazar Maldonado Consult Reason/Comments: right foot wound , debridemnt and deep cultures Do you want consulting provider notified?: Yes Primary care physician: Shona Boston Hospital Course: Final Diagnosis -Right diabetic foot wound status post debridement and deep tissue culture rule out osteomyelitis Acute hypoxic respiratory failure related to a combination of diastolic heart failure and COPD exacerbation Acute onset congestive heart failure diastolic dysfunction, improved Acute COPD exacerbation Chronic hypoxic respiratory failure with 2L home oxygen as needed Moderate aortic stenosis Lung mass with invasion to chest wall destruction involving the ribs Chronic left shoulder pain and left upper extremity lymphedema Metastatic stage IV lung cancer Diabetes Mellitus Hypertension Prior tobacco use Full Code Discharge Disposition Patient is stable for discharge to subacute rehab. He has received PICC line and will discharge with recommendations for IV cefepime 2 gram every 8 hours and oral flagyl 500 mg TID for 6 weeks of therapy. Continue local wound care with santyl to plantar aspect of right foot. Patient to follow up with Dr. Conti on discharge and at [facility] wound clinic. He is also recommended to follow up with Dr Zimmerman he has an appointment made for 11/22/22 at 1045. He has a follow up appointment with Dr. Boston 11/19/22 at 145 pm. Patient is discharged on oral lasix twice a day, prednisone taper. Toprol XL has been discontinued and patient started on metoprolol 25 mo po bid. HGB A1C found to be 6.1 patient did have elevated blood glucose this admission and was discharged on injectible insulin, This can be adjusted once he completes steroid taper and possible can discontinue insulin and follow up A1C in 3 months. Patient will also need to follow up with Dr. Dionne Green at [facility]. Hospital Course This is a 62-year-old gentleman with past medical history significant for lung cancer on immunotherapy, congestive heart Failure, COPD, asthma, hypertension, hypertensive heart disease, who presented to the ER because of worsening shortness of breath and swelling of legs. Patient has been noticing increasing shortness of breath on exertion for the last couple of days associated with increased swelling of legs. Patient was on diuretics at home but stated that it was not working and he continues to be short of breath. Patient also currently on antibiotics for right foot wound. Because of this worsening shortness of breath and swelling of legs patient came to the ER. Initial lab work showed patient to have a white count of 12.9, hemoglobin of 8.8, platelet count of 628, sodium 137, potassium 4.3, carbon dioxide 38, troponin 0.1. CTA chest done showed no evidence of pulmonary embolism. It did show pleural thickening and destructive changes in the left upper ribs. Large mass involving the upper limits of chest wall was also seen. there are also multiple nodular masses bilaterally in lung field with right sided pleural effusion, effusion is increased since october of 2022. Patient was admitted to hospitalist service for further evaluation and treatment. Cardiology was consulted for acute heart failure, patient had echocardiogram completed showing normal LV function and moderate aortic stenosis, mild mitral stenosis and was started on IV lasix. He was transitioned to oral lasix BID. Recommended to see cardiology on discharge. He was He was started on empiric antibiotics and infectious disease services consulted. Vascular surgery performed excisional debridement of right foot diabetic ulcer which cultures growing MSSA and enterobacter cloacae. Local wound care completed with santyl daily. He underwent bone scan showing evidence of osteomyelitis and PICC line was placed single lumen right upper arm. He is discharged to subacute rehab on IV and oral antibiotics. 11/13/2022 Patient evaluated today on medical floor. No acute events overnight. He denies shortness of breath, no chest pain. Received single lumen right upper arm PICC for discharge antibiotics. He will be discharged to subacute rehab today. Labs today showing white count of 16.1, hgb 9.7, sodium 135, potassium 4.6, BUN 23, creatinine 0.48. CRP 15.2. Infectious disease has cleared for discharge. Patient will continue with local wound care as above and follow up with Dr. Conti in the wound care clinic at [facility]. He will be discharged on oral steroid taper. His lungs are clear today, S1 S2 auscultated and remaining in sinus rhythm. Focal neurological exam is negative. Pain is controlled. Follow up appointments as above. He is afebrile, heart rate 82, blood pressure 109/72, 95% on 2L nasal cannula. Total time taken in discharge planning greater than 35 minutes. Please see medication reconciliation for a list of current medication. Thank you for allowing us to participate in the care of this patient. The impression and plan of care has been dictated by Yamile Tena, Nurse Practitioner as directed. Dr. Donato MD I have performed a history and physical examination and medical decision making of this patient, discussed the same with the dictator, and agree with the dictators assessment and plan as written, documented as a scribe. Based on total visit time, I have performed more than 50% of this visit. Patient Condition at Discharge: Stable Plan - Discharge Summary New Discharge Prescriptions: New Furosemide [Lasix] 40 mg PO BID@0900,1600 tab Lidocaine 5% Patch [Lidoderm 5% Patch] 2 patch TOPICAL DAILY@1500 patch HYDROcodone/APAP 5-325MG [[place] 5-325] 1 each PO Q6HR PRN #4 tab PRN Reason: Pain INSULIN ASPART (NovoLOG) [NovoLOG (formulary)] 3 unit SQ AC-TID each Famotidine [Pepcid] 20 mg PO BID tab predniSONE 0 mg PO DIRECTED 16 Days #38 tab Collagenase [Santyl Ointment] 1 applic TOPICAL DAILY each Docusate [Colace] 100 mg PO BID cap metroNIDAZOLE [Flagyl] 500 mg PO TID tab Insulin Detemir (Levemir) [Levemir] 17 unit SQ HS each Metoprolol Tartrate [Lopressor] 25 mg PO BID tab Cefepime [Maxipime] 2 gm IVPB Q8H each INSULIN ASPART (NovoLOG) [NovoLOG (formulary)] 0 unit SQ ACHS each Sennosides [Senokot] 8.6 mg PO BID PRN tab PRN Reason: Constipation Continue Albuterol Sulfate [Ventolin HFA] 2 puff INHALATION RT-Q4H PRN PRN Reason: Shortness Of Breath ondansetron HCL [Zofran] 8 mg PO TID PRN PRN Reason: Nausea And Vomiting Multivitamins, Thera [Multivitamin (formulary)] 1 tab PO DAILY Ipratropium-Albuterol Nebulize [Duoneb 0.5 mg-3 mg/3 ml Soln] 3 ml INHALATION RT-QID PRN PRN Reason: Shortness Of Breath Loratadine [Claritin] 10 mg PO DAILY #30 tab Ferrous Sulfate [Iron (65 MG Elemental)] 325 mg PO DAILY Pregabalin [Lyrica] 200 mg PO BID #2 cap Morphine Sulfate [Ms Contin] 30 mg PO TID #3 tab Discontinued Furosemide [Lasix] 20 mg PO DAILY PRN PRN Reason: Edema Cephalexin [Keflex] 500 mg PO QID Discharge Medication List Albuterol Sulfate [Ventolin HFA] 2 puff INHALATION RT-Q4H PRN 08/03/21 [History] ondansetron HCL [Zofran] 8 mg PO TID PRN 08/17/22 [History] Loratadine [Claritin] 10 mg PO DAILY #30 tab 08/18/22 [Rx] Ferrous Sulfate [Iron (65 MG Elemental)] 325 mg PO DAILY 11/02/22 [History] Ipratropium-Albuterol Nebulize [Duoneb 0.5 mg-3 mg/3 ml Soln] 3 ml INHALATION RT-QID PRN 11/02/22 [History] Multivitamins, Thera [Multivitamin (formulary)] 1 tab PO DAILY 11/02/22 [History] Cefepime [Maxipime] 2 gm IVPB Q8H each 11/13/22 [Rx] Collagenase [Santyl Ointment] 1 applic TOPICAL DAILY each 11/13/22 [Rx] Docusate [Colace] 100 mg PO BID cap 11/13/22 [Rx] Famotidine [Pepcid] 20 mg PO BID tab 11/13/22 [Rx] Furosemide [Lasix] 40 mg PO BID@0900,1600 tab 11/13/22 [Rx] HYDROcodone/APAP 5-325MG [[place] 5-325] 1 each PO Q6HR PRN #4 tab 11/13/22 [Rx] INSULIN ASPART (NovoLOG) [NovoLOG (formulary)] 0 unit SQ ACHS each 11/13/22 [Rx] INSULIN ASPART (NovoLOG) [NovoLOG (formulary)] 3 unit SQ AC-TID each 11/13/22 [Rx] Insulin Detemir (Levemir) [Levemir] 17 unit SQ HS each 11/13/22 [Rx] Lidocaine 5% Patch [Lidoderm 5% Patch] 2 patch TOPICAL DAILY@1500 patch 11/13/22 [Rx] Metoprolol Tartrate [Lopressor] 25 mg PO BID tab 11/13/22 [Rx] Morphine Sulfate [Ms Contin] 30 mg PO TID #3 tab 11/13/22 [Rx] Pregabalin [Lyrica] 200 mg PO BID #2 cap 11/13/22 [Rx] Sennosides [Senokot] 8.6 mg PO BID PRN tab 11/13/22 [Rx] metroNIDAZOLE [Flagyl] 500 mg PO TID tab 11/13/22 [Rx] predniSONE 0 mg PO DIRECTED 16 Days #38 tab 11/13/22 [Rx] Follow up Appointment(s)/Referral(s): Shona Boston MD [Primary Care Provider] - 11/19/22 1:45 pm Fei Landrum MD [STAFF PHYSICIAN] - 1 Week Ruben Conti MD [STAFF PHYSICIAN] - 1 Week Slick Green MD [STAFF PHYSICIAN] - 1 Week [facility], [NON-STAFF] - Juan Zimmerman MD [STAFF PHYSICIAN] - 11/22/22 10:45 am Ambulatory/Diagnostic Orders: Basic Metabolic Panel [LAB.AMB] Time Frame: 3 Days, Location: None Selected Complete Blood Count w/diff [LAB.AMB] Time Frame: 3 Days, Location: None Selected Activity/Diet/Wound Care/Special Instructions: Local wound care santyl to right plantar foot. Follow up with Dr. Conti in the Wound care Clinic please call [facility] Wound care at [phone] to make follow up appointment Patient is being discharged with PICC line Continue IV cefepime 2 grams every 8 hours for 6 weeks Continue oral flagyl 500 mg Q8h for 6 weeks. Discharge Disposition: TRANSFER TO SNF/ECF
--- NOTE | 2022-11-18 23:24 | P.PN ---
Subjective Progress Note Date: 11/13/22 Principal diagnosis: Right diabetic foot infection Patient is a 62-year-old male with a past medical history taken for diabetes mellitus presenting to the hospital 4 days ago on 11/02/2022 for evaluation of increasing shortness of breath and lower extremity swelling marilu ent also have wound on the plantar aspect of the right foot which has been there for for more than a week before presentation to the hospital patient did have local cultures obtained growing MSSA and anaerobes. Patient is status post bedside debridement of his right foot plantar wound by vascular surgery mention wound was extending on into the subcutaneous tissue no involvement of the bone, procedure completed on 11/07/2022 On today's evaluation that is 11/13/2022, the patient continues to be afebrile, the patient is breathing slightly comfortably on a 2 L nasal cannula, the patient denies chest pain, the patient denies any worsening cough or sputum production, no nausea no vomiting no abdominal pain and diarrhea has slowed down, denies any pain to the right foot wound area Objective - Vital Signs Vital signs: Vital Signs Temp 97.5 F L 11/13/22 07:57 Pulse 82 11/13/22 09:13 Resp 18 11/13/22 09:13 BP 105/62 11/13/22 07:57 Pulse Ox 94 L 11/13/22 09:03 FiO2 Intake & Output 11/12/22 11/13/22 11/13/22 18:59 06:59 18:59 Intake Total 476 Output Total 400 875 600 Balance 76 -875 -600 Weight 104 kg 104 kg Intake: Oral 476 Output: Urine 400 875 600 Other: Voiding Method Urinal Urinal Urinal Diaper Diaper Diaper # Voids 1 # Bowel Movements 1 - Exam GENERAL DESCRIPTION: An elderly male lying in bed in no distress RESPIRATORY SYSTEM: Unlabored breathing , decreased breath sounds at bases HEART: S1 S2 regular rate and rhythm , ABDOMEN: Soft , no tenderness EXTREMITIES: Right foot plantar wound is currently dressed, no drainage on the dressing - Labs CBC & Chem 7: 11/13/22 07:24 11/13/22 07:24 Labs: Abnormal Lab Results - Last 24 Hours (Table) 11/12/22 11/12/22 11/13/22 Range/Units 16:17 20:09 06:11 WBC (3.8-10.6) k/uL RBC (4.30-5.90) m/uL Hgb (13.0-17.5) gm/dL Hct (39.0-53.0) % MCH (25.0-35.0) pg MCHC (31.0-37.0) g/dL RDW (11.5-15.5) % Plt Count (150-450) k/uL Neutrophils # (1.3-7.7) k/uL ESR (0-15) mm/hr Sodium (137-145) mmol/L Chloride (98-107) mmol/L Carbon Dioxide (22-30) mmol/L BUN (9-20) mg/dL Creatinine (0.66-1.25) mg/dL POC Glucose (mg/dL) 160 H 190 H 116 H (70-110) mg/dL C-Reactive Protein (<1.0) mg/dL 11/13/22 11/13/22 Range/Units 07:24 07:24 WBC 16.1 H (3.8-10.6) k/uL RBC 4.04 L (4.30-5.90) m/uL Hgb 9.7 L (13.0-17.5) gm/dL Hct 34.1 L (39.0-53.0) % MCH 24.1 L (25.0-35.0) pg MCHC 28.6 L (31.0-37.0) g/dL RDW 16.4 H (11.5-15.5) % Plt Count 544 H (150-450) k/uL Neutrophils # 14.2 H (1.3-7.7) k/uL ESR 85 H (0-15) mm/hr Sodium 135 L (137-145) mmol/L Chloride 91 L (98-107) mmol/L Carbon Dioxide 40 H (22-30) mmol/L BUN 23 H (9-20) mg/dL Creatinine 0.48 L (0.66-1.25) mg/dL POC Glucose (mg/dL) (70-110) mg/dL C-Reactive Protein 15.2 H (<1.0) mg/dL Assessment and Plan (1) Diabetic foot infection Status: Acute Code(s): E11.628 - TYPE 2 DIABETES MELLITUS WITH OTHER SKIN COMPLICATIONS; L08.9 - LOCAL INFECTION OF THE SKIN AND SUBCUTANEOUS TISSUE, UNSP SNOMED Code(s): 453169940 (2) Wound of foot Status: Acute Code(s): S91.309A - UNSPECIFIED OPEN WOUND, UNSPECIFIED FOOT, INITIAL ENCOUNTER SNOMED Code(s): 775576788 Plan: 1patient with right diabetic foot wound with secondary infection cultures are growing MSSA and anaerobes patient did have a wound with slough tissue and concern for underlying deep infection. 2patient is status post vascular surgery evaluation and debridement of the right foot plantar wound along with deep culture growing MSSA and Enterobacter along with anaerobes 3patient bone scan was suspicious for osteomyelitis , patient to continue with cefepime and Flagyl 6 weeks with weekly monitoring of CBC CRP and a sed rate and close outpatient follow-up Time with Patient: Less than 30
== END 2022-11-13 18:11 | DRG 264 ==
LOC: EC 19:18 → 3SCARD 22:38
PROVIDERS: ADMIT Internal Medicine; ATTEND Internal Medicine
PROC: 0JBQ0ZZ Excision of Right Foot Subcutaneous Tissue and Fascia, Open Approach (ICD-10-PCS; principal; 2022-11-07)
PROC: 02HV33Z Insertion of Infusion Device into Superior Vena Cava, Percutaneous Approach (ICD-10-PCS; 2022-11-13)
DX: I11.0 Hypertensive heart disease with heart failure (principal); I50.33 Acute on chronic diastolic (congestive) heart failure; J96.21 Acute and chronic respiratory failure with hypoxia; C34.12 Malignant neoplasm of upper lobe, left bronchus or lung; C78.02 Secondary malignant neoplasm of left lung; C78.01 Secondary malignant neoplasm of right lung; C79.51 Secondary malignant neoplasm of bone; D84.821 Immunodeficiency due to drugs; M86.8X7 Other osteomyelitis, ankle and foot; J44.1 Chronic obstructive pulmonary disease with (acute) exacerbation; L97.929 Non-pressure chronic ulcer of unspecified part of left lower leg with unspecified severity; L97.919 Non-pressure chronic ulcer of unspecified part of right lower leg with unspecified severity; I05.0 Rheumatic mitral stenosis; E11.621 Type 2 diabetes mellitus with foot ulcer; E11.69 Type 2 diabetes mellitus with other specified complication; E11.628 Type 2 diabetes mellitus with other skin complications; E11.42 Type 2 diabetes mellitus with diabetic polyneuropathy; E11.622 Type 2 diabetes mellitus with other skin ulcer; I35.0 Nonrheumatic aortic (valve) stenosis; D63.0 Anemia in neoplastic disease; L97.513 Non-pressure chronic ulcer of other part of right foot with necrosis of muscle; Z99.81 Dependence on supplemental oxygen; I89.0 Lymphedema, not elsewhere classified; M79.89 Other specified soft tissue disorders; G89.3 Neoplasm related pain (acute) (chronic); F10.91 Alcohol use, unspecified, in remission; I49.3 Ventricular premature depolarization; R01.1 Cardiac murmur, unspecified; L08.9 Local infection of the skin and subcutaneous tissue, unspecified; B95.61 Methicillin susceptible Staphylococcus aureus infection as the cause of diseases classified elsewhere; B96.89 Other specified bacterial agents as the cause of diseases classified elsewhere; L08.89 Other specified local infections of the skin and subcutaneous tissue; D75.838 Other thrombocytosis; K59.03 Drug induced constipation; T40.2X5A Adverse effect of other opioids, initial encounter; R19.7 Diarrhea, unspecified; R41.82 Altered mental status, unspecified; R79.89 Other specified abnormal findings of blood chemistry; Z20.822 Contact with and (suspected) exposure to COVID-19; Z28.310 Unvaccinated for COVID-19; Z87.891 Personal history of nicotine dependence; Z79.899 Other long term (current) drug therapy; Z79.891 Long term (current) use of opiate analgesic; Z79.2 Long term (current) use of antibiotics; Z88.8 Allergy status to other drugs, medicaments and biological substances; Z86.14 Personal history of Methicillin resistant Staphylococcus aureus infection; Z89.422 Acquired absence of other left toe(s); Z83.3 Family history of diabetes mellitus
CPT/HCPCS: 36415; 36573; 36600; 70450; 71046; 71275; 78315; 80048; 80053; 81003; 82248; 82607; 82746; 82805; 83010; 83036; 83540; 83550; 83615; 83880; 84484; 85025; 85027; 85045; 85610; 85652; 85730; 86140; 87070; 87075; 87077; 87186; 87205; 87635; 93005; 93306; 93970; 94640; 94760; 96374; 96375; 99285